=== PATIENT | male | born 1950 | race Caucasian/White ===

== ENCOUNTER 2018-02-23 12:25 | Outpatient (REF) | payer OTHER, SELFPAY ==
[2018-02-23 21:34] LABS: Anion Gap 11.6 mmol/L (3-11); BUN 28 mg/dL (7-18); CO2 24.4 mmol/L (21.0-32.0); CREATININE 1.34 mg/dL (0.70-1.30); Calcium 9.3 mg/dL (8.5-10.1); Chloride 103 mmol/L (98-107); Estimated GFR 52.85 (mL/min/1.73m2); Glucose 272 mg/dL (70-100); Potassium 4.9 mmol/L (3.5-5.1); Sodium 139 mmol/L (136-145)
== END 2018-02-23 12:45 ==
LOC: NCHCN 12:25
PROVIDERS: PCP Nurse Practitioner Family; Visit Provider Nurse Practitioner Family
DX: I10 Essential (primary) hypertension (principal); E11.22 Type 2 diabetes mellitus with diabetic chronic kidney disease; E11.40 Type 2 diabetes mellitus with diabetic neuropathy, unspecified; N18.3 Chronic kidney disease, stage 3 (moderate); M10.9 Gout, unspecified; E66.9 Obesity, unspecified; N40.1 Benign prostatic hyperplasia with lower urinary tract symptoms
CPT/HCPCS: 80048

== ENCOUNTER 2018-03-21 01:46 | Outpatient (CLI) | payer OTHER, SELFPAY ==
--- NOTE | 2018-03-21 11:00 | DIABASSESS_ITS ---
DESCRIPTION/ASSESSMENT: Filemon Velásquez requests a follow up visit to help him control his blood sugars last seen 03/2016. Filemon has an increased A1c 9.8. He also reports chronic renal disease. He is particularly wanting to prevent renal disease from worsening. MEDICATION: Filemon manages his diabetes with Lantus 58units and Humalog with meals at 2 units per 15 grams and insulin correction at 1 unit corrects 25mg/dl above 140mg/dl. He states he takes mealtime insulin always based on blood sugar. He is less specific about adding insulin for carbohydrate. MONITORING: Filemon states he tests his blood sugars before every meal, however his glucometer indicates he is testing once a day and often skips days. That means he is not receiving mealtime insulin most meals. MEALS: Filemon states he eats twice a day with an occasional bedtime snack of quesadilla. He eats out 3 times a week. Breakfast is either eggs and sausage, or grits and sausage. He has meat and vegetables with a starch such as beans. He states he eats no sweets or snack food. INTERVENTION: Medical Nutrition Therapy is offered based on patients interest and assessment of needs: MEALS - review foods he eats that require insulin. Focus on clarifying carbohydrate sources and portions. MONITORING - Discussed monitoring barriers. Filemon acknowledges he may not be as conscientious as he was initially. He agrees to spend the next week documenting blood sugars, insulin dosing and food to assess whether his current insulin dosing scale is effective. MEDICATION: He is given a new copy of his old insulin scale. ACTION PLAN: Filemon will document food, blood sugar and insulin dosing for 1 week. He has a f/u visit 03/28/18 Individual MNT __3__ units billed TIME IN: 1300 OUT: 1350 No DM group education series being offered at this time.
== END 2018-03-21 02:06 ==
PROVIDERS: PCP Nurse Practitioner Family; Visit Provider Dietitian, Registered
DX: E11.9 Type 2 diabetes mellitus without complications (principal); N18.9 Chronic kidney disease, unspecified; Z79.4 Long term (current) use of insulin; Z71.3 Dietary counseling and surveillance
CPT/HCPCS: 97802

== ENCOUNTER 2018-03-28 09:24 | Outpatient (CLI) | payer OTHER, SELFPAY ==
--- NOTE | 2018-03-28 10:00 | DM INPTCON_ITS ---
DESCRIPTION/ASSESSMENT: Follow up visit from Mr. Velásquez who comes with his food record with blood sugars and insulin dosing. Fasting blood sugar 174-235; lunch blood sugar 127-203. This report indicates he eats twice a day. States he sometimes has a bedtime snack, last night he ate white castle sliders at 37grams carbohydrate at bedtime. Breakfast varies from 12 grams carbohydrate to 37 grams; 2nd meal 0-60+ grams. He takes 12 or 16 units Novolog twice daily. INTERVENTION: Given there is no explanation other than occasional undocumented snack for hyperglycemia in the morning, suggest he monitor his blood sugars before bed x 2 days and document snack. He is able to identify carbohydrate sources and he does read the label, however reviewed portion comparison to actual intake. He is motivated to manage his diabetes to prevent kidney problems and is engaged in the conversation. PLAN: He will monitor his blood sugars at bedtime and document all snacks. We will be in touch by telephone on Tuesday.
== END 2018-03-28 09:44 ==
PROVIDERS: PCP Nurse Practitioner Family; Visit Provider Dietitian, Registered
DX: E11.9 Type 2 diabetes mellitus without complications (principal); Z79.4 Long term (current) use of insulin; Z71.3 Dietary counseling and surveillance

== ENCOUNTER 2018-05-22 16:08 | Outpatient (REF) | payer OTHER, SELFPAY | END 2018-05-22 16:28 | LOC: LBN 16:08 | PROVIDERS: PCP Nurse Practitioner Family; Visit Provider Podiatrist | DX: L97.528 Non-pressure chronic ulcer of other part of left foot with other specified severity (principal) | CPT/HCPCS: 87070; 87205 ==

== ENCOUNTER 2018-05-24 01:26 | Outpatient (CLI) | payer OTHER, SELFPAY ==
--- NOTE | 2018-05-24 12:00 | DIABASSESS_ITS ---
DESCRIPTION/ASSESSMENT: Phil Velásquez drops in to follow up regarding his blood sugars. He brings in his glucometer. He reports he is now getting infusion for a toe infection and is scheduled for surgery Tuesday. He is officially seen 05/24/18 during his infusion. We have been following up by telephone. We experimented with decreasing his Lantus dose to see if he is 'overbasalized' causing hyperglycemia in the AM. His blood sugars were higher before supper on the lower Lantus dose. He is back on 58units Lantus taken in the AM. His glucometer readings today are fasting blood sugars 178-264; pre-supper 103-189mg/dl, mostly less than 128mg/dl. He states he tries to eat less than 60 grams carbohydrate at 2 meals with a piece of fruit before bed. His insulin dosing is 4 units for every 15 grams carbohydrate. His insulin correction scale is 1 unit to correct 25mg/dl above 125mg/dl. Had encouraged him to take his blood sugar before bed, or in the night to see if his supper insulin dose is inadequate, or if his basal insulin dose needs adjusting to address fasting hyperglycemia. INTERVENTION: Discussed his basal insulin and whether it is lasting 24 hours. Discussed alternatives including switching Lantus to evening. Suggested Tresiba as a longer lasting basal insulin. In addition, discussed GLP1 inhibitors action and benefits for weight loss, cardiovascular protection and improved A1c. PLAN: Will follow up with Phil tomorrow during his infusion to review his insulin dosing scale. In the meantime, he will switch Lantus to evening by skipping 4/10 Lantus dose and take it at supper. He will correct insulin at supper. He will discuss on with PCP consideration for Tresiba for a longer acting basal insulin to cover more than 24 hours; and/or consideration for GLP1 inhibitor for glycemic improvement if Tresiba is not covered by insurance. He states he has 2 more days of Lantus before needing a refill. Individual DSME/T __0__ units billed TIME IN: 1200 OUT: 1215 No DM group education series being offered at this time.
== END 2018-05-24 01:46 ==
PROVIDERS: PCP Nurse Practitioner Family; Visit Provider Dietitian, Registered
DX: E11.9 Type 2 diabetes mellitus without complications (principal); Z71.3 Dietary counseling and surveillance; Z79.4 Long term (current) use of insulin

== ENCOUNTER 2018-05-25 00:50 | Outpatient (RCR) | payer OTHER, SELFPAY ==
[2018-05-22] MEDS: Normal Saline Flush 10 ML SYR IVP (12:30)
[2018-05-22] MEDS: cefTRIAXone 2 GM/50 ML BAG IVPB (12:35)
[2018-05-23] MEDS: cefTRIAXone 2 GM/50 ML BAG IVPB (11:54)
[2018-05-23] MEDS: Normal Saline Flush 10 ML SYR IVP (11:54)
[2018-05-24] MEDS: cefTRIAXone 2 GM/50 ML BAG IVPB (11:48)
[2018-05-24] MEDS: Normal Saline Flush 10 ML SYR IVP (11:48)
[2018-05-25] MEDS: cefTRIAXone 2 GM/50 ML BAG IVPB (12:30)
[2018-05-25] MEDS: Normal Saline Flush 10 ML SYR IVP (12:36)
== END 2018-06-13 23:59 | disposition home or self-care (01) ==
LOC: INF 00:50
PROVIDERS: PCP Nurse Practitioner Family; Visit Provider Podiatrist
DX: E11.621 Type 2 diabetes mellitus with foot ulcer (principal); L97.526 Non-pressure chronic ulcer of other part of left foot with bone involvement without evidence of necrosis; M86.171 Other acute osteomyelitis, right ankle and foot; Z79.4 Long term (current) use of insulin
CPT/HCPCS: 96365

== ENCOUNTER 2018-05-26 06:54 | Day surgery (SDC) | payer OTHER, SELFPAY ==
[2018-05-26 07:28] VITALS: BP 148/80; PULSE 101; RESP 18; TEMP 36.6; O2SAT 93
[2018-05-26] MEDS: Normal Saline 1,000 ML 80 ML IV (07:54)
[2018-05-26] MEDS: cefTRIAXone 2 GM/50 ML BAG IVPB (08:55)
[2018-05-26] MEDS: Bupivacaine 0.5% Pres-Free 30 ML VIAL (09:10)
[2018-05-26] MEDS: Lidocaine 1% Multi-Dose 50 ML VIAL (09:10)
--- NOTE | 2018-05-26 09:20 | AMP_PTH ---
PATIENT: Phil Velásquez LOC: [facility] U#:[id number] AGE/SX: 67/M ROOM: RE05/26/[address]: Darryl Rawls : 1950 BED: DIS: 05/26/2018 SPEC #: [id number] RECD: 05/26/18 12:39 STATUS: [facility]ANNE REQ #: [id number] MEG: 05/26/18 09:[address]: Darryl Rawls DEPT: Surgical Specimen RECD BY: Lilliana Torres ENTERED: 05/26/18 12:40 SP TYPE: Amputation OTHR DR: Reena Payan Tissues: 1 - AMPUTATION FINGERS/TOES(NOT TRAUMA) Procedures: GROSS AND MICRO LEVEL 4 DECALCIFICATION Comments: [id number]
--- NOTE | 2018-05-26 09:39 | W.PM.DSUDISC ---
Discharge Plan Disposition Patient Disposition: HOME Condition: Good Discharge Details Reason For Visit: amputation 2nd toe,left Attending Provider: Darryl Rawls Primary Care Provider: Reena Payan Home Meds and New Rx's Prescriptions: New ibuprofen 600 mg tablet 600 mg PO QID PRN (Reason: pain) Qty: 40 RF: 0 sulfamethoxazole-trimethoprim [Bactrim DS] 800-160 mg tablet 1 tab PO DAILY Qty: 10 RF: 0 No Action simvastatin 10 MG tablet 10 mg PO DAILY RF: 0 silver sulfadiazine 25 GM cream 1 tub Topical DAILY RF: 0 bacitracin zinc 28.4 GM ointment 15 gm Topical DAILY RF: 0 hydrochlorothiazide 12.5 MG capsule 12.5 mg PO DAILY RF: 0 lisinopril 40 MG tablet 40 mg PO DAILY RF: 0 Lantus Solostar U-100 Insulin 100 UNIT/ML insulin pen 30 unit SQ DAILY RF: 0 Novolin 70/30 U-100 Insulin 100 UNITS/ML suspension 10 units RF: 0 allopurinol 100 mg Tablet 100 mg PO DAILY RF: 0 Discharge Instructions Activity:: Elevate Remove Dressings/Wound Care:: Do Not Remove Shower/Bathe:: Cover Diet:: Normal Diet Discharge Orders Discharge Orders: Discharge Order (Routine); Ordered 05/26/18 Ordered By: Darryl Rawls DS: Diagnosis Discharge Diagnosis (1) Osteomyelitis of ankle and foot: Status: Acute
[2018-05-26 10:05] VITALS: BP 159/78; PULSE 84; RESP 16; TEMP 36.6; O2SAT 95
--- NOTE | 2018-05-26 11:20 | ROE_ITS ---
DATE OF PROCEDURE: May 26, 2018 PREOPERATIVE DIAGNOSIS: Diabetic ulceration with osteomyelitis, left second toe. POSTOPERATIVE DIAGNOSIS: Same. PROCEDURE: Amputation left second toe at the MPJ level. SURGEON: Bbi Cruz.P.M. ANESTHESIA: IV General. ANESTHESIA PROVIDER: Trevor Lucas CRNA OPERATIVE INDICATIONS: 67-year-old male who has a rigidly-contracted second hammertoe; subsequently did a fair amount of walking on a new pair of shoes; developed pain, swelling, odor in his left secon d toe. He presented to the office with the bone sticking out. He was placed on IV antibiotics and a fter several days, brought to the OR for definitive management of this process via amputation of the second toe. Phil understands the permanency of the procedure, as well as the potential for pain, s carring, infection, wound dehiscence, the need for revisional procedures. Informed consent has been obtained. No promises made to the final outcome of surgery. REPORT OF OPERATION: Phil was brought to the operative suite and placed in the supine position. T he left foot was prepped and draped in the usual sterile podiatric fashion. Anesthesia being obtaine d, attention was directed to the left foot, which was exsanguinated, a well-padded ankle tourniquet i nflated 250 mmHg. Attention was directed to the second toe, where two converging, semi-elliptical incisions were placed at the base of the toe. The incisions were made in controlled-depth fashion with hemostasis being a cquired by electrocautery, as needed. The level at the MPJ appeared healthy and clean. He did have some retained pus at the most-distal aspect of the toe, which was covered with a surgical glove. The extensor and flexor tendons were severed. The 15 blade was carried down to bone. The joint capsule was released and the second toe removed from the surgical wound. Evaluation of the wound appears he althy. There was no sign of purulence; tissues looked viable. Copious irrigation was performed. D ue to the recent infection, the pus retained within the toe itself, I put them together very loosely. I did simple, interrupted suture #3-0 Nylon, four sutures in total, which will allow for drainage and/or bleeding, as needed. Xeroform, gauze fluff compression dressings were applied. The tourniqu et was released at ten minutes, vascularity returned to the foot unremarkably. Phil left the OR wi th vital signs stable, vascular status intact, sharp and sponge counts were correct. He will be foll owed by me in the office next week. cc: Reena Payan N.P.
== END 2018-05-26 10:40 | disposition home or self-care (01) ==
PROVIDERS: PCP Nurse Practitioner Family; Visit Provider Podiatrist
PROC: (CPT 28820; principal; 2018-05-26 09:00)
DX: E11.621 Type 2 diabetes mellitus with foot ulcer (principal); L97.526 Non-pressure chronic ulcer of other part of left foot with bone involvement without evidence of necrosis; M86.171 Other acute osteomyelitis, right ankle and foot; Z79.4 Long term (current) use of insulin; E11.42 Type 2 diabetes mellitus with diabetic polyneuropathy; E11.22 Type 2 diabetes mellitus with diabetic chronic kidney disease; N18.3 Chronic kidney disease, stage 3 (moderate); I12.9 Hypertensive chronic kidney disease with stage 1 through stage 4 chronic kidney disease, or unspecified chronic kidney disease
CPT/HCPCS: 28820; 88300; 88305; 87070; 87075; 87205; 88311

== ENCOUNTER 2018-08-24 12:23 | Outpatient (REF) | payer OTHER, SELFPAY ==
[2018-08-24 21:44] LABS: BUN 29 mg/dL (7-18); CREATININE 1.36 mg/dL (0.70-1.30); Calcium 8.2 mg/dL (8.5-10.1); Chloride 108 mmol/L (98-107); Estimated GFR 51.81 (mL/min/1.73m2); Glucose 142 mg/dL (70-100); Potassium 4.8 mmol/L (3.5-5.1); Sodium 144 mmol/L (136-145); Uric Acid 6.6 mg/dL (3.5-7.2)
[2018-08-28 11:14] LABS: PSA, Screening 9.3 ng/ml (0-6.5)
== END 2018-08-24 12:43 ==
LOC: NCHCN 12:23
PROVIDERS: PCP Nurse Practitioner Family; Visit Provider Nurse Practitioner Family
DX: I10 Essential (primary) hypertension (principal); E11.40 Type 2 diabetes mellitus with diabetic neuropathy, unspecified; N18.3 Chronic kidney disease, stage 3 (moderate); E11.42 Type 2 diabetes mellitus with diabetic polyneuropathy; M10.9 Gout, unspecified; R97.20 Elevated prostate specific antigen [PSA]; Z12.5 Encounter for screening for malignant neoplasm of prostate; E66.9 Obesity, unspecified
CPT/HCPCS: 80048; 84153; 84550

== ENCOUNTER 2018-12-28 12:13 | Outpatient (CLI) | payer OTHER, SELFPAY ==
[2019-01-01 12:33] LABS: PSA, Diagnostic 8.6 ng/mL (0.0-6.5)
== END 2018-12-28 12:33 ==
PROVIDERS: PCP Nurse Practitioner Family; Visit Provider Urology
DX: R97.20 Elevated prostate specific antigen [PSA] (principal)
CPT/HCPCS: 36415; 84153

== ENCOUNTER 2019-02-25 13:51 | Inpatient (IN) | payer OTHER, SELFPAY ==
[2019-02-25 14:03] VITALS: BP 165/71; PULSE 104; RESP 16; TEMP 36.2; O2SAT 96
--- NOTE | 2019-02-25 14:27 | ED.GENADUL_ITS ---
Discharge Plan Disposition Patient Disposition: [facility] INPATIENT Condition: Stable Discharge Details Chief Complaint: Cellulitis Clinical Impression: Cellulitis of great toe of left foot, Hyperglycemia Primary Care Provider: Reena Payan ED Provider: Angélica Mullins Home Meds and New Rx's Prescriptions: No Action simvastatin 10 MG tablet 10 mg PO DAILY RF: 0 hydrochlorothiazide 12.5 MG capsule 12.5 mg PO DAILY RF: 0 lisinopril 40 MG tablet 40 mg PO DAILY RF: 0 Lantus Solostar U-100 Insulin 100 UNIT/ML insulin pen 61 unit SQ DAILY RF: 0 insulin lispro [Humalog KwikPen Insulin] 100 unit/mL Insulin Pen See Rx Instructions .ROUTE .COMPLEX RF: 0 allopurinol 100 mg Tablet 100 mg PO DAILY RF: 0 ibuprofen 600 mg tablet 600 mg PO QID PRN (Reason: pain) Qty: 40 RF: 0 Medical Decision Making 1430 -- 68-year-old male with a history of diabetes presents with left great toe infection for the past 2 days. He states the toe was normal to inspection prior to 2 days ago. There is moderate edema and erythema to the the entire left great toe. There is sloughing of the epidermis on the plantar surface revealing smooth erythema below with a possible necrotic center. He is otherwise neurovascularly intact. Concern for osteomyelitis and/or gangrene. Will place an IV, screening labs, fluids, x-ray of left great toe and start vancomycin. Will call Dr. Rawls. Likely will need admission for IV antibiotics. 1500 --Case discussed with Dr. Rawls -will come to evaluate patient. Labs and imaging reviewed. White blood cell count 12. ESR 64. CRP 6.64. Glucose 439. Anion gap 13. Normal bicarb. Left toe x-ray notes soft tissue swelling but no obvious osteomyelitis. Will continue IV fluids for hyperglycemia. 1540 --Dr. Rawls evaluated patient at bedside. He debrided plantar surface of wound with subsequent bleeding of area which is reassuring. Patient offered antibiotics at home or to stay for IV antibiotics the patient would rather stay in the hospital. Dr. Rawls would prefer to start Zosyn. Patient is allergic to penicillin but this was a possible rash as a baby. Will monitor for any adverse reaction. 1555 --discussed with hospitalist -accepts patient for admission. Medical Records Medical records reviewed: Yes I reviewed the patient's medical records. Imaging Data Radiologic Study: Radiologist's impression: XR Left Toe(s) Exam date and time: 02/25/2019 3:07 PM Age: 68 years old Clinical indication: Patient HX: L great toe infection, R/O osteomyelitis TECHNIQUE: Imaging protocol: XR Left toes. Views: Minimum 2 views. COMPARISON: No relevant prior studies available. FINDINGS: Bones/joints: Previous amputation of the 2nd digit at the metatarsophalangeal joint. Degenerative changes at the 1st MTP and interphalangeal joints. Soft tissues: Medial soft tissue swelling at the 1st MTP joint. No definite osseous erosion identified. IMPRESSION: No radiographic evidence of acute osteomyelitis. If there is continued clinical concern, consider MRI or three-phase nuclear medicine bone scan. Lab Data Lab results reviewed: Yes I reviewed the patient's lab results. Labs: 02/25/19 15:55 Toe - Left First Digit Skin Culture - Pending 02/25/19 15:20 Blood Blood Culture - Pending 02/25/19 15:00 Blood Blood Culture - Pending Laboratory Tests Range/Units 02/25/19 02/25/19 02/25/19 15:00 15:00 15:00 WBC (4.4-10.8) k/cumm 12.78 H RBC (4.50-6.00) m/cumm 4.15 L Hgb (13.5-17.5) g/dL 12.8 L Hct (40.0-50.0) % 38.2 L MCV (80-95) fL 92.0 MCH (27.0-33.0) pg 30.8 MCHC (32.0-36.0) g/dL 33.5 RDW (11.8-14.1) % 13.7 Plt Count (130-400) x1000/uL 279 MPV (8.0-11.0) fL 10.3 Immature Gran % % 0.2 Neutrophils % 70.3 Lymphocytes % 18.9 Monocytes % 8.7 Eosinophils % 1.2 Basophils % 0.7 Absolute Neutrophils (1.2-6.7) k/cumm 8.98 H Absolute Lymphocytes (1.2-3.4) k/cumm 2.42 Absolute Monocytes (0.11-0.7) k/cumm 1.11 H Absolute Eosinophils (0.0-0.7) k/cumm 0.15 Absolute Basophils (0.0-0.2) k/cumm 0.09 ESR (1-20) mm/hr 64 H Sodium (136-145) mmol/L 136 Potassium (3.5-5.1) mmol/L 4.9 Chloride (98-107) mmol/L 100 Carbon Dioxide (21.0-32.0) mmol/L 22.7 Anion Gap (3-11) mmol/L 13.3 H BUN (7-18) mg/dL 45 H Creatinine (0.70-1.30) mg/dL 1.64 H Estimated GFR/1.73 m2 (mL/min/1.73m2) 41.74 Glucose (74-106) mg/dL 439 H Lactate (0.6-1.4) mmol/L 1.5 H Calcium (8.5-10.1) mg/dL 9.2 Total Bilirubin (0.2-1.0) mg/dL 0.6 AST (15-37) U/L 14 L ALT (16-63) U/L 27 Alkaline Phosphatase (46-116) U/L 48 C-Reactive Protein (0.0-0.3) mg/dL 6.64 H Total Protein (6.4-8.2) g/dL 7.2 Albumin (3.4-5.0) g/dL 3.3 L HPI General Mode of arrival: ambulatory . Date/Time Provider Initiated Documentation: 02/25/19 14:11 . Limitations to Documentation: no limitations . Information obtained by: patient . History of Present Illness 68 year old M presents to the emergency department with the chief complaint of Left great toe pain, redness and swelling, Patient started experiencing this day(s) (2) and it has been constant. No relieving factors improve symptom(s), No exacer bating factors reported . Patient notes no other symptoms.. Patient did receive the following treatments prior to arrival, none Related Data Home Medications Medication Instructions Recorded Confirmed Lantus Solostar U-100 Insulin 61 unit SQ DAILY 03/18/16 02/25/19 hydrochlorothiazide 12.5 mg PO DAILY 03/18/16 02/25/19 lisinopril 40 mg PO DAILY 03/18/16 02/25/19 simvastatin 10 mg PO DAILY tab-cap 07/30/16 02/25/19 allopurinol 100 mg PO DAILY 05/26/18 02/25/19 ibuprofen 600 mg PO QID PRN #40 tab 05/26/18 02/25/19 insulin lispro [Humalog KwikPen See Rx Instructions .ROUTE .COMPLEX 02/25/19 02/25/19 Insulin] Previous Rx's Medication Instructions Recorded ibuprofen 600 mg PO QID PRN #40 tab 05/26/18 Allergies Allergy/AdvReac Type Severity Reaction Status Date / Time Penicillins Allergy Unknown Rash as Unverified 02/25/19 14:07 baby per patient General Stated Complaint: Cellulitis DENY: 3 Review of Systems All systems reviewed & are unremarkable except as noted in HPI and below Constitutional Constitutional: Reports as per HPI, Denies chills and Denies fever(s) Eyes Eyes: Denies blurry vision ENT Ears, Nose, Mouth, and Throat: Denies dizziness, Denies sore throat and Denies throat swelling Cardiovascular Cardiovascular: Denies chest pain and Denies dyspnea Respiratory Respiratory: Denies cough and Denies dyspnea Gastrointestinal Gastrointestinal: Denies abdominal pain, Denies diarrhea and Denies vomiting Genitourinary Genitourinary: Denies hematuria and Denies dysuria Musculoskeletal Musculoskeletal: Denies back pain and Denies numbness Integumentary/Breasts Skin/Breast: Reports lesions and Denies rash Neurologic Neurologic: Denies dizziness, Denies focal weakness and Denies numbness Allergic/Immunologic Allergic/Immunologic: Denies throat swelling [facility] Medical History BPH (benign prostatic hyperplasia) (Chronic) Cataract (Chronic) Chronic kidney disease, stage 3 Diabetic neuropathy DM (diabetes mellitus) Gout (Chronic) High cholesterol (Chronic) HTN (hypertension) Pseudophakia Substance abuse Surgical History Colonoscopy - IV Sedation (08/20/16) Social History Smoking/Tobacco Use Status: Former Tobacco Use Alcohol Intake: current Alcohol Intake frequency: 0-2 drinks per day Drug use: Daily Substance use type: marijuana Do you feel safe at home: Yes Do you feel safe in your relationship?: Yes Exam Const General: cooperative, healthy appearing and no acute distress [facility] Head: normal to inspection Mouth: oral mucosae normal Eyes General: appearance normal, both eyes and all related structures Neck Neck: normal visual inspection Resp Effort & Inspection: normal respiratory effort and able to speak in complete sentences Cardio Rate: regular rate Skin General skin exam: no rashes or lesions noted Neuro General: alert, awake and oriented x3 Motor: muscle tone normal throughout Extrem Ankle/foot/toe images: 1. Sloughing of epidermis on plantar aspect of left great toe. There is a 2 x 2 centimeter black boggy discoloration in center of this area. Remainder of the area is erythematous, smooth, and likely consistent with cellulitis noted below the epidermis. 2. Erythema and edema noted on dorsal aspect. Other: Left DP/PT pulses intact. Psych Appearance: grossly normal Affect: normal affect Course Vital Signs Vital signs: Vital Signs Temperature 97.2 F L 02/25/19 14:03 Pulse 104 H 02/25/19 14:03 Respiratory Rate 16 02/25/19 14:03 Blood Pressure 165/71 H 02/25/19 14:03 Pulse Oximetry 96 02/25/19 14:03 Temperature 97.2 F L 02/25/19 14:03 Temperature Source Temporal Artery Scan 02/25/19 14:03 Pulse 104 H 02/25/19 14:03 Respiratory Rate 16 02/25/19 14:03 Respiratory Effort 02/25/19 14:14 Blood Pressure 165/71 H 02/25/19 14:03 Blood Pressure Position Supine 02/25/19 14:03 Pulse Oximetry 96 02/25/19 14:03 Oxygen Delivery Method Room Air 02/25/19 14:03 Oxygen Flow Rate 0 02/25/19 14:03 Pain Level 0 02/25/19 14:03
[2019-02-25] MEDS: Normal Saline 500 ML IV ×2 (15:00→16:00)
--- NOTE | 2019-02-25 15:00 | DI.RAD_ITS ---
EXAM: XR TOE LT GREAT INDICATION: L great toe infection, r/o osteomyelitis. COMPARISON: No exams were available for comparison TECHNIQUE: 2D digital imaging was performed. FINDINGS: There are findings of a prior amputation of the 2nd toe at the level of the metatarsophalangeal joint . There are degenerative changes seen at the 1st metatarsophalangeal joint and the interphalangeal j oints of the toes. There is a bunion deformity. No acute fracture or dislocation is seen. No destr uctive or erosive changes are seen to suggest radiographic evidence of osteomyelitis. Vascular calci fications are present. No radiopaque foreign bodies are seen in the soft tissues. IMPRESSION: No radiographic findings to suggest acute osteomyelitis. If there is continued concern, an MRI or 3 phase bone scan may be considered.
[2019-02-25 15:05] LABS: Lactate 1.5 mmol/L (0.6-1.4)
[2019-02-25 15:07] LABS: Abs Immature Grans 0.03 k/cumm (0.0-0.09); Absolute Basophil Count 0.09 k/cumm (0.0-0.2); Absolute Eosinophil Count 0.15 k/cumm (0.0-0.7); Absolute Lymphocyte Count 2.42 k/cumm (1.2-3.4); Absolute Monocyte Count 1.11 k/cumm (0.11-0.7); Absolute Neutrophil Count 8.98 k/cumm (1.2-6.7); Basophils % 0.7; Eosinophils % 1.2; HCT 38.2 % (40.0-50.0); HGB 12.8 g/dL (13.5-17.5); Immature Grans % 0.2 %; Lymphocytes % 18.9; Mean Corp. HGB Concentration 33.5 g/dL (32.0-36.0); Mean Corpuscular Hemoglobin 30.8 pg (27.0-33.0); Mean Platelet Volume 10.3 fL (8.0-11.0); Monocytes % 8.7; Neutrophils % 70.3; Platelet Count 279 x1000/uL (130-400); RBC 4.15 m/cumm (4.50-6.00); RBC Distribution Width 13.7 % (11.8-14.1); White Blood Cell Count 12.78 k/cumm (4.4-10.8)
[2019-02-25] MEDS: Normal Saline Flush 10 ML SYR IVP ×2 (15:18→22:05)
[2019-02-25] MEDS: VANCOMYCIN 1,500 MG in Normal Saline 250 ML 166.6666 MG IVPB (15:23)
[2019-02-25 15:29] LABS: ALT 27 U/L (16-63); AST 14 U/L (15-37); Albumin 3.3 g/dL (3.4-5.0); Alkaline Phosphatase 48 U/L (46-116); Anion Gap 13.3 mmol/L (3-11); BUN 45 mg/dL (7-18); Bilirubin, Total 0.6 mg/dL (0.2-1.0); C-Reactive Protein 6.64 mg/dL (0.0-0.3); CO2 22.7 mmol/L (21.0-32.0); CREATININE 1.64 mg/dL (0.70-1.30); Calcium 9.2 mg/dL (8.5-10.1); Chloride 100 mmol/L (98-107); Estimated GFR 41.74 (mL/min/1.73m2); Glucose 439 mg/dL (74-106); Potassium 4.9 mmol/L (3.5-5.1); Sodium 136 mmol/L (136-145); Total Protein 7.2 g/dL (6.4-8.2)
--- NOTE | 2019-02-25 15:34 | DI.VRAD_ITS ---
PROCEDURE INFORMATION: Exam: XR Left Toe(s) Exam date and time: 02/25/2019 3:07 PM Age: 68 years old Clinical indication: Patient HX: L great toe infection, R/O osteomyelitis TECHNIQUE: Imaging protocol: XR Left toes. Views: Minimum 2 views. COMPARISON: No relevant prior studies available. FINDINGS: Bones/joints: Previous amputation of the 2nd digit at the metatarsophalangeal joint. Degenerative changes at the 1st MTP and interphalangeal joints. Soft tissues: Medial soft tissue swelling at the 1st MTP joint. No definite osseous erosion identified. IMPRESSION: No radiographic evidence of acute osteomyelitis. If there is continued clinical concern, consider MRI or three-phase nuclear medicine bone scan. Dictated and Authenticated by: Rupali Allan MD. Ordering:LUISANA Lindsay MD
[2019-02-25 15:54] LABS: ESR 64 mm/hr (1-20)
--- NOTE | 2019-02-25 16:09 | W.PODCONSULT ---
Date of service: 02/25/19 Time of Service: 16:10 History of Present Illness History of Present Illness Chief Complaint: Necrotic tissue with local cellulitis left hallux Narrative: 68-year-old male well-known to me with increasing redness and erythema developing in the left great toe over the last 48 hours. He denies any traumatic events. He has been wearing his usual shoe gear and did not participate in any different physical activities. He is unaware of how this occurred. He is a type II ocy-[id number] diabetic with peripheral neuropathy. He presents to the emergency department for medical care. [facility] Medical History BPH (benign prostatic hyperplasia) (Chronic) Cataract (Chronic) Chronic kidney disease, stage 3 Diabetic neuropathy DM (diabetes mellitus) Gout (Chronic) High cholesterol (Chronic) HTN (hypertension) Pseudophakia Substance abuse Surgical History Colonoscopy - IV Sedation (08/20/16) Social History Smoking/Tobacco Use Status: Former Tobacco Use Alcohol Intake: current Alcohol Intake frequency: 0-2 drinks per day Drug use: Daily Substance use type: marijuana Do you feel safe at home: Yes Do you feel safe in your relationship?: Yes Exam Narrative Exam Narrative: Phil is seen in room 8 of the emergency department. He is resting comfortably in a stretcher. He recognizes me immediately, he appears to be in his usual state of health aside from his left great toe. Objective: Labs are reviewed and are posted in his medical record of note WBCs 12.78 ESR 64 CRP 6.64 glucose 439 Peripheral pulses are manually palpable at the ankle graded plus 1 out of 4 bilaterally, no peripheral edema or is noted. His calves are soft to palpation.. The left great toe has an Erica encompassing the plantar aspect of the hallux from the IPJ to the dorsal surface of the nail plate with localized erythema and cellulitis extending to the base of the proximal phalanx. A flaccid blister is noted over the lateral side of the great toe and there is a moderate odor detected. Maceration is appreciated affecting the left third toe where he had a silicon cap applied to it but there was no active sign of infection. The remaining exam of the left foot was otherwise grossly benign. He does have decreased sensorium consistent with diabetic neuropathy. Hallux rigidus deformity is noted with a flexion contracture of the IPJ of the great toe which clearly exacerbates pressure at the distal tip of his digit contributing to his current injury. I reviewed the radiographs of his left foot. Soft tissue swelling is identified but no obvious signs of osteomyelitis. Advanced degenerative changes noted at the interphalangeal joint of the hallux and first MPJ. Impressions: Diabetic ulcer affecting the left great toe with cellulitis Plan: With a #10 scalpel and pickup I sharply debrided the eschar and necrotic tissue from the plantar distal lateral and medial aspects of the left great toe. Aerobic culture was obtained from a deep tissue layer after debridement and sent for Gram stain and sensitivities. He had excellent bleeding from the debridement and I am hopeful that the injury will not progress and that the great toe will be salvageable. As I explained to Phil, we will know more over the next 24 to 48 hours. He was in the process of receiving a dose of vancomycin, I am recommending that we admit him for bedrest and IV antibiotics. I am suggesting we start him on Zosyn and watch him closely for the potential of a penicillin reaction. He indicates he has had this label since he was a child but has no recollection of the effects of penicillin. Wound care will be ordered consisting of washing of the wound twice a day with application of Anasept gel and a gauze dressing. He has his own set her surgical shoe which he can use when ambulating to the bathroom. Otherwise he should be primarily in bed with the foot elevated. I will continue to follow him while he remains in house. Results Last Vital Signs Temp 36.2 C L 02/25/19 14:03 Pulse 104 H 02/25/19 14:03 Resp 16 02/25/19 14:03 BP 165/71 H 02/25/19 14:03 Pulse Ox 96 02/25/19 14:03 Labs Result diagrams: 02/25/19 15:00 02/25/19 15:00 Labs: Laboratory Results - last 24 hr 02/25/19 02/25/19 02/25/19 15:00 15:00 15:00 WBC 12.78 H RBC 4.15 L Hgb 12.8 L Hct 38.2 L MCV 92.0 MCH 30.8 MCHC 33.5 RDW 13.7 Plt Count 279 MPV 10.3 Immature Gran % 0.2 Neutrophils % 70.3 Lymphocytes % 18.9 Monocytes % 8.7 Eosinophils % 1.2 Basophils % 0.7 Absolute Neutrophils 8.98 H Absolute Lymphocytes 2.42 Absolute Monocytes 1.11 H Absolute Eosinophils 0.15 Absolute Basophils 0.09 ESR 64 H Sodium 136 Potassium 4.9 Chloride 100 Carbon Dioxide 22.7 Anion Gap 13.3 H BUN 45 H Creatinine 1.64 H Estimated GFR/1.73 m2 41.74 Glucose 439 H Lactate 1.5 H Calcium 9.2 Total Bilirubin 0.6 AST 14 L ALT 27 Alkaline Phosphatase 48 C-Reactive Protein 6.64 H Total Protein 7.2 Albumin 3.3 L
--- NOTE | 2019-02-25 16:57 | HPE_ITS ---
Date of service: 02/25/19 Time of Service: 16:57 Assessment and Plan Assessment and plan (1) Cellulitis in diabetic foot: Status: Acute Assessment and plan: Infected diabetic foot wound related to neuropathy. Patient has a history of similar. He sees Dr. Rawls from podiatry regularly, who has already evaluated and debrided the infected necrotic tissue in the emergency. Case discussed with Dr. Rawls. I agree with pip/tazo to include pseudomonas coverage given DM foot wound. Received a dose of vanco, but not a purlulent infection so I will not continue this. He seems to be tolerating pipe racillin so minor PCN reaction as child likely does not represent true allergy. (2) Diabetic foot ulcer: Status: Acute Assessment and plan: As above, wound care per Dr. Rawls. Has appropriate footware. (3) Chronic kidney disease, stage 3: Status: None Assessment and plan: Creatinine slightly above baseline. Appears adequately hydrated. Will follow. Avoid nephrotoxins. (4) DM (diabetes mellitus): Status: None Assessment and plan: A1c 8.8% in November. Complicated by neuropathy. Will repeat A1c and treat with home basal/bolus insulin. Not out of control but would benefit from improved control. Discussed diet. 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 (5) HTN (hypertension): Status: None Assessment and plan: High on lisinopril/HCTZ. Per PCP plan, add low dose amlodipine. (6) BPH loc w urin obs/LUTS: Status: Acute Assessment and plan: Chornic, monitor for retention. Has plan to f/u with urology as PSA high, consider biopsy (7) DVT prophylaxis: Status: Acute Assessment and plan: LMWH History of Present Illness History of Present Illness Chief Complaint: foot wound Narrative: 68-year-old man with type 2 diabetes on insulin with last A1c 8.8% and peripheral neuropathy who presents after noticing foot wound yesterday and his left great toe. Patient states he does not feel his toes well due to neuropathy, and just noted some skin sloughing off his left great toe in the shower yesterday. He denies pain in the area. He feels otherwise well. Clearly was not getting better, so he came into the emergency room to get it checked out today. He did have the second toe on that foot amputated previously by Dr. rogers, but states that was related to hammertoe rather than infection. He did have a history of great toe infection that was treated in 2017. As above, he is felt otherwise well, denies any fatigue, malaise, fevers, chills, nausea, or vomiting. He does admit his blood sugars have been high in the 2 and 300s recently. Is been considering adding additional medication. He has been using both types of insulin. His blood pressure is also been running high in the clinic, and his primary care was considering adding amlodipine. Review of Systems Narrative: No fever/chill. no weight change. No LINDSAY or vision change. No sore throat or mouth sores No SOB. A little cough. No chest pain or palpitations. no edema No N/V/D/C. Has some chronic LUTS, no change in urination, no dysuria No joint swelling or pain other than in toe No other rashes or open wounds No numbness or weakness All systems reviewed & are unremarkable except as noted in HPI and below [facility] Medical History (Updated 02/25/19 @ 18:00 by Matthew Vilchis) Amputation of toe of left foot (Acute) BPH (benign prostatic hyperplasia) (Chronic) BPH loc w urin obs/LUTS (Acute) Cataract (Chronic) Cellulitis in diabetic foot (Acute) Chronic kidney disease, stage 3 Diabetic foot ulcer (Acute) Diabetic neuropathy DM (diabetes mellitus) Gout (Chronic) High cholesterol (Chronic) HTN (hypertension) Pseudophakia Surgical History Colonoscopy - IV Sedation (08/20/16) Social History (Updated 02/25/19 @ 17:04 by Matthew Vilchis) Smoking/Tobacco Use Status: Former Tobacco Use Alcohol Intake: current Alcohol Intake frequency: 0-2 drinks per day Drug use: Daily Substance use type: marijuana Do you feel safe at home: Yes Do you feel safe in your relationship?: Yes Additional Social history: Lives alone in apartment in [place]. Moved ~2016 from [place] after retiring. Son Filemon Dietz is educator at [employer], lives close with grandkids. 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 Grew up in [place]. Meds Home Medications and Allergies Home Medications Medication Instructions Recorded Confirmed Type Lantus Solostar U-100 Insulin 61 unit SQ DAILY 03/18/16 02/25/19 History hydrochlorothiazide 12.5 mg PO DAILY 03/18/16 02/25/19 History lisinopril 40 mg PO DAILY 03/18/16 02/25/19 History simvastatin 10 mg PO DAILY tab-cap 07/30/16 02/25/19 History allopurinol 100 mg PO DAILY 05/26/18 02/25/19 History ibuprofen 600 mg PO QID PRN #40 tab 05/26/18 02/25/19 Rx insulin lispro [Humalog KwikPen See Rx Instructions .ROUTE .COMPLEX 02/25/19 02/25/19 History Insulin] Allergies Allergy/AdvReac Type Severity Reaction Status Date / Time Penicillins Allergy Unknown Rash as Unverified 02/25/19 14:07 baby per patient Exam Narrative Exam Narrative: GEN: A&O x 3, sitting comfortably, pleasant and cooperative. HEENT: NC/AT. Conj clear, PEERL, EOMI. no icterus. MMM, OP benign. Neck supple. No LAD< nl thyroid LUNGS: CTAB, nl effort CV: RRR, no M/G/R. Pulse 2+ jenn DP ABD: +BS, soft, NT/ND EXT: no cynosis, clubbing, or edema. Left 2nd toe amputated. Clean dressing on left 1st toe (just debrided by Dr. Rawls). No other deformity MSK: No redness or swelling in joints. SKIN: No redness extending proximal from right 1st toe. See EXT. no other rash. NEURO: CN grossly intact. Nl movement 4 ext. No coordination, speech. Able to feel to light touch in toes jenn, but deminished from distal foot to toes PSYCH: normal mood and affect, nl thought process Results Labs Result diagrams: 02/25/19 15:00 02/25/19 15:00 Labs: Laboratory Results - last 24 hr 02/25/19 02/25/19 02/25/19 15:00 15:00 15:00 WBC 12.78 H RBC 4.15 L Hgb 12.8 L Hct 38.2 L MCV 92.0 MCH 30.8 MCHC 33.5 RDW 13.7 Plt Count 279 MPV 10.3 Immature Gran % 0.2 Neutrophils % 70.3 Lymphocytes % 18.9 Monocytes % 8.7 Eosinophils % 1.2 Basophils % 0.7 Absolute Neutrophils 8.98 H Absolute Lymphocytes 2.42 Absolute Monocytes 1.11 H Absolute Eosinophils 0.15 Absolute Basophils 0.09 ESR 64 H Sodium 136 Potassium 4.9 Chloride 100 Carbon Dioxide 22.7 Anion Gap 13.3 H BUN 45 H Creatinine 1.64 H Estimated GFR/1.73 m2 41.74 Glucose 439 H Lactate 1.5 H Calcium 9.2 Total Bilirubin 0.6 AST 14 L ALT 27 Alkaline Phosphatase 48 C-Reactive Protein 6.64 H Total Protein 7.2 Albumin 3.3 L Last Vital Signs Temp 36.2 C L 02/25/19 14:03 Pulse 104 H 02/25/19 14:03 Resp 16 02/25/19 14:03 BP 165/71 H 02/25/19 14:03 Pulse Ox 96 02/25/19 14:03
[2019-02-25] MEDS: PIPERACILLIN/TAZO 3.375 GM in Normal Saline 50 ML IVPB ×2 (17:02→22:04)
[2019-02-25 17:40] VITALS: BP 144/70; PULSE 75; RESP 16; TEMP 36.2; O2SAT 96
[2019-02-25] MEDS: Insulin Aspart 300 UNITS/3 ML PEN SC (18:06)
[2019-02-25 18:08] VITALS: BP 148/78; PULSE 87; RESP 18; TEMP 36; O2SAT 97
[2019-02-25] MEDS: Enoxaparin 40 MG/0.4 ML SYR SC (18:48)
[2019-02-25 23:49] VITALS: BP 152/76; PULSE 75; RESP 18; TEMP 36.8; O2SAT 95
[2019-02-26] MEDS: Normal Saline Flush 10 ML SYR IVP ×3 (04:16→15:53)
[2019-02-26] MEDS: PIPERACILLIN/TAZO 3.375 GM in Normal Saline 50 ML IVPB ×4 (04:16→21:49)
[2019-02-26 07:15] LABS: Abs Immature Grans 0.02 k/cumm (0.0-0.09); Absolute Basophil Count 0.09 k/cumm (0.0-0.2); Absolute Eosinophil Count 0.33 k/cumm (0.0-0.7); Absolute Monocyte Count 0.89 k/cumm (0.11-0.7); Absolute Neutrophil Count 6.12 k/cumm (1.2-6.7); Basophils % 0.9; Eosinophils % 3.3; HCT 37.2 % (40.0-50.0); HGB 12.2 g/dL (13.5-17.5); Immature Grans % 0.2 %; Lymphocytes % 25.9; Mean Corp. HGB Concentration 32.8 g/dL (32.0-36.0); Mean Corpuscular Hemoglobin 30.6 pg (27.0-33.0); Mean Corpuscular Volume 93.2 fL (80-95); Mean Platelet Volume 10.5 fL (8.0-11.0); Monocytes % 8.9; Neutrophils % 60.8; Platelet Count 316 x1000/uL (130-400); RBC 3.99 m/cumm (4.50-6.00); RBC Distribution Width 13.9 % (11.8-14.1); White Blood Cell Count 10.05 k/cumm (4.4-10.8)
[2019-02-26 07:27] LABS: BUN 37 mg/dL (7-18); CREATININE 1.41 mg/dL (0.70-1.30); Calcium 8.7 mg/dL (8.5-10.1); Chloride 102 mmol/L (98-107); Estimated GFR 49.69 (mL/min/1.73m2); Glucose 369 mg/dL (74-106); Potassium 4.6 mmol/L (3.5-5.1); Sodium 136 mmol/L (136-145)
[2019-02-26 07:30] VITALS: BP 135/82; PULSE 76; RESP 19; TEMP 36.6; O2SAT 95
--- NOTE | 2019-02-26 08:16 | PDOC.CMIN ---
- If Service Date Differs Date of service: 02/26/19 Time of Service: 08:16 Care Management Initial Assess REASON FOR HOSPITALIZATION:: Left great toe cellulitis/hyperglycemia. PAST MEDICAL HISTORY/PAST SURGICAL HISTORY:: Medical History: BPH (benign prostatic hyperplasia) (Chronic), Cataract (Chronic), Chronic kidney disease, stage 3, Diabetic neuropathy,. DM (diabetes mellitus), Gout (Chronic), High cholesterol (Chronic),. HTN (hypertension), Pseudophakia, and Substance abuse. Surgical History: Colonoscopy - IV Sedation (08/20/16). PREVIOUS FUNCTIONAL STATUS/SOCIAL/FAMILY SUPPORTS:: Phil lives alone in [facility] in an apartment. 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 Phil drives and is independent with his ADLs at baseline. He has two children: a daughter who lives in [place] and a son who lives nearby in [place], [place]. He additionally has four grandkids, two who live locally and spend a lot of time with him. Phil names his children and grandchildren as family supports. CURRENT FUNCTIONAL STATUS:: Phil is lying in bed watching television when CM comes to meet with him. He is pleasant and easily engages in conversation. He talks about living in [place] and says he enjoys the slower pace of [place]. CM will continue to follow. ADVANCE DIRECTIVES:: None on file. Has patient been provided with information about the portal?: Yes Did the patient sign up for the portal?: Yes CODE STATUS:: Full Code INSURANCE COVERAGE / FINANCIAL ISSUES:: [facility] CURRENT HOME/COMMUNITY SERVICES/EQUIPMENT:: No home or community services. Phil states he has a cane at home but does not use it. PRIMARY CARE PHYSICIAN:: HEMANT Frazier ([facility]) POTENTIAL DISCHARGE NEEDS:: Follow-up appointment with primary care physician, with Dr. Rawls, saddle and side wire stitcher, and with urology. PATIENT/FAMILY EDUCATION NEEDS:: Discharge plan, limitations, follow-up plan of care, including Ask Me Three and self-management. ANTICIPATED BARRIERS TO DISCHARGE:: None. TRANSPORTATION:: Phil will drive himself home as his car is in the hospital's parking lot. PLAN:: Phil will be discharged home when medically cleared by provider. Anticipate no new services needed at time of discharge. CM will continue to follow.
[2019-02-26] MEDS: hydroCHLOROthiazide 12.5 MG TAB PO (08:17)
[2019-02-26] MEDS: Allopurinol 100 MG TAB PO (08:17)
[2019-02-26] MEDS: amLODIPine 2.5 MG TAB PO (08:17)
[2019-02-26] MEDS: Lisinopril 20 MG TAB 40 MG PO (08:17)
[2019-02-26] MEDS: Insulin Aspart 300 UNITS/3 ML PEN SC ×3 (08:18→16:57)
[2019-02-26] MEDS: Insulin Glargine 300 UNITS/3 ML PEN 60 UNITS SC (08:18)
[2019-02-26] MEDS: Insulin Aspart 300 UNITS/3 ML PEN 8 UNITS SC ×3 (08:19→16:57)
--- NOTE | 2019-02-26 09:33 | PHARADMIT ---
Addendum entered by Lali Gee 02/27/19 16:22: Pharmacy Note Subjective improving, afebrile Objective HR-101 other VS okay SCr-1.7(up) BG-298 Assessment zosyn changed to augmentin (day 3 abx starts this evening) Plan possible discharge tomorrow if pt continues to improve Original Note: Admission Pharmacy Clinical Review left great toe cellulitis/hyperglycemia Code Status Full Code Current Weight 102.1 kg Renally Cleared and Narrow Therapeutic Index Meds Crcl ~55 mL/min current meds okay QTc Value / Action Taken none BP Control, Fever BP 135/82 afebrile Electrolytes reviewed within normal limits DVT Prophylaxis enoxaparin Opiate Usage / Scheduled Bowel Regimen Ordered no/prn Plt/SCr for Heparin / Enoxaparin plt 316 SCr 1.41 INR for Warfarin n/a H/H stable, WBC/Bands h/h 12.2/37.2 WBC 10.05 Antibiotic appropriateness rajat NELSON wanted pseudomonas coverage as DM foot wound Cultures and Sensitivities blood and skin cultures pending Surgical ABX d/c within 24 hr n/a DM control / Insulin Dosing BG 369 scheduled aspart and glargine plus sliding scale aspart Heart Failure (Check EF%) (CALEB's, B-Block, Diuretics) amlodipine, HCTZ, lisinopril IV to PO Switch n/a Home Meds Reviewed lisinopril may enhance the potential for allergic or hypersensitivity reactions to allopurinol; looks like pt has been on both long enough this shouldn't be a concern Home Meds Not Ordered ibuprofen (PRN), insulin lispro (has aspart ordered) Comments Curly debrided wound in ED MD thinks pt may benefit from GLP-1agonist; no order for one
--- NOTE | 2019-02-26 11:34 | W.NUTCONSULT ---
Date of service: 02/26/19 Time of Service: 11:37 Nutritional Consult ASSESSMENT: 68 year old male admitted with cellulitis in diabetic foot and foot ulcer. PMH: IDDM, CKD 3, HTN. BMI indicates overweight status. DM consult received by CDE as blood sugars poorly controlled with recent A1C 8.8%. Following Diabetic Diet with adequate intake per nursing. At high nutritional risk and potential for poor wound healing in view of elevated blood sugars and diabetic foot ulcer. CDE to follow up and set up OP diabetes counseling for optimal blood sugar control MONITORING AND EVALUATION: blood sugars, weight and po intake Time Spent in Nutritional Counseling and Treatment: 0 time spent face to face
[2019-02-26 12:32] LABS: Glucose 405 mg/dL (74-106)
--- NOTE | 2019-02-26 14:07 | CHAPLAIN ---
Phil was resting in bed when I visited. He did expect to be admitted when he went to the ED yesterday, so he said he wasn't prepared to stay, but he is comfortable. He expects his daughter in law will be into visit later. 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 He attends an informal weekly men's luncheon gathering.
--- NOTE | 2019-02-26 15:48 | W.PM.PROGNOT ---
Date of Service Date of service: 02/26/19 Time of Service: 15:48 Assessment and Plan Assessment and plan (1) Cellulitis in diabetic foot: Status: Acute Assessment and plan: Infected diabetic foot wound related to neuropathy. Patient has a history of similar. Status post debridement by Dr. Rawls in the emergency room on day of admission yesterday. We will continue Zosyn, day #2. (2) Diabetic foot ulcer: Status: Acute Assessment and plan: As above, wound care per Dr. Rawls. Has appropriate footware. (3) Chronic kidney disease, stage 3: Status: None Assessment and plan: Creatinine slightly improved and is now at baseline GFR around 45-50. Will follow. Avoid nephrotoxins. (4) DM (diabetes mellitus): Status: None Assessment and plan: A1c 8.8% in November. Complicated by neuropathy. Repeat A1c and treat with home basal/bolus insulin. Blood sugars all high including fasting since admission likely related to acute infection. Will increase bolus insulin and split into 2 doses to improve absorption. Increase to moderate dose sliding scale on top of his scheduled bolus rapid insulin. Diabetic education ordered. Borderline GFR, will avoid metformin. 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 We will start with sitagliptin at 50mg for now, can discuss replacing with something like Trulicity with primary on follow-up which would be more potent and have benefit of weight loss. (5) HTN (hypertension): Status: None Assessment and plan: High on lisinopril/HCTZ. Now improving with addition of low dose amlodipine. (6) BPH loc w urin obs/LUTS: Status: Acute Assessment and plan: Chornic, monitor for retention. Has plan to f/u with urology as PSA high, consider biopsy (7) DVT prophylaxis: Status: Acute Assessment and plan: LMWH Subjective Subjective Patient reports: no new complaints, tolerating liquids well, tolerating a regular diet and voiding w/o difficulty; denies diarrhea, nausea, vomiting, shortness of breath and fever Interval history since last seen: 24 hr: No events No pain. He has not noticed increased redness or swelling. He is eating and drinking well. He is concerned about his high sugars. Exam Narrative Exam Narrative: GEN: A&O x 3, sitting comfortably, pleasant and cooperative. HEENT: no icterus. MMM. LUNGS: CTAB, nl effort CV: RRR, no M/G/R. Pulse 2+ jenn DP EXT/SKIN: no cynosis, clubbing, or edema. Left 2nd toe amputated. Dressing on left 1st toe crusted to wound with dried blood. No purulent drainage. No redness spreading proximally from toe. No tenderness. No other rash. MSK: No redness or swelling in joints. No other deformity. Objective Objective Clinical Data: Abnormal lab results 02/25/19 02/26/19 02/26/19 Range/Units 15:00 06:40 06:40 RBC 3.99 L (4.50-6.00) m/cumm Hgb 12.2 L (13.5-17.5) g/dL Hct 37.2 L (40.0-50.0) % Absolute Monocytes 0.89 H (0.11-0.7) k/cumm ESR 64 H (1-20) mm/hr BUN 37 H (7-18) mg/dL Creatinine 1.41 H (0.70-1.30) mg/dL Glucose 369 H (74-106) mg/dL 02/26/19 Range/Units 12:20 RBC (4.50-6.00) m/cumm Hgb (13.5-17.5) g/dL Hct (40.0-50.0) % Absolute Monocytes (0.11-0.7) k/cumm ESR (1-20) mm/hr BUN (7-18) mg/dL Creatinine (0.70-1.30) mg/dL Glucose 405 H (74-106) mg/dL Vital Signs Temperature 36.6 C 02/26/19 07:30 Temperature Source Tympanic 02/26/19 07:30 Pulse 76 02/26/19 07:30 Pulse Rhythm Regular 02/26/19 10:11 Respiratory Rate 19 02/26/19 07:30 Respiratory Effort 02/26/19 10:11 Respiratory Depth Normal 02/26/19 10:11 Respiratory Pattern Normal 02/26/19 10:11 Blood Pressure 135/82 02/26/19 07:30 Blood Pressure Position Supine 02/25/19 14:03 Pulse Oximetry 95 02/26/19 07:30 Oxygen Delivery Method Room Air 02/26/19 07:30 Oxygen Flow Rate 0 02/26/19 07:30 Pain Level 0 02/26/19 07:30 Intake & Output 02/25/19 02/26/19 02/26/19 23:59 11:59 23:59 Intake Total 1350 / 1350 730 / 780 50 / 780 Balance 1350 / 1350 730 / 780 50 / 780 Weight 103.7 kg 102.1 kg Intake: IV 1350 / 1350 50 / 100 50 / 100 Oral 680 / 680 Other: Urine Appearance Clear Comment void x 1 in br and flushed Voiding Methods Toilet Toilet Laboratory Results WBC 10.05 k/cumm (4.4-10.8) 02/26/19 06:40 RBC 3.99 m/cumm (4.50-6.00) L 02/26/19 06:40 Hgb 12.2 g/dL (13.5-17.5) L 02/26/19 06:40 Hct 37.2 % (40.0-50.0) L 02/26/19 06:40 MCV 93.2 fL (80-95) 02/26/19 06:40 MCH 30.6 pg (27.0-33.0) 02/26/19 06:40 MCHC 32.8 g/dL (32.0-36.0) 02/26/19 06:40 RDW 13.9 % (11.8-14.1) 02/26/19 06:40 Plt Count 316 x1000/uL (130-400) 02/26/19 06:40 MPV 10.5 fL (8.0-11.0) 02/26/19 06:40 Immature Gran % 0.2 % 02/26/19 06:40 Neutrophils % 60.8 02/26/19 06:40 Lymphocytes % 25.9 02/26/19 06:40 Monocytes % 8.9 02/26/19 06:40 Eosinophils % 3.3 02/26/19 06:40 Basophils % 0.9 02/26/19 06:40 Absolute Neutrophils 6.12 k/cumm (1.2-6.7) 02/26/19 06:40 Absolute Lymphocytes 2.60 k/cumm (1.2-3.4) 02/26/19 06:40 Absolute Monocytes 0.89 k/cumm (0.11-0.7) H 02/26/19 06:40 Absolute Eosinophils 0.33 k/cumm (0.0-0.7) 02/26/19 06:40 Absolute Basophils 0.09 k/cumm (0.0-0.2) 02/26/19 06:40 ESR 64 mm/hr (1-20) H 02/25/19 15:00 Sodium 136 mmol/L (136-145) 02/26/19 06:40 Potassium 4.6 mmol/L (3.5-5.1) 02/26/19 06:40 Chloride 102 mmol/L (98-107) 02/26/19 06:40 Carbon Dioxide 23.0 mmol/L (21.0-32.0) 02/26/19 06:40 Anion Gap 11.0 mmol/L (3-11) 02/26/19 06:40 BUN 37 mg/dL (7-18) H 02/26/19 06:40 Creatinine 1.41 mg/dL (0.70-1.30) H 02/26/19 06:40 Estimated GFR/1.73 m2 49.69 (mL/min/1.73m2) 02/26/19 06:40 Glucose 405 mg/dL (74-106) H 02/26/19 12:20 Lactate 1.5 mmol/L (0.6-1.4) H 02/25/19 15:00 Calcium 8.7 mg/dL (8.5-10.1) 02/26/19 06:40 Total Bilirubin 0.6 mg/dL (0.2-1.0) 02/25/19 15:00 AST 14 U/L (15-37) L 02/25/19 15:00 ALT 27 U/L (16-63) 02/25/19 15:00 Alkaline Phosphatase 48 U/L (46-116) 02/25/19 15:00 C-Reactive Protein 6.64 mg/dL (0.0-0.3) H 02/25/19 15:00 Total Protein 7.2 g/dL (6.4-8.2) 02/25/19 15:00 Albumin 3.3 g/dL (3.4-5.0) L 02/25/19 15:00
[2019-02-26 16:13] VITALS: BP 126/72; PULSE 79; RESP 16; TEMP 36.5; O2SAT 94
[2019-02-26] MEDS: Enoxaparin 40 MG/0.4 ML SYR SC (16:57)
--- NOTE | 2019-02-26 19:03 | PGE_ITS ---
Date of Service Date of service: 02/26/19 Time of Service: 19:03 Subjective Subjective Patient reports: no new complaints Interval history since last seen: Phil is seen at bedside resting comfortably. He denies any fevers, chills or feelings of malaise. He is tolerating Zosyn without allergic reaction. Exam Narrative Exam Narrative: Vital signs are stable with a BP 126/72 pulse 79 respirations 16 O2 sat at room air is 94% temp 36.5. Dressings are removed from the left foot. Eschar is appreciated affecting the plantar aspect of the left great toe with the fat layer exposed. The cellulitis which was towards the base of the proximal phalanx is now contained to the distal phalanx. No odor or ney purulence is noted. The left third toe which looked macerated yesterday shows a blister formation at the tip and plantar aspect of the toe with loosening of the nail plate with localized erythema n oted. Microbiology from the culture I obtained in the emergency department shows normal skin joel, blood cultures are negative at 24 hours His sugars continue to be high and adjustments to his insulin and insulin-like products noted Impressions: Necrotic ulcer plantar distal aspect left hallux Partial thickness wound left third toe Plan: With a #10 scalpel and pickup I debrided additional tissue, partial- thickness from the left great toe. Unfortunately the central portion of the eschar did not bleed. The medial and lateral aspects of the wound looked viable with capillary fill physiologic. Left third toe, I removed partial a thickness blister and avulsed the nail plate. The deep tissues appear red and granular. Good capillary return to the digit. No signs of sepsis. I will switch the topical agent of the left hallux to collagenase Santyl for chemical debridement, Anasept to the left third toe. Continue Zosyn at this time as he is allergic to penicillin by history and ancef could be problmatic. I will continue to follow, I will discuss the case with the hospitalist Objective Objective Clinical Data: Abnormal lab results 02/26/19 02/26/19 02/26/19 Range/Units 06:40 06:40 12:20 RBC 3.99 L (4.50-6.00) m/cumm Hgb 12.2 L (13.5-17.5) g/dL Hct 37.2 L (40.0-50.0) % Absolute Monocytes 0.89 H (0.11-0.7) k/cumm BUN 37 H (7-18) mg/dL Creatinine 1.41 H (0.70-1.30) mg/dL Glucose 369 H 405 H (74-106) mg/dL Vital Signs Temperature 36.5 C 02/26/19 16:13 Temperature Source Tympanic 02/26/19 16:13 Pulse 79 02/26/19 16:13 Pulse Rhythm Regular 02/26/19 18:05 Respiratory Rate 16 02/26/19 16:13 Respiratory Effort 02/26/19 18:05 Respiratory Depth Normal 02/26/19 18:05 Respiratory Pattern Normal 02/26/19 18:05 Blood Pressure 126/72 02/26/19 16:13 Blood Pressure Position Supine 02/25/19 14:03 Pulse Oximetry 94 L 02/26/19 16:13 Oxygen Delivery Method Room Air 02/26/19 16:13 Oxygen Flow Rate 0 02/26/19 16:13 Pain Level 0 02/26/19 07:30 Intake & Output 02/26/19 02/26/19 02/27/19 06:59 18:59 06:59 Intake Total 50 / 1350 830 / 830 Balance 50 / 1350 830 / 830 Weight 102.1 kg Intake: IV 50 / 1350 150 / 150 Oral 680 / 680 Other: Urine Color Yellow Urine Appearance Clear Comment void x 1 in br and flushed Voiding Methods Toilet Toilet Laboratory Results WBC 10.05 k/cumm (4.4-10.8) 02/26/19 06:40 RBC 3.99 m/cumm (4.50-6.00) L 02/26/19 06:40 Hgb 12.2 g/dL (13.5-17.5) L 02/26/19 06:40 Hct 37.2 % (40.0-50.0) L 02/26/19 06:40 MCV 93.2 fL (80-95) 02/26/19 06:40 MCH 30.6 pg (27.0-33.0) 02/26/19 06:40 MCHC 32.8 g/dL (32.0-36.0) 02/26/19 06:40 RDW 13.9 % (11.8-14.1) 02/26/19 06:40 Plt Count 316 x1000/uL (130-400) 02/26/19 06:40 MPV 10.5 fL (8.0-11.0) 02/26/19 06:40 Immature Gran % 0.2 % 02/26/19 06:40 Neutrophils % 60.8 02/26/19 06:40 Lymphocytes % 25.9 02/26/19 06:40 Monocytes % 8.9 02/26/19 06:40 Eosinophils % 3.3 02/26/19 06:40 Basophils % 0.9 02/26/19 06:40 Absolute Neutrophils 6.12 k/cumm (1.2-6.7) 02/26/19 06:40 Absolute Lymphocytes 2.60 k/cumm (1.2-3.4) 02/26/19 06:40 Absolute Monocytes 0.89 k/cumm (0.11-0.7) H 02/26/19 06:40 Absolute Eosinophils 0.33 k/cumm (0.0-0.7) 02/26/19 06:40 Absolute Basophils 0.09 k/cumm (0.0-0.2) 02/26/19 06:40 ESR 64 mm/hr (1-20) H 02/25/19 15:00 Sodium 136 mmol/L (136-145) 02/26/19 06:40 Potassium 4.6 mmol/L (3.5-5.1) 02/26/19 06:40 Chloride 102 mmol/L (98-107) 02/26/19 06:40 Carbon Dioxide 23.0 mmol/L (21.0-32.0) 02/26/19 06:40 Anion Gap 11.0 mmol/L (3-11) 02/26/19 06:40 BUN 37 mg/dL (7-18) H 02/26/19 06:40 Creatinine 1.41 mg/dL (0.70-1.30) H 02/26/19 06:40 Estimated GFR/1.73 m2 49.69 (mL/min/1.73m2) 02/26/19 06:40 Glucose 405 mg/dL (74-106) H 02/26/19 12:20 Lactate 1.5 mmol/L (0.6-1.4) H 02/25/19 15:00 Calcium 8.7 mg/dL (8.5-10.1) 02/26/19 06:40 Total Bilirubin 0.6 mg/dL (0.2-1.0) 02/25/19 15:00 AST 14 U/L (15-37) L 02/25/19 15:00 ALT 27 U/L (16-63) 02/25/19 15:00 Alkaline Phosphatase 48 U/L (46-116) 02/25/19 15:00 C-Reactive Protein 6.64 mg/dL (0.0-0.3) H 02/25/19 15:00 Total Protein 7.2 g/dL (6.4-8.2) 02/25/19 15:00 Albumin 3.3 g/dL (3.4-5.0) L 02/25/19 15:00
[2019-02-26] MEDS: Insulin Glargine 300 UNITS/3 ML PEN 10 UNITS SC (21:49)
[2019-02-26] MEDS: Simvastatin 10 MG TAB PO (21:58)
[2019-02-27 00:27] VITALS: BP 123/76; PULSE 79; RESP 16; TEMP 36.8; O2SAT 96
[2019-02-27] MEDS: PIPERACILLIN/TAZO 3.375 GM in Normal Saline 50 ML IVPB (03:41)
[2019-02-27 07:54] VITALS: BP 108/69; PULSE 77; RESP 18; TEMP 37.2; O2SAT 95
[2019-02-27] MEDS: Lisinopril 20 MG TAB 40 MG PO (08:37)
[2019-02-27] MEDS: hydroCHLOROthiazide 12.5 MG TAB PO (08:37)
[2019-02-27] MEDS: Allopurinol 100 MG TAB PO (08:37)
[2019-02-27] MEDS: amLODIPine 2.5 MG TAB PO (08:38)
[2019-02-27] MEDS: Insulin Aspart 300 UNITS/3 ML PEN 8 UNITS SC ×3 (08:41→16:32)
[2019-02-27] MEDS: Insulin Glargine 300 UNITS/3 ML PEN 35 UNITS SC ×2 (08:43→21:05)
[2019-02-27] MEDS: Insulin Aspart 300 UNITS/3 ML PEN SC ×3 (08:46→16:31)
[2019-02-27] MEDS: Collagenase 30 GM TUBE TP ×2 (09:00→21:04)
[2019-02-27] MEDS: Amoxicillin 875/Clav. 125 TAB PO ×2 (10:03→21:04)
[2019-02-27 12:06] LABS: Abs Immature Grans 0.03 k/cumm (0.0-0.09); Absolute Basophil Count 0.09 k/cumm (0.0-0.2); Absolute Eosinophil Count 0.34 k/cumm (0.0-0.7); Absolute Lymphocyte Count 2.96 k/cumm (1.2-3.4); Absolute Monocyte Count 0.91 k/cumm (0.11-0.7); Absolute Neutrophil Count 6.04 k/cumm (1.2-6.7); Basophils % 0.9; Eosinophils % 3.3; HGB 12.7 g/dL (13.5-17.5); Immature Grans % 0.3 %; Lymphocytes % 28.5; Mean Corp. HGB Concentration 32.6 g/dL (32.0-36.0); Mean Corpuscular Hemoglobin 30.4 pg (27.0-33.0); Mean Corpuscular Volume 93.3 fL (80-95); Mean Platelet Volume 10.5 fL (8.0-11.0); Monocytes % 8.8; Neutrophils % 58.2; Platelet Count 337 x1000/uL (130-400); RBC 4.18 m/cumm (4.50-6.00); RBC Distribution Width 13.8 % (11.8-14.1); White Blood Cell Count 10.37 k/cumm (4.4-10.8)
[2019-02-27 12:10] LABS: Anion Gap 8.6 mmol/L (3-11); BUN 39 mg/dL (7-18); CO2 27.4 mmol/L (21.0-32.0); Calcium 8.9 mg/dL (8.5-10.1); Chloride 103 mmol/L (98-107); Estimated GFR 40.04 (mL/min/1.73m2); Glucose 298 mg/dL (74-106); Potassium 4.2 mmol/L (3.5-5.1); Sodium 139 mmol/L (136-145)
--- NOTE | 2019-02-27 12:24 | W.PM.PROGNOT ---
Date of Service Date of service: 02/27/19 Time of Service: 12:24 Subjective Subjective Patient reports: no new complaints and feels better Interval history since last seen: Phil is seen in his room he is up sitting at the edge of his bed eating lunch. He states he is feeling really good and would like to go home tomorrow if possible. Exam Narrative Exam Narrative: Subjective: He is doing well overall he is looking forward to going home in the near future. Objective: Vitals look good with BP 108/69 pulse 77 respiration 18 temp 37.2 O2 sat room air 95% WBCs have normalized to 10.37, BUN 39 creatinine 1.7 glucose is down to 298 from the low 400's Microbiology culture reveals normal joel he has tolerated Zosyn which was discontinued and he is now on p.o. Augmentin. He has had a single dose so far with no, signs of allergic reaction. Assessment: Diabetic ulcer left first and third toes as above Plan: Continue with current wound care consisting of Santyl to the left great toe, Anasept gel to the third digit every 12 hours. Recommend that we continue with the Augmentin for 10 days. I would also like to see him in a below-knee Aircast which will help to decrease pressures across the forefoot which will allow him to ambulate without impeding wound healing. If he continues to look good when I look at him tomorrow morning he should be able to get discharged home thereafter And I will continue to follow him in the office. I did discuss the case with Tayler Mclean NP hospitalist Objective Objective Clinical Data: Abnormal lab results 02/26/19 02/27/19 02/27/19 Range/Units 12:20 11:45 11:45 RBC 4.18 L (4.50-6.00) m/cumm Hgb 12.7 L (13.5-17.5) g/dL Hct 39.0 L (40.0-50.0) % Absolute Monocytes 0.91 H (0.11-0.7) k/cumm BUN 39 H (7-18) mg/dL Creatinine 1.70 H (0.70-1.30) mg/dL Glucose 405 H 298 H D (74-106) mg/dL Vital Signs Temperature 37.2 C 02/27/19 07:54 Temperature Source Tympanic 02/27/19 07:54 Pulse 77 02/27/19 07:54 Pulse Rhythm Regular 02/27/19 09:30 Respiratory Rate 18 02/27/19 07:54 Respiratory Effort 02/27/19 09:30 Respiratory Depth Normal 02/27/19 09:30 Respiratory Pattern Normal 02/27/19 09:30 Blood Pressure 108/69 02/27/19 07:54 Blood Pressure Position Supine 02/25/19 14:03 Pulse Oximetry 95 02/27/19 07:54 Oxygen Delivery Method Room Air 02/27/19 07:54 Oxygen Flow Rate 0 02/27/19 07:54 Pain Level 0 02/27/19 07:54 Intake & Output 02/26/19 02/27/19 02/27/19 18:59 06:59 18:59 Intake Total 830 / 940 110 / 940 490 / 490 Balance 830 / 940 110 / 940 490 / 490 Weight 102.1 kg 102.6 kg Intake: IV 150 / 260 110 / 260 Oral 680 / 680 490 / 490 Other: Urine Color Yellow Voiding Methods Toilet Laboratory Results WBC 10.37 k/cumm (4.4-10.8) 02/27/19 11:45 RBC 4.18 m/cumm (4.50-6.00) L 02/27/19 11:45 Hgb 12.7 g/dL (13.5-17.5) L 02/27/19 11:45 Hct 39.0 % (40.0-50.0) L 02/27/19 11:45 MCV 93.3 fL (80-95) 02/27/19 11:45 MCH 30.4 pg (27.0-33.0) 02/27/19 11:45 MCHC 32.6 g/dL (32.0-36.0) 02/27/19 11:45 RDW 13.8 % (11.8-14.1) 02/27/19 11:45 Plt Count 337 x1000/uL (130-400) 02/27/19 11:45 MPV 10.5 fL (8.0-11.0) 02/27/19 11:45 Immature Gran % 0.3 % 02/27/19 11:45 Neutrophils % 58.2 02/27/19 11:45 Lymphocytes % 28.5 02/27/19 11:45 Monocytes % 8.8 02/27/19 11:45 Eosinophils % 3.3 02/27/19 11:45 Basophils % 0.9 02/27/19 11:45 Absolute Neutrophils 6.04 k/cumm (1.2-6.7) 02/27/19 11:45 Absolute Lymphocytes 2.96 k/cumm (1.2-3.4) 02/27/19 11:45 Absolute Monocytes 0.91 k/cumm (0.11-0.7) H 02/27/19 11:45 Absolute Eosinophils 0.34 k/cumm (0.0-0.7) 02/27/19 11:45 Absolute Basophils 0.09 k/cumm (0.0-0.2) 02/27/19 11:45 ESR 64 mm/hr (1-20) H 02/25/19 15:00 Sodium 139 mmol/L (136-145) 02/27/19 11:45 Potassium 4.2 mmol/L (3.5-5.1) 02/27/19 11:45 Chloride 103 mmol/L (98-107) 02/27/19 11:45 Carbon Dioxide 27.4 mmol/L (21.0-32.0) 02/27/19 11:45 Anion Gap 8.6 mmol/L (3-11) 02/27/19 11:45 BUN 39 mg/dL (7-18) H 02/27/19 11:45 Creatinine 1.70 mg/dL (0.70-1.30) H 02/27/19 11:45 Estimated GFR/1.73 m2 40.04 (mL/min/1.73m2) 02/27/19 11:45 Glucose 298 mg/dL (74-106) H D 02/27/19 11:45 Lactate 1.5 mmol/L (0.6-1.4) H 02/25/19 15:00 Calcium 8.9 mg/dL (8.5-10.1) 02/27/19 11:45 Total Bilirubin 0.6 mg/dL (0.2-1.0) 02/25/19 15:00 AST 14 U/L (15-37) L 02/25/19 15:00 ALT 27 U/L (16-63) 02/25/19 15:00 Alkaline Phosphatase 48 U/L (46-116) 02/25/19 15:00 C-Reactive Protein 6.64 mg/dL (0.0-0.3) H 02/25/19 15:00 Total Protein 7.2 g/dL (6.4-8.2) 02/25/19 15:00 Albumin 3.3 g/dL (3.4-5.0) L 02/25/19 15:00
--- NOTE | 2019-02-27 14:31 | W.INDIABCONS ---
Date of service: 02/27/19 Time of Service: 14:31 Diabetes Inpatient Consult DESCRIPTION/ASSESSMENT: Appreciate diabetes consult for mr. Velásquez who is hospitalized with a toe infection and diabetes. A1c 8.8. BMI 29 He is know to outpatient diabetes self management. At home he was having difficulty managing blood sugars over the past month and has been using ~40u Humalog per meal in addition to his 61u Lantus once a day. Prior to that he was using an insulin correction with insulin for carbohydrate imbedded in the correction scale. He is eating 50+ grams carbohydrate at a meal. Filemon states he has a pair of boots that are too tight and this appears to be causing his toe infection. INTERVENTION: Discussed blood sugar management to help him with healing infections and he is aware of this. Suggest addition of mealtime insulin at 1 unit for 5 grams carbohydrate and resistant insulin correction during this hospitalization. PLAN: Will follow blood sugars. Suggest addition of insulin for carbohydrate and maximum insulin correction with meals as above. Time Spent in Nutritional Counseling and Treatment: 15 minutes face to face
--- NOTE | 2019-02-27 15:34 | W.PM.PROGNOT ---
Date of Service Date of service: 02/27/19 Time of Service: 11:15 Assessment and Plan Assessment and plan (1) Cellulitis in diabetic foot: Status: Acute Assessment and plan: No fevers, white count normalized and stable. blood cultures negative and wound cultures show normal skin joel. Down step from zosyn to augmentin day 3/7-10 days. was debrided by Dr Rawls on admission who is following. continue dressing changes as prescribed. will f/u outpatient in his office. will need CAM walker for discharge to use while ambulating. (2) Chronic kidney disease, stage 3: Status: None Assessment and plan: Creatinine increased today to 1.7 from 1.4 with baseline 1.3-1.6. Will continue to follow. Avoid nephrotoxin drugs, renal dose meds. encourage adequate po intake. (3) DM (diabetes mellitus): Status: None Assessment and plan: A1c 8.8% in November. Complicated by neuropathy. Blood sugars all high including fasting since admission likely related to acute infection. changes since admission include increase bolus insulin and split into 2 doses to improve absorption (currently 35 units bid). continue diabetic diet and sliding scale coverage with moderate dose sliding scale coverage. Diabetic education ordered. Borderline GFR, so metformin avoided. was started on sitagliptin at 50mg for now, can discuss replacing with something like Trulicity with primary on follow-up which would be more potent and have benefit of weight loss. (4) HTN (hypertension): Status: None Assessment and plan: blood pressures have been stable, continue home medications and monitor. (5) BPH loc w urin obs/LUTS: Status: Acute Assessment and plan: voiding well, continue to monitor for retention. Has plan to f/u with urology as PSA high, consider biopsy (6) DVT prophylaxis: Status: Acute Assessment and plan: continue lovenox daily. (7) Discharge planning issues: Status: Acute Assessment and plan: plan to discharge to home with no services tomorrow if remains stable. Subjective Subjective Patient reports: no new complaints and feels better Interval history since last seen: no fevers, hemodynamically stable. is eating and drinking well, no reports of pain. bowels and bladder functioning well. Exam Const General: cooperative, healthy appearing and no acute distress Nutritional Appearance: obese Orientation: alert, awake and oriented x3 HENMT Head: normal to inspection, normocephalic and atraumatic Mouth: moist mucous membranes Chest Chest: normal inspection of the chest Resp Effort & Inspection: normal respiratory effort Auscultation: clear to auscultation bilaterally Cardio Rate: regular rate Rhythm: regular rhythm GI Palpation: soft Auscultation: normal bowel sounds Skin General skin exam: no rashes or lesions noted Lesions: lesion noted (left foot ulcer, dressing clean dry and intact no erythema extending beyond) Neuro General: alert and awake Cognition: normal cognition Speech: speech normal Extrem General: full ROM and no pedal edema Objective Objective Clinical Data: Abnormal lab results 02/27/19 02/27/19 Range/Units 11:45 11:45 RBC 4.18 L (4.50-6.00) m/cumm Hgb 12.7 L (13.5-17.5) g/dL Hct 39.0 L (40.0-50.0) % Absolute Monocytes 0.91 H (0.11-0.7) k/cumm BUN 39 H (7-18) mg/dL Creatinine 1.70 H (0.70-1.30) mg/dL Glucose 298 H D (74-106) mg/dL Vital Signs Temperature 37.2 C 02/27/19 07:54 Temperature Source Tympanic 02/27/19 07:54 Pulse 77 02/27/19 07:54 Pulse Rhythm Regular 02/27/19 09:30 Respiratory Rate 18 02/27/19 07:54 Respiratory Effort 02/27/19 09:30 Respiratory Depth Normal 02/27/19 09:30 Respiratory Pattern Normal 02/27/19 09:30 Blood Pressure 108/69 02/27/19 07:54 Blood Pressure Position Supine 02/25/19 14:03 Pulse Oximetry 95 02/27/19 07:54 Oxygen Delivery Method Room Air 02/27/19 07:54 Oxygen Flow Rate 0 02/27/19 07:54 Pain Level 0 02/27/19 07:54 Intake & Output 02/26/19 02/27/19 02/27/19 23:59 11:59 23:59 Intake Total 150 / 880 550 / 790 240 / 790 Balance 150 / 880 550 / 790 240 / 790 Weight 102.6 kg Intake: IV 150 / 200 60 / 60 Oral 490 / 730 240 / 730 Other: Urine Color Yellow Voiding Methods Toilet Laboratory Results WBC 10.37 k/cumm (4.4-10.8) 02/27/19 11:45 RBC 4.18 m/cumm (4.50-6.00) L 02/27/19 11:45 Hgb 12.7 g/dL (13.5-17.5) L 02/27/19 11:45 Hct 39.0 % (40.0-50.0) L 02/27/19 11:45 MCV 93.3 fL (80-95) 02/27/19 11:45 MCH 30.4 pg (27.0-33.0) 02/27/19 11:45 MCHC 32.6 g/dL (32.0-36.0) 02/27/19 11:45 RDW 13.8 % (11.8-14.1) 02/27/19 11:45 Plt Count 337 x1000/uL (130-400) 02/27/19 11:45 MPV 10.5 fL (8.0-11.0) 02/27/19 11:45 Immature Gran % 0.3 % 02/27/19 11:45 Neutrophils % 58.2 02/27/19 11:45 Lymphocytes % 28.5 02/27/19 11:45 Monocytes % 8.8 02/27/19 11:45 Eosinophils % 3.3 02/27/19 11:45 Basophils % 0.9 02/27/19 11:45 Absolute Neutrophils 6.04 k/cumm (1.2-6.7) 02/27/19 11:45 Absolute Lymphocytes 2.96 k/cumm (1.2-3.4) 02/27/19 11:45 Absolute Monocytes 0.91 k/cumm (0.11-0.7) H 02/27/19 11:45 Absolute Eosinophils 0.34 k/cumm (0.0-0.7) 02/27/19 11:45 Absolute Basophils 0.09 k/cumm (0.0-0.2) 02/27/19 11:45 ESR 64 mm/hr (1-20) H 02/25/19 15:00 Sodium 139 mmol/L (136-145) 02/27/19 11:45 Potassium 4.2 mmol/L (3.5-5.1) 02/27/19 11:45 Chloride 103 mmol/L (98-107) 02/27/19 11:45 Carbon Dioxide 27.4 mmol/L (21.0-32.0) 02/27/19 11:45 Anion Gap 8.6 mmol/L (3-11) 02/27/19 11:45 BUN 39 mg/dL (7-18) H 02/27/19 11:45 Creatinine 1.70 mg/dL (0.70-1.30) H 02/27/19 11:45 Estimated GFR/1.73 m2 40.04 (mL/min/1.73m2) 02/27/19 11:45 Glucose 298 mg/dL (74-106) H D 02/27/19 11:45 Lactate 1.5 mmol/L (0.6-1.4) H 02/25/19 15:00 Calcium 8.9 mg/dL (8.5-10.1) 02/27/19 11:45 Total Bilirubin 0.6 mg/dL (0.2-1.0) 02/25/19 15:00 AST 14 U/L (15-37) L 02/25/19 15:00 ALT 27 U/L (16-63) 02/25/19 15:00 Alkaline Phosphatase 48 U/L (46-116) 02/25/19 15:00 C-Reactive Protein 6.64 mg/dL (0.0-0.3) H 02/25/19 15:00 Total Protein 7.2 g/dL (6.4-8.2) 02/25/19 15:00 Albumin 3.3 g/dL (3.4-5.0) L 02/25/19 15:00
[2019-02-27 15:57] VITALS: BP 120/60; PULSE 101; RESP 20; TEMP 36.1; O2SAT 94
--- NOTE | 2019-02-27 16:28 | CMPROGNOTE_ITS ---
- If Service Date Differs Date of service: 02/27/19 Time of Service: 16:28 Care Management Progress Note S/O: Phil is lying in bed watching television when CM comes to meet with him. His toe wound is healing nicely but he remains at [facility] for stabilization of his blood sugars. Phil is in good spirits and is looking forward to returning home. CM will continue to follow. A: Phil is a 68 year old male admitted to [facility] on 02/25/2019 for left great toe cellulitis and hyperglycemia. P: Phil will be discharged home when medically cleared by provider. Anticipate no new services at time of discharge. Phil will drive himself home when ready, as his vehicle is in the hospital's parking lot. CM will continue to follow.
[2019-02-27] MEDS: Enoxaparin 40 MG/0.4 ML SYR SC (16:33)
[2019-02-27 16:34] LABS: Hemoglobin A1C 10.9 % (3.8-5.6)
[2019-02-27] MEDS: Simvastatin 10 MG TAB PO (21:04)
[2019-02-27 23:37] VITALS: BP 120/72; PULSE 86; RESP 18; TEMP 37.1; O2SAT 96
[2019-02-28 07:21] VITALS: BP 105/68; PULSE 75; RESP 18; TEMP 36.7; O2SAT 94
[2019-02-28 07:25] LABS: Abs Immature Grans 0.01 k/cumm (0.0-0.09); Absolute Eosinophil Count 0.34 k/cumm (0.0-0.7); Absolute Lymphocyte Count 2.46 k/cumm (1.2-3.4); Absolute Neutrophil Count 5.29 k/cumm (1.2-6.7); Basophils % 1.1; Eosinophils % 3.8; HCT 37.2 % (40.0-50.0); HGB 12.1 g/dL (13.5-17.5); Immature Grans % 0.1 %; Lymphocytes % 27.6; Mean Corp. HGB Concentration 32.5 g/dL (32.0-36.0); Mean Corpuscular Hemoglobin 30.3 pg (27.0-33.0); Mean Corpuscular Volume 93.2 fL (80-95); Mean Platelet Volume 10.5 fL (8.0-11.0); Monocytes % 7.9; Neutrophils % 59.5; Platelet Count 320 x1000/uL (130-400); RBC 3.99 m/cumm (4.50-6.00); RBC Distribution Width 13.6 % (11.8-14.1)
[2019-02-28 07:30] LABS: Anion Gap 7.8 mmol/L (3-11); BUN 46 mg/dL (7-18); CO2 27.2 mmol/L (21.0-32.0); CREATININE 1.74 mg/dL (0.70-1.30); Calcium 8.4 mg/dL (8.5-10.1); Chloride 102 mmol/L (98-107); Estimated GFR 38.98 (mL/min/1.73m2); Glucose 217 mg/dL (74-106); Potassium 3.9 mmol/L (3.5-5.1); Sodium 137 mmol/L (136-145)
--- NOTE | 2019-02-28 08:26 | W.PM.PROGNOT ---
Date of Service Date of service: 02/28/19 Time of Service: 08:26 Subjective Subjective Patient reports: no new complaints Interval history since last seen: Phil is seen in his room. He is resting comfortably in bed. He states he is feeling good and he is looking forward to going home. Exam Narrative Exam Narrative: Subjective: Phil is seen in his room he is resting comfortably in his bed. He does indicate that nursing has been talking to him about what he needs to do for wound care to his left great and third toe. He feels he can do this successfully at home he is looking forward to going home today. Objective: Vitals look good BP 120/72 pulse 86 respiration 18 temp 37.1 with O2 sat room air 96%. Abnormal labs this morning show a BUN of 46 creatinine 1.74 glucose is 217 hemoglobin A1c is 10.9 calcium 8.4 Dressings are removed from his left first and third toe. Cellulitis has resolved. There is minimal redness surrounding the wound affecting the left great toe. Nursing reported some bloody drainage from the great toe during the night but this morning there is no active bleeding or drainage appreciated. The plantar pulp wound appears to have some granulation tissue deep within some of the fissures indicative of viability of the digit. There is good capillary return over the tip of the toe and medial lateral sides. The third toe at this time has healed. The nailbed is dry there is no active drainage no signs of infection. 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 He will apply collagenase Santyl to the left great toe after washing it with soap and water every 12 hours. He will cover the wound with 2 x 2 gauze and either a flex net or roll gauze to secure it in place. He will ambulate during the day in a cam walker to help offload the foot especially the digits and he will use a surgical shoe which he already has in his possession when he gets up during the night to use the restroom etc. He will go home with a prescription for Augmentin 875 every 12 hours for 10 days. He understands he is still at risk for worsening of the left great toe and he will be followed by myself in the office early next week. All questions have been answered. I discussed the case with Dr. Meza. Objective Objective Clinical Data: Abnormal lab results 02/27/19 02/27/19 02/27/19 Range/Units 11:45 11:45 11:45 RBC 4.18 L (4.50-6.00) m/cumm Hgb 12.7 L (13.5-17.5) g/dL Hct 39.0 L (40.0-50.0) % Absolute Monocytes 0.91 H (0.11-0.7) k/cumm BUN 39 H (7-18) mg/dL Creatinine 1.70 H (0.70-1.30) mg/dL Glucose 298 H D (74-106) mg/dL Hemoglobin A1c 10.9 H (3.8-5.6) % Calcium (8.5-10.1) mg/dL 02/28/19 02/28/19 Range/Units 06:34 06:34 RBC 3.99 L (4.50-6.00) m/cumm Hgb 12.1 L (13.5-17.5) g/dL Hct 37.2 L (40.0-50.0) % Absolute Monocytes (0.11-0.7) k/cumm BUN 46 H (7-18) mg/dL Creatinine 1.74 H (0.70-1.30) mg/dL Glucose 217 H D (74-106) mg/dL Hemoglobin A1c (3.8-5.6) % Calcium 8.4 L (8.5-10.1) mg/dL Vital Signs Temperature 37.1 C 02/27/19 23:37 Temperature Source Tympanic 02/27/19 23:37 Pulse 86 02/27/19 23:37 Pulse Rhythm Regular 02/28/19 00:05 Respiratory Rate 18 02/27/19 23:37 Respiratory Effort 02/28/19 00:05 Respiratory Depth Normal 02/28/19 00:05 Respiratory Pattern Normal 02/28/19 00:05 Blood Pressure 120/72 02/27/19 23:37 Blood Pressure Position Supine 02/25/19 14:03 Pulse Oximetry 96 02/27/19 23:37 Oxygen Delivery Method Room Air 02/27/19 23:37 Oxygen Flow Rate 0 02/27/19 23:37 Pain Level 0 02/27/19 23:37 Intake & Output 02/27/19 02/28/19 02/28/19 18:59 06:59 18:59 Intake Total 1180 / 1180 Balance 1180 / 1180 Weight 103 kg Intake: Oral 1180 / 1180 Other: Comment pt voiding independently. 2ND VOID DURING THIS NOC SHIFT. Stool Size Moderate Stool Characteristics Liquid Voiding Methods Toilet Laboratory Results WBC 8.90 k/cumm (4.4-10.8) 02/28/19 06:34 RBC 3.99 m/cumm (4.50-6.00) L 02/28/19 06:34 Hgb 12.1 g/dL (13.5-17.5) L 02/28/19 06:34 Hct 37.2 % (40.0-50.0) L 02/28/19 06:34 MCV 93.2 fL (80-95) 02/28/19 06:34 MCH 30.3 pg (27.0-33.0) 02/28/19 06:34 MCHC 32.5 g/dL (32.0-36.0) 02/28/19 06:34 RDW 13.6 % (11.8-14.1) 02/28/19 06:34 Plt Count 320 x1000/uL (130-400) 02/28/19 06:34 MPV 10.5 fL (8.0-11.0) 02/28/19 06:34 Immature Gran % 0.1 % 02/28/19 06:34 Neutrophils % 59.5 02/28/19 06:34 Lymphocytes % 27.6 02/28/19 06:34 Monocytes % 7.9 02/28/19 06:34 Eosinophils % 3.8 02/28/19 06:34 Basophils % 1.1 02/28/19 06:34 Absolute Neutrophils 5.29 k/cumm (1.2-6.7) 02/28/19 06:34 Absolute Lymphocytes 2.46 k/cumm (1.2-3.4) 02/28/19 06:34 Absolute Monocytes 0.70 k/cumm (0.11-0.7) 02/28/19 06:34 Absolute Eosinophils 0.34 k/cumm (0.0-0.7) 02/28/19 06:34 Absolute Basophils 0.10 k/cumm (0.0-0.2) 02/28/19 06:34 ESR 64 mm/hr (1-20) H 02/25/19 15:00 Sodium 137 mmol/L (136-145) 02/28/19 06:34 Potassium 3.9 mmol/L (3.5-5.1) 02/28/19 06:34 Chloride 102 mmol/L (98-107) 02/28/19 06:34 Carbon Dioxide 27.2 mmol/L (21.0-32.0) 02/28/19 06:34 Anion Gap 7.8 mmol/L (3-11) 02/28/19 06:34 BUN 46 mg/dL (7-18) H 02/28/19 06:34 Creatinine 1.74 mg/dL (0.70-1.30) H 02/28/19 06:34 Estimated GFR/1.73 m2 38.98 (mL/min/1.73m2) 02/28/19 06:34 Glucose 217 mg/dL (74-106) H D 02/28/19 06:34 Hemoglobin A1c 10.9 % (3.8-5.6) H 02/27/19 11:45 Lactate 1.5 mmol/L (0.6-1.4) H 02/25/19 15:00 Calcium 8.4 mg/dL (8.5-10.1) L 02/28/19 06:34 Total Bilirubin 0.6 mg/dL (0.2-1.0) 02/25/19 15:00 AST 14 U/L (15-37) L 02/25/19 15:00 ALT 27 U/L (16-63) 02/25/19 15:00 Alkaline Phosphatase 48 U/L (46-116) 02/25/19 15:00 Troponin I Cancelled 02/27/19 21:00 C-Reactive Protein 6.64 mg/dL (0.0-0.3) H 02/25/19 15:00 Total Protein 7.2 g/dL (6.4-8.2) 02/25/19 15:00 Albumin 3.3 g/dL (3.4-5.0) L 02/25/19 15:00
[2019-02-28] MEDS: hydroCHLOROthiazide 12.5 MG TAB PO (08:42)
[2019-02-28] MEDS: Amoxicillin 875/Clav. 125 TAB PO (08:42)
[2019-02-28] MEDS: Insulin Aspart 300 UNITS/3 ML PEN SC ×2 (08:43→12:09)
[2019-02-28] MEDS: Allopurinol 100 MG TAB PO (08:43)
[2019-02-28] MEDS: Lisinopril 20 MG TAB 40 MG PO (08:43)
[2019-02-28] MEDS: amLODIPine 2.5 MG TAB PO (08:43)
[2019-02-28] MEDS: Insulin Glargine 300 UNITS/3 ML PEN 35 UNITS SC (08:44)
[2019-02-28] MEDS: Insulin Aspart 300 UNITS/3 ML PEN 8 UNITS SC ×2 (08:44→12:10)
[2019-02-28] MEDS: Collagenase 30 GM TUBE TP (08:46)
[2019-02-28 09:54] VITALS: O2SAT 97
--- NOTE | 2019-02-28 12:49 | W.PM.DS.N ---
Date of service: 02/28/19 Time of Service: 12:00 DS: Diagnosis Discharge Diagnosis (1) Cellulitis in diabetic foot: Status: Acute (2) Chronic kidney disease, stage 3: Status: None (3) DM (diabetes mellitus): Status: None (4) HTN (hypertension): Status: None (5) BPH loc w urin obs/LUTS: Status: Acute (6) DVT prophylaxis: Status: Acute (7) Discharge planning issues: Status: Acute Discharge Plan Disposition Patient Disposition: HOME Condition: Stable Discharge Details Chief Complaint: Cellulitis Clinical Impression: Cellulitis of great toe of left foot, Hyperglycemia Reason For Visit: LEFT GREAT TOE CELLULITIS/HYPERGLYCEMIA Admit Date/Time: 02/27/19 09:23 Admit Provider: Matthew Vilchis Attending Provider: Matthew Vilchis Primary Care Provider: Reena Payan ED Provider: Angélica Mullins Hospital Course Hospital Course: This is a 68-year-old man with type 2 diabetes on insulin with last A1c 8.8% and peripheral neuropathy who presents after noticing foot wound and his left great toe. Patient states he does not feel his toes well due to neuropathy, and just noted some skin sloughing off his left great toe in the shower yesterday. He denies pain in the area. He feels otherwise well. He did have the second toe on that foot amputated previously by Dr. Rawls, but states that was related to hammertoe rather than infection. He did have a history of great toe infection that was treated in 2017. He denies any fatigue, malaise, fevers, chills, nausea, or vomiting. He does admit his blood sugars have been high in the 2 and 300s recently. Is been considering adding additional medication. He has been using both types of insulin. We started Januvia while hospitalized and blood sugars slow trended downward. We anticipate they will also continue to improve with infection resolution. His blood pressure is also been running high in the clinic, and his primary care was considering adding amlodipine. We started 2.5 mg amlodipine daily with improvement in his blood pressure. His wound was debrided by Dr Rawls and deep cultures were obtained and grew normal skin joel. He was followed by podiatry inpatient and wound continued to improve. He will be discharged to complete 10 more days of antibiotics per Dr Rawls recommendations, will continue wound care as directed, will be given a CAM walker to protect foot when ambulating and will follow up next week with Dr Rawls. Home Meds and New Rx's Prescriptions: New amlodipine 2.5 mg Tablet 2.5 mg PO DAILY Qty: 30 RF: 0 Santyl 250 unit/gram Ointment 1 applic topical Q12H Qty: 1 RF: 1 amoxicillin-pot clavulanate 875-125 mg Tablet 1 tab PO BID Qty: 20 RF: 0 Januvia 25 mg Tablet 50 mg PO DAILY Qty: 30 RF: 0 Continued simvastatin 10 MG tablet 10 mg PO DAILY RF: 0 hydrochlorothiazide 12.5 MG capsule 12.5 mg PO DAILY RF: 0 lisinopril 40 MG tablet 40 mg PO DAILY RF: 0 Lantus Solostar U-100 Insulin 100 UNIT/ML insulin pen 61 unit SQ DAILY RF: 0 insulin lispro [Humalog KwikPen Insulin] 100 unit/mL Insulin Pen See Rx Instructions .ROUTE .COMPLEX RF: 0 allopurinol 100 mg Tablet 100 mg PO DAILY RF: 0 ibuprofen 600 mg tablet 600 mg PO QID PRN (Reason: pain) Qty: 40 RF: 0 Discharge Instructions Instructions: Diabetic Foot Ulcers (DC), Hypertension (DC), Diabetes Mellitus Type 2 in Adults (GEN) Additional Instructions: Wound care instructions per Dr Rawls: Wash left foot with soap and water. Rinse with normal saline and gently dry. Anasept gel, gauze dressing, flex net to 3rd toe every day, and santyl to great toe daily. use walking boot provided when ambulating to protect wounds. Stand Alone Forms: Nursing Discharge Form Referrals: Reena Payan [Primary Care Provider] - 03/01/19 8:45 am Darryl Rawls DPM [[facility] STAFF PHYSICIAN] - 03/06/19 1:00 pm Activity:: use walking boot for ambulation Equipment/Supplies:: equalizer boot Diet:: Carb Counting Discharge Orders Discharge Orders: Discharge Order (Routine); Ordered 02/28/19 Ordered By: Tayler Mclean DS: Summary Status at Discharge Functional status at discharge: independent ambulation Overall status at discharge: patient is progressing back to baseline Mental Status: mental status grossly normal Speech and Movement: speech and movement normal Mood: congruent mood Affect: normal affect Exam Psych Mental Status: mental status grossly normal Speech and Movement: speech and movement normal Mood: congruent mood Affect: normal affect DS: Data Vitals/I&O Vitals and I&O: Vital Signs Temperature 36.7 C 02/28/19 07:21 Temperature Source Tympanic 02/28/19 07:21 Pulse 75 02/28/19 07:21 Pulse Rhythm Regular 02/28/19 08:35 Respiratory Rate 18 02/28/19 07:21 Respiratory Effort 02/28/19 08:35 Respiratory Depth Normal 02/28/19 08:35 Respiratory Pattern Normal 02/28/19 08:35 Blood Pressure 105/68 02/28/19 07:21 Blood Pressure Position Supine 02/25/19 14:03 Pulse Oximetry 97 02/28/19 09:54 Oxygen Delivery Method Room Air 02/28/19 09:54 Oxygen Flow Rate 0 02/28/19 09:54 Pain Level 0 02/28/19 07:21 Intake & Output 02/27/19 02/28/19 02/28/19 23:59 11:59 23:59 Intake Total 690 / 1240 450 / 450 Balance 690 / 1240 450 / 450 Weight 103 kg Intake: Oral 690 / 1180 450 / 450 Other: Urine Color Yellow Urine Appearance Clear Comment pt voiding independently. 2ND VOID DURING THIS NOC SHIFT. Stool Size Moderate Stool Characteristics Liquid Voiding Methods Toilet Data Completed and Pending Labs on day of discharge: Labs from last 24 hours 02/28/19 02/28/19 02/27/19 06:34 06:34 21:00 WBC 8.90 RBC 3.99 L Hgb 12.1 L Hct 37.2 L MCV 93.2 MCH 30.3 MCHC 32.5 RDW 13.6 Plt Count 320 MPV 10.5 Immature Gran % 0.1 Neutrophils % 59.5 Lymphocytes % 27.6 Monocytes % 7.9 Eosinophils % 3.8 Basophils % 1.1 Absolute Neutrophils 5.29 Absolute Lymphocytes 2.46 Absolute Monocytes 0.70 Absolute Eosinophils 0.34 Absolute Basophils 0.10 Sodium 137 Potassium 3.9 Chloride 102 Carbon Dioxide 27.2 Anion Gap 7.8 BUN 46 H Creatinine 1.74 H Estimated GFR/1.73 m2 38.98 Glucose 217 H D Hemoglobin A1c Calcium 8.4 L Troponin I Cancelled 02/27/19 02/27/19 17:06 11:45 WBC RBC Hgb Hct MCV MCH MCHC RDW Plt Count MPV Immature Gran % Neutrophils % Lymphocytes % Monocytes % Eosinophils % Basophils % Absolute Neutrophils Absolute Lymphocytes Absolute Monocytes Absolute Eosinophils Absolute Basophils Sodium Potassium Chloride Carbon Dioxide Anion Gap BUN Creatinine Estimated GFR/1.73 m2 Glucose Hemoglobin A1c 10.9 H Calcium Troponin I Cancelled Preliminary micro results at discharge 02/25/19 15:55 Skin Culture - Preliminary Toe - Left First Digit Normal Joel 02/25/19 15:20 Blood Culture - Preliminary Blood NO GROWTH 48 HOURS 02/25/19 15:00 Blood Culture - Preliminary Blood NO GROWTH 48 HOURS [facility] Medical History (Updated 02/27/19 @ 15:50 by Tayler Mclean NP) Amputation of toe of left foot (Acute) BPH (benign prostatic hyperplasia) (Chronic) BPH loc w urin obs/LUTS (Acute) Cataract (Chronic) Cellulitis in diabetic foot (Acute) Chronic kidney disease, stage 3 Diabetic foot ulcer (Acute) Diabetic neuropathy DM (diabetes mellitus) Gout (Chronic) High cholesterol (Chronic) HTN (hypertension) Pseudophakia Surgical History Colonoscopy - IV Sedation (08/20/16) Social History (Updated 02/25/19 @ 17:04 by Matthew Vilchis) Smoking/Tobacco Use Status: Former Tobacco Use Alcohol Intake: current Alcohol Intake frequency: 0-2 drinks per day Drug use: Daily Substance use type: marijuana Do you feel safe at home: Yes Do you feel safe in your relationship?: Yes Additional Social history: Lives alone in apartment in [facility]. Moved ~2016 from [place] after retiring. Son Filemon Dietz is educator at [employer], lives close with [email or web address]. 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 Grew up in [place].
--- NOTE | 2019-02-28 13:40 | PDOC.CMDIS ---
- If Service Date Differs Date of service: 02/28/19 Time of Service: 13:40 LACE Index Scoring Tool - Questions: Length of Stay (in days): 2 Acuity (Admit via E.D.?): Yes Comorbidities: Liver or Renal Disease (Chronic kidney disease, stage 3) E.D. Visits: 1 - Answers: Total Score: 11 Risk of Readmission: High Risk Care Management Discharge Reason for Hospitalization: Left great toe cellulitis/hyperglycemia. Discharge Plan: Phil is discharged home with no new services. He will follow up with his primary care physician, with Dr. Rawls, loading unit tool setter, and with his plan of care as directed, including medication recommendations and activity limitations. Nursing staff and Dr. Rawls have instructed him on wound care of his toes. Phil has a surgical shoe at home which he will utilize at night. He is additionally being provided with a CAM walker which he will use during the day to protect his foot while ambulating. Phil is driving himself home, as his car is in the hospital's parking lot. Patient/Family Education Needs: Nursing will review discharge instructions with Phil re medications and activity level. Phil is able to verbalize reason for hospitalization and how to manage care at home.
== END 2019-02-28 14:02 | disposition home or self-care (01) | DRG 638 ==
LOC: ER 15:59 → MS 17:39
PROVIDERS: Nurse Practitioner Acute Care; Admitting Provider Family Medicine; Emergency Provider Physician Assistant; PCP Nurse Practitioner Family; Visit Provider Internal Medicine
DX: E11.628 Type 2 diabetes mellitus with other skin complications (principal); E11.52 Type 2 diabetes mellitus with diabetic peripheral angiopathy with gangrene; I96 Gangrene, not elsewhere classified; L03.032 Cellulitis of left toe; M20.22 Hallux rigidus, left foot; E11.22 Type 2 diabetes mellitus with diabetic chronic kidney disease; E11.65 Type 2 diabetes mellitus with hyperglycemia; E11.621 Type 2 diabetes mellitus with foot ulcer; L97.521 Non-pressure chronic ulcer of other part of left foot limited to breakdown of skin; N18.3 Chronic kidney disease, stage 3 (moderate); I12.9 Hypertensive chronic kidney disease with stage 1 through stage 4 chronic kidney disease, or unspecified chronic kidney disease; N40.1 Benign prostatic hyperplasia with lower urinary tract symptoms; Z79.4 Long term (current) use of insulin; E11.42 Type 2 diabetes mellitus with diabetic polyneuropathy; Z89.422 Acquired absence of other left toe(s); M10.9 Gout, unspecified; Z71.3 Dietary counseling and surveillance
CPT/HCPCS: 36415; 80048; 80053; 82947; 85652; 87040; 96361; 96365; 96366; 96367; 99219; 99225; 99233; 99239; 99285; J1650; 73660; 83036; 83605; 84484; 85025; 86140; 87070; G0378; J2543; L4361

== ENCOUNTER 2019-03-16 01:56 | Outpatient (CLI) | payer OTHER, SELFPAY ==
--- NOTE | 2019-03-16 14:58 | DI.MRI_ITS ---
EXAM: MR LOWER EXTREMITY LT WO/W CLINICAL HISTORY: ULCER LT HALLUX. TECHNIQUE: Multiplanar multisequence MRI was performed. COMPARISON: XR TOE LT GREAT from 02/25/2019 FINDINGS: There is hyperintense signal on the T2 weighted images within the distal phalanx the great toe. Ther e also is mild hyperintense T2 signal in the head of the proximal phalanx of the great toe. These ar eas are of decreased signal intensity on the T1 weighted images. These areas show enhancement follow ing contrast administration. There is edema in the soft tissues of the great toe. No focal fluid collection is seen to suggest an abscess. IMPRESSION: Findings most suggestive of acute osteomyelitis involving both the proximal and distal phalanges of t he great toe.
[2019-03-16 15:21] LABS: CREATININE 1.37 mg/dL (0.70-1.30); Estimated GFR 51.37 (mL/min/1.73m2)
[2019-03-16] MEDS: Normal Saline Flush 10 ML SYR IVP (15:44)
[2019-03-16] MEDS: Gadoterate meglumine 20 ML VIAL IVP (15:45)
== END 2019-03-16 02:16 ==
PROVIDERS: PCP Nurse Practitioner Family; Visit Provider Podiatrist
DX: L97.529 Non-pressure chronic ulcer of other part of left foot with unspecified severity (principal); R60.0 Localized edema; M86.072 Acute hematogenous osteomyelitis, left ankle and foot; Z13.89 Encounter for screening for other disorder
CPT/HCPCS: 73720; 82565

== ENCOUNTER 2019-03-27 10:30 | Day surgery (SDC) | payer OTHER, SELFPAY ==
[2019-03-27 10:54] VITALS: BP 159/76; PULSE 107; RESP 20; TEMP 35.4; O2SAT 95
[2019-03-27] MEDS: Lidocaine 1% Multi-Dose 50 ML VIAL (12:24)
[2019-03-27] MEDS: Bupivacaine 0.5% Pres-Free 30 ML VIAL (12:24)
[2019-03-27] MEDS: Gelatin SPONGE 12-7 MM PKT 1 EACH TP (12:34)
--- NOTE | 2019-03-27 12:45 | W.PM.DSUDISC ---
Discharge Plan Disposition Patient Disposition: HOME Condition: Good Discharge Details Reason For Visit: OSTEOMYCLITIS (L) HALLUX Attending Provider: Darryl Rawls Primary Care Provider: Reena Payan Home Meds and New Rx's Prescriptions: Continued simvastatin 10 MG tablet 10 mg PO DAILY RF: 0 hydrochlorothiazide 12.5 MG capsule 12.5 mg PO DAILY RF: 0 lisinopril 40 MG tablet 40 mg PO DAILY RF: 0 Lantus Solostar U-100 Insulin 100 UNIT/ML insulin pen 61 unit SQ DAILY RF: 0 insulin lispro [Humalog KwikPen Insulin] 100 unit/mL Insulin Pen See Rx Instructions .ROUTE .COMPLEX RF: 0 amlodipine 2.5 mg Tablet 2.5 mg PO DAILY Qty: 30 RF: 0 Santyl 250 unit/gram Ointment 1 applic topical Q12H Qty: 1 RF: 1 amoxicillin-pot clavulanate 875-125 mg Tablet 1 tab PO BID Qty: 20 RF: 0 Januvia 25 mg Tablet 50 mg PO DAILY Qty: 30 RF: 0 allopurinol 100 mg Tablet 100 mg PO DAILY RF: 0 ibuprofen 600 mg tablet 600 mg PO QID PRN (Reason: pain) Qty: 40 RF: 0 Discharge Instructions Activity:: Elevate Shower/Bathe:: Cover Diet:: Normal Diet Discharge Orders Discharge Orders: Discharge Order (Routine); Ordered 03/27/19 Ordered By: Darryl Rawls Other Ambulatory Orders: Anaerobic Culture (Routine) Location: None Selected Ordered By: Darryl Rawls DS: Diagnosis Discharge Diagnosis (1) Osteomyelitis of ankle and foot: Start date: 03/27/19 Start time: 12:46 Status: Acute Asessment and Plan: 68-year-old male brought to the OR for debridement diabetic ulcer with osteomyelitis of the left great toe and to obtain bone biopsy for microbiologic capture.
--- NOTE | 2019-03-27 13:38 | ROE_ITS ---
DATE OF PROCEDURE: March 27, 2019 PREOPERATIVE DIAGNOSIS: Diabetic ulcer with osteomyelitis left hallux. POSTOPERATIVE DIAGNOSIS: Same. PROCEDURE: Debridement left hallux to and including bone. SURGEON: Darryl Rawls D.P.M. ANESTHESIA: Local anesthesia with blockade of the left hallux, 10 cc's 50:50 mixture 1% Lidocaine pl ain, 0.5% Marcaine plain. OPERATIVE INDICATIONS: 68-year-old male with poorly-controlled diabetes, diabetic peripheral neuropa thy who developed ulceration affecting his left hallux with MRI evidence of osteomyelitis including t he distal phalanx and head of the proximal phalanx. He is also being currently worked up for a vascu lar bypass left lower extremity, scheduled for the of this month at [facility]. He is being brou ght to the OR for debridement of his great toe, bone biopsy to obtain culture to identify appropriate organisms affecting the great toe. Informed consent has been obtained. He understands that he will most-likely lose the great toe over time, revisional procedures and further debridement will likely be required. No promises made to the final outcome of surgery. REPORT OF OPERATION: Phil was brought to the operative suite, placed in the supine position where the left foot was prepped and draped in the usual sterile podiatric fashion. Attention was directed to the left great toe once anesthesia was obtained. The ulceration encompasses the distal tip of the hallux and goes all the way to the interphalangeal joint level; it runs from medial to lateral. The re is a hypertrophic border. The base of the wound is fatty tissue, which is poorly vascularized, bu t not grossly necrotic at this time. With a #10 scalpel the periphery of the wound was sharply debri ded, removing the hypertrophic border. The central portion of the wound was gently debrided with a # 15 scalpel, going down until we developed a little bit of active bleeding. There is a sinus tract at the distal plantar aspect of the wound, which goes to bone. With a #15 scalpel in a longitudinal fa shion I opened the sinus tract so I could get a rongeur down to the bone. With a rongeur I nipped aw ay bone, which was collected and sent to microbiology for aerobic and anaerobic identification. The wound was irrigated with normal saline. I packed the incisional area with Gelfoam, applied a Xerofor m, gauze fluff compression dressings. Phil left the OR with vital signs stable, vascular status in tact. Sharp and sponge counts were all accounted for. He is scheduled this afternoon to go upstairs to receive a PICC line and we will start him on IV Rocephin 2 grams daily until further identificati on of microbes has been obtained, in which case antibiotics may be changed. He understands this.
== END 2019-03-27 13:14 | disposition home or self-care (01) ==
PROVIDERS: PCP Nurse Practitioner Family; Visit Provider Podiatrist
PROC: (CPT 11044; principal; 2019-03-27 12:00)
DX: E11.621 Type 2 diabetes mellitus with foot ulcer (principal); E11.42 Type 2 diabetes mellitus with diabetic polyneuropathy; E11.69 Type 2 diabetes mellitus with other specified complication; L97.524 Non-pressure chronic ulcer of other part of left foot with necrosis of bone; M86.172 Other acute osteomyelitis, left ankle and foot; Z16.11 Resistance to penicillins; Z16.19 Resistance to other specified beta lactam antibiotics
CPT/HCPCS: 11044; 87077; 87070; 87075; 87186; 87205

== ENCOUNTER 2019-04-14 02:02 | Outpatient (RCR) | payer OTHER, SELFPAY ==
[2019-03-27] MEDS: Normal Saline Flush 10 ML SYR IVP (14:15)
[2019-03-27] MEDS: cefTRIAXone 2 GM/50 ML BAG IVPB (14:15)
[2019-03-28] MEDS: cefTRIAXone 2 GM/50 ML BAG IVPB (11:11)
[2019-03-28] MEDS: Normal Saline Flush 10 ML SYR IVP (11:12)
[2019-03-29] MEDS: cefTRIAXone 2 GM/50 ML BAG IVPB (11:00)
[2019-03-29] MEDS: Normal Saline Flush 10 ML SYR IVP (11:01)
[2019-03-30] MEDS: cefTRIAXone 2 GM/50 ML BAG IVPB (11:00)
[2019-03-30] MEDS: Normal Saline Flush 10 ML SYR IVP (12:38)
[2019-03-31 11:03] VITALS: BP 134/79; PULSE 93; RESP 16; TEMP 36.9; O2SAT 95
[2019-03-31] MEDS: cefTRIAXone 2 GM/50 ML BAG IVPB (11:09)
[2019-03-31] MEDS: Normal Saline Flush 10 ML SYR IVP (11:10)
[2019-04-01] MEDS: cefTRIAXone 2 GM/50 ML BAG IVPB (11:06)
[2019-04-01] MEDS: Normal Saline Flush 10 ML SYR IVP (12:22)
[2019-04-02] MEDS: Normal Saline Flush 10 ML SYR IVP (11:38)
[2019-04-02] MEDS: cefTRIAXone 2 GM/50 ML BAG IVPB (11:38)
[2019-04-03] MEDS: cefTRIAXone 2 GM/50 ML BAG IVPB (11:08)
[2019-04-03] MEDS: Normal Saline Flush 10 ML SYR IVP (11:09)
[2019-04-04] MEDS: cefTRIAXone 2 GM/50 ML BAG IVPB (11:25)
[2019-04-04] MEDS: Normal Saline Flush 10 ML SYR IVP (11:56)
[2019-04-05] MEDS: cefTRIAXone 2 GM/50 ML BAG IVPB (11:02)
[2019-04-05] MEDS: Normal Saline Flush 10 ML SYR IVP (11:04)
[2019-04-05 12:22] VITALS: BP 134/79; PULSE 93; RESP 16; TEMP 36.9; O2SAT 95
[2019-04-06] MEDS: cefTRIAXone 2 GM/50 ML BAG IVPB (11:11)
[2019-04-06] MEDS: Normal Saline Flush 10 ML SYR IVP (11:11)
[2019-04-07] MEDS: cefTRIAXone 2 GM/50 ML BAG IVPB (11:05)
[2019-04-07] MEDS: Normal Saline Flush 10 ML SYR IVP (11:10)
[2019-04-08] MEDS: cefTRIAXone 2 GM/50 ML BAG IVPB (11:04)
[2019-04-08 11:05] VITALS: BP 118/71; PULSE 98; RESP 18; TEMP 36.2; O2SAT 95
[2019-04-08] MEDS: Normal Saline Flush 10 ML SYR IVP (11:05)
[2019-04-09] MEDS: Normal Saline Flush 10 ML SYR IVP (11:20)
[2019-04-09] MEDS: cefTRIAXone 2 GM/50 ML BAG IVPB (11:20)
[2019-04-10 11:13] VITALS: BP 118/71; PULSE 98; RESP 18; TEMP 36.2; O2SAT 95
[2019-04-10] MEDS: cefTRIAXone 2 GM/50 ML BAG IVPB (11:14)
[2019-04-10] MEDS: Normal Saline Flush 10 ML SYR IVP (11:15)
[2019-04-12] MEDS: cefTRIAXone 2 GM/50 ML BAG IVPB (11:10)
[2019-04-12] MEDS: Normal Saline Flush 10 ML SYR IVP (11:56)
[2019-04-13] MEDS: cefTRIAXone 2 GM/50 ML BAG IVPB (10:59)
[2019-04-13] MEDS: Normal Saline Flush 10 ML SYR IVP (11:03)
[2019-04-14] MEDS: cefTRIAXone 2 GM/50 ML BAG IVPB (11:00)
[2019-04-14] MEDS: Normal Saline Flush 10 ML SYR IVP (11:06)
== END 2019-04-14 23:59 | disposition home or self-care (01) ==
LOC: INF 02:02
PROVIDERS: PCP Nurse Practitioner Family; Visit Provider Family Medicine
DX: E11.628 Type 2 diabetes mellitus with other skin complications (principal); E11.52 Type 2 diabetes mellitus with diabetic peripheral angiopathy with gangrene; I96 Gangrene, not elsewhere classified; L03.032 Cellulitis of left toe
CPT/HCPCS: 36569; 96365; 99211

== ENCOUNTER 2019-04-20 07:13 | Day surgery (SDC) | payer OTHER, SELFPAY ==
--- NOTE | 2019-04-20 07:09 | W.PM.HP.N ---
Date of service: 04/20/19 Time of Service: 07:09 History of Present Illness History of Present Illness Chief Complaint: Diabetic ulceration with osteomyelitis left hallux, left third toe Narrative: 68-year-old male with chronic ulceration of the left hallux with osteomyelitis and chronic contracture of the left third toe with soft tissue ulceration affecting the distal tip of the digit. He has undergone vascular reconstruction to the left lower extremity is now being brought to the OR for surgical debridement of his left foot. PENDING SALE TO [facility] Medical History Amputation of toe of left foot (Acute) BPH (benign prostatic hyperplasia) (Chronic) BPH loc w urin obs/LUTS (Acute) Cataract (Chronic) Cellulitis in diabetic foot (Acute) Chronic kidney disease, stage 3 Diabetic foot ulcer (Acute) Diabetic neuropathy DM (diabetes mellitus) Gout (Chronic) High cholesterol (Chronic) HTN (hypertension) Pseudophakia Surgical History Colonoscopy - IV Sedation (08/20/16) Social History Smoking/Tobacco Use Status: Former Tobacco Use Quit Date: 02/14/14 Alcohol Intake: current Alcohol Intake frequency: 0-2 drinks per day Alcohol type: hard liquor Drug use: Daily Substance use type: marijuana Details: alcohol: t-1, 3 drinks. Marijuana: t, pen Do you feel safe at home: Yes Do you feel safe in your relationship?: Yes Additional Social history: Lives alone in apartment in [facility]. Moved ~2016 from [place] after retiring. Son Filemon Dietz is educator at [employer], lives close with chandan. 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 Grew up in [place]. Med Home Medications and Allergies Home Medications Medication Instructions Recorded Confirmed Type Lantus Solostar U-100 Insulin 61 unit SQ HS 03/18/16 04/19/19 History hydrochlorothiazide 12.5 mg PO DAILY 03/18/16 04/19/19 History lisinopril 40 mg PO DAILY 03/18/16 04/19/19 History simvastatin 10 mg PO DAILY tab-cap 07/30/16 04/19/19 History allopurinol 100 mg PO DAILY 05/26/18 04/19/19 History ibuprofen 600 mg PO QID PRN #40 tab 05/26/18 04/19/19 Rx insulin lispro [Humalog KwikPen See Rx Instructions .ROUTE .COMPLEX 02/25/19 04/19/19 History Insulin] Januvia 50 mg PO DAILY #30 tab 02/28/19 04/19/19 Rx Santyl 1 applic TOPICAL Q12H #1 gm 02/28/19 03/27/19 Rx amlodipine 2.5 mg PO DAILY #30 tab 02/28/19 04/19/19 Rx amoxicillin-pot clavulanate 1 tab PO BID #20 tab 02/28/19 04/19/19 Rx Allergies Allergy/AdvReac Type Severity Reaction Status Date / Time Penicillins Allergy Verified 03/27/19 10:43 Exam Narrative Exam Narrative: 68-year-old male who is been plagued with recurring diabetic ulcerations primarily of his left foot sustained wound to the distal tip of the left hallux which failed to thrive progressing to a osteomyelitis infection subsequently referred to [facility] vascular where balloon angioplasties were performed he has been adequately stabilized and tuned up and is now ready to proceed with surgical intervention. Heads normocephalic, eyes PERRLA, hearing is adequate, airway looks assessable no suspicious oral lesions were noted Heart had regular rate and rhythm I detected no gallops rubs or murmurs Lung posadas were clear Abdomen is nontender, bowel sounds appreciated Peripheral pulses are poorly palpable at the ankle but nevertheless the left foot is warm to the touch there was no peripheral edema he had good capillary return of the digits with the exception of the distal tip of the left hallux where an open wound is appreciated. The wound appears grossly free of infection there is no cellulitis bone is palpable through the opening at the distal tip of the digit. A rigidly contracted left third toe is appreciated with a chronic ulcer is seen this is a flexible hammertoe deformity. No bone is palpable and there is been no radiologic evidence of osteomyelitis affecting the third toe Neurologically he is densely neuropathic. Impressions diabetic ulcer with osteomyelitis left hallux 2 hammertoe deformity with diabetic ulcer left third digit Plan: Phil is being brought to the OR for debridement of his left hallux which should essentially be a partial amputation of the great toe. He understands the debridement will continue until I get to good healthy tissue. Anticipate a flexor tenotomy of the left third toe for correction of the flexible hammertoe deformity. Potential risk and complications have been reviewed including pain scarring infection failure to thrive, potential for revisional procedures including further resection of tissue, more proximal amputation. No promises have been made to final outcome of surgery. Informed consent has been obtained.
[2019-04-20 07:48] VITALS: BP 124/78; PULSE 89; RESP 16; TEMP 36.4; O2SAT 95
[2019-04-20] MEDS: Lactated Ringers 1,000 ML 80 ML IV (08:22)
[2019-04-20] MEDS: Insulin Aspart 100 UNITS/ML UNIT 30 UNITS SC (09:09)
[2019-04-20] MEDS: CLINDAMYCIN 600 MG/50 ML BAG 100 MG IVPB (10:00)
[2019-04-20] MEDS: Bupivacaine 0.5% Pres-Free 30 ML VIAL (10:16)
[2019-04-20] MEDS: Lidocaine 1% Multi-Dose 50 ML VIAL (10:16)
--- NOTE | 2019-04-20 10:26 | AMP_PTH ---
PATIENT: Phil Velásquez LOC: [facility] U#:[id number] AGE/SX: 68/M ROOM: RE04/20/[address]: Darrly Rawls : 1950 BED: DIS: 04/20/2019 SPEC #: [id number] RECD: 04/20/19 13:03 STATUS: ROSANNE REQ #: [id number] MEG: 04/20/19 10:[address]: Darryl Rawls DEPT: Surgical Specimen RECD BY: Lilliana Torres ENTERED: 04/20/19 13:04 SP TYPE: Amputation OTHR DR: Reena Payan Tissues: 1 - AMPUTATION FINGERS/TOES(NOT TRAUMA) Procedures: DECALCIFICATION GROSS LEVEL 1 Comments: [id number]
--- NOTE | 2019-04-20 11:04 | W.PM.DSUDISC ---
Discharge Plan Disposition Patient Disposition: HOME Condition: Good Discharge Details Reason For Visit: OSTEOMYELITIS (L) HALLUX Attending Provider: Darryl Rawls Primary Care Provider: Reena Payan Home Meds and New Rx's Prescriptions: New hydrocodone-acetaminophen [[place]] 5-325 mg tablet 1 tab PO Q6H PRN (Reason: post op pain) Qty: 10 RF: 0 Continued simvastatin 10 MG tablet 10 mg PO DAILY RF: 0 hydrochlorothiazide 12.5 MG capsule 12.5 mg PO DAILY RF: 0 lisinopril 40 MG tablet 40 mg PO DAILY RF: 0 Lantus Solostar U-100 Insulin 100 UNIT/ML insulin pen 61 unit SQ HS RF: 0 insulin lispro [Humalog KwikPen Insulin] 100 unit/mL Insulin Pen See Rx Instructions .ROUTE .COMPLEX RF: 0 amlodipine 2.5 mg Tablet 2.5 mg PO DAILY Qty: 30 RF: 0 Santyl 250 unit/gram Ointment 1 applic topical Q12H Qty: 1 RF: 1 amoxicillin-pot clavulanate 875-125 mg Tablet 1 tab PO BID Qty: 20 RF: 0 Januvia 25 mg Tablet 50 mg PO DAILY Qty: 30 RF: 0 allopurinol 100 mg Tablet 100 mg PO DAILY RF: 0 ibuprofen 600 mg tablet 600 mg PO QID PRN (Reason: pain) Qty: 40 RF: 0 Discharge Instructions Activity:: Elevate Shower/Bathe:: Cover Diet:: Normal Diet Discharge Orders Discharge Orders: Discharge Order (Routine); Ordered 04/20/19 Ordered By: Darryl Rawls DS: Diagnosis Discharge Diagnosis (1) Osteomyelitis due to type 2 diabetes mellitus: Status: Acute
--- NOTE | 2019-04-20 11:14 | ROE_ITS ---
DATE: APRIL 20, 2019 Preoperative Diagnosis: 1. 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 2. 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 Postoperative Diagnosis: Same Operation: 1. Amputation left hallux through the proximal phalanx. 2. Flexor tenotomy left third toe. Surgeon: Darryl Rawls DPM Indications: Phil is a 68 year-old male with chronic ulceration of his left hallux and left third toe, subsequent osteomyelitis, subsequent vascular reconstruction for operative intervention. He understands the permanency of amputation as well as the potential for more proximal tissue loss due to failure to thrive. No promises are made to the final outcome of surgery. All questions have been answered. Informed consent has been obtained. Procedure: Phil is brought to the Operating Suite. He was placed in the supine position with the left foot prepped and draped in the usual sterile podiatric fashion with Betadine solution and paint. Anesthesia being obtained through IV sedation and local blockade of the great toe and the third toe with a total of 15 cc. 50:50 mixture 1% Lidocaine plain, 0.5% Marcaine plain, attention was directed to the great toe. I decided to disarticulate the great toe at the interphalangeal joint to inspect the tissues to determine if more proximal tissue removal is necessary. Two converging semi-elliptical incisions were placed at the IP joint level. The dorsal flap was raised, the extensor tendon and capsulotomy was performed. The incision was then carried down plantarly where the skin was incised. The flexor tendon was incised. The joint capsule was released and the distal component of the great toe was removed from the operative field. The base of the distal phalanx looked nasty being white, splotchy and grayish in color. Unfortunately the head of the proximal phalanx had the same appearance. At this time I dissected down along the proximal phalanx lifting the extensor tendon. The bone appeared much healthier about detention down the proximal phalanx. This dissection was then completed medially, laterally and plantarly. With power instrumentation, the distal portion of the proximal phalanx was then resected. Once this bone was removed, the remaining bone looked healthy. The medullary canal looked sound. The cortical bone looked healthy and I felt that we were at a good position to stop at this level. The pieces of bone that were removed were sent to pathology for evaluation. A skin plasty was then performed further reducing the skin so as to afford and end to end closure. I debrided off the extensor and flexor tendon to more reasonable level. Copious irrigation was then performed. The deep structures were closed with simple interrupted sutures of #3-0 Vicryl to close the space and cover the exposed bone. The skin was then coapted initially with #3-0 nylon in a near/far, far/near suture technique utilizing 4 throws and then interspersed between those sutures end to end with #4-0 nylon simple interrupted suture. The dog-ears were repaired and the edges closed with #4-0 nylon. Good approximation of tissue without undue stress was appreciated. Attention was now directed to the left third toe. Utilizing a #18 gauge needle on a 3 cc. barrel, stab incision was made directly at the flexor tendon at the flexor set level. Tendon was easily identified by palpation and by side to side rotation the flexor tendon was released. The third toe relaxed and the contracture resolved. The third toe was rectus. I did manipulate the toe somewhat to stretch out any adhesions or contractures. I did suture the stab incision with simple interrupted suture of #4-0 nylon. Xeroform was applied to the incisions. Fluff gauze compression dressings applied, stockinette and Kerlix with tourniquet being released at 37 minutes and vascularity returning to the foot without interruption. Didier left the Operating Room with vital signs stable and vascular status intact. Sharp and sponge counts were correct. He will be followed by myself in the office next week.
[2019-04-20] MEDS: Normal Saline 1,000 ML 80 ML IV (11:48)
[2019-04-20] MEDS: cefTRIAXone 2 GM/50 ML BAG IVPB (11:48)
[2019-04-20 11:49] VITALS: BP 147/73; PULSE 69; RESP 18; TEMP 36.3; O2SAT 95
== END 2019-04-20 13:06 | disposition home or self-care (01) ==
PROVIDERS: PCP Nurse Practitioner Family; Visit Provider Podiatrist
PROC: (CPT 28825; principal; 2019-04-20 09:15)
PROC: (CPT 28825; 2019-04-20 09:15)
DX: E11.621 Type 2 diabetes mellitus with foot ulcer (principal); L97.524 Non-pressure chronic ulcer of other part of left foot with necrosis of bone; E11.42 Type 2 diabetes mellitus with diabetic polyneuropathy; I10 Essential (primary) hypertension
CPT/HCPCS: 28825; 88300; 96365; 99235; 88311; J1815

== ENCOUNTER 2019-05-08 02:22 | Outpatient (RCR) | payer OTHER, SELFPAY ==
[2019-04-15] MEDS: Normal Saline Flush 10 ML SYR IVP (11:01)
[2019-04-15] MEDS: cefTRIAXone 2 GM/50 ML BAG IVPB (11:01)
[2019-04-16] MEDS: cefTRIAXone 2 GM/50 ML BAG IVPB (11:08)
[2019-04-16] MEDS: Normal Saline Flush 10 ML SYR IVP (11:10)
[2019-04-17] MEDS: cefTRIAXone 2 GM/50 ML BAG IVPB (11:02)
[2019-04-17] MEDS: Normal Saline Flush 10 ML SYR IVP (11:04)
[2019-04-18] MEDS: cefTRIAXone 2 GM/50 ML BAG IVPB (11:02)
[2019-04-18] MEDS: Normal Saline Flush 10 ML SYR IVP (11:03)
[2019-04-19] MEDS: cefTRIAXone 2 GM/50 ML BAG IVPB (11:07)
[2019-04-19] MEDS: Normal Saline Flush 10 ML SYR IVP (11:08)
[2019-04-21] MEDS: cefTRIAXone 2 GM/50 ML BAG IVPB (11:10)
[2019-04-21] MEDS: Normal Saline Flush 10 ML SYR IVP (11:10)
[2019-04-22] MEDS: cefTRIAXone 2 GM/50 ML BAG IVPB (10:58)
[2019-04-22] MEDS: Normal Saline Flush 10 ML SYR IVP (10:59)
[2019-04-23] MEDS: cefTRIAXone 2 GM/50 ML BAG IVPB (11:04)
[2019-04-23] MEDS: Normal Saline Flush 10 ML SYR IVP (11:05)
[2019-04-24] MEDS: cefTRIAXone 2 GM/50 ML BAG IVPB (10:58)
[2019-04-24] MEDS: Normal Saline Flush 10 ML SYR IVP (10:58)
[2019-04-25] MEDS: Normal Saline Flush 10 ML SYR IVP (11:06)
[2019-04-25] MEDS: cefTRIAXone 2 GM/50 ML BAG IVPB (11:06)
[2019-04-26] MEDS: Normal Saline Flush 10 ML SYR IVP (11:03)
[2019-04-26] MEDS: cefTRIAXone 2 GM/50 ML BAG IVPB (11:03)
[2019-04-27] MEDS: Normal Saline Flush 10 ML SYR IVP (11:04)
[2019-04-27] MEDS: cefTRIAXone 2 GM/50 ML BAG IVPB (11:04)
[2019-04-28] MEDS: cefTRIAXone 2 GM/50 ML BAG IVPB (11:05)
[2019-04-28] MEDS: Normal Saline Flush 10 ML SYR IVP (11:06)
[2019-04-29] MEDS: cefTRIAXone 2 GM/50 ML BAG IVPB (11:20)
[2019-04-29] MEDS: Normal Saline Flush 10 ML SYR IVP (11:20)
[2019-04-30] MEDS: Normal Saline Flush 10 ML SYR IVP (11:09)
[2019-04-30] MEDS: cefTRIAXone 2 GM/50 ML BAG IVPB (11:09)
[2019-05-01] MEDS: cefTRIAXone 2 GM/50 ML BAG IVPB (11:04)
[2019-05-01] MEDS: Normal Saline Flush 10 ML SYR IVP (11:05)
[2019-05-02] MEDS: cefTRIAXone 2 GM/50 ML BAG IVPB (11:07)
[2019-05-02] MEDS: Normal Saline Flush 10 ML SYR IVP (11:07)
[2019-05-03] MEDS: cefTRIAXone 2 GM/50 ML BAG IVPB (11:06)
[2019-05-03] MEDS: Normal Saline Flush 10 ML SYR IVP (11:06)
[2019-05-04] MEDS: cefTRIAXone 2 GM/50 ML BAG IVPB (14:43)
[2019-05-04] MEDS: Normal Saline Flush 10 ML SYR IVP (14:43)
[2019-05-05] MEDS: cefTRIAXone 2 GM/50 ML BAG IVPB (11:06)
[2019-05-05] MEDS: Normal Saline Flush 10 ML SYR IVP (11:40)
[2019-05-06] MEDS: cefTRIAXone 2 GM/50 ML BAG IVPB (11:07)
[2019-05-06] MEDS: Normal Saline Flush 10 ML SYR IVP (11:08)
[2019-05-07] MEDS: cefTRIAXone 2 GM/50 ML BAG IVPB (11:06)
[2019-05-07] MEDS: Normal Saline Flush 10 ML SYR IVP (11:06)
[2019-05-08] MEDS: Normal Saline Flush 10 ML SYR IVP (11:04)
[2019-05-08] MEDS: cefTRIAXone 2 GM/50 ML BAG IVPB (11:04)
== END 2019-05-15 23:59 | disposition home or self-care (01) ==
LOC: INF 02:22
PROVIDERS: PCP Nurse Practitioner Family; Visit Provider Family Medicine
DX: E11.628 Type 2 diabetes mellitus with other skin complications (principal); E11.52 Type 2 diabetes mellitus with diabetic peripheral angiopathy with gangrene; I96 Gangrene, not elsewhere classified; L03.032 Cellulitis of left toe
CPT/HCPCS: 36592; 96365; 99195; 99211

== ENCOUNTER 2019-06-20 02:06 | Outpatient (CLI) | payer OTHER, SELFPAY ==
[2019-06-20 15:45] LABS: Anion Gap 11.9 mmol/L (3-11); BUN 33 mg/dL (7-18); CO2 27.1 mmol/L (21.0-32.0); CREATININE 1.55 mg/dL (0.70-1.30); Calcium 9.4 mg/dL (8.5-10.1); Calculated LDL 116 mg/dL (<100); Chloride 103 mmol/L (98-107); Cholesterol 223 mg/dL (<200); Estimated GFR 44.42 (mL/min/1.73m2); Glucose 69 mg/dL (74-106); HDL Cholesterol 43 mg/dL (40-60); Potassium 4.1 mmol/L (3.5-5.1); Sodium 142 mmol/L (136-145); Triglyceride 320 mg/dL (<150)
[2019-06-20 22:39] LABS: COMMENT (LAB VIEW ONLY) 153.16 mg/dL
[2019-06-20 22:46] LABS: Microalb ug/mg Crea 69.9 ug/mg Cr
[2019-06-21 09:48] LABS: PSA, Diagnostic 8.8 ng/mL (0.0-6.5)
[2019-06-21 16:02] LABS: C-Peptide 1.8 ng/mL (1.1 - 4.4)
[2019-06-21 17:37] LABS: Fructosamine 355 mcmol/L (200 - 285)
== END 2019-06-20 02:26 ==
PROVIDERS: Urology; PCP Nurse Practitioner Family; Visit Provider Internal Medicine Endocrinology, Diabetes & Metabolism
DX: E11.65 Type 2 diabetes mellitus with hyperglycemia (principal); E78.5 Hyperlipidemia, unspecified; R97.20 Elevated prostate specific antigen [PSA]
CPT/HCPCS: 36415; 80048; 80061; 82043; 82570; 82985; 84153; 84681

== ENCOUNTER 2019-11-06 02:04 | Outpatient (CLI) | payer OTHER, SELFPAY ==
[2019-11-06 10:43] LABS: Hemoglobin A1C 10.2 % (<5.7)
== END 2019-11-06 02:24 ==
PROVIDERS: PCP Nurse Practitioner Family; Visit Provider Internal Medicine Endocrinology, Diabetes & Metabolism
DX: E11.65 Type 2 diabetes mellitus with hyperglycemia (principal)
CPT/HCPCS: 36415; 83036

== ENCOUNTER 2019-12-24 16:14 | Outpatient (REF) | payer OTHER, SELFPAY ==
[2019-12-24 21:52] LABS: ALT 39 U/L (16-63); AST 24 U/L (15-37); Albumin 3.8 g/dL (3.4-5.0); Alkaline Phosphatase 43 U/L (46-116); Anion Gap 9.8 mmol/L (3-11); BUN 23 mg/dL (7-18); Bilirubin, Total 0.7 mg/dL (0.2-1.0); CO2 26.2 mmol/L (21.0-32.0); CREATININE 1.21 mg/dL (0.70-1.30); Calcium 9.1 mg/dL (8.5-10.1); Chloride 105 mmol/L (98-107); Estimated GFR 59.12 (mL/min/1.73m2); Glucose 188 mg/dL (74-106); Potassium 4.3 mmol/L (3.5-5.1); Sodium 141 mmol/L (136-145); Total Protein 6.9 g/dL (6.4-8.2); Uric Acid 6.1 mg/dL (3.5-7.2)
[2019-12-26 14:46] LABS: PSA, Diagnostic 7.5 ng/ml (0-6.5)
== END 2019-12-24 16:34 ==
LOC: NCHCN 16:14
PROVIDERS: PCP Nurse Practitioner Family; Visit Provider Nurse Practitioner Family
DX: R06.09 Other forms of dyspnea (principal); I73.9 Peripheral vascular disease, unspecified; E66.9 Obesity, unspecified; M10.9 Gout, unspecified; R97.20 Elevated prostate specific antigen [PSA]; I12.9 Hypertensive chronic kidney disease with stage 1 through stage 4 chronic kidney disease, or unspecified chronic kidney disease; E11.22 Type 2 diabetes mellitus with diabetic chronic kidney disease; N18.30 Chronic kidney disease, stage 3 unspecified
CPT/HCPCS: 80053; 84153; 84550

== ENCOUNTER 2020-07-31 13:24 | Outpatient (REF) | payer OTHER, SELFPAY ==
[2020-07-31 21:16] LABS: Abs Immature Grans 0.02 10^3/uL (0.0-0.06); Absolute Basophil Count 0.08 10^3/uL (0.0-0.2); Absolute Eosinophil Count 0.32 10^3/uL (0.0-0.7); Absolute Lymphocyte Count 3.01 10^3/uL (1.2-3.4); Absolute Monocyte Count 0.54 10^3/uL (0.1-0.8); Absolute Neutrophil Count 4.38 10^3/uL (1.2-6.7); Eosinophils % 3.8; HCT 43.4 % (40.0-50.0); HGB 14.2 g/dL (13.5-17.5); Immature Grans % 0.2; MCH 30.7 pg (27.0-33.0); MCHC 32.7 % (32.0-36.0); MCV 93.9 fL (80-95); MPV 11.2 fL (8.0-11.0); Monocytes % 6.5; Neutrophils % 52.5; Nucleated RBC 0 %; Platelet Count 296 10^3/uL (130-400); RBC 4.62 10^6/uL (4.36-5.78); RDW 14.2 % (11.8-14.1); RDW-SD 48.7 fL; WBC 8.35 10^3/uL (4.4-10.8)
[2020-07-31 21:57] LABS: Iron 98 ug/dL (65-175); Total Iron Binding Capacity 258 ug/dL (250-450); Transferrin Sat 38 % (20-55)
[2020-07-31 22:03] LABS: ALT 40 U/L (16-63); AST 32 U/L (15-37); Alkaline Phosphatase 44 U/L (46-116); BUN 49 mg/dL (7-18); Bilirubin, Total 0.7 mg/dL (0.2-1.0); CREATININE 1.9 mg/dL (0.70-1.30); Calcium 9.2 mg/dL (8.5-10.1); Chloride 103 mmol/L (98-107); Estimated GFR 35.02 (mL/min/1.73m2); Glucose 308 mg/dL (74-106); Magnesium 2.1 mg/dL (1.8-2.4); Potassium 5.3 mmol/L (3.5-5.1); Sodium 141 mmol/L (136-145); TSH (W/Ref FT4) 1.74 uIU/mL (0.36-3.74); Uric Acid 6.3 mg/dL (3.5-7.2)
[2020-07-31 22:27] LABS: Ferritin 163 ng/mL (26-388)
[2020-08-01 17:59] LABS: PSA, Diagnostic 9.2 ng/mL (0.0-6.5)
[2020-08-02 14:24] LABS: Fructosamine 373 mcmol/L (200 - 285)
== END 2020-07-31 13:25 | disposition home or self-care (01) ==
LOC: NCHCN 13:24
PROVIDERS: PCP Nurse Practitioner Family; Visit Provider Nurse Practitioner Family
DX: E11.22 Type 2 diabetes mellitus with diabetic chronic kidney disease (principal); R25.2 Cramp and spasm; I73.9 Peripheral vascular disease, unspecified; E66.9 Obesity, unspecified; M10.9 Gout, unspecified; N40.1 Benign prostatic hyperplasia with lower urinary tract symptoms; N18.30 Chronic kidney disease, stage 3 unspecified
CPT/HCPCS: 80053; 82728; 82985; 83540; 83550; 83735; 84153; 84443; 84550; 85025

== ENCOUNTER 2020-09-01 18:42 | Outpatient (REF) | payer OTHER, SELFPAY ==
[2020-09-01 22:08] LABS: Anion Gap 9.2 mmol/L (3-11); BUN 26 mg/dL (7-18); CO2 25.8 mmol/L (21.0-32.0); CREATININE 1.4 mg/dL (0.70-1.30); Calcium 9.2 mg/dL (8.5-10.1); Chloride 104 mmol/L (98-107); Estimated GFR 49.82 (mL/min/1.73m2); Glucose 169 mg/dL (74-106); Potassium 4.7 mmol/L (3.5-5.1); Sodium 139 mmol/L (136-145)
== END 2020-09-01 18:43 | disposition home or self-care (01) ==
LOC: NCHCN 18:42
PROVIDERS: PCP Nurse Practitioner Family; Visit Provider Nurse Practitioner Family
DX: E87.5 Hyperkalemia (principal); I73.9 Peripheral vascular disease, unspecified; M10.9 Gout, unspecified; E66.9 Obesity, unspecified; I10 Essential (primary) hypertension; E11.22 Type 2 diabetes mellitus with diabetic chronic kidney disease; R25.2 Cramp and spasm; N40.1 Benign prostatic hyperplasia with lower urinary tract symptoms
CPT/HCPCS: 80048

== ENCOUNTER 2020-09-08 01:03 | Outpatient (CLI) | payer OTHER, SELFPAY ==
--- NOTE | 2020-09-08 | DI.US_ITS ---
Exam(s) US RENAL EXAM: US RENAL CLINICAL HISTORY: HYPERKALEMIA,E87.5,CHRONIC KIDNEY DISEASE,N18.3 TECHNIQUE: Ultrasound of both kidneys performed using standard protocol. COMPARISON: No exams were available for comparison FINDINGS: RIGHT KIDNEY: Measures 11.9 cm in length. There is a small 9 x 8 millimeters cyst in the superior pole. Normal cor tical thickness and corticomedullary differentiation .No solid masses No intrarenal calculi nor hydronephrosis. LEFT KIDNEY: Measures 10.0 cm in length. No cysts evident. Normal cortical thickness and corticomedullary differe ntiaion. No solids masses. No intrarenal calculi nor hydonephrosis. URINARY BLADDER: Prevoid volume is 100 cc Postvoid volume is 68 cc Prostate gland is mildly enlarged.. Measures 3.8 by 4.9 x 3.7 cm, for volume of 37 cc No evidence of bladder mass nor diverticuli. Ureterovesical jets: Both identified and appear symmetrical IMPRESSION: 1. There is a small 9 millimeter benign cyst in the superior pole the right kidney. No other signif icant focal renal findings. No hydronephrosis. 2. Residual bladder volume of 68 cc noted. 3. The prostate gland is mildly enlarged. DATA REPOSITORY:
== END 2020-09-08 01:23 ==
PROVIDERS: PCP Nurse Practitioner Family; Visit Provider Nurse Practitioner Family
DX: N28.1 Cyst of kidney, acquired (principal); E87.5 Hyperkalemia; N18.30 Chronic kidney disease, stage 3 unspecified; N40.0 Benign prostatic hyperplasia without lower urinary tract symptoms
CPT/HCPCS: 76770

== ENCOUNTER → 2021-01-22 14:20 | Outpatient (BNVA) | payer MEDICARE, SELFPAY | PROVIDERS: PCP Nurse Practitioner Family; Referring Provider Nurse Practitioner Family; Visit Provider Physical Therapy Assistant | DX: Z12.11 Encounter for screening for malignant neoplasm of colon (principal); Z86.010 Personal history of colon polyps ==

== ENCOUNTER 2021-01-23 01:04 | Outpatient (CLI) | payer MEDICARE, SELFPAY ==
[2021-01-23 11:04] LABS: Source Nasal/Nares
[2021-01-23 22:07] LABS: COVID-19 PCR Negative (Negative)
== END 2021-01-23 01:05 | disposition home or self-care (01) ==
PROVIDERS: PCP Nurse Practitioner Family; Visit Provider Surgery
DX: Z20.822 Contact with and (suspected) exposure to COVID-19 (principal); Z01.818 Encounter for other preprocedural examination
CPT/HCPCS: 87635

== ENCOUNTER 2021-01-26 12:12 | Day surgery (SDC) | payer MEDICARE, SELFPAY ==
--- NOTE | 2021-01-26 06:42 | W.ANESPRE ---
General Info Date of Service Date Performed: 01/26/21 Height: 6 ft Weight: 109.316 kg Body Mass Index (BMI): 32.6 Surgical Procedure: Operation Date: 01/26/21 12:05 Proposed Procedures Side Surgeon javier Koch MD Meds Allergies and Home Medications Allergies Allergy/AdvReac Type Severity Reaction Status Date / Time Penicillins Allergy Verified 01/26/21 12:33 Home Medication Medication Instructions Recorded hydrochlorothiazide 12.5 mg PO DAILY 03/18/16 lisinopril 40 mg PO DAILY 03/18/16 simvastatin 10 mg PO DAILY tab-cap 07/30/16 allopurinol 100 mg PO DAILY 05/26/18 ibuprofen 600 mg PO QID PRN #40 tab 05/26/18 insulin lispro [Humalog KwikPen See Rx Instructions .ROUTE .COMPLEX 02/25/19 Insulin] amlodipine 2.5 mg PO DAILY #30 tab 02/28/19 aspirin 81 mg tablet,delayed 81 mg PO DAILY 09/05/20 release glucose 5 gram chewable tablet 5 g PO Q15M PRN 09/05/20 bisacodyl 5 mg tablet,delayed 5 mg PO ONCE #4 tab 01/22/21 release dulaglutide 0.75 mg/0.5 mL 0.75 mg SUBCUT QWEEK 01/22/21 subcutaneous pen injector insulin glargine 100 unit/mL (3 80 unit SUBCUT HS ml 01/22/21 mL) subcutaneous pen polyethylene glycol 3350 17 238 g PO ONCE #238 g 01/22/21 gram/dose oral powder Current Visit Medications: Current Medications Generic Name Dose Route Start Last Admin Trade Name Lazaroq PRN Reason Stop Dose Admin Ringer's Solution 1,000 mls @ 80 mls/hr 01/26/21 06:00 IV 02/22/21 23:59 INFUSION TONY IV Miscellaneous Supplies 1 each 01/26/21 06:00 Iv Access IV 02/22/21 23:59 DIRECTED TONY Sodium Chloride 0 ml 01/26/21 06:00 Normal Saline Flush 10 Ml Syr IV 02/22/21 23:59 PRN PRN Sodium Chloride 0 ml 01/26/21 06:00 Normal Saline 10 Ml Vial IJ 02/22/21 23:59 DIRECTED PRN Sterile Water 0 ml 01/26/21 06:00 Water,Injection,Sterile 10 Ml Vial IJ 02/22/21 23:59 DIRECTED PRN PFSH Active Problems Active Problems: Problem Status Onset Code Peripheral artery disease I73.9 GONZALES (dyspnea on exertion) R06.00 Obesity E66.9 Screening for colon cancer Z12.11 DVT prophylaxis Z29.9 BPH loc w urin obs/LUTS N40.1 Medical History Medical History Amputation of toe of left foot BPH (benign prostatic hyperplasia) Cataract Cellulitis in diabetic foot Diabetic foot ulcer Diabetic neuropathy Discharge planning issues Gout High cholesterol 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 Marijuana: t, pen Vital Signs and Lab Results Lab Results Blood Type / Crossmatch: No Data to Display Complete Blood Count: No Data to Display Complete Metabolic Panel: No Data to Display Liver Function Panel: No Data to Display Coagulation Panel: No Data to Display Cardiac Panel: No Data to Display Arterial Blood Gas: No Data to Display Venous Blood Gas: No Data to Display Pancreas Panel: No Data to Display Thyroid Panel: No Data to Display Infectious Disease: Coronavirus (COVID-19)(PCR) Negative (Negative) 01/23/21 10:10 01/23/21 Coronavirus 2019 Source Nasal/Nares 01/23/21 10:10 01/23/21 Blood Cultures: No Data to Display Toxicology Panel: No Data to Display Anesthesia Assessment and Plan Anesthesia History Personal History: No History of Anesthesia Complications Family History: No Family History of Anesthesia Complications Exercise Tolerance Exercise Tolerance: Metabolic Equivalents>4 Cardiac & Pulmonary Exam Cardiac Exam: Normal S1/S2 Heart Sounds Pulmonary Exam: Clear Bilateral Breath Sounds Implantable Cardiac Device Does patient have a Pacemaker or an ICD?: No Airway Exam Known Difficult Airway: No Mallampati Class: 2 Mouth Opening: Normal (> 3cm) Thyromental Distance: Greater than 3 cm Neck Range of Motion: Limited ROM Neck Circumference: Thick Teeth Condition: Removable Dentures/Plates Upper ASA Classification ASA Score: ASA 2 Emergency Case?: No NPO Status NPO Status: NPO Clears >2 hours, Solids >8 hours Anesthesia Plan Resuscitation Status: Full Code Anesthesia Technique: General Anesthesia Airway Planned: Natural Airway Monitors Used: Standard Monitors Preoperative Comments:: 70 yo male with polyps in the past here for colonoscopy. Sig PMHx: HTN (HCTZ/lisinopril/amlodipine), DM 7.6 a1c(dulaglutide/glargine), PAD.
--- NOTE | 2021-01-26 06:49 | W.COLOREPORT ---
Colonoscopy Report Date of procedure: 01/26/21 Pre-op diagnosis general: Hx of colon polyps Post-op diagnosis procedure note: same (mild right sided diverticulosis) Procedure: Colonoscopy with polypectomy Surgeon: Laurie Koch Anesthesia Type: General:No Airway (Trevor Lucas CRNA) Estimated blood loss (mL): 5 Pathology: other (Ascending polyps, transverse polyps, descending polyps, sigmoid polyps) Complications: None Disposition: same day Indications: The patient is here for Colonoscopy pre-op. His last screening was in 2016, which was remarkable for tubulovillious adenoma with focal high grade and secondary features of mucosal prolapse, a second tubulovillious adenoma and tubular adenoma. He has no family history of colon cancer. He has not had any bowel habit changes. -Discussed colonoscopy bowel prep as well as the procedure. Discussed possible complications of the procedure to include bleeding, pain, perforation, missed small lesion/polyp, sore throat, aspiration and adverse reaction to the medications. Questions were answered to patient?s satisfaction. No guarantees were implied or given. Prep: Miralax/Dulcolax Procedure Start Time: 13:08 Procedure End Time: 14:01 Retraction Time: 37 minutes Findings: multiple polyps one ascending colon polyp was >10 mm in size Procedure Description: After informed consent was obtained the patient was taken to the procedure room and placed in a left decubitous position. Monitors were applied and a time out was done. The patients name, date of , procedure, allergies to medications and metal in their body was reviewed. The patient was then sedated. Once sedated and comfortable a rectal exam was done. External exam was normal. Internal exam revealed a normal sphincter tone and no palpable masses. The prostate felt smooth but enlarged. The scope was then introduced and retro-flexed. No internal hemorrhoids, polyps or masses were identified on retro-flexion. The scope was then advanced to the cecum without difficulty. The ileocecal vlave and appendiceal orifice were identified. The prep was adequate. The scope was then slowly retracted over 37 minutes back into the rectum. Polyps were removed with a hot snare in the ascending colon and with cold forceps in the ascending colon x1, transverse polyp x2, descending polyps x3 and sigmoid colon x4. There was mild right sided diverticulosis noted. The scope was removed and the patient was woken up and taken back to Same day surgery in stable condition. The patient tolerated the procedure well and there were no immediate complications. Follow up: The patient should follow up in 3 years unless they develop changes in bowel habits or other new gastrointestinal complaints.
--- NOTE | 2021-01-26 06:50 | PDOC.DSDIS_ITS ---
Discharge Plan Disposition Patient Disposition: HOME Condition: Good Discharge Details Reason For Visit: Colonoscopy Attending Provider: Laurie Koch Primary Care Provider: Reena Payan Home Meds and New Rx's Prescriptions: Continued Trulicity 0.75 mg/0.5 mL pen injector 0.75 mg subcut QWEEK RF: 0 simvastatin 10 MG tablet 10 mg PO DAILY RF: 0 glucose 5 gram tablet,chewable 5 g PO Q15M PRNRF: 0 aspirin [Adult Aspirin Regimen] 81 mg tablet,delayed release (DR/EC) 81 mg PO DAILY RF: 0 hydrochlorothiazide 12.5 MG capsule 12.5 mg PO DAILY RF: 0 lisinopril 40 MG tablet 40 mg PO DAILY RF: 0 Lantus Solostar U-100 Insulin 100 unit/mL (3 mL) insulin pen 80 unit subcut HS RF: 0 insulin lispro [Humalog KwikPen Insulin] 100 unit/mL Insulin Pen See Rx Instructions .ROUTE .COMPLEX RF: 0 amlodipine 2.5 mg Tablet 2.5 mg PO DAILY Qty: 30 RF: 0 allopurinol 100 mg Tablet 100 mg PO DAILY RF: 0 ibuprofen 600 mg tablet 600 mg PO QID PRN (Reason: pain) Qty: 40 RF: 0 Discontinued bisacodyl [Dulcolax (bisacodyl)] 5 mg tablet,delayed release (DR/EC) 5 mg PO ONCE Qty: 4 RF: 0 polyethylene glycol 3350 17 gram/dose powder 238 g PO ONCE Qty: 238 RF: 0 Discharge Instructions Instructions: Diverticulosis (DC), Colorectal Polyps (DC) Additional Instructions: Findings: 11 polyps were removed mild right sided diverticulosis Follow up: 3 years Please call if you develop: fevers >101.5 Nausea or Vomiting Abdominal pain that is not transient Rectal bleeding that is more then a tbsp A hard abdomen and inability to pass gas DAY SURGERY UNIT POST ENDOSCOPY INSTRUCTIONS Instructions for everyone who is given Anesthesia: For your safety, please do the following for the next 24 Hours: a. Do not drive or operate dangerous equipment b. Do not drink alcohol beverages or use any recreational drugs for the first 24 hours or while taking pain medications. The medications in your body may have a reaction that can be dangerous. c. Do not make any important decisions or sign any important papers 1. Generally there are no restrictions on your activity after a day or so has gone by, but you may feel a bit fatigued for a few days. 2. After you arrive home you may have a light meal and return to a normal diet as you can tolerate it without feeling sick to your stomach. 3. After surgery, you may feel pain or discomfort. This should be only transien t, but if it persists please contact your doctor. 4. If there are any questions regarding the findings of your procedure, please feel free to contact your doctor. 6. If you are unable to contact your doctor with a problem, contact the hospital at [phone]. 7. Continue all your regular medications unless directed otherwise. I understand the above instructions and have no questions. Signature of Patient or Responsible Adult Escort Date/Time Name of Responsible Adult Escort Signature of Nurse Date/Time Activity:: Activity as Tolerated Diet:: high fiber diet Discharge Orders Discharge Orders: Discharge Order (Routine); Ordered 01/26/21 Ordered By: Laurie Koch
[2021-01-26 12:28] VITALS: BP 151/82; PULSE 112; RESP 18; TEMP 36.2; O2SAT 95
[2021-01-26 12:54] VITALS: BMI 32.6
[2021-01-26] MEDS: Lactated Ringers 1,000 ML 80 ML IV (12:55)
--- NOTE | 2021-01-26 13:31 | BOWEL_PTH ---
PATIENT: Phil Velásquez LOC: [facility] U#:[id number] AGE/SX: 70/M ROOM: RE01/26/[address]: Laurie Koch MD : [id number] BED: DIS: 01/26/2021 SPEC #: [id number] RECD: 01/26/21 16:52 STATUS: ROSANNE REQ #: [id number] MEG: 01/26/21 13:[address]: Laurie Koch DEPT: Surgical Specimen RECD BY: Lilliana Torres ENTERED: 01/26/21 16:54 SP TYPE: Bowel OTHR DR: Reena Payan Tissues: 1 - BIOPSY BOWEL 2 - BIOPSY BOWEL 3 - BIOPSY BOWEL 4 - BIOPSY BOWEL 5 - BIOPSY BOWEL Procedures: GROSS AND MICRO LEVEL 4 Comments: [id number]
[2021-01-26 14:08] VITALS: BP 89/78; PULSE 93; RESP 18; TEMP 36.5; O2SAT 94
[2021-01-26 14:36] VITALS: BP 122/78; PULSE 90; RESP 18; TEMP 36.3; O2SAT 95
--- NOTE | 2021-01-26 15:10 | W.ANESPOSTOP ---
Postoperative Evaluation Date, Time and Location Date Performed: 01/26/21 Time Performed: 15:10 Patient Location: Day Surgery Unit Vital Signs Most Recent Imported Vital Signs: Most Recent Vital Signs Temp Pulse Resp BP Pulse Ox 36.3 C L 90 18 122/78 95 01/26/21 14:36 01/26/21 14:36 01/26/21 14:36 01/26/21 14:36 01/26/21 14:36 Pain Score Most Recent Pain Score: Most Recent Pain Score Pain Level 0 01/26/21 14:36 Assessment Mental Status: Awake (Alert & Oriented to Patient Baseline) Airway and Respiratory Function: Patent airway with normal (patient baseline) respiratory exam Cardiovascular Function: Hemodynamically Stable Hydration Status: Adequately Hydrated Nausea & Vomiting: No Nausea or Vomiting Pain: Pt. Denies Any Pain Peripheral Nerve Block: Patient did not receive a nerve block
== END 2021-01-26 12:13 | disposition home or self-care (01) ==
PROVIDERS: PCP Nurse Practitioner Family; Visit Provider Surgery
PROC: 0DJD8ZZ Inspection of Lower Intestinal Tract, Via Natural or Artificial Opening Endoscopic (ICD-10-PCS; CPT 45378; principal; 2021-01-26 12:00)
DX: Z12.11 Encounter for screening for malignant neoplasm of colon (principal); K57.30 Diverticulosis of large intestine without perforation or abscess without bleeding; D12.2 Benign neoplasm of ascending colon; K51.40 Inflammatory polyps of colon without complications; D12.3 Benign neoplasm of transverse colon; D12.4 Benign neoplasm of descending colon; D12.5 Benign neoplasm of sigmoid colon; Z86.010 Personal history of colon polyps
CPT/HCPCS: 45385; 45380; 88305; J2001; J2704

== ENCOUNTER 2021-02-02 03:33 | Outpatient (CLI) | payer MEDICARE, SELFPAY ==
[2021-02-02 16:29] LABS: Hemoglobin A1C 8.1 % (<5.7)
[2021-02-02 17:39] LABS: ALT 58 U/L (16-63); AST 38 U/L (15-37); Albumin 4.1 g/dL (3.4-5.0); Alkaline Phosphatase 50 U/L (46-116); Anion Gap 9.1 mmol/L (3-11); BUN 21 mg/dL (7-18); Bilirubin, Total 0.6 mg/dL (0.2-1.0); CO2 27.9 mmol/L (21.0-32.0); CREATININE 1.3 mg/dL (0.70-1.30); Calcium 9.8 mg/dL (8.5-10.1); Chloride 105 mmol/L (98-107); Estimated GFR 54.26 (mL/min/1.73m2); Glucose 161 mg/dL (74-106); Potassium 4.7 mmol/L (3.5-5.1); Sodium 142 mmol/L (136-145); Total Protein 7.5 g/dL (6.4-8.2)
[2021-02-04 15:57] LABS: Fructosamine 312 mcmol/L (200 - 285)
== END 2021-02-02 03:34 | disposition home or self-care (01) ==
LOC: LBO 03:33
PROVIDERS: PCP Nurse Practitioner Family; Visit Provider Internal Medicine Endocrinology, Diabetes & Metabolism
DX: E11.65 Type 2 diabetes mellitus with hyperglycemia (principal)
CPT/HCPCS: 36415; 80053; 82043; 82570; 82985; 83036

== ENCOUNTER 2021-02-03 20:28 | Outpatient (REF) | payer MEDICARE, SELFPAY ==
[2021-02-03 21:55] LABS: COMMENT (LAB VIEW ONLY) 227.08 mg/dL; Microalb ug/mg Crea 37.8 ug/mg Cr
== END 2021-02-03 20:29 | disposition home or self-care (01) ==
LOC: LBN 20:28
PROVIDERS: PCP Nurse Practitioner Family; Visit Provider Internal Medicine Endocrinology, Diabetes & Metabolism
DX: E11.65 Type 2 diabetes mellitus with hyperglycemia (principal)
CPT/HCPCS: 82043; 82570

== ENCOUNTER 2021-04-09 02:05 | Outpatient (CLI) | payer MEDICARE, SELFPAY ==
[2021-04-13 10:04] LABS: PSA, Ultrasensitive 11.3 ng/mL (<= 6.5)
== END 2021-04-09 02:06 | disposition home or self-care (01) ==
LOC: LBO 02:05
PROVIDERS: PCP Nurse Practitioner Family; Visit Provider Urology
DX: R97.20 Elevated prostate specific antigen [PSA] (principal)
CPT/HCPCS: 36415; 84153

== ENCOUNTER 2021-07-07 18:37 | Outpatient (REF) | payer MEDICARE, SELFPAY ==
[2021-07-07 14:48] LABS: Abs Immature Grans 0.03 10^3/uL (0.0-0.06); Absolute Basophil Count 0.13 10^3/uL (0.0-0.2); Absolute Eosinophil Count 0.32 10^3/uL (0.0-0.7); Absolute Lymphocyte Count 2.55 10^3/uL (1.2-3.4); Absolute Neutrophil Count 6.31 10^3/uL (1.2-6.7); Basophils % 1.3; Eosinophils % 3.2; HGB 14.9 g/dL (13.5-17.5); Immature Grans % 0.3; Lymphocytes % 25.4; MCH 30.3 pg (27.0-33.0); MCHC 31.7 % (32.0-36.0); MCV 96 fL (80-95); MPV 10.8 fL (8.0-11.0); Neutrophils % 62.8; Platelet Count 217 10^3/uL (130-400); RBC 4.92 10^6/uL (4.36-5.78); RDW 14.8 % (11.8-14.1); RDW-SD 51.8 fL; WBC 10.04 10^3/uL (4.4-10.8)
[2021-07-07 15:30] LABS: ALT 46 U/L (16-63); AST 29 U/L (15-37); Albumin 3.8 g/dL (3.4-5.0); Alkaline Phosphatase 58 U/L (46-116); BUN 19 mg/dL (7-18); CREATININE 1.4 mg/dL (0.70-1.30); Calcium 9.2 mg/dL (8.5-10.1); Chloride 103 mmol/L (98-107); Estimated GFR 49.68 (mL/min/1.73m2); Glucose 186 mg/dL (74-106); Potassium 4.6 mmol/L (3.5-5.1); Sodium 141 mmol/L (136-145); Total Protein 6.9 g/dL (6.4-8.2)
[2021-07-07 15:45] LABS: Uric Acid 6.1 mg/dL (3.5-7.2)
== END 2021-07-07 18:38 | disposition home or self-care (01) ==
LOC: NCHCN 18:37
PROVIDERS: PCP Nurse Practitioner Family; Visit Provider Nurse Practitioner Family
DX: N18.30 Chronic kidney disease, stage 3 unspecified (principal); M10.9 Gout, unspecified; E11.22 Type 2 diabetes mellitus with diabetic chronic kidney disease; I10 Essential (primary) hypertension; C61 Malignant neoplasm of prostate
CPT/HCPCS: 80053; 84550; 85025

== ENCOUNTER 2021-09-01 11:59 | Inpatient (IN) | payer MEDICARE, SELFPAY ==
[2021-09-01] VITALS (67 sets, daily range): BP systolic 103–176; BP diastolic 27–103; PULSE 98–140; RESP 1–40; TEMP 36.8–37.5; O2SAT 81–96
--- NOTE | 2021-09-01 12:00 | RT.EKG_ITS ---
APPROVED REPORT Exam: Resting ECG Reason for Exam: sob Patient Location: E HR:130 bpm ECG Measurements Heart Rate 130 AXIS WV 155 P 84 QRSd 98 QRS 43 QT 301 T 61 QTc 444 Conclusion Sinus tachycardia...rate> 99 Anteroseptal infarct, age indeterminate...Q >35mS, T neg, V1-V2. Sinus. Normal axis. No STEMI. I have reviewed and interpreted ECG and agree with software generated interpretation.
--- NOTE | 2021-09-01 12:15 | DI.CT_ITS ---
Exam(s) CT HEAD WO EXAM: CT HEAD WO CLINICAL HISTORY: sob. TECHNIQUE: Imaging Protocol: Axial computed tomography images with coronal and sagittal reformatted images were created and reviewed COMPARISON: No exams were available for comparison FINDINGS: There are no skull fractures nor fluid in the visualized paranasal sinuses. There is no evidence of intracranial hemorrhage, mass effect, or shift of midline structures. There are no extra-axial fluid collections. The ventricles are not enlarged or shifted and there is no blo od within the ventricular system nor within the basal cisterns. IMPRESSION: No acute intracranial findings on this noninfused CT scan of the brain. Called by myself to ER RADIATION DOSE DELIVERED: 911.61mGy.cm Total DLP DATA REPOSITORY: All CT scans at this facility are submitted to the National Radiology Data Registry (NRDR) Dose Index Registry (DIR) with the [employer] ([employer]). RADIATION OPTIMIZATION: All CT scans at this facility use at least one of these dose optimization te chniques: automated exposure control; mA and/or kV adjustment per patient size (includes targeted exa ms where dose is matched to clinical indication); or iterative reconstruction.
--- NOTE | 2021-09-01 12:34 | W.ED.GENAD ---
Discharge Plan Disposition Patient Disposition: [facility] INPATIENT Condition: Serious Discharge Details Clinical Impression: Pneumonia, Hyperglycemia, Acute kidney injury superimposed on chronic kidney disease, Bandemia, Hypoxia Admit Date/Time: 09/01/21 14:51 Admit Provider: Brandt Meza Attending Provider: Brandt Meza Primary Care Provider: Reena Payan ED Provider: Angélica Mullins Discharge Data Discharge Date/Time-TO BE ENTERED AT DEPARTURE: 09/01/21 16:33 Medical Decision Making 1210 -- 71-year-old male with a history of obesity, diabetes, hypertension, CKD, prostate cancer and peripheral vascular disease presents for generalized weakness for the past week and shortness of breath for the past few days. I was called to the room within a few seconds of patient being brought into the room with his daughter. He is to be unresponsive with oxygen saturations 30s to 40s. He maintains a pulse. He was given supplemental breaths with BVMs. Preparations were being made for intubation and patient was able to awake and speak and answer questions. His oxygen saturations were mid 90s on nonrebreather. His heart rate remained sinus and 130s. EKG noted a rate of 130, sinus and no STEMI. Fingerstick glucose read as high. Differential diagnosis includes ACS, DKA, seizure, CVA, electrolyte abnormality. Respiratory unable to obtain ABG. Will obtain VBG, remainder of screening labs, CT head, chest x-ray, fluvid. Patient initially stated he was DNI. He states he would want CPR. When discussed this further, he states he is a full code. Discussed with daughter at bedside and he states he will discuss this with him further. 1300 -- patient appears drowsy at times but easily arousable and able to answer questions appropriately. Oxygen saturation low 90s on facemask. Imaging reviewed and notes a left lower lobe infiltrate. We will give a DuoNeb. Labs reviewed. WBC 16. Bands 14. Glucose 625 with normal bicarb and pH of 7.2, so does not meet criteria for dka. Anion gap is 19.6. K 5.5. Creatinine is 2.3 which is increased compared to his usual baseline. Fluvid negative. RT unable to obtain ABG. 1400 -- oxygen saturation dropped to the low 80s while receiving DuoNeb. Respiratory at bedside and will place on CPAP briefly with albuterol. 1450 -- Case discussed with hospitalist who accepts patient for admission. Daughter states his penicillin allergy was as a child and she is unaware of any reaction. Dose of IV Rocephin and Zithromax ordered. Medical Records Medical records reviewed: Yes I reviewed the patient's medical records. Imaging Data Radiologic Study: Radiologist's impression: CT HEAD WO EXAM: ? CT HEAD WO CLINICAL HISTORY: ? sob. ? TECHNIQUE:? Imaging Protocol: Axial computed tomography images with coronal and sagittal reformatted images were created and reviewed COMPARISON:? No exams were available for comparison FINDINGS: ?There are no skull fractures nor fluid in the visualized paranasal sinuses. There is no evidence of intracranial hemorrhage, mass effect, or shift of midline structures.? There are no extra-axial fluid collections.? The ventricles are not enlarged or shifted and there is no blood within the ventricular system nor within the basal cisterns. IMPRESSION: No acute intracranial findings on this noninfused CT scan of the brain. XR PORTABLE CHEST AP CLINICAL HISTORY: ? sob, r/o acute disease. ? TECHNIQUE:? 2D digital imaging was performed. COMPARISON:? No exams were available for comparison FINDINGS: Single AP portable view. Heart size is upper normal.? The mediastinum is not widened. Mild increased markings left lower lobe.? No pleural effusions.? Mildly elevated right. IMPRESSION: Left lower lobe infiltrate Lab Data Lab results reviewed: Yes I reviewed the patient's lab results. Labs: 09/01/21 14:24 Urine - Reflex from Ua Urine Culture - Pending 09/01/21 14:41 Blood Blood Culture - Pending 09/01/21 14:31 Blood Blood Culture - Pending Laboratory Tests Range/Units 09/01/21 09/01/21 09/01/21 12:20 12:20 12:20 WBC (4.4-10.8) 10^3/uL 16.15 H RBC (4.36-5.78) 10^6/uL 4.41 Hgb (13.5-17.5) g/dL 13.7 Hct (40.0-50.0) % 43.9 MCV (80-95) fL 100 H MCH (27.0-33.0) pg 31.1 MCHC (32.0-36.0) % 31.2 L RDW (11.8-14.1) % 14.3 H Plt Count (130-400) 10^3/uL 373 MPV (8.0-11.0) fL 11.3 H Immature Gran % 0.0 Neutrophils % 42.0 Band Neutrophils % 14 Lymphocytes % 26.0 Atypical Lymphs % 0 Monocytes % 16.0 Eosinophils % 1.0 Basophils % 0.0 Myelocytes % 1 Nucleated RBC % (0.0-0.3) % 0.0 Absolute Neutrophils (1.2-6.7) 10^3/uL 9.04 H Absolute Lymphocytes (1.2-3.4) 10^3/uL 4.20 H Absolute Monocytes (0.1-0.8) 10^3/uL 2.58 H Absolute Eosinophils (0.0-0.7) 10^3/uL 0.16 Absolute Basophils (0.0-0.2) 10^3/uL 0.00 RBC Morphology See Below Polychromasia Present PT (9.3-11.0) sec 10.2 INR (0.9-1.1) 1.0 APTT (21.0-27.5) sec 25.9 VBG pH (7.31-7.41) VBG pCO2 (41-51) mmHg VBG pO2 mmHg VBG HCO3 (23-28) mmol/L VBG Total CO2 (24-29) mmol/L VBG O2 Saturation % VBG Base Excess (-2-3) mmol/L VBG Lactate (0.6-1.4) mmol/L Sodium (136-145) mmol/L 136 Potassium (3.5-5.1) mmol/L 5.5 H Chloride (98-107) mmol/L 95 L Carbon Dioxide (21.0-32.0) mmol/L 21.4 Anion Gap (3-11) mmol/L 19.6 H BUN (7-18) mg/dL 41 H Creatinine (0.70-1.30) mg/dL 2.3 H Estimated GFR/1.73 m2 (mL/min/1.73m2) 28.01 Glucose (74-106) mg/dL 625 H* Calcium (8.5-10.1) mg/dL 9.6 Magnesium (1.8-2.4) mg/dL 2.5 H Total Bilirubin (0.2-1.0) mg/dL 0.8 AST (15-37) U/L 59 H ALT (16-63) U/L 53 Alkaline Phosphatase (46-116) U/L 76 Troponin I (<or=60) ng/L < 50 Total Protein (6.4-8.2) g/dL 8.4 H Albumin (3.4-5.0) g/dL 2.5 L Procalcitonin ng/mL Urine Color (Yellow) Urine Clarity (Clear) Urine pH (5-8) Ur Specific [place] (1.005-1.025) Urine Protein (Negative) mg/dL Urine Ketones (Negative) mg/dL Urine Blood (Negative) Urine Nitrite (Negative) Urine Bilirubin (Negative) Urine Urobilinogen (Up TO 0.2) EU/dL Ur Leukocyte Esterase (Negative) Urine RBC (0-2) HPF Urine WBC (0-5) HPF Ur Epithelial Cells (Negative) HPF Urine Crystals (Negative) HPF Urine Bacteria (Negative) HPF Urine Casts (Negative) LPF Urine Mucus (Negative) Urine Other (Negative) Ur Culture Indicated? Urine Glucose (Negative) mg/dL Urine Opiates Screen (Negative) Urine Methadone Screen (Negative) Ur Barbiturates Screen (Negative) Ur Tricyclics Screen (Negative) Ur Amphetamines Screen (Negative) U Benzodiazepines Scrn (Negative) Urine Cocaine Screen (Negative) Ur THC Screen (Negative) COVID-19 Source SARS-CoV-2 (PCR) (Negative) Influenza Type A (PCR) (Negative) Influenza Type B (PCR) (Negative) RSV (PCR) (Negative) Range/Units 09/01/21 09/01/21 09/01/21 12:52 13:45 14:24 WBC (4.4-10.8) 10^3/uL RBC (4.36-5.78) 10^6/uL Hgb (13.5-17.5) g/dL Hct (40.0-50.0) % MCV (80-95) fL MCH (27.0-33.0) pg MCHC (32.0-36.0) % RDW (11.8-14.1) % Plt Count (130-400) 10^3/uL MPV (8.0-11.0) fL Immature Gran % Neutrophils % Band Neutrophils % Lymphocytes % Atypical Lymphs % Monocytes % Eosinophils % Basophils % Myelocytes % Nucleated RBC % (0.0-0.3) % Absolute Neutrophils (1.2-6.7) 10^3/uL Absolute Lymphocytes (1.2-3.4) 10^3/uL Absolute Monocytes (0.1-0.8) 10^3/uL Absolute Eosinophils (0.0-0.7) 10^3/uL Absolute Basophils (0.0-0.2) 10^3/uL RBC Morphology Polychromasia PT (9.3-11.0) sec INR (0.9-1.1) APTT (21.0-27.5) sec VBG pH (7.31-7.41) 7.28 L VBG pCO2 (41-51) mmHg 51 VBG pO2 mmHg 58 VBG HCO3 (23-28) mmol/L 24 VBG Total CO2 (24-29) mmol/L 22 L VBG O2 Saturation % 86 VBG Base Excess (-2-3) mmol/L -3 L VBG Lactate (0.6-1.4) mmol/L Sodium (136-145) mmol/L Potassium (3.5-5.1) mmol/L Chloride (98-107) mmol/L Carbon Dioxide (21.0-32.0) mmol/L Anion Gap (3-11) mmol/L BUN (7-18) mg/dL Creatinine (0.70-1.30) mg/dL Estimated GFR/1.73 m2 (mL/min/1.73m2) Glucose (74-106) mg/dL Calcium (8.5-10.1) mg/dL Magnesium (1.8-2.4) mg/dL Total Bilirubin (0.2-1.0) mg/dL AST (15-37) U/L ALT (16-63) U/L Alkaline Phosphatase (46-116) U/L Troponin I (<or=60) ng/L Total Protein (6.4-8.2) g/dL Albumin (3.4-5.0) g/dL Procalcitonin ng/mL Urine Color (Yellow) Urine Clarity (Clear) Urine pH (5-8) Ur Specific [place] (1.005-1.025) Urine Protein (Negative) mg/dL Urine Ketones (Negative) mg/dL Urine Blood (Negative) Urine Nitrite (Negative) Urine Bilirubin (Negative) Urine Urobilinogen (Up TO 0.2) EU/dL Ur Leukocyte Esterase (Negative) Urine RBC (0-2) HPF Urine WBC (0-5) HPF Ur Epithelial Cells (Negative) HPF Urine Crystals (Negative) HPF Urine Bacteria (Negative) HPF Urine Casts (Negative) LPF Urine Mucus (Negative) Urine Other (Negative) Ur Culture Indicated? Urine Glucose (Negative) mg/dL Urine Opiates Screen (Negative) Negative Urine Methadone Screen (Negative) Negative Ur Barbiturates Screen (Negative) Negative Ur Tricyclics Screen (Negative) Negative Ur Amphetamines Screen (Negative) Negative U Benzodiazepines Scrn (Negative) Negative Urine Cocaine Screen (Negative) Negative Ur THC Screen (Negative) Negative COVID-19 Source Nasopharynx SARS-CoV-2 (PCR) (Negative) Negative Influenza Type A (PCR) (Negative) Negative Influenza Type B (PCR) (Negative) Negative RSV (PCR) (Negative) Negative Range/Units 09/01/21 09/01/21 14:24 14:31 WBC (4.4-10.8) 10^3/uL RBC (4.36-5.78) 10^6/uL Hgb (13.5-17.5) g/dL Hct (40.0-50.0) % MCV (80-95) fL MCH (27.0-33.0) pg MCHC (32.0-36.0) % RDW (11.8-14.1) % Plt Count (130-400) 10^3/uL MPV (8.0-11.0) fL Immature Gran % Neutrophils % Band Neutrophils % Lymphocytes % Atypical Lymphs % Monocytes % Eosinophils % Basophils % Myelocytes % Nucleated RBC % (0.0-0.3) % Absolute Neutrophils (1.2-6.7) 10^3/uL Absolute Lymphocytes (1.2-3.4) 10^3/uL Absolute Monocytes (0.1-0.8) 10^3/uL Absolute Eosinophils (0.0-0.7) 10^3/uL Absolute Basophils (0.0-0.2) 10^3/uL RBC Morphology Polychromasia PT (9.3-11.0) sec INR (0.9-1.1) APTT (21.0-27.5) sec VBG pH (7.31-7.41) VBG pCO2 (41-51) mmHg VBG pO2 mmHg VBG HCO3 (23-28) mmol/L VBG Total CO2 (24-29) mmol/L VBG O2 Saturation % VBG Base Excess (-2-3) mmol/L VBG Lactate (0.6-1.4) mmol/L 2.1 H Sodium (136-145) mmol/L Potassium (3.5-5.1) mmol/L Chloride (98-107) mmol/L Carbon Dioxide (21.0-32.0) mmol/L Anion Gap (3-11) mmol/L BUN (7-18) mg/dL Creatinine (0.70-1.30) mg/dL Estimated GFR/1.73 m2 (mL/min/1.73m2) Glucose (74-106) mg/dL Calcium (8.5-10.1) mg/dL Magnesium (1.8-2.4) mg/dL Total Bilirubin (0.2-1.0) mg/dL AST (15-37) U/L ALT (16-63) U/L Alkaline Phosphatase (46-116) U/L Troponin I (<or=60) ng/L Total Protein (6.4-8.2) g/dL Albumin (3.4-5.0) g/dL Procalcitonin ng/mL 12.4 Urine Color (Yellow) Yellow Urine Clarity (Clear) Clear Urine pH (5-8) 5.5 Ur Specific [place] (1.005-1.025) 1.020 Urine Protein (Negative) mg/dL 100 H Urine Ketones (Negative) mg/dL 15 H Urine Blood (Negative) Moderate H Urine Nitrite (Negative) Negative Urine Bilirubin (Negative) Negative Urine Urobilinogen (Up TO 0.2) EU/dL 0.2 Ur Leukocyte Esterase (Negative) Negative Urine RBC (0-2) HPF 10-20 H Urine WBC (0-5) HPF 0-2 Ur Epithelial Cells (Negative) HPF Negative Urine Crystals (Negative) HPF Negative Urine Bacteria (Negative) HPF Moderate Urine Casts (Negative) LPF 3-5 Fine Granular Urine Mucus (Negative) Negative Urine Other (Negative) Few Transitional Ur Culture Indicated? Yes Urine Glucose (Negative) mg/dL >=1000 H Urine Opiates Screen (Negative) Urine Methadone Screen (Negative) Ur Barbiturates Screen (Negative) Ur Tricyclics Screen (Negative) Ur Amphetamines Screen (Negative) U Benzodiazepines Scrn (Negative) Urine Cocaine Screen (Negative) Ur THC Screen (Negative) COVID-19 Source SARS-CoV-2 (PCR) (Negative) Influenza Type A (PCR) (Negative) Influenza Type B (PCR) (Negative) RSV (PCR) (Negative) ECG Data Attestation: I personally reviewed and interpreted this ECG (s) as follows: Interpretation: rate of 130, sinus, no stemi. HPI General Mode of arrival: ambulatory. Date/Time Provider Initiated Documentation: 09/01/21 12:15. Limitations to Documentation: no limitations. Information obtained by: patient. HPI Narrative: Patient is a 71-year-old male with a history of obesity, diabetes, hypertension, prostate cancer, peripheral artery disease who presents with generalized weakness for the past week and difficulty breathing for the past few days. Daughter states she recently traveled here from [place] to take care of the patient. He admits to a recent negative home COVID test. Denies any fever, chest pain, vomiting or diarrhea. Daughter states he had a new injection that was started last week called Eligard. She states he has also been recently placed on another new medication called bicalutamide. Related Data Home Medications Medication Instructions Recorded Confirmed hydrochlorothiazide 12.5 mg capsule 12.5 mg PO DAILY 03/18/16 09/01/21 lisinopril 40 mg tablet 40 mg PO DAILY 03/18/16 09/01/21 simvastatin 10 mg tablet 10 mg PO DAILY 07/30/16 09/01/21 allopurinol 100 mg tablet 100 mg PO DAILY 05/26/18 09/01/21 insulin lispro 100 unit/mL See Rx Instructions .Route .COMPLEX 02/25/19 09/01/21 subcutaneous pen (Humalog KwikPen (U-100) Insulin) aspirin 81 mg tablet,delayed 81 mg PO DAILY 09/05/20 09/01/21 release (Adult Aspirin Regimen) glucose 5 gram chewable tablet 5 g PO Q15M PRN 09/05/20 09/01/21 dulaglutide 0.75 mg/0.5 mL 0.75 mg subcut QWEEK 01/22/21 09/01/21 subcutaneous [facility] insulin glargine 100 unit/mL (3 80 unit subcut HS 01/22/21 09/01/21 mL) subcutaneous pen (Lantus Solostar U-100 Insulin) bicalutamide 50 mg tablet 50 mg PO DAILY 09/01/21 09/01/21 Allergies Allergy/AdvReac Type Severity Reaction Status Date / Time Penicillins Allergy Verified 09/01/21 12:44 General Stated Complaint: SOB DENY: 1 Review of Systems All systems reviewed & are unremarkable except as noted in HPI and below Constitutional Constitutional: Reports as per HPI, Denies chills, Denies excessive sweating, Denies fatigue and Denies fever(s) Eyes Eyes: Denies blurry vision ENT Ears, Nose, Mouth, and Throat: Denies dizziness, Denies sore throat and Denies throat swelling Cardiovascular Cardiovascular: Denies chest pain and Denies dyspnea Respiratory Respiratory: Denies cough and Denies dyspnea Gastrointestinal Gastrointestinal: Denies abdominal pain, Denies diarrhea and Denies vomiting Genitourinary Genitourinary: Denies hematuria and Denies dysuria Musculoskeletal Musculoskeletal: Denies back pain and Denies numbness Integumentary/Breasts Skin/Breast: Denies lesions and Denies rash Neurologic Neurologic: Denies behavioral changes, Denies confusion, Denies dizziness, Denies localized weakness and Denies numbness Psychiatric Psychiatric: Denies behavioral changes, Denies confusion and Denies depression Endocrine Endocrine: Denies excessive sweating and Denies fatigue Hematologic/Lymphatic Hematologic/Lymphatic: Denies easy bruising and Denies lymphadenopathy Allergic/Immunologic Allergic/Immunologic: Denies throat swelling PFSH All Active Problems (Updated 09/01/21 @ 19:17 by Angélica Mullins DO) Pneumonia (Acute) Hyperglycemia (Acute) Acute kidney injury superimposed on chronic kidney disease (Acute) Bandemia (Acute) Hypoxia (Acute) Inflammatory polyps (Acute) Hyperplastic colon polyp (Acute) Tubular adenoma of colon (Acute) BPH loc w urin obs/LUTS (Acute) DVT prophylaxis (Acute) Obesity (Chronic) GONZALES (dyspnea on exertion) (Acute) Peripheral artery disease (Acute) Medical History (Updated 09/01/21 @ 19:17 by Angélica Mullins DO) Amputation of toe of left foot BPH (benign prostatic hyperplasia) Cataract Cellulitis in diabetic foot Diabetic foot ulcer Diabetic neuropathy Discharge planning issues Gout High cholesterol Osteomyelitis due to type 2 diabetes mellitus Osteomyelitis of ankle and foot Pseudophakia Screening for colon cancer Tubulovillous adenoma of colon Surgical History (Updated 01/29/21 @ 13:28 by Angela Sosa RN) Colonoscopy - IV Sedation (08/20/16) 01/2021 with 3 year repeat Hx of cataract surgery Social History (Updated 01/22/21 @ 15:05 by ANDRES Garcia) Smoking/Tobacco Use Status: Former Tobacco Use Quit Date: 02/14/14 Smoking risk assessment performed?: Yes Alcohol Intake: current Alcohol Intake frequency: 0-2 drinks per day Alcohol type: hard liquor Drug use: Daily Substance use type: marijuana Do you feel safe at home: Yes Do you feel safe in your relationship?: Yes Exam Const General: cooperative and ill appearing chronically Orientation: alert, awake and oriented x3 HENMT Head: normal to inspection Ears: hearing grossly normal bilaterally, external ears normal and TM's normal bilaterally General nose exam: external nose normal Face and sinus: normal facial exam Mouth: oral mucosae normal Teeth and gingiva: dentition normal Throat: posterior oropharynx normal Eyes General: appearance normal, both eyes and all related structures Eyelids: eyelids normal Pupils: PERRL EOM: EOM intact bilaterally Neck Neck: normal visual inspection Lymphatic: no lymphadenopathy noted Chest Chest: normal inspection of the chest Resp Effort & Inspection: normal respiratory effort and able to speak in complete sentences Auscultation: clear to auscultation bilaterally Cardio Rate: tachycardic Rhythm: regular rhythm GI Inspection: normal to inspection Palpation: soft, not firm, no guarding, no hepatosplenomegaly, no masses and nontender Auscultation: normal bowel sounds Back/Spine/Pelvis Back: no CVA tenderness Skin General skin exam: no rashes or lesions noted Neuro General: patient alert and patient awake Cognition: normal cognition Speech: speech normal Gait: normal gait Motor: muscle tone normal throughout Sensory Exam: no sensory deficits noted Extrem General: normal to inspection, full ROM and capillary refill normal Psych Appearance: grossly normal Mental Status: mental status grossly normal Speech and Movement: speech and movement normal Affect: normal affect Thought Process: normal Course Vital Signs Vital signs: Vital Signs Temperature 98.2 F 09/01/21 12:10 Pulse 130 H 09/01/21 12:10 Respiratory Rate 34 H 09/01/21 12:10 Blood Pressure 130/103 H 09/01/21 12:10 Pulse Oximetry 95 09/01/21 12:10 Temperature 98.2 F 09/01/21 12:10 Temperature Source Skin 09/01/21 12:10 Pulse 130 H 09/01/21 12:10 Respiratory Rate 34 H 09/01/21 12:10 Blood Pressure 130/103 H 09/01/21 12:10 Blood Pressure Position Supine 09/01/21 12:10 Pulse Oximetry 95 09/01/21 12:10 Oxygen Delivery Method Non-Rebreather 09/01/21 12:10 Pain Level 0 09/01/21 12:10
[2021-09-01 12:42] LABS: Abs Immature Grans 0.55 10^3/uL (0.0-0.06); HCT 43.9 % (40.0-50.0); HGB 13.7 g/dL (13.5-17.5); MCH 31.1 pg (27.0-33.0); MCHC 31.2 % (32.0-36.0); MCV 100 fL (80-95); MPV 11.3 fL (8.0-11.0); Platelet Count 373 10^3/uL (130-400); RBC 4.41 10^6/uL (4.36-5.78); RDW 14.3 % (11.8-14.1); WBC 16.15 10^3/uL (4.4-10.8)
[2021-09-01] MEDS: Normal Saline 1,000 ML 125 ML IV (12:42)
[2021-09-01 12:56] LABS: PTT Activated 25.9 sec (21.0-27.5); Prothrombin Time 10.2 sec (9.3-11.0)
[2021-09-01 12:57] LABS: BE (Venous) -3 mmol/L (-2-3); HCO3 (Venous) 24 mmol/L (23-28); O2 Sat (Venous) 86 %; TCO2 (Venous) 22 mmol/L (24-29); pCO2 (Venous) 51 mmHg (41-51); pH (Venous) 7.28 (7.31-7.41); pO2 (Venous) 58 mmHg
[2021-09-01 12:58] LABS: ALT 53 U/L (16-63); AST 59 U/L (15-37); Albumin 2.5 g/dL (3.4-5.0); Alkaline Phosphatase 76 U/L (46-116); Anion Gap 19.6 mmol/L (3-11); BUN 41 mg/dL (7-18); Bilirubin, Total 0.8 mg/dL (0.2-1.0); CO2 21.4 mmol/L (21.0-32.0); CREATININE 2.3 mg/dL (0.70-1.30); Calcium 9.6 mg/dL (8.5-10.1); Chloride 95 mmol/L (98-107); Estimated GFR 28.01 (mL/min/1.73m2); Magnesium 2.5 mg/dL (1.8-2.4); Potassium 5.5 mmol/L (3.5-5.1); Sodium 136 mmol/L (136-145); Total Protein 8.4 g/dL (6.4-8.2); Troponin I < 50 ng/L (<or=60)
[2021-09-01 13:00] LABS: Glucose 625 mg/dL (74-106)
--- NOTE | 2021-09-01 13:07 | DI.RAD_ITS ---
Exam(s) XR PORTABLE CHEST AP EXAM: XR PORTABLE CHEST AP CLINICAL HISTORY: sob, r/o acute disease. TECHNIQUE: 2D digital imaging was performed. COMPARISON: No exams were available for comparison FINDINGS: Single AP portable view. Heart size is upper normal. The mediastinum is not widened. Mild increased markings left lower lobe. No pleural effusions. Mildly elevated right. IMPRESSION: Left lower lobe infiltrate DATA REPOSITORY: RADIATION DOSE DELIVERED: All CT scans at this facility use at least one of these dose optimization techniques: automated exposure control; mA and/or kV adjustment per patient size (includes targeted e xams where dose is matched to clinical indication); or iterative reconstruction.
[2021-09-01 13:31] LABS: Absolute Eosinophil Count 0.16 10^3/uL (0.0-0.7); Absolute Monocyte Count 2.58 10^3/uL (0.1-0.8); Absolute Neutrophil Count 9.04 10^3/uL (1.2-6.7); Atypical Lymphocytes % 0; Bands % 14; Myelocytes % 1
[2021-09-01 13:32] LABS: Diff Comment Manual Differential; Polychromasia Present
[2021-09-01] MEDS: Albuterol/Ipratropium 3 ML UPD VIAL UPD ×2 (13:43→23:26)
[2021-09-01] MEDS: Lidocaine 2% Jelly 6 ML SYR (14:23)
--- NOTE | 2021-09-01 14:30 | NUR.NOTE ---
1430 Patient changed out of pants for joel. Incontinent of urine. On CPAP at this time, tolerating well.
[2021-09-01] MEDS: cefTRIAXone 2 GM/50 ML BAG IVPB (14:35)
--- NOTE | 2021-09-01 14:35 | NUR.NOTE ---
1230 Patient became unresponsive during triage and placing patient on the monitor, weak pulse, bagged with BVM for approx. 10 minutes. then placed on Nonrebreather breathing on his own.
[2021-09-01 14:42] LABS: Bilirubin Negative (Negative); Blood Moderate (Negative); Clarity Clear (Clear); Glucose >=1000 mg/dL (Negative); Ketones 15 mg/dL (Negative); Leukocyte Esterase Negative (Negative); Nitrite Negative (Negative); Urobilinogen 0.2 EU/dL (Up TO 0.2); pH 5.5 (5-8)
[2021-09-01 14:44] LABS: COVID-19 PCR Negative (Negative); Influenza A PCR Negative (Negative); Influenza B PCR Negative (Negative); RSV PCR Negative (Negative)
[2021-09-01 14:47] LABS: Source Nasopharynx
[2021-09-01 14:51] LABS: Lactate 2.1 mmol/L (0.6-1.4)
[2021-09-01 14:53] LABS: *AMPHETAMINES SCREEN URINE Negative (Negative); *BARBITURATES SCREEN URINE Negative (Negative); *BENZODIAZEPINES SCREEN URINE Negative (Negative); Cannabinoids THC Negative (Negative); Cocaine Screen,Urine Negative (Negative); METHADONE URINE SCREEN Negative (Negative); OPIATES URINE SCREEN Negative (Negative)
[2021-09-01 14:55] LABS: Tricyclic Antidepressants Negative (Negative)
[2021-09-01 14:56] LABS: Bacteria Moderate HPF (Negative); C & S Indicated? Yes; Casts 3-5 Fine Granular LPF (Negative); Crystals Negative HPF (Negative); Epithelial Cells Negative HPF (Negative); Mucus Negative (Negative); Other Cells Few Transitional (Negative); WBC 0-2 HPF (0-5)
[2021-09-01] MEDS: AZITHROMYCIN 500 MG in Normal Saline 250 ML 250 MG IVPB (15:05)
--- NOTE | 2021-09-01 15:12 | NUR.NOTE ---
Nursing Note: daughter has patients earrings, 1x yellow metal stud with green stone, 1x yellow metal hoop.
[2021-09-01 15:21] LABS: Procalcitonin 12.4 ng/mL
[2021-09-01] MEDS: Insulin REGULAR-Human 100 UNITS/ML UNIT 10 UNITS SC (15:41)
[2021-09-01 15:58] LABS: Troponin I < 50 ng/L (<or=60)
--- NOTE | 2021-09-01 16:54 | HPE_ITS ---
Date of service: 09/01/21 Time of Service: 16:54 Assessment and Plan Assessment and plan (1) Acute respiratory failure with hypoxia and hypercapnia: Status: Acute Assessment and plan: I suspect the patient has some underlying COPD and probably ELSA as well. Therefore he probably has some chronic hypercapnia that was exacerbated by his pneumonia and sepsis. His urinalysis is suspicious for UTI and the patient has chronic obstructive urinary symptoms secondary to his prostate cancer and BPH. Urine and blood cultures have been sent and patient has been put on broad- spectrum antibiotics including Rocephin and azithromycin was added for atypical coverage. I have ordered urine Legionella on streptococcal antigen studies as well as a sputum culture. Continue supportive care with NIPPV as needed and transition to nasal cannula as tolerated. Continue I-S and acapella. Critical care time spent interviewing and examining the patient, reviewing studies, discussing case with patient's nurse and consulting physicians was 60 minutes (2) Sepsis: Status: Acute Assessment and plan: As above. Diagnosis of sepsis is supported by his acute respiratory failure along with acute kidney injury and an elevated procalcitonin level. Patient is hemodynamically stable at this point and from respiratory standpoint has responded to current NIPPV and bronchodilators. (3) Pneumonia: Status: Acute Assessment and plan: Continue Rocephin and azithromycin, supportive respiratory care with I-S and acapella in addition to as needed use of BiPAP or CPAP, currently patient has improved adequately that he can be transition to nasal cannula and we could begin clear liquids tonight. If he does not require further NIPPV overnight then I will advance his diet in the morning. If he remains stable overnight he can be transition to the medical/surgical floor. (4) UTI (urinary tract infection): Status: Acute Assessment and plan: Urinalysis consistent with UTI with hematuria and bacteriuria albeit it was negative for nitrites and leukocyte Estrace. Urine culture was sent patient was started on Rocephin for pneumonia. (5) Acute kidney injury superimposed on chronic kidney disease: Status: Acute Assessment and plan: Acute kidney injury secondary to sepsis and poor oral intake in addition to DKA. Continue IV hydration overnight monitor urine output repeat BMP in the morning (6) Chronic kidney disease, stage 3: Status: None Qualifiers: Chronic kidney disease stage 3 subtype: stage 3a (GFR 45-59) Qualified Code(s): N18.31 - Chronic kidney disease, stage 3a (7) Peripheral artery disease: Status: Acute Assessment and plan: Continue aspirin (8) Diabetic neuropathy: (9) DVT prophylaxis: Status: Acute History of Present Illness History of Present Illness Chief Complaint: cough, dyspnea Narrative: 71 yr old male former smoker, regular drinker of alcohol who has DM type 2 on insulin w/ peripheral neuropathy, CKD stage 3A, prostate cancer (on bicalutamide, an androgen jessica and just started on injections of leuprolide), HTN who presented to the ED w/ complaints of cough and dyspnea for past week not associated w/ any CP, hemoptysis, fevers or rigors. While awaiting evaluation in the ER he became very somnolent and when seen by the ED physician he was found to be unresponsive w/ severe hypoxemia w/ SPO2 in the 30' to 40's but not apneic and never lost his pulse. He responded to BVM rescue breathing and was put on CPAP and given DuoNeb aerosols. He was not given any steroids but CXR demonstrated LLL infiltrate. COVID and RSV and influenza A & B were all negative. Blood cultures were ordered and he was given Rocephin 2 gm IVPB and azithromycin [address] of his head w/out contrast was negative for any a cute intracranial abnormality. VBG demonstrated hypoxemia and hypercarbia w/ PO2 58 and PCO2 of 51. WBC 16,000, lactate mildly elevated at 2.1, but procalcitonin elevated at 12.4. CMP demonstrated worsening renal failure w/ creatinine 2.3 and BUN 45 (baseline BUN 19 and creatinine 1.4) however he was found to be in DKA w/ glucose of 625 and AG of 19.6 and CO2 however was only 21.4. Troponin I was neg. x 2 sets. Patient was given insulin 10 units SC. Upon arrival to ICU his glucose per fingerstick was 592. He is being started on insulin drip and given an additional 10 units of Novolog. He is being admitted to ICU for treatment of acute respitory failure d/t pneumonia complicated by DKA and prerenal TOBI. We will continue Rocephin 1 gm daily along w/ azithromycin 250 mg oral daily. Because he is still bronchospastic, I have added prednisone to his regimen but added NPH for tonight in addition ot his insulin drip. Review of Systems All systems reviewed & are unremarkable except as noted in HPI and below Constitutional Constitutional: Denies chills, Denies fever(s), Reports lethargy, Reports poor appetite and Reports weakness ENT Ears, Nose, Mouth, and Throat: Reports system reviewed and no additional complaints, except as documented Cardiovascular Cardiovascular: Denies chest pain, Denies edema, Denies lightheadedness, Denies radiating jaw, neck or arm pain, Reports dyspnea and Reports dyspnea on exertion Respiratory Respiratory: Reports chest congestion, Reports cough, Denies hemoptysis, Reports dyspnea and Reports dyspnea on exertion Gastrointestinal Gastrointestinal: Reports system reviewed and no additional complaints, except as documented Genitourinary Genitourinary: Reports system reviewed and no additional complaints, except as documented Neurologic Neurologic: Reports weakness PFSH All Active Problems (Updated 09/01/21 @ 20:26 by Brandt Meza MD) UTI (urinary tract infection) (Acute) Sepsis (Acute) Acute respiratory failure with hypoxia and hypercapnia (Acute) Pneumonia (Acute) Hyperglycemia (Acute) Acute kidney injury superimposed on chronic kidney disease (Acute) Bandemia (Acute) Hypoxia (Acute) Inflammatory polyps (Acute) Hyperplastic colon polyp (Acute) Tubular adenoma of colon (Acute) BPH loc w urin obs/LUTS (Acute) DVT prophylaxis (Acute) Obesity (Chronic) GONZALES (dyspnea on exertion) (Acute) Peripheral artery disease (Acute) Medical History (Updated 09/01/21 @ 20:26 by Brandt Meza MD) BPH (benign prostatic hyperplasia) Cataract Cellulitis in diabetic foot Diabetic foot ulcer Diabetic neuropathy Discharge planning issues Gout High cholesterol Osteomyelitis due to type 2 diabetes mellitus Osteomyelitis of ankle and foot Pseudophakia Screening for colon cancer Tubulovillous adenoma of colon Surgical History (Updated 09/01/21 @ 20:03 by Brandt Meza MD) Amputation of toe of left foot left great and left 2nd toes Colonoscopy - IV Sedation (08/20/16) 01/2021 with 3 year repeat Hx of cataract surgery Social History Smoking/Tobacco Use Status: Former Tobacco Use Quit Date: 02/14/14 Smoking risk assessment performed?: Yes Alcohol Intake: current Alcohol Intake frequency: 0-2 drinks per day Alcohol type: hard liquor Drug use: Daily Substance use type: marijuana Do you feel safe at home: Yes Do you feel safe in your relationship?: Yes Meds Allergies and Home Medications Allergies Allergy/AdvReac Type Severity Reaction Status Date / Time Penicillins Allergy Verified 09/01/21 12:44 Home Medications Medication Instructions Recorded Confirmed Type hydrochlorothiazide 12.5 mg capsule 12.5 mg PO DAILY 03/18/16 09/01/21 History lisinopril 40 mg tablet 40 mg PO DAILY 03/18/16 09/01/21 History simvastatin 10 mg tablet 10 mg PO DAILY 07/30/16 09/01/21 History allopurinol 100 mg tablet 100 mg PO DAILY 05/26/18 09/01/21 History insulin lispro 100 unit/mL See Rx Instructions .Route .COMPLEX 02/25/19 09/01/21 History subcutaneous pen (Humalog KwikPen (U-100) Insulin) aspirin 81 mg tablet,delayed 81 mg PO DAILY 09/05/20 09/01/21 History release (Adult Aspirin Regimen) glucose 5 gram chewable tablet 5 g PO Q15M PRN 09/05/20 09/01/21 History dulaglutide 0.75 mg/0.5 mL 0.75 mg subcut QWEEK 01/22/21 09/01/21 History subcutaneous pen injector (Trulicity) insulin glargine 100 unit/mL (3 80 unit subcut HS 01/22/21 09/01/21 History mL) subcutaneous pen (Lantus Solostar U-100 Insulin) bicalutamide 50 mg tablet 50 mg PO DAILY 09/01/21 09/01/21 History Exam Narrative Exam Narrative: Elderly white male lying in bed wearing his CPAP mask who is alert and oriented person place time circumstance. Not in acute respiratory distress not using accessory respiratory muscles at this time. He is able to speak in complete sentences without getting dyspneic. HEENT is unremarkable Neck supple nontender no JVD normal carotid pulses Lungs scattered diffuse expiratory wheezing without rhonchi or rales Heart is regular without murmur rub or gallop Abdomen obese soft and nontender nondistended normal bowel sounds no bruits no scars Lower extremities no cyanosis or edema left foot is status post amputation of the first 2 toes. Amputation is well-healed. There is no other ulcerations on the left foot or toes of left foot. Third toe is a hammertoe. Pedal pulses are intact although diminished. Right foot he has a superficial abrasion/ulceration that is without purulent discharge on top of the great toe. Pedal pulses are diminished in the right foot as well. No cyanosis. Neuro exam cranial nerves grossly intact motor exam grossly intact sensory exam diminished to light touch over the toes and feet of both feet Genitalia rectal exam deferred Results Labs Result diagrams: 09/01/21 12:20 09/01/21 17:25 Labs: Laboratory Results - last 24 hr 09/01/21 09/01/21 09/01/21 12:20 12:20 12:20 WBC 16.15 H RBC 4.41 Hgb 13.7 Hct 43.9 MCV 100 H MCH 31.1 MCHC 31.2 L RDW 14.3 H Plt Count 373 MPV 11.3 H Immature Gran % 0.0 Neutrophils % 42.0 Band Neutrophils % 14 Lymphocytes % 26.0 Atypical Lymphs % 0 Monocytes % 16.0 Eosinophils % 1.0 Basophils % 0.0 Myelocytes % 1 Nucleated RBC % 0.0 Absolute Neutrophils 9.04 H Absolute Lymphocytes 4.20 H Absolute Monocytes 2.58 H Absolute Eosinophils 0.16 Absolute Basophils 0.00 RBC Morphology See Below Polychromasia Present PT 10.2 INR 1.0 APTT 25.9 VBG pH VBG pCO2 VBG pO2 VBG HCO3 VBG Total CO2 VBG O2 Saturation VBG Base Excess VBG Lactate Sodium 136 Potassium 5.5 H Chloride 95 L Carbon Dioxide 21.4 Anion Gap 19.6 H BUN 41 H Creatinine 2.3 H Estimated GFR/1.73 m2 28.01 Glucose 625 H* Calcium 9.6 Magnesium 2.5 H Total Bilirubin 0.8 AST 59 H ALT 53 Alkaline Phosphatase 76 Troponin I < 50 Total Protein 8.4 H Albumin 2.5 L Procalcitonin Urine Color Urine Clarity Urine pH Ur Specific Ben Bolt Urine Protein Urine Ketones Urine Blood Urine Nitrite Urine Bilirubin Urine Urobilinogen Ur Leukocyte Esterase Urine RBC Urine WBC Ur Epithelial Cells Urine Crystals Urine Bacteria Urine Casts Urine Mucus Urine Other Ur Culture Indicated? Urine Glucose Urine Opiates Screen Urine Methadone Screen Ur Barbiturates Screen Ur Tricyclics Screen Ur Amphetamines Screen U Benzodiazepines Scrn Urine Cocaine Screen Ur THC Screen COVID-19 Source SARS-CoV-2 (PCR) Influenza Type A (PCR) Influenza Type B (PCR) RSV (PCR) 09/01/21 09/01/2109/01/22 12:52 13:45 14:24 WBC RBC Hgb Hct MCV MCH MCHC RDW Plt Count MPV Immature Gran % Neutrophils % Band Neutrophils % Lymphocytes % Atypical Lymphs % Monocytes % Eosinophils % Basophils % Myelocytes % Nucleated RBC % Absolute Neutrophils Absolute Lymphocytes Absolute Monocytes Absolute Eosinophils Absolute Basophils RBC Morphology Polychromasia PT INR APTT VBG pH 7.28 L VBG pCO2 51 VBG pO2 58 VBG HCO3 24 VBG Total CO2 22 L VBG O2 Saturation 86 VBG Base Excess -3 L VBG Lactate Sodium Potassium Chloride Carbon Dioxide Anion Gap BUN Creatinine Estimated GFR/1.73 m2 Glucose Calcium Magnesium Total Bilirubin AST ALT Alkaline Phosphatase Troponin I Total Protein Albumin Procalcitonin Urine Color Urine Clarity Urine pH Ur Specific [place] Urine Protein Urine Ketones Urine Blood Urine Nitrite Urine Bilirubin Urine Urobilinogen Ur Leukocyte Esterase Urine RBC Urine WBC Ur Epithelial Cells Urine Crystals Urine Bacteria Urine Casts Urine Mucus Urine Other Ur Culture Indicated? Urine Glucose Urine Opiates Screen Negative Urine Methadone Screen Negative Ur Barbiturates Screen Negative Ur Tricyclics Screen Negative Ur Amphetamines Screen Negative U Benzodiazepines Scrn Negative Urine Cocaine Screen Negative Ur THC Screen Negative COVID-19 Source Nasopharynx SARS-CoV-2 (PCR) Negative Influenza Type A (PCR) Negative Influenza Type B (PCR) Negative RSV (PCR) Negative 09/01/21 09/01/21 09/01/21 14:24 14:31 14:31 WBC RBC Hgb Hct MCV MCH MCHC RDW Plt Count MPV Immature Gran % Neutrophils % Band Neutrophils % Lymphocytes % Atypical Lymphs % Monocytes % Eosinophils % Basophils % Myelocytes % Nucleated RBC % Absolute Neutrophils Absolute Lymphocytes Absolute Monocytes Absolute Eosinophils Absolute Basophils RBC Morphology Polychromasia PT INR APTT VBG pH VBG pCO2 VBG pO2 VBG HCO3 VBG Total CO2 VBG O2 Saturation VBG Base Excess VBG Lactate 2.1 H Sodium Potassium Chloride Carbon Dioxide Anion Gap BUN Creatinine Estimated GFR/1.73 m2 Glucose Calcium Magnesium Total Bilirubin AST ALT Alkaline Phosphatase Troponin I < 50 Total Protein Albumin Procalcitonin 12.4 Urine Color Yellow Urine Clarity Clear Urine pH 5.5 Ur Specific Ben Bolt 1.020 Urine Protein 100 H Urine Ketones 15 H Urine Blood Moderate H Urine Nitrite Negative Urine Bilirubin Negative Urine Urobilinogen 0.2 Ur Leukocyte Esterase Negative Urine RBC 10-20 H Urine WBC 0-2 Ur Epithelial Cells Negative Urine Crystals Negative Urine Bacteria Moderate Urine Casts 3-5 Fine Granular Urine Mucus Negative Urine Other Few Transitional Ur Culture Indicated? Yes Urine Glucose >=1000 H Urine Opiates Screen Urine Methadone Screen Ur Barbiturates Screen Ur Tricyclics Screen Ur Amphetamines Screen U Benzodiazepines Scrn Urine Cocaine Screen Ur THC Screen COVID-19 Source SARS-CoV-2 (PCR) Influenza Type A (PCR) Influenza Type B (PCR) RSV (PCR) Last Vital Signs Temp 36.8 C 09/01/21 12:10 Pulse 109 H 09/01/21 16:35 Resp 20 09/01/21 16:40 BP 147/67 H 09/01/21 16:35 Pulse Ox 88 L 09/01/21 16:15 PAWSS Pt Consumed Any Amount of Alcohol Within the Last 30 days OR had positive MEIR Upon Admission: Yes Have you Been Recently Intoxicated or Drunk Within the Last 30 days?: No Have you Ever Experienced Previous Episodes of Alcohol Withdrawal?: No Have you ever Experienced Withdrawal Seizures?: No Have you ever Experienced Delirium Tremens(DT)s?: No Have you ever undergone Alcohol Rehabilitation Treatment (i.e, inpt ot outpatient treatment programs)?: No Have you ever Experienced Blackouts?: No Have you ever Combined Alcohol with other Downers within the last 90 days?: No Have you ever Combined Alcohol with any other Substance of Abuse during the last 90 days?: No Positive Blood Alcohol level on Presentation? [PCS.BAL]: No Evidence of Increased Autonomic Activity (i.e. HR>120, tremor, sweating, agitation, nausea)?: No Result: 0
[2021-09-01] MEDS: INSULIN REGULAR IN 0.9 % NACL 100 UNIT/100 ML BAG 9 UNIT IV (17:30)
[2021-09-01] MEDS: Enoxaparin 40 MG/0.4 ML SYR SC (17:36)
[2021-09-01] MEDS: Insulin Aspart 300 UNITS/3 ML PEN 9 UNITS SC (17:48)
[2021-09-01 17:50] LABS: PHOSPHORUS 4.4 mg/dL (2.6-4.7)
[2021-09-01 17:53] LABS: Anion Gap 10.5 mmol/L (3-11); BUN 46 mg/dL (7-18); CO2 28.5 mmol/L (21.0-32.0); CREATININE 2.2 mg/dL (0.70-1.30); Calcium 8.8 mg/dL (8.5-10.1); Chloride 99 mmol/L (98-107); Estimated GFR 29.49 (mL/min/1.73m2); Sodium 138 mmol/L (136-145)
[2021-09-01 17:55] LABS: Glucose 569 mg/dL (74-106)
[2021-09-01] MEDS: POTASSIUM CHLORIDE/0.9% NACL 1,000 ML 150 MEQ IV (18:16)
[2021-09-01] MEDS: POTASSIUM CHLORIDE 20 MEQ/100 ML BAG 50 MEQ IVPB (18:18)
[2021-09-01] MEDS: predniSONE 20 MG TAB 60 MG PO (19:56)
[2021-09-01] MEDS: Insulin NPH-Human 300 UNITS/3 ML PEN 30 UNIT SC (20:06)
[2021-09-01 21:51] LABS: Anion Gap 7.3 mmol/L (3-11); BUN 46 mg/dL (7-18); CO2 30.7 mmol/L (21.0-32.0); CREATININE 2.1 mg/dL (0.70-1.30); Calcium 9.1 mg/dL (8.5-10.1); Chloride 104 mmol/L (98-107); Estimated GFR 31.11 (mL/min/1.73m2); Glucose 221 mg/dL (74-106); Potassium 5.3 mmol/L (3.5-5.1); Sodium 142 mmol/L (136-145)
[2021-09-01] MEDS: DEXTROSE 5%-0.45% SALINE 1,000 ML 100 ML IV (22:20)
[2021-09-02] VITALS (56 sets, daily range): BP systolic 109–152; BP diastolic 27–90; PULSE 80–109; RESP 1–29; TEMP 31–37.1; O2SAT 92–93
[2021-09-02 01:39] LABS: Anion Gap 10.8 mmol/L (3-11); BUN 49 mg/dL (7-18); CO2 27.2 mmol/L (21.0-32.0); Calcium 8.8 mg/dL (8.5-10.1); Chloride 104 mmol/L (98-107); Estimated GFR 32.92 (mL/min/1.73m2); Glucose 228 mg/dL (74-106); Potassium 5.3 mmol/L (3.5-5.1); Sodium 142 mmol/L (136-145)
[2021-09-02] MEDS: Albuterol/Ipratropium 3 ML UPD VIAL UPD ×6 (01:40→19:47)
[2021-09-02] MEDS: Lactated Ringers 1,000 ML 150 ML IV (02:14)
[2021-09-02 06:23] LABS: HCT 37.2 % (40.0-50.0); HGB 11.6 g/dL (13.5-17.5); MCH 30.8 pg (27.0-33.0); MCHC 31.2 % (32.0-36.0); MCV 99 fL (80-95); MPV 10.9 fL (8.0-11.0); Platelet Count 307 10^3/uL (130-400); RBC 3.77 10^6/uL (4.36-5.78); RDW 14.4 % (11.8-14.1); RDW-SD 51.8 fL; WBC 13.56 10^3/uL (4.4-10.8)
[2021-09-02] MEDS: Insulin Aspart 300 UNITS/3 ML PEN SC ×6 (06:41→17:06)
[2021-09-02 06:45] LABS: Absolute Basophil Count 0.27 10^3/uL (0.0-0.2); Absolute Lymphocyte Count 0.68 10^3/uL (1.2-3.4); Absolute Monocyte Count 0.95 10^3/uL (0.1-0.8); Absolute Neutrophil Count 11.53 10^3/uL (1.2-6.7); Bands % 8; Diff Comment Manual Differential; Metamyelocytes % 1; RBC Morphology Normal
--- NOTE | 2021-09-02 07:00 | DI.US_ITS ---
Exam(s) US RENAL EXAM: US RENAL CLINICAL HISTORY: TOBI, UTI. TECHNIQUE: Medrano scale, color and spectral Doppler were used. COMPARISON: US US RENAL from 09/08/2020 FINDINGS: Renal size in cm: Right: 11.0 left: 10.1, normal parenchymal thickness. Echogenicity: Normal Hydronephrosis: No Cyst or mass: Small fatty echogenicity area upper pole left kidney measuring 1 point 3 cm, consistent with a small angiomyolipoma. Small cyst upper pole right kidney seen on prior exam not demonstrated on today's study. Nephrolithiasis: No convincing stones Fatty infiltration of the liver is noted. Bladder:Raymundo catheter in place. Bladder minimally distended. Not well evaluated. Right ureteral j et not visualized. Prevoid vol: 29 Postvoid vol: 22 IMPRESSION: No evidence of hydronephrosis. Bladder not well evaluated. DATA REPOSITORY:
[2021-09-02 07:01] LABS: ALT 53 U/L (16-63); AST 41 U/L (15-37); Albumin 2.1 g/dL (3.4-5.0); Alkaline Phosphatase 67 U/L (46-116); BUN 51 mg/dL (7-18); Bilirubin, Total 0.4 mg/dL (0.2-1.0); CREATININE 2.2 mg/dL (0.70-1.30); Calcium 9.1 mg/dL (8.5-10.1); Chloride 103 mmol/L (98-107); Estimated GFR 29.49 (mL/min/1.73m2); Glucose 323 mg/dL (74-106); Magnesium 2.3 mg/dL (1.8-2.4); Potassium 5.4 mmol/L (3.5-5.1); Sodium 140 mmol/L (136-145); Total Protein 7.2 g/dL (6.4-8.2)
[2021-09-02 07:17] LABS: PHOSPHORUS 4.3 mg/dL (2.6-4.7)
--- NOTE | 2021-09-02 08:19 | PGE_ITS ---
Date of Service Date of service: 09/02/21 Time of Service: 08:19 Assessment and Plan Assessment and plan (1) Acute respiratory failure with hypoxia and hypercapnia: Status: Acute Assessment and plan: I suspect the patient has some underlying COPD and probably ELSA as well. Therefore he probably has some chronic hypercapnia that was exacerbated by his pneumonia and sepsis. His urinalysis is suspicious for UTI and the patient has chronic obstructive urinary symptoms secondary to his prostate cancer and BPH. Urine and blood cultures have been sent and patient has been put on broad- spectrum antibiotics including Rocephin and azithromycin was added for atypical coverage. I have ordered urine Legionella on streptococcal antigen studies as well as a sputum culture. Continue supportive care with NIPPV as needed and transition to nasal cannula as tolerated. Continue I-S and acapella. Critical care time spent interviewing and examining the patient, reviewing studies, discussing case with patient's nurse and consulting physicians was 30 minutes (2) Sepsis: Status: Acute Assessment and plan: As above. Diagnosis of sepsis is supported by his acute respiratory failure along with acute kidney injury and an elevated procalcitonin level. Patient is hemodynamically stable at this point and from respiratory standpoint has responded to current NIPPV and bronchodilators. (3) Pneumonia: Status: Acute Assessment and plan: Continue Rocephin and azithromycin, supportive respiratory care with I-S and acapella in addition to as needed use of BiPAP or CPAP, currently patient has improved adequately that he can be transition to nasal cannula and we could begin clear liquids tonight. If he does not require further NIPPV overnight then I will advance his diet in the morning. If he remains stable overnight he can be transition to the medical/surgical floor. (4) DKA (diabetic ketoacidoses): Status: Acute Assessment and plan: patient presented w/ glucose of 625 and elevated AG and ketonuria c/w DKA. His DKA has resolved but glucose remains elevated at 323 fasting this morning. However he is now off insulin drip and on basal/bolus insulin w/ detemir and novolog and I have added CHO coverage. I will ask nursing monitor his glucose A C/PC/HS. I will repeat his BMP later today to be sure his AG is not rising and if needed resume his insulin drip. (5) UTI (urinary tract infection): Status: Suspected Assessment and plan: urine culture pending. cont. Rocephin. (6) Acute kidney injury superimposed on chronic kidney disease: Status: Acute Assessment and plan: Acute kidney injury secondary to sepsis and poor oral intake in addition to DKA. Despite aggressive iv hydration for his DKA and TOBI there has been no change in his creatinine. I have stopped his iv fluids. Renal US has been ordered and is pending this a.m. (7) Chronic kidney disease, stage 3: Status: None Qualifiers: Chronic kidney disease stage 3 subtype: stage 3a (GFR 45-59) Qualified Code(s): N18.31 - Chronic kidney disease, stage 3a (8) Peripheral artery disease: Status: Acute Assessment and plan: Continue aspirin (9) Diabetic neuropathy: Assessment and plan: would benefit from low dose gabapentin at night (10) DVT prophylaxis: Status: Acute Assessment and plan: on lovenox Subjective Subjective Interval history since last seen: Patient is feeling better today less dyspneic. Denies any chest pain or pressure. DKA is resolved and he is off the insulin drip. We will advance his diet today and discontinue IV fluids. Exam Narrative Exam Narrative: Alert and oriented x3 Neck without JVD Lungs with diffuse bilateral expiratory wheezes and rhonchi Heart is regular rate and rhythm no appreciable murmur rub or gallop thrill or heave Abdomen obese soft nontender Legs without peripheral edema. Objective Last Vital Signs Temp 36.8 C 09/01/21 20:42 Pulse 93 H 09/02/21 07:00 Resp 15 09/02/21 07:01 BP 131/59 L 09/02/21 07:00 Pulse Ox 87 L 09/01/21 16:47 Laboratory Results - last 24 hr 09/01/21 09/01/21 09/01/21 12:20 12:20 12:20 WBC 16.15 H RBC 4.41 Hgb 13.7 Hct 43.9 MCV 100 H MCH 31.1 MCHC 31.2 L RDW 14.3 H Plt Count 373 MPV 11.3 H Immature Gran % 0.0 Neutrophils % 42.0 Band Neutrophils % 14 Lymphocytes % 26.0 Atypical Lymphs % 0 Monocytes % 16.0 Eosinophils % 1.0 Basophils % 0.0 Metamyelocytes % Myelocytes % 1 Nucleated RBC % 0.0 Absolute Neutrophils 9.04 H Absolute Lymphocytes 4.20 H Absolute Monocytes 2.58 H Absolute Eosinophils 0.16 Absolute Basophils 0.00 RBC Morphology See Below Polychromasia Present PT 10.2 INR 1.0 APTT 25.9 VBG pH VBG pCO2 VBG pO2 VBG HCO3 VBG Total CO2 VBG O2 Saturation VBG Base Excess VBG Lactate Sodium 136 Potassium 5.5 H Chloride 95 L Carbon Dioxide 21.4 Anion Gap 19.6 H BUN 41 H Creatinine 2.3 H Estimated GFR/1.73 m2 28.01 Glucose 625 H* Calcium 9.6 Phosphorus Magnesium 2.5 H Total Bilirubin 0.8 AST 59 H ALT 53 Alkaline Phosphatase 76 Troponin I < 50 Total Protein 8.4 H Albumin 2.5 L Procalcitonin Urine Color Urine Clarity Urine pH Ur Specific [place] Urine Protein Urine Ketones Urine Blood Urine Nitrite Urine Bilirubin Urine Urobilinogen Ur Leukocyte Esterase Urine RBC Urine WBC Ur Epithelial Cells Urine Crystals Urine Bacteria Urine Casts Urine Mucus Urine Other Ur Culture Indicated? Urine Glucose Urine Opiates Screen Urine Methadone Screen Ur Barbiturates Screen Ur Tricyclics Screen Ur Amphetamines Screen U Benzodiazepines Scrn Urine Cocaine Screen Ur THC Screen COVID-19 Source SARS-CoV-2 (PCR) Influenza Type A (PCR) Influenza Type B (PCR) RSV (PCR) 09/01/21 09/01/21 09/01/21 12:52 13:45 14:24 WBC RBC Hgb Hct MCV MCH MCHC RDW Plt Count MPV Immature Gran % Neutrophils % Band Neutrophils % Lymphocytes % Atypical Lymphs % Monocytes % Eosinophils % Basophils % Metamyelocytes % Myelocytes % Nucleated RBC % Absolute Neutrophils Absolute Lymphocytes Absolute Monocytes Absolute Eosinophils Absolute Basophils RBC Morphology Polychromasia PT INR APTT VBG pH 7.28 L VBG pCO2 51 VBG pO2 58 VBG HCO3 24 VBG Total CO2 22 L VBG O2 Saturation 86 VBG Base Excess -3 L VBG Lactate Sodium Potassium Chloride Carbon Dioxide Anion Gap BUN Creatinine Estimated GFR/1.73 m2 Glucose Calcium Phosphorus Magnesium Total Bilirubin AST ALT Alkaline Phosphatase Troponin I Total Protein Albumin Procalcitonin Urine Color Urine Clarity Urine pH Ur Specific [place] Urine Protein Urine Ketones Urine Blood Urine Nitrite Urine Bilirubin Urine Urobilinogen Ur Leukocyte Esterase Urine RBC Urine WBC Ur Epithelial Cells Urine Crystals Urine Bacteria Urine Casts Urine Mucus Urine Other Ur Culture Indicated? Urine Glucose Urine Opiates Screen Negative Urine Methadone Screen Negative Ur Barbiturates Screen Negative Ur Tricyclics Screen Negative Ur Amphetamines Screen Negative U Benzodiazepines Scrn Negative Urine Cocaine Screen Negative Ur THC Screen Negative COVID-19 Source Nasopharynx SARS-CoV-2 (PCR) Negative Influenza Type A (PCR) Negative Influenza Type B (PCR) Negative RSV (PCR) Negative 09/01/21 09/01/21 09/01/21 14:24 14:31 14:31 WBC RBC Hgb Hct MCV MCH MCHC RDW Plt Count MPV Immature Gran % Neutrophils % Band Neutrophils % Lymphocytes % Atypical Lymphs % Monocytes % Eosinophils % Basophils % Metamyelocytes % Myelocytes % Nucleated RBC % Absolute Neutrophils Absolute Lymphocytes Absolute Monocytes Absolute Eosinophils Absolute Basophils RBC Morphology Polychromasia PT INR APTT VBG pH VBG pCO2 VBG pO2 VBG HCO3 VBG Total CO2 VBG O2 Saturation VBG Base Excess VBG Lactate 2.1 H Sodium Potassium Chloride Carbon Dioxide Anion Gap BUN Creatinine Estimated GFR/1.73 m2 Glucose Calcium Phosphorus Magnesium Total Bilirubin AST ALT Alkaline Phosphatase Troponin I < 50 Total Protein Albumin Procalcitonin 12.4 Urine Color Yellow Urine Clarity Clear Urine pH 5.5 Ur Specific [place] 1.020 Urine Protein 100 H Urine Ketones 15 H Urine Blood Moderate H Urine Nitrite Negative Urine Bilirubin Negative Urine Urobilinogen 0.2 Ur Leukocyte Esterase Negative Urine RBC 10-20 H Urine WBC 0-2 Ur Epithelial Cells Negative Urine Crystals Negative Urine Bacteria Moderate Urine Casts 3-5 Fine Granular Urine Mucus Negative Urine Other Few Transitional Ur Culture Indicated? Yes Urine Glucose >=1000 H Urine Opiates Screen Urine Methadone Screen Ur Barbiturates Screen Ur Tricyclics Screen Ur Amphetamines Screen U Benzodiazepines Scrn Urine Cocaine Screen Ur THC Screen COVID-19 Source SARS-CoV-2 (PCR) Influenza Type A (PCR) Influenza Type B (PCR) RSV (PCR) 09/01/21 09/01/21 09/01/21 17:25 17:25 21:30 WBC RBC Hgb Hct MCV MCH MCHC RDW Plt Count MPV Immature Gran % Neutrophils % Band Neutrophils % Lymphocytes % Atypical Lymphs % Monocytes % Eosinophils % Basophils % Metamyelocytes % Myelocytes % Nucleated RBC % Absolute Neutrophils Absolute Lymphocytes Absolute Monocytes Absolute Eosinophils Absolute Basophils RBC Morphology Polychromasia PT INR APTT VBG pH VBG pCO2 VBG pO2 VBG HCO3 VBG Total CO2 VBG O2 Saturation VBG Base Excess VBG Lactate Sodium 138 142 Potassium 5.0 5.3 H Chloride 99 104 Carbon Dioxide 28.5 30.7 Anion Gap 10.5 7.3 BUN 46 H 46 H Creatinine 2.2 H 2.1 H Estimated GFR/1.73 m2 29.49 31.11 Glucose 569 H* 221 H Calcium 8.8 9.1 Phosphorus 4.4 Magnesium Total Bilirubin AST ALT Alkaline Phosphatase Troponin I Total Protein Albumin Procalcitonin Urine Color Urine Clarity Urine pH Ur Specific [place] Urine Protein Urine Ketones Urine Blood Urine Nitrite Urine Bilirubin Urine Urobilinogen Ur Leukocyte Esterase Urine RBC Urine WBC Ur Epithelial Cells Urine Crystals Urine Bacteria Urine Casts Urine Mucus Urine Other Ur Culture Indicated? Urine Glucose Urine Opiates Screen Urine Methadone Screen Ur Barbiturates Screen Ur Tricyclics Screen Ur Amphetamines Screen U Benzodiazepines Scrn Urine Cocaine Screen Ur THC Screen COVID-19 Source SARS-CoV-2 (PCR) Influenza Type A (PCR) Influenza Type B (PCR) RSV (PCR) 09/02/21 09/02/21 09/02/21 01:25 05:00 05:01 WBC RBC Hgb Hct MCV MCH MCHC RDW Plt Count MPV Immature Gran % Neutrophils % Band Neutrophils % Lymphocytes % Atypical Lymphs % Monocytes % Eosinophils % Basophils % Metamyelocytes % Myelocytes % Nucleated RBC % Absolute Neutrophils Absolute Lymphocytes Absolute Monocytes Absolute Eosinophils Absolute Basophils RBC Morphology Polychromasia PT INR APTT VBG pH VBG pCO2 VBG pO2 VBG HCO3 VBG Total CO2 VBG O2 Saturation VBG Base Excess VBG Lactate Sodium 142 Cancelled 140 Potassium 5.3 H Cancelled 5.4 H Chloride 104 Cancelled 103 Carbon Dioxide 27.2 Cancelled 24.0 Anion Gap 10.8 Cancelled 13.0 H BUN 49 H Cancelled 51 H Creatinine 2.0 H Cancelled 2.2 H Estimated GFR/1.73 m2 32.92 Cancelled 29.49 Glucose 228 H Cancelled 323 H Calcium 8.8 Cancelled 9.1 Phosphorus Magnesium 2.3 Total Bilirubin 0.4 AST 41 H ALT 53 Alkaline Phosphatase 67 Troponin I Total Protein 7.2 Albumin 2.1 L Procalcitonin Urine Color Urine Clarity Urine pH Ur Specific [place] Urine Protein Urine Ketones Urine Blood Urine Nitrite Urine Bilirubin Urine Urobilinogen Ur Leukocyte Esterase Urine RBC Urine WBC Ur Epithelial Cells Urine Crystals Urine Bacteria Urine Casts Urine Mucus Urine Other Ur Culture Indicated? Urine Glucose Urine Opiates Screen Urine Methadone Screen Ur Barbiturates Screen Ur Tricyclics Screen Ur Amphetamines Screen U Benzodiazepines Scrn Urine Cocaine Screen Ur THC Screen COVID-19 Source SARS-CoV-2 (PCR) Influenza Type A (PCR) Influenza Type B (PCR) RSV (PCR) 09/02/21 09/02/21 09/02/21 05:01 05:01 09:00 WBC 13.56 H RBC 3.77 L Hgb 11.6 L D Hct 37.2 L MCV 99 H MCH 30.8 MCHC 31.2 L RDW 14.4 H Plt Count 307 MPV 10.9 Immature Gran % 0.0 Neutrophils % 77.0 Band Neutrophils % 8 Lymphocytes % 5.0 Atypical Lymphs % Monocytes % 7.0 Eosinophils % 0.0 Basophils % 2.0 Metamyelocytes % 1 Myelocytes % Nucleated RBC % 1.0 H Absolute Neutrophils 11.53 H Absolute Lymphocytes 0.68 L Absolute Monocytes 0.95 H Absolute Eosinophils 0.00 Absolute Basophils 0.27 H RBC Morphology Normal Polychromasia PT INR APTT VBG pH VBG pCO2 VBG pO2 VBG HCO3 VBG Total CO2 VBG O2 Saturation VBG Base Excess VBG Lactate Sodium Cancelled Potassium Cancelled Chloride Cancelled Carbon Dioxide Cancelled Anion Gap Cancelled BUN Cancelled Creatinine Cancelled Estimated GFR/1.73 m2 Cancelled Glucose Cancelled Calcium Cancelled Phosphorus 4.3 Magnesium Total Bilirubin AST ALT Alkaline Phosphatase Troponin I Total Protein Albumin Procalcitonin Urine Color Urine Clarity Urine pH Ur Specific [place] Urine Protein Urine Ketones Urine Blood Urine Nitrite Urine Bilirubin Urine Urobilinogen Ur Leukocyte Esterase Urine RBC Urine WBC Ur Epithelial Cells Urine Crystals Urine Bacteria Urine Casts Urine Mucus Urine Other Ur Culture Indicated? Urine Glucose Urine Opiates Screen Urine Methadone Screen Ur Barbiturates Screen Ur Tricyclics Screen Ur Amphetamines Screen U Benzodiazepines Scrn Urine Cocaine Screen Ur THC Screen COVID-19 Source SARS-CoV-2 (PCR) Influenza Type A (PCR) Influenza Type B (PCR) RSV (PCR) PAWSS Pt Consumed Any Amount of Alcohol Within the Last 30 days OR had positive MIER Upon Admission: Yes Have you Been Recently Intoxicated or Drunk Within the Last 30 days?: No Have you Ever Experienced Previous Episodes of Alcohol Withdrawal?: No Have you ever Experienced Withdrawal Seizures?: No Have you ever Experienced Delirium Tremens(DT)s?: No Have you ever undergone Alcohol Rehabilitation Treatment (i.e, inpt ot outpatient treatment programs)?: No Have you ever Experienced Blackouts?: No Have you ever Combined Alcohol with other Downers within the last 90 days?: No Have you ever Combined Alcohol with any other Substance of Abuse during the last 90 days?: No Positive Blood Alcohol level on Presentation? [PCS.BAL]: No Evidence of Increased Autonomic Activity (i.e. HR>120, tremor, sweating, agitation, nausea)?: No Result: 0 Point of Care Ultrasound Note: POCUS echo was done and he has normal LV systolic function; no RWMA but has concentric LVH; I did not detect any significant MR. I could not get good doppler reading of his tricuspid and pulmonic valve to determine RV pressures. RV function and size appears normal. IVC is not dilated and has >50% collapsability.
[2021-09-02] MEDS: Insulin NPH-Human 300 UNITS/3 ML PEN 20 UNIT SC (08:53)
[2021-09-02] MEDS: Normal Saline Flush 10 ML SYR IVP ×3 (08:54→17:07)
[2021-09-02] MEDS: Allopurinol 100 MG TAB PO (08:54)
[2021-09-02] MEDS: Bicalutamide 50 MG TAB PO (08:54)
[2021-09-02] MEDS: Azithromycin 250 MG TAB PO (08:55)
[2021-09-02] MEDS: predniSONE 20 MG TAB 40 MG PO (08:55)
[2021-09-02] MEDS: Aspirin E.C. 81 MG TABEC PO (08:55)
--- NOTE | 2021-09-02 09:01 | INITIAL_ITS ---
- If Service Date Differs Date of service: 09/02/21 Time of Service: 09:01 Care Management Initial Assess REASON FOR HOSPITALIZATION:: Acute respiratory failure with hypoxia and hypercapnia, Sepsis, Pneumonia, UTI, TOBI PAST MEDICAL HISTORY/PAST SURGICAL HISTORY:: All Active Problems (Updated 09/01/21 @ 20:26 by Brandt Meza MD). UTI (urinary tract infection) (Acute). Sepsis (Acute). Acute respiratory failure with hypoxia and hypercapnia (Acute). Pneumonia (Acute). Hyperglycemia (Acute). Acute kidney injury superimposed on chronic kidney disease (Acute). Bandemia (Acute). Hypoxia (Acute). Inflammatory polyps (Acute). Hyperplastic colon polyp (Acute). Tubular adenoma of colon (Acute). BPH loc w urin obs/LUTS (Acute). DVT prophylaxis (Acute). Obesity (Chronic). GONZALES (dyspnea on exertion) (Acute). Peripheral artery disease (Acute). Medical History (Updated 09/01/21 @ 20:26 by Brandt Meza MD). BPH (benign prostatic hyperplasia). Cataract. Cellulitis in diabetic foot. Diabetic foot ulcer. Diabetic neuropathy. Discha rge planning issues. Gout. High cholesterol. Osteomyelitis due to type 2 diabetes mellitus. Osteomyelitis of ankle and foot. Pseudophakia. Screening for colon cancer. Tubulovillous adenoma of colon. Surgical History (Updated 09/01/21 @ 20:03 by Brandt Meza MD). Amputation of toe of left foot. left great and left 2nd toes. Colonoscopy - IV Sedation (08/20/16). 01/2021 with 3 year repeat. Hx of cataract surgery PREVIOUS FUNCTIONAL STATUS/SOCIAL/FAMILY SUPPORTS:: Phil lives alone in [facility] in an apartment. He has two children: a daughter who lives in [place] and a son who lives nearby in [place], [place]. His daughter Yaa is here from [place] and staying with him. 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 He worked at [employer] prior to moving to [place] 5 years ago. 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 Phil drives and is independent with his ADLs at baseline. CURRENT FUNCTIONAL STATUS:: Phil was lying in bed when CM met with him. He wearing hi-keena O2, and able to engage in conversation. Phil is alert, oriented and pleasant. His BS is being closely monitored. ADVANCE DIRECTIVES:: None, CM provided patient with forms. Has patient been provided with info about the portal/API?: Yes Did the patient sign up for the portal?: No CODE STATUS:: Full Code INSURANCE COVERAGE / FINANCIAL ISSUES:: AARP CURRENT HOME/COMMUNITY SERVICES/EQUIPMENT:: None PRIMARY CARE PHYSICIAN:: Reena Payan POTENTIAL DISCHARGE NEEDS:: Follow up appointment with community providers. PATIENT/FAMILY EDUCATION NEEDS:: Review discharge instructions, limitations, medications and plan to follow up with community providers. ask me three. TRANSPORTATION:: via private vehicle with daughter Yaa. PLAN:: Anticipate, hPil will discharge home via private vehicle with his daughter when medically ready for discharge. New [facility] services will be ordered prior to discharge, if indicated. Phil will follow up with his community providers and discharge plan of care as prescribed.
--- NOTE | 2021-09-02 09:18 | PUCC_ITS ---
General Date of Service Date of service: 09/02/21 Time of Service: 07:55 Reason for Admission to ICU: Hypoxic respiratory failure Assessment and Plan Assessment and plan (1) Hyperglycemia: Status: Acute (2) Respiratory failure with hypoxia: Status: Acute (3) Pneumonia: Status: Acute (4) Sepsis: Status: Acute (5) Acute kidney injury superimposed on chronic kidney disease: Status: Acute (6) Prostate cancer: Status: Chronic (7) Anemia: Status: Chronic (8) CHF (congestive heart failure): Status: Chronic Assessment and plan: This is a 71 yo man admitted to the ICU for hypoxic respiratory failure due to pneumonia and volume overload. He is not hypercapnic (VBG PCO2 is usually 5- 6mmHg higher than in an ABG, so his is normal) and he has mostly normal bicarbonate serum levels. Clinically, I do not beleive he has a component of COPD affecting his acute status. He is on prednisone (which can be continued as there is come benefit for it with strep. pneumo pneumonias). Although he does not have impressive extremity edema, I believe he is volume overloaded, which was not helped but the fluids he was given for his hyperglycemia. His sugars are high, but his bicarb remain normal and his GAP is borderline high. If his blood sugars cannot be controlled with subq insulin, I recommend an insulin drip (non- DKA protocol - no IVF) to get them under control. His antibiotics are appropriate. I would recommend diuresis to attain a negative net fluid balance of -1L within 24 hours. Recommendations Pulmonary: Hypoxic respiratory failure - CPAP as needed with HFNC or nasal cannula as weaning tolerates - negative fluid balance - IS and VibraPEP - has QID Duonebs - outpatient PFT's and work up as indicated Cardiac: CHF Exacerbation/Volume overload state - RV dilation and non respiro-phasic IVC with B-lines and improvement on PAP - diuresis to negative fluid balance as below - f/u formal echo results Renal: TOBI on CKD - Cr elevated over baseline - recommend diuresis to a net negative fluid balance - he is positive 3L on stay thus far I&O: Intake & Output 08/30/21 08/31/21 09/01/21 09/02/21 23:59 23:59 23:59 23:59 Intake Total 1807.534 / 1807.534 387.5 / 387.5 Output Total 200 / 200 850 / 850 Balance 1607.534 / 1607.534 -462.5 / -462.5 Weight 98.4 kg Daily Fluid Goal:: -1L in 24 hours GI Nutrition: OK for PO diet Infectious Disease: Pneumonia - agree with ceftriaxone and azithromycin - urine antigens for strep pneumo and legionella already ordered - sputum culture already ordered - can continue prednisone for a total of 5 days at 40mg Hematologic: Anemia - ICU anemia, will continue to monitor Neurologic: No acute concerns Endocrine: Hyperglycemia - on a subq regimen now - goal glucose 140-180 - if aubq insulin is not controlled glucose, recommend a insulin drip (non-DKA) without concurrent fluids Lines: PIV Raymundo Prophylaxis: Recommend changing Lovenox to heparin given renal function (order placed) Code Status: Resuscitation Status Full Code Subjective Critical and life-threatening events over the past 24 hours: This is a 71 yo man admitted to the ICU for respiratory failure necessitating CPAP. He has CKD and prostate cancer who had been having dyspnea without any chest pains or infectious symptoms. His chest imaging was consistent with a pneumonia (as well as an elevated procalcitonin) and was given ceftriaxone and azithromycin. His VBG did not find any significant hypercapnea (when correcting for venous sample). He had hyperglycemia with a bicarb at 21 (I doubt true DKA) and was put on DKA protocol. He was admitted to the ICU and wore CPAP overnight. Today he is awake and alert and feeling good. While I have in the room, I was able to decrease his FiO2 on the CPAP to 35%. he is feeling better and would like to eat. Exam Narrative Exam Narrative: POCUS: Parasternal views suboptimal but still visible. Subxyphoid and apical 4 chamber views is ok. Good LV function. RV is generous in size. IVC is not enlarged but does not exhibit respiro-phasic narrowing. There are B-line in bilateral anterior chest views. Gen: NAD, normal respiratory effort, well-nourished, on CPAP HENT: PERRL Chest: No respiratory distress, normal appearance of chest, clear to auscultation bilaterally, no crackles or wheezes, normal inspiratory effort Heart: regular rate and rhythym, no murmurs, rubs or gallops Abdomen: Non-distended, soft, non tender Extremities: No clubbing, edema, cyanosis, rashes Neuro: AAOx3 , non focal Psych: cooperative, appropriate mental affect Most Recent VS/Results Last Vital Signs Temp 36.8 C 09/01/21 20:42 Pulse 93 H 09/02/21 07:00 Resp 15 09/02/21 07:01 BP 131/59 L 09/02/21 07:00 Pulse Ox 87 L 09/01/21 16:47 Laboratory Results - last 24 hr 09/01/21 09/01/21 09/01/21 12:20 12:20 12:20 WBC 16.15 H RBC 4.41 Hgb 13.7 Hct 43.9 MCV 100 H MCH 31.1 MCHC 31.2 L RDW 14.3 H Plt Count 373 MPV 11.3 H Immature Gran % 0.0 Neutrophils % 42.0 Band Neutrophils % 14 Lymphocytes % 26.0 Atypical Lymphs % 0 Monocytes % 16.0 Eosinophils % 1.0 Basophils % 0.0 Metamyelocytes % Myelocytes % 1 Nucleated RBC % 0.0 Absolute Neutrophils 9.04 H Absolute Lymphocytes 4.20 H Absolute Monocytes 2.58 H Absolute Eosinophils 0.16 Absolute Basophils 0.00 RBC Morphology See Below Polychromasia Present PT 10.2 INR 1.0 APTT 25.9 VBG pH VBG pCO2 VBG pO2 VBG HCO3 VBG Total CO2 VBG O2 Saturation VBG Base Excess VBG Lactate Sodium 136 Potassium 5.5 H Chloride 95 L Carbon Dioxide 21.4 Anion Gap 19.6 H BUN 41 H Creatinine 2.3 H Estimated GFR/1.73 m2 28.01 Glucose 625 H* Calcium 9.6 Phosphorus Magnesium 2.5 H Total Bilirubin 0.8 AST 59 H ALT 53 Alkaline Phosphatase 76 Troponin I < 50 Total Protein 8.4 H Albumin 2.5 L Procalcitonin Urine Color Urine Clarity Urine pH Ur Specific [place] Urine Protein Urine Ketones Urine Blood Urine Nitrite Urine Bilirubin Urine Urobilinogen Ur Leukocyte Esterase Urine RBC Urine WBC Ur Epithelial Cells Urine Crystals Urine Bacteria Urine Casts Urine Mucus Urine Other Ur Culture Indicated? Urine Glucose Urine Opiates Screen Urine Methadone Screen Ur Barbiturates Screen Ur Tricyclics Screen Ur Amphetamines Screen U Benzodiazepines Scrn Urine Cocaine Screen Ur THC Screen COVID-19 Source SARS-CoV-2 (PCR) Influenza Type A (PCR) Influenza Type B (PCR) RSV (PCR) 09/01/21 09/01/21 09/01/21 12:52 13:45 14:24 WBC RBC Hgb Hct MCV MCH MCHC RDW Plt Count MPV Immature Gran % Neutrophils % Band Neutrophils % Lymphocytes % Atypical Lymphs % Monocytes % Eosinophils % Basophils % Metamyelocytes % Myelocytes % Nucleated RBC % Absolute Neutrophils Absolute Lymphocytes Absolute Monocytes Absolute Eosinophils Absolute Basophils RBC Morphology Polychromasia PT INR APTT VBG pH 7.28 L VBG pCO2 51 VBG pO2 58 VBG HCO3 24 VBG Total CO2 22 L VBG O2 Saturation 86 VBG Base Excess -3 L VBG Lactate Sodium Potassium Chloride Carbon Dioxide Anion Gap BUN Creatinine Estimated GFR/1.73 m2 Glucose Calcium Phosphorus Magnesium Total Bilirubin AST ALT Alkaline Phosphatase Troponin I Total Protein Albumin Procalcitonin Urine Color Urine Clarity Urine pH Ur Specific [place] Urine Protein Urine Ketones Urine Blood Urine Nitrite Urine Bilirubin Urine Urobilinogen Ur Leukocyte Esterase Urine RBC Urine WBC Ur Epithelial Cells Urine Crystals Urine Bacteria Urine Casts Urine Mucus Urine Other Ur Culture Indicated? Urine Glucose Urine Opiates Screen Negative Urine Methadone Screen Negative Ur Barbiturates Screen Negative Ur Tricyclics Screen Negative Ur Amphetamines Screen Negative U Benzodiazepines Scrn Negative Urine Cocaine Screen Negative Ur THC Screen Negative COVID-19 Source Nasopharynx SARS-CoV-2 (PCR) Negative Influenza Type A (PCR) Negative Influenza Type B (PCR) Negative RSV (PCR) Negative 09/01/21 09/01/21 09/01/21 14:24 14:31 14:31 WBC RBC Hgb Hct MCV MCH MCHC RDW Plt Count MPV Immature Gran % Neutrophils % Band Neutrophils % Lymphocytes % Atypical Lymphs % Monocytes % Eosinophils % Basophils % Metamyelocytes % Myelocytes % Nucleated RBC % Absolute Neutrophils Absolute Lymphocytes Absolute Monocytes Absolute Eosinophils Absolute Basophils RBC Morphology Polychromasia PT INR APTT VBG pH VBG pCO2 VBG pO2 VBG HCO3 VBG Total CO2 VBG O2 Saturation VBG Base Excess VBG Lactate 2.1 H Sodium Potassium Chloride Carbon Dioxide Anion Gap BUN Creatinine Estimated GFR/1.73 m2 Glucose Calcium Phosphorus Magnesium Total Bilirubin AST ALT Alkaline Phosphatase Troponin I < 50 Total Protein Albumin Procalcitonin 12.4 Urine Color Yellow Urine Clarity Clear Urine pH 5.5 Ur Specific [place] 1.020 Urine Protein 100 H Urine Ketones 15 H Urine Blood Moderate H Urine Nitrite Negative Urine Bilirubin Negative Urine Urobilinogen 0.2 Ur Leukocyte Esterase Negative Urine RBC 10-20 H Urine WBC 0-2 Ur Epithelial Cells Negative Urine Crystals Negative Urine Bacteria Moderate Urine Casts 3-5 Fine Granular Urine Mucus Negative Urine Other Few Transitional Ur Culture Indicated? Yes Urine Glucose >=1000 H Urine Opiates Screen Urine Methadone Screen Ur Barbiturates Screen Ur Tricyclics Screen Ur Amphetamines Screen U Benzodiazepines Scrn Urine Cocaine Screen Ur THC Screen COVID-19 Source SARS-CoV-2 (PCR) Influenza Type A (PCR) Influenza Type B (PCR) RSV (PCR) 09/01/21 09/01/21 09/01/21 17:25 17:25 21:30 WBC RBC Hgb Hct MCV MCH MCHC RDW Plt Count MPV Immature Gran % Neutrophils % Band Neutrophils % Lymphocytes % Atypical Lymphs % Monocytes % Eosinophils % Basophils % Metamyelocytes % Myelocytes % Nucleated RBC % Absolute Neutrophils Absolute Lymphocytes Absolute Monocytes Absolute Eosinophils Absolute Basophils RBC Morphology Polychromasia PT INR APTT VBG pH VBG pCO2 VBG pO2 VBG HCO3 VBG Total CO2 VBG O2 Saturation VBG Base Excess VBG Lactate Sodium 138 142 Potassium 5.0 5.3 H Chloride 99 104 Carbon Dioxide 28.5 30.7 Anion Gap 10.5 7.3 BUN 46 H 46 H Creatinine 2.2 H 2.1 H Estimated GFR/1.73 m2 29.49 31.11 Glucose 569 H* 221 H Calcium 8.8 9.1 Phosphorus 4.4 Magnesium Total Bilirubin AST ALT Alkaline Phosphatase Troponin I Total Protein Albumin Procalcitonin Urine Color Urine Clarity Urine pH Ur Specific [place] Urine Protein Urine Ketones Urine Blood Urine Nitrite Urine Bilirubin Urine Urobilinogen Ur Leukocyte Esterase Urine RBC Urine WBC Ur Epithelial Cells Urine Crystals Urine Bacteria Urine Casts Urine Mucus Urine Other Ur Culture Indicated? Urine Glucose Urine Opiates Screen Urine Methadone Screen Ur Barbiturates Screen Ur Tricyclics Screen Ur Amphetamines Screen U Benzodiazepines Scrn Urine Cocaine Screen Ur THC Screen COVID-19 Source SARS-CoV-2 (PCR) Influenza Type A (PCR) Influenza Type B (PCR) RSV (PCR) 09/02/21 09/02/21 09/02/21 01:25 05:00 05:01 WBC RBC Hgb Hct MCV MCH MCHC RDW Plt Count MPV Immature Gran % Neutrophils % Band Neutrophils % Lymphocytes % Atypical Lymphs % Monocytes % Eosinophils % Basophils % Metamyelocytes % Myelocytes % Nucleated RBC % Absolute Neutrophils Absolute Lymphocytes Absolute Monocytes Absolute Eosinophils Absolute Basophils RBC Morphology Polychromasia PT INR APTT VBG pH VBG pCO2 VBG pO2 VBG HCO3 VBG Total CO2 VBG O2 Saturation VBG Base Excess VBG Lactate Sodium 142 Cancelled 140 Potassium 5.3 H Cancelled 5.4 H Chloride 104 Cancelled 103 Carbon Dioxide 27.2 Cancelled 24.0 Anion Gap 10.8 Cancelled 13.0 H BUN 49 H Cancelled 51 H Creatinine 2.0 H Cancelled 2.2 H Estimated GFR/1.73 m2 32.92 Cancelled 29.49 Glucose 228 H Cancelled 323 H Calcium 8.8 Cancelled 9.1 Phosphorus Magnesium 2.3 Total Bilirubin 0.4 AST 41 H ALT 53 Alkaline Phosphatase 67 Troponin I Total Protein 7.2 Albumin 2.1 L Procalcitonin Urine Color Urine Clarity Urine pH Ur Specific [place] Urine Protein Urine Ketones Urine Blood Urine Nitrite Urine Bilirubin Urine Urobilinogen Ur Leukocyte Esterase Urine RBC Urine WBC Ur Epithelial Cells Urine Crystals Urine Bacteria Urine Casts Urine Mucus Urine Other Ur Culture Indicated? Urine Glucose Urine Opiates Screen Urine Methadone Screen Ur Barbiturates Screen Ur Tricyclics Screen Ur Amphetamines Screen U Benzodiazepines Scrn Urine Cocaine Screen Ur THC Screen COVID-19 Source SARS-CoV-2 (PCR) Influenza Type A (PCR) Influenza Type B (PCR) RSV (PCR) 09/02/21 09/02/21 09/02/21 05:01 05:01 09:00 WBC 13.56 H RBC 3.77 L Hgb 11.6 L D Hct 37.2 L MCV 99 H MCH 30.8 MCHC 31.2 L RDW 14.4 H Plt Count 307 MPV 10.9 Immature Gran % 0.0 Neutrophils % 77.0 Band Neutrophils % 8 Lymphocytes % 5.0 Atypical Lymphs % Monocytes % 7.0 Eosinophils % 0.0 Basophils % 2.0 Metamyelocytes % 1 Myelocytes % Nucleated RBC % 1.0 H Absolute Neutrophils 11.53 H Absolute Lymphocytes 0.68 L Absolute Monocytes 0.95 H Absolute Eosinophils 0.00 Absolute Basophils 0.27 H RBC Morphology Normal Polychromasia PT INR APTT VBG pH VBG pCO2 VBG pO2 VBG HCO3 VBG Total CO2 VBG O2 Saturation VBG Base Excess VBG Lactate Sodium Cancelled Potassium Cancelled Chloride Cancelled Carbon Dioxide Cancelled Anion Gap Cancelled BUN Cancelled Creatinine Cancelled Estimated GFR/1.73 m2 Cancelled Glucose Cancelled Calcium Cancelled Phosphorus 4.3 Magnesium Total Bilirubin AST ALT Alkaline Phosphatase Troponin I Total Protein Albumin Procalcitonin Urine Color Urine Clarity Urine pH Ur Specific [place] Urine Protein Urine Ketones Urine Blood Urine Nitrite Urine Bilirubin Urine Urobilinogen Ur Leukocyte Esterase Urine RBC Urine WBC Ur Epithelial Cells Urine Crystals Urine Bacteria Urine Casts Urine Mucus Urine Other Ur Culture Indicated? Urine Glucose Urine Opiates Screen Urine Methadone Screen Ur Barbiturates Screen Ur Tricyclics Screen Ur Amphetamines Screen U Benzodiazepines Scrn Urine Cocaine Screen Ur THC Screen COVID-19 Source SARS-CoV-2 (PCR) Influenza Type A (PCR) Influenza Type B (PCR) RSV (PCR) Review of Systems All systems reviewed & are unremarkable except as noted in HPI and below Time spent with patient Time spent in Critical Care: 45 Time spent in Critical care included: Chart review, Documenting critically ill care, Time at immediate bedside and Discussing critically ill care with other medical staff
[2021-09-02 10:12] LABS: Hemoglobin A1C 9.8 % (<5.7)
[2021-09-02 10:42] LABS: Anion Gap 13.8 mmol/L (3-11); BUN 53 mg/dL (7-18); CO2 24.2 mmol/L (21.0-32.0); CREATININE 2.1 mg/dL (0.70-1.30); Calcium 9.1 mg/dL (8.5-10.1); Chloride 102 mmol/L (98-107); Estimated GFR 31.11 (mL/min/1.73m2); Glucose 384 mg/dL (74-106); Potassium 5.3 mmol/L (3.5-5.1); Sodium 140 mmol/L (136-145)
[2021-09-02] MEDS: cefTRIAXone 1 GM/50 ML BAG IVPB (12:24)
[2021-09-02 16:16] LABS: Anion Gap 10.3 mmol/L (3-11); BUN 60 mg/dL (7-18); CO2 25.7 mmol/L (21.0-32.0); CREATININE 2.1 mg/dL (0.70-1.30); Chloride 100 mmol/L (98-107); Estimated GFR 31.11 (mL/min/1.73m2); Glucose 494 mg/dL (74-106); Potassium 5.2 mmol/L (3.5-5.1); Sodium 136 mmol/L (136-145)
[2021-09-02] MEDS: DEXTROSE 5%-0.45% SALINE 1,000 ML 75 ML IV (16:45)
[2021-09-02] MEDS: INSULIN REGULAR IN 0.9 % NACL 100 UNIT/100 ML BAG 9 UNIT IV (16:52)
[2021-09-02] MEDS: Heparin 5,000 UNITS/ML VIAL 5000 UNITS SC ×2 (17:02→22:06)
[2021-09-02] MEDS: Docusate Sodium 100 MG CAP PO (17:03)
[2021-09-02] MEDS: Acetaminophen 325 MG TAB PO (17:03)
--- NOTE | 2021-09-02 17:04 | CHAPLAIN ---
Phil was having a conversation with his nurse when I visited. We remembered meeting each other last year when he was here. 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 His daughter arrived as I was leaving.
[2021-09-02] MEDS: Simvastatin 10 MG TAB PO (19:47)
[2021-09-02] MEDS: Insulin Glargine 300 UNITS/3 ML PEN 50 UNITS SC (20:10)
[2021-09-02 20:29] LABS: BUN 64 mg/dL (7-18); CREATININE 2.4 mg/dL (0.70-1.30); Calcium 8.9 mg/dL (8.5-10.1); Chloride 101 mmol/L (98-107); Estimated GFR 26.67 (mL/min/1.73m2); Glucose 488 mg/dL (74-106); Potassium 5.7 mmol/L (3.5-5.1); Sodium 136 mmol/L (136-145)
[2021-09-02 23:09] LABS: Legionella Ag Detection Urine Negative (Negative)
[2021-09-03] VITALS (48 sets, daily range): BP systolic 105–162; BP diastolic 60–85; PULSE 70–112; RESP 8–28; TEMP 31–37.1; O2SAT 91–93
[2021-09-03 00:34] LABS: Anion Gap 5.4 mmol/L (3-11); BUN 67 mg/dL (7-18); CO2 29.6 mmol/L (21.0-32.0); CREATININE 2.1 mg/dL (0.70-1.30); Calcium 9.3 mg/dL (8.5-10.1); Chloride 103 mmol/L (98-107); Estimated GFR 31.11 (mL/min/1.73m2); Glucose 202 mg/dL (74-106); Potassium 5.6 mmol/L (3.5-5.1); Sodium 138 mmol/L (136-145)
[2021-09-03] MEDS: INSULIN REGULAR IN 0.9 % NACL 100 UNIT/100 ML BAG 8 UNIT IV (00:56)
[2021-09-03 04:08] LABS: HCT 34.5 % (40.0-50.0); HGB 11.2 g/dL (13.5-17.5); MCH 31.4 pg (27.0-33.0); MCHC 32.5 % (32.0-36.0); MCV 97 fL (80-95); MPV 10.5 fL (8.0-11.0); Platelet Count 300 10^3/uL (130-400); RBC 3.57 10^6/uL (4.36-5.78); RDW 14.2 % (11.8-14.1)
[2021-09-03 04:31] LABS: Anion Gap 6.8 mmol/L (3-11); BUN 71 mg/dL (7-18); CO2 29.2 mmol/L (21.0-32.0); CREATININE 1.9 mg/dL (0.70-1.30); Calcium 8.9 mg/dL (8.5-10.1); Chloride 103 mmol/L (98-107); Estimated GFR 34.92 (mL/min/1.73m2); Glucose 227 mg/dL (74-106); Potassium 5.6 mmol/L (3.5-5.1); Sodium 139 mmol/L (136-145)
[2021-09-03 04:33] LABS: Absolute Lymphocyte Count 1.73 10^3/uL (1.2-3.4); Absolute Neutrophil Count 12.56 10^3/uL (1.2-6.7); Bands % 5
[2021-09-03 04:34] LABS: Absolute Eosinophil Count 0.16 10^3/uL (0.0-0.7); Diff Comment Manual Differential; Metamyelocytes % 1; RBC Morphology Normal
[2021-09-03 05:04] LABS: NT-proBNP 737 pg/mL (<300)
[2021-09-03 05:32] LABS: Procalcitonin 9.7 ng/mL
[2021-09-03] MEDS: Heparin 5,000 UNITS/ML VIAL 5000 UNITS SC ×3 (05:52→22:00)
[2021-09-03] MEDS: Albuterol/Ipratropium 3 ML UPD VIAL UPD ×4 (07:48→21:00)
[2021-09-03] MEDS: Insulin Glargine 300 UNITS/3 ML PEN 50 UNITS SC ×2 (08:07→22:02)
[2021-09-03] MEDS: predniSONE 20 MG TAB 40 MG PO (08:09)
[2021-09-03] MEDS: Azithromycin 250 MG TAB PO (08:09)
[2021-09-03] MEDS: Bicalutamide 50 MG TAB PO (08:10)
[2021-09-03] MEDS: Allopurinol 100 MG TAB PO (08:10)
[2021-09-03] MEDS: Aspirin E.C. 81 MG TABEC PO (08:11)
[2021-09-03] MEDS: Insulin NPH-Human 300 UNITS/3 ML PEN 20 UNIT SC (08:11)
--- NOTE | 2021-09-03 08:39 | PDOC.CMPRO ---
- If Service Date Differs Date of service: 09/03/21 Time of Service: 08:39 Care Management Progress Note S/O: Phil was lying in bed visiting with his daughter Ilir when CM met with him. He is alert, oriented and able to engage in conversation. He is wearing HFNC. His BS is being closely monitored. Phil would like to discharge home with new H RN/PT/OT services when he is medically ready, however he is open to SNF referrals for STR if needed. CM will continue to support patient and his discharge planning needs. A: 71 year old male admitted to [facility] on 09/01/21 for Acute respiratory failure with hypoxia and hypercapnia, Sepsis, Pneumonia, UTI, TOBI P: Anticipate, Phil will discharge home via private vehicle with his daughter when medically ready for discharge. New [facility] services will be ordered prior to discharge, if indicated. Phil will follow up with his community providers and discharge plan of care as prescribed.
[2021-09-03] MEDS: Normal Saline Flush 10 ML SYR IVP ×2 (08:53→11:17)
[2021-09-03] MEDS: Insulin Aspart 300 UNITS/3 ML PEN SC ×6 (09:16→22:02)
[2021-09-03] MEDS: Insulin Aspart 300 UNITS/3 ML PEN 25 UNITS SC (11:15)
[2021-09-03] MEDS: Insulin NPH-Human 300 UNITS/3 ML PEN 10 UNIT SC (11:17)
[2021-09-03] MEDS: cefTRIAXone 1 GM/50 ML BAG IVPB (11:20)
--- NOTE | 2021-09-03 12:29 | W.INDIABCONS ---
Date of service: 09/03/21 Time of Service: 12:29 Diabetes Inpatient Consult Reason for Visit: dm DESCRIPTION/ASSESSMENT: 71 year old male admitted with DKA with blood sugar of 625mg/dl with hx of CKD, DM2. Home Dm meds: lantus 80 u HS, Trulicity . 75 q week, humolog sliding scale. Followed by [facility]. Most recent A1C: 9.8%. Goal A1C: 8% of less. Met with Phil and his daughter (from [place]). Phil reports that he has not been very good at keeping track of his blood sugars while being worked up for treatment for prostate cancer. Requests continuous glucose monitor. Phil is eligible for CGM with medicare as takes multiple daily injections of insulin and A1C not at target. INTERVENTION: Provided information on CGM and remote monitoring Will follow up with [facility] and get referral for outpatient nutrition counseling and CGM placement PLAN: Will follow up with patient after discharge from [facility] to set up OP visit. WIll follow up with PCP re: script for Dexcom 6 or Abdias 2 CGM Time Spent in Nutritional Counseling and Treatment: 25
--- NOTE | 2021-09-03 13:21 | W.PM.PROGNOT ---
Date of Service Date of service: 09/03/21 Time of Service: 13:21 Assessment and Plan Assessment and plan (1) Pneumonia: Status: Acute Assessment and plan: cont. Rocephin and Azithromycin, IS, acapella and short course of prednisone for his COPD. Wean HFNC as tolerated. Critical care time spent interviewing and examining the patient, reviewing studies, discussing case with patient's nurse and consulting physicians was 30 minutes (2) DKA (diabetic ketoacidoses): Status: Acute Assessment and plan: This morning his glucose on his BMP was 227 with a normal anion gap of 6.8. Glucose at breakfast was 267 and 2 hours postprandial was 398 and now at lunch it was 383. Urine dip negative for ketones and's morning. This point I think we can avoid resuming the insulin drip and give frequent novolog and adjust his basal insulin (both NPH for his prednisone and Lantus) (3) Acute kidney injury superimposed on chronic kidney disease: Status: Acute Assessment and plan: creatinine improved to 1.9 from peak of 2.4. (4) Chronic kidney disease, stage 3: Status: None Qualifiers: Chronic kidney disease stage 3 subtype: stage 3a (GFR 45-59) Qualified Code(s): N18.31 - Chronic kidney disease, stage 3a (5) Peripheral artery disease: Status: Acute Assessment and plan: Continue aspirin (6) Diabetic neuropathy: Assessment and plan: would benefit from low dose gabapentin at night (7) DVT prophylaxis: Status: Acute Assessment and plan: on lovenox Subjective Subjective Interval history since last seen: Overall patient feels better. He still has a moist cough productive of clear to yellowish mucus. No chest discomfort. Overnight his blood sugars came down and he was taken off the insulin drip unfortunately he was not giving any bolus of NovoLog no AC given a additional Lantus prior to discontinuing insulin drip. This led to a rise in his blood sugars. Objective Last Vital Signs Temp 36.9 C 09/03/21 00:00 Pulse 108 H 09/03/21 13:17 Resp 20 09/03/21 12:01 BP 105/85 09/03/21 12:01 Pulse Ox 93 09/03/21 13:17 Laboratory Results - last 24 hr 09/01/21 09/01/21 09/02/21 12:22 17:23 15:55 WBC RBC Hgb Hct MCV MCH MCHC RDW Plt Count MPV Immature Gran % Neutrophils % Band Neutrophils % Lymphocytes % Monocytes % Eosinophils % Basophils % Metamyelocytes % Nucleated RBC % Absolute Neutrophils Absolute Lymphocytes Absolute Monocytes Absolute Eosinophils Absolute Basophils RBC Morphology ABG Sample Site Cancelled ABG pH Cancelled ABG pCO2 Cancelled ABG pO2 Cancelled ABG HCO3 Cancelled ABG Total CO2 Cancelled ABG O2 Saturation Cancelled ABG Base Excess Cancelled Oxygen Liter Flow Cancelled FiO2 Cancelled Sodium 136 Potassium 5.2 H Chloride 100 Carbon Dioxide 25.7 Anion Gap 10.3 BUN 60 H Creatinine 2.1 H Estimated GFR/1.73 m2 31.11 Glucose 494 H Calcium 9.0 NT-Pro-B Natriuret Pep Procalcitonin Urine Legionella Ag Negative 09/02/21 09/03/21 09/03/21 20:07 00:20 04:00 WBC RBC Hgb Hct MCV MCH MCHC RDW Plt Count MPV Immature Gran % Neutrophils % Band Neutrophils % Lymphocytes % Monocytes % Eosinophils % Basophils % Metamyelocytes % Nucleated RBC % Absolute Neutrophils Absolute Lymphocytes Absolute Monocytes Absolute Eosinophils Absolute Basophils RBC Morphology ABG Sample Site ABG pH ABG pCO2 ABG pO2 ABG HCO3 ABG Total CO2 ABG O2 Saturation ABG Base Excess Oxygen Liter Flow FiO2 Sodium 136 138 139 Potassium 5.7 H 5.6 H 5.6 H Chloride 101 103 103 Carbon Dioxide 28.0 29.6 29.2 Anion Gap 7.0 5.4 6.8 BUN 64 H 67 H 71 H Creatinine 2.4 H 2.1 H 1.9 H Estimated GFR/1.73 m2 26.67 31.11 34.92 Glucose 488 H 202 H 227 H Calcium 8.9 9.3 8.9 NT-Pro-B Natriuret Pep Procalcitonin Urine Legionella Ag 09/03/21 09/03/21 09/03/21 04:00 04:00 04:00 WBC 15.70 H RBC 3.57 L Hgb 11.2 L Hct 34.5 L MCV 97 H MCH 31.4 MCHC 32.5 RDW 14.2 H Plt Count 300 MPV 10.5 Immature Gran % 0.0 Neutrophils % 75.0 Band Neutrophils % 5 Lymphocytes % 11.0 Monocytes % 7.0 Eosinophils % 1.0 Basophils % 0.0 Metamyelocytes % 1 Nucleated RBC % 1.0 H Absolute Neutrophils 12.56 H Absolute Lymphocytes 1.73 Absolute Monocytes 1.10 H Absolute Eosinophils 0.16 Absolute Basophils 0.00 RBC Morphology Normal ABG Sample Site ABG pH ABG pCO2 ABG pO2 ABG HCO3 ABG Total CO2 ABG O2 Saturation ABG Base Excess Oxygen Liter Flow FiO2 Sodium Cancelled Potassium Cancelled Chloride Cancelled Carbon Dioxide Cancelled Anion Gap Cancelled BUN Cancelled Creatinine Cancelled Estimated GFR/1.73 m2 Cancelled Glucose Cancelled Calcium Cancelled NT-Pro-B Natriuret Pep 737 H Procalcitonin 9.7 Urine Legionella Ag PAWSS Pt Consumed Any Amount of Alcohol Within the Last 30 days OR had positive MEIR Upon Admission: Yes Have you Been Recently Intoxicated or Drunk Within the Last 30 days?: No Have you Ever Experienced Previous Episodes of Alcohol Withdrawal?: No Have you ever Experienced Withdrawal Seizures?: No Have you ever Experienced Delirium Tremens(DT)s?: No Have you ever undergone Alcohol Rehabilitation Treatment (i.e, inpt ot outpatient treatment programs)?: No Have you ever Experienced Blackouts?: No Have you ever Combined Alcohol with other Downers within the last 90 days?: No Have you ever Combined Alcohol with any other Substance of Abuse during the last 90 days?: No Positive Blood Alcohol level on Presentation? [PCS.BAL]: No Evidence of Increased Autonomic Activity (i.e. HR>120, tremor, sweating, agitation, nausea)?: No Result: 0
[2021-09-03] MEDS: Furosemide 20 MG/2 ML VIAL IVP (14:17)
[2021-09-03] MEDS: Simvastatin 10 MG TAB PO (21:00)
[2021-09-03 23:30] LABS: Streptococcus Pneumoniae Ag, U Negative (Negative)
[2021-09-04] VITALS (35 sets, daily range): BP systolic 108–156; BP diastolic 55–102; PULSE 70–110; RESP 2–32; TEMP 29–36.4; O2SAT 90–95
[2021-09-04] MEDS: Heparin 5,000 UNITS/ML VIAL 5000 UNITS SC ×3 (06:30→22:54)
[2021-09-04 07:14] LABS: HCT 37.4 % (40.0-50.0); MCH 30.6 pg (27.0-33.0); MCHC 32.1 % (32.0-36.0); MCV 95 fL (80-95); MPV 10.3 fL (8.0-11.0); Nucleated RBC 0.4 % (0.0-0.3); Platelet Count 345 10^3/uL (130-400); RBC 3.92 10^6/uL (4.36-5.78); RDW 14.2 % (11.8-14.1); RDW-SD 49.8 fL; WBC 18.26 10^3/uL (4.4-10.8)
[2021-09-04] MEDS: Albuterol/Ipratropium 3 ML UPD VIAL UPD ×4 (07:23→20:33)
[2021-09-04 07:29] LABS: Absolute Monocyte Count 1.46 10^3/uL (0.1-0.8); Absolute Neutrophil Count 12.05 10^3/uL (1.2-6.7); Bands % 3; Metamyelocytes % 1; Myelocytes % 2
[2021-09-04 07:30] LABS: Anion Gap 5.5 mmol/L (3-11); BUN 56 mg/dL (7-18); CO2 30.5 mmol/L (21.0-32.0); CREATININE 1.6 mg/dL (0.70-1.30); Calcium 9.1 mg/dL (8.5-10.1); Chloride 103 mmol/L (98-107); Diff Comment Manual Differential; Estimated GFR 42.58 (mL/min/1.73m2); Glucose 131 mg/dL (74-106); Potassium 4.4 mmol/L (3.5-5.1); RBC Morphology Normal; Sodium 139 mmol/L (136-145)
--- NOTE | 2021-09-04 08:22 | W.PM.PROGNOT ---
Date of Service Date of service: 09/04/21 Time of Service: : Assessment and Plan Assessment and plan (1) Pneumonia: Status: Acute Assessment and plan: Improving. Continue Rocephin and azithromycin. Encourage use of I-S and Acapella. Encourage ambulation. We will discontinue his Raymundo catheter which should help with ambulation. Patient was written to go to [facility] last night but there was no bed availability. I will discontinue his telemetry and decrease vital sign checks to every shift and as needed. Patient no longer requires ICU status as his DKA is resolved. He still has an increased oxygen need but I expect that improved for the next 24 to 8 hours. Professional time spent interviewing and examining patient, discussion of goals of care with hospital team (care management, nursing and consulting professionals) was 30 minutes. (2) DKA (diabetic ketoacidoses): Status: Resolved Assessment and plan: DKA is resolved. He is remained off the insulin drip overnight Repeat labs this morning on his BMP shows improvement in his renal function and resolution of his anion gap. Blood sugar this morning was 133. I will continue the increased dose of his basal insulin and a Lantus dose of 50 units twice a day. Continue NPH while he is on prednisone. Continue carbohydrate coverage at a ratio of 2 units per 10 g of carbohydrates and continue insulin resistant sliding scale. We will request prosthodontist/educator consultation. (3) Acute kidney injury superimposed on chronic kidney disease: Status: Acute Assessment and plan: Renal for which is improving. His BUN is down to 56 and creatinine is 1.6 he presented with a creatinine of 2.3 and it appears that his baseline creatinine is around 1.4. (4) Chronic kidney disease, stage 3: Status: None Assessment and plan: Renal function improving and back to baseline Qualifiers: Chronic kidney disease stage 3 subtype: stage 3a (GFR 45-59) Qualified Code(s): N18.31 - Chronic kidney disease, stage 3a (5) Peripheral artery disease: Status: Acute Assessment and plan: Continue aspirin (6) Diabetic neuropathy: Assessment and plan: would benefit from low dose gabapentin at night (7) DVT prophylaxis: Status: Acute Assessment and plan: Currently on heparin for DVT prophylaxis this can be changed to Lovenox at renally adjusted dose. (8) Discharge planning issues: Status: Acute Subjective Subjective Interval history since last seen: Patient is doing markedly better. He remains out of DKA. Cough is less productive. He has been afebrile. He remains on Rocephin and azithromycin for his pneumonia. He remains on prednisone along with bronchodilators for his COPD. He has been wearing CPAP at night and whenever he sleeps. He is set at 35% FiO2 5 cm of CPAP. I would like the staff to start weaning his oxygen during the day and getting him up out of bed and ambulating him. This will help mobilize any mucus and prevent atelectasis. Exam Narrative Exam Narrative: Phil is alert and oriented to person place time circumstance. Lungs with some coarse expiratory wheezes few scattered rhonchi Heart is regular rate and rhythm Abdomen obese soft nontender normal bowel sounds Extremities without edema Raymundo draining clear yellow urine Neuro exam grossly normal Objective Last Vital Signs Temp 36 C L 09/03/21 16:45 Pulse 70 09/04/21 08:01 Resp 22 09/04/21 08:01 BP 149/65 H 09/04/21 08:01 Pulse Ox 94 09/04/21 07:23 Laboratory Results - last 24 hr 09/04/21 09/04/21 06:55 06:55 WBC 18.26 H RBC 3.92 L Hgb 12.0 L Hct 37.4 L MCV 95 MCH 30.6 MCHC 32.1 RDW 14.2 H Plt Count 345 MPV 10.3 Immature Gran % See Differential Neutrophils % 63.0 Band Neutrophils % 3 Lymphocytes % 23.0 Monocytes % 8.0 Eosinophils % 0.0 Basophils % 0.0 Metamyelocytes % 1 Myelocytes % 2 Nucleated RBC % 0.4 H Absolute Neutrophils 12.05 H Absolute Lymphocytes 4.20 H Absolute Monocytes 1.46 H Absolute Eosinophils 0.00 Absolute Basophils 0.00 RBC Morphology Normal Sodium 139 Potassium 4.4 D Chloride 103 Carbon Dioxide 30.5 Anion Gap 5.5 BUN 56 H Creatinine 1.6 H Estimated GFR/1.73 m2 42.58 Glucose 131 H Calcium 9.1 Reviewed Pertinent PMH: Yes Objective Narrative Objective Narrative: Urine Legionella screen negative. Urine strep antigen is pending. Sputum grew normal joel Patient's echocardiogram demonstrated normal left ventricular size and function with normal filling pressures. RV size and RV systolic function is normal. There is no evidence for acute or chronic congestive heart failure. PAWSS Pt Consumed Any Amount of Alcohol Within the Last 30 days OR had positive MEIR Upon Admission: Yes Have you Been Recently Intoxicated or Drunk Within the Last 30 days?: No Have you Ever Experienced Previous Episodes of Alcohol Withdrawal?: No Have you ever Experienced Withdrawal Seizures?: No Have you ever Experienced Delirium Tremens(DT)s?: No Have you ever undergone Alcohol Rehabilitation Treatment (i.e, inpt ot outpatient treatment programs)?: No Have you ever Experienced Blackouts?: No Have you ever Combined Alcohol with other Downers within the last 90 days?: No Have you ever Combined Alcohol with any other Substance of Abuse during the last 90 days?: No Positive Blood Alcohol level on Presentation? [PCS.BAL]: No Evidence of Increased Autonomic Activity (i.e. HR>120, tremor, sweating, agitation, nausea)?: No Result: 0
[2021-09-04] MEDS: Aspirin E.C. 81 MG TABEC PO (08:54)
[2021-09-04] MEDS: Bicalutamide 50 MG TAB PO (08:55)
[2021-09-04] MEDS: Allopurinol 100 MG TAB PO (08:55)
[2021-09-04] MEDS: Azithromycin 250 MG TAB PO (08:55)
[2021-09-04] MEDS: predniSONE 20 MG TAB 40 MG PO (08:55)
[2021-09-04] MEDS: Insulin NPH-Human 300 UNITS/3 ML PEN 30 UNIT SC (08:56)
--- NOTE | 2021-09-04 08:56 | PDOC.CMPRO ---
- If Service Date Differs Date of service: 09/04/21 Time of Service: 08:56 Care Management Progress Note S/O: Per provider, Phil is doing markedly better. He remains out of DKA. He is on IV abx, steroids and bronchodilators for his COPD. He is wearing CPAP at night and whenever he sleeps. MD is going to start weaning his oxygen and recommends increased ambulation throughout the day. Phil would like to discharge home with new [facility] RN/PT/OT services when he is medically ready, however he is open to SNF referrals for STR if needed. will continue to support patient and his discharge planning needs. A: 71 year old male admitted to [facility] on 09/01/21 for Acute respiratory failure with hypoxia and hypercapnia, Sepsis, Pneumonia, UTI, TOBI P: Anticipate, Phil will discharge home via private vehicle with his daughter when medically ready for discharge. New [facility] services will be ordered prior to discharge, if indicated. Phil will follow up with his community providers and discharge plan of care as prescribed.
[2021-09-04] MEDS: Insulin Glargine 300 UNITS/3 ML PEN 50 UNITS SC ×2 (08:57→20:37)
[2021-09-04] MEDS: Insulin Aspart 300 UNITS/3 ML PEN SC ×6 (08:58→22:54)
--- NOTE | 2021-09-04 09:54 | PT.INIE ---
Date of service: 09/04/21 Time of Service: 09:54 PT Notes Visit Reasons: Acute Hypoxic,Hypercarbic Respitratory Failure Physical Therapy Inpatient Initial Evaluation Date: 09/04/2021 Referring Doctor: Brandt Blanc MD PT Orders: PT CONSULT: Extended Stay Weakness Precautions: Fall. Standard. Activity as tolerated. Patient Profile/Admitting Diagnosis: Jose is a 71-year-old male who presented to the ED on 09/01/2021 due to generalized weakness and increasing shortness of breath. Patient is diagnosed with acute respiratory failure with hypoxia and hypercapnia, sepsis, pneumonia, urinary tract infection, acute kidney injury, PAD, diabetic neuropathy, and diabetic acidosis. PMHX: All Active Problems?(Updated 09/01/21 @ 20:26 by Brandt Meza MD) UTI (urinary tract infection) (Acute) Sepsis (Acute) Acute respiratory failure with hypoxia and hypercapnia (Acute) Pneumonia (Acute) Hyperglycemia (Acute) Acute kidney injury superimposed on chronic kidney disease (Acute) Bandemia (Acute) Hypoxia (Acute) Inflammatory polyps (Acute) Hyperplastic colon polyp (Acute) Tubular adenoma of colon (Acute) BPH loc w urin obs/LUTS (Acute) DVT prophylaxis (Acute) Obesity (Chronic) GONZALES (dyspnea on exertion) (Acute) Peripheral artery disease (Acute) Medical History?(Updated 09/01/21 @ 20:26 by Brandt Meza MD) BPH (benign prostatic hyperplasia) Cataract Cellulitis in diabetic foot Diabetic foot ulcer Diabetic neuropathy Discharge planning issues Gout High cholesterol 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 Independent with all aspects of ADLs prior to surgery. Equipment Owned/DME: None Subjective: Agreeable to PT consult. Denies headache, chest pain, and dizziness throughout session. Reports of having not stood up and walked for the past 4 days and therefore feels weak and unstable with today's mobility assessment. Objective: General Observation: Seated on Bedside Chair. On HF oxygen supplementation on 60L with FIO2 55% to maintain 90%. On telemetry monitoring. Mental Status: Alert and oriented as to person, place, time, and purpose. Able to pay attention, focus, and respond appropriately. Pain: Denies Vital Signs: On 60 L HF with FIO2 55%, patient desaturated to 74% with short distance ambulation but restaurated back to 92% with rest ROM: Right Upper Extremity: Shoulder Flexion WFL. Shoulder abduction WFL. Elbow flexion WFL. Wrist flexion WFL. Functional opening and closing of hand WFL. Left Upper Extremity: Shoulder Flexion WFL. Shoulder abduction WFL. Elbow flexion WFL. Wrist flexion WFL. Functional opening and closing of hand WFL. Right Lower Extremity: Hip flexion WFL. Hip abduction WFL. Knee flexion WFL. Ankle dorsiflexion WFL. Ankle plantarflexion WFL. Left Lower Extremity: Hip flexion WFL. Hip abduction WFL. Knee flexion WFL. Ankle dorsiflexion WFL. Ankle plantarflexion WFL. Strength: Right Upper Extremity: Shoulder flexors 4-/5. Shoulder abductors 4-/5. Elbow flexors 4-/5. Elbow extensors 4-/5. Instructional Supervisor strong. Left Upper Extremity: Shoulder flexors 4-/5. Shoulder abductors 4-/5. Elbow flexors 4-/5. Elbow extensors 4-/5. Instructional Supervisor strong. Right Lower Extremity: Hip flexors 4/5. Hip abductors 4/5. Knee flexors 4/5. Knee extensors 5/5. Ankle dorsiflexors 5/5. Ankle plantarflexors 5/5. Left Lower Extremity: Hip flexors 5/5. Hip abductors 5/5. Knee flexors 5/5. Knee extensors 5/5. Ankle dorsiflexors 5/5. Ankle plantarflexors 5/5. Bed Mobility/Transfers: Sit to stand minimal assist, was shaky and unstable, got a little lightheaded initially Stand to sit minimal assist Gait: Instructed patient with level surface ambulation of 5 steps forward and 5 steps backward with front-wheeled walker requiring minimal assist. Jennifer decreased. Step through gait pattern. Desaurated to 74% with 15L of oxygen using NC with non-rebreather but re-saturated back up to 92% with seated rest. RT Rupali assisting and managing oxygen needs during mobility assessment. Balance: Static Sitting: Good Dynamic Sitting: Good Static Standing: Fair Dynamic Standing: Fair Special Tests: Mobility Limitations Standardized Measure [facility] AM-PAC 6 clicks Basic Mobility Inpatient Short Form: Raw Score: 16 CMS Score: 54% deficit Informed Consent/Education: Patient was instructed in purpose of PT consult and plan of care. Agreeable to proceed with established PT POC to achieve personal goals. Assessment: Fairly weak with considerable decrease in activity tolerance due to impaired ventilatory function from admitting diagnoses. Patient presents with clinical signs and symptoms consistent with current/admitting diagnoses that have resulted to mobility limitations, gait instability, generalized weakness, and overall ADL decline as demonstrated by the following impairment level findings: 1. Decreased strength to B UE/LE major muscle groups 2. Impaired standing balance 3. Impaired activity tolerance 4. GONZALES 6. Fatigue Impairments are contributing to the following functional limitations: 1. Decline in bed mobility skills 2. Decline in transfer skills 3. Difficulty with ambulation without assistive device and physical assistance 4. Increased completion time for mobility ADL performance 5. Increased risk for falls 6. Difficulty with managing steps alone safely Patient is assessed as a 99100 moderate complexity based on the following: History: 71-year-old male with past medical history as indicated above Examination: Demonstrable impairment in strength, balance, and mobility level with underlying impairments and functional limitations as exhibited above as well as deficit score of 54% utilizing the [facility] Mobility Inpatient Short Form Presentation: Evolving Decision Makin moderate complexity Goals: Goals X1 week 1. Supine-Sit independent 2. Sit-Supine independent 3. Sit-Stand independent 4. Stand-Sit independent with FWW 5. Bed-Chair independent with FWW 6. Chair-Bed independent with FWW 7. Independent gait on level surface with use of FWW for at least 300 feet without report of pain nor dyspnea 8. Good static and dynamic standing balance/tolerance Plan of Care/Treatment Plan: 1-2x/day, 7 days/week x 1 week. Plan of care has been reviewed with the [facility] [employer] providing the service under Physical Therapy direction. Initiate Physical Therapy intervention for pain management as needed, strengthening, bed mobility, transfers, gait, stairs, balance training, and use of assistive device. DISCHARGE RECOMMENDATIONS: [] Home with no services [] [] Home with services [specify] [] Home with outpatient PT [] [] SNF for continued rehabilitation [] [] [facility] [] [] SNF versus LTC based on ability to participate and progress [] [X] HHPT vs SNF depending on ability to progress towards goals TREATMENT CODE/TIME: 87169 x 15 minutes, 99057 x 27 minutes beginning at 9:54 AM. Thank you for the opportunity to participate in the care of this patient. Carla Ashby PT, DPT, CLT [facility] [place], [place]
[2021-09-04] MEDS: Gabapentin 100 MG CAP PO ×2 (10:41→20:36)
[2021-09-04] MEDS: cefTRIAXone 1 GM/50 ML BAG IVPB (11:47)
[2021-09-04] MEDS: Normal Saline Flush 10 ML SYR IVP (11:48)
--- NOTE | 2021-09-04 11:48 | PHA.REVIEW ---
Pharmacy Admission Review - Admission Clinical Review (Last Updated 09/02/21 @ 14:44 by Jennifer Briscoe MD) Discharge planning issues (Acute) Respiratory failure with hypoxia (Acute) Hyperglycemia (Acute) Sepsis (Acute) Pneumonia (Acute) Acute kidney injury superimposed on chronic kidney disease (Acute) Bandemia (Acute) Hypoxia (Acute) DVT prophylaxis (Acute) Peripheral artery disease (Acute) Penicillins Allergy (Verified 09/01/21 12:44) Resuscitation Status Full Code Height 6 ft 1 in Weight 96 kg - Renal Dosing Renal Dosing: BUN 56 mg/dL (7-18) H 09/04/21 06:55 Creatinine 1.6 mg/dL (0.70-1.30) H 09/04/21 06:55 Medications needing adjustments: N/A (crcl = 46, kidney function has improved. Scr at admission on 09/01 = 2.3 (crcl ~33)) - Anticoagulation Anticoagulation: Hgb 12.0 g/dL (13.5-17.5) L 09/04/21 06:55 Hct 37.4 % (40.0-50.0) L 09/04/21 06:55 Plt Count 345 10^3/uL (130-400) 09/04/21 06:55 INR 1.0 (0.9-1.1) 09/01/21 12:20 Creatinine 1.6 mg/dL (0.70-1.30) H 09/04/21 06:55 DVT Prophylaxis: Reviewed Medications: Heparin (heparin 5000 units q8h) Therapeutic Anticoagulation: N/A - Opiate Usage Evaluate Pain Scale/Pains Meds: N/A - Relevant Labs Sodium 139 mmol/L (136-145) 09/04/21 06:55 Potassium 4.4 mmol/L (3.5-5.1) D 09/04/21 06:55 Chloride 103 mmol/L (98-107) 09/04/21 06:55 Phosphorus 4.3 mg/dL (2.6-4.7) 09/02/21 05:01 Magnesium 2.3 mg/dL (1.8-2.4) 09/02/21 05:01 Electrolytes, C-Reactive P, ESR: Reviewed - DM Control DM Control: Glucose 131 mg/dL (74-106) H 09/04/21 06:55 Hemoglobin A1c 9.8 % (<5.7) H 09/02/21 05:01 Insulin Dosing: Reviewed (pt was on insulin drip, has since been switched to subQ insulin glargine 50 units q12h, insulin NPH 30 units daily (until steroids finished), insulin aspart sliding scale AC HS plus 2 units per 1g CHO with meals) - Heart Failure/OR Heart Failure/OR: Troponin I < 50 ng/L (<or=60) 09/01/21 14:31 NT-Pro-B Natriuret Pep 737 pg/mL (<300) H 09/03/21 04:00 EF%, CALEB's, B-Blockers, Diuretics: Reviewed - BP Control BP Control: Blood Pressure 149/65 Blood Pressure 142/77 Blood Pressure 156/73 If elevated: Reviewed (takes lisinopril at home, not currently ordered (presented with TOBI)) - Qtc Review If Elevated: N/A (QTc = 444) - IV to PO Switch IV Medications: N/A (continue IV abx) - Home Meds Home Med List reviewed: Reviewed (uses Trulicity at home (in addition to insulin lispro sliding scale, insulin glargine) - trulicity not on formulary, pt covered with insulin here. Lisinopril not ordered (TOBI)) - Current meds Current Medication Order Review: Reviewed Antibiotic Activity - Pharmacy Antibiotic Review Pharmacy Antibiotic Activity: 48 hour review - Antibiotic Information Antibiotic Review Info: azithromycin 250 mg PO daily (started 09/02, 500 mg IV x 1 on 09/01 ) - 5th dose on 09/05 then dc? ceftriaxone 1 gram qday (started 09/01) - switch to PO?
--- NOTE | 2021-09-04 15:35 | PT.INTREAT ---
Date of service: 09/04/21 Time of Service: 15:12 PT Notes Visit Reasons: Acute Hypoxic,Hypercarbic Respitratory Failure Inpatient Physical Therapy Treatment Note [facility] Date: 09/04/2021 PRECAUTIONS: Activity as tolerated, monitor O2 SUBJECTIVE: Samy is pleasant and agreeable to participating in PT. He reports that he feels better and was able to get a nap. He also states that he has been receiving great care from all staff. OBJECTIVE: PAIN: No c/o pain BED MOBILITY/TRANSFERS Supine-sit: I Sit-stand: S Stand-sit: S Bed-Chair: SBA with FWW GAIT Assistive Device: FWW Weight bearing: Full Assist: SBA Distance: 200' Deviation: Cueing for FWW mechanics for safety VITALS: 94-96% on 15L O2 via mask with re-breather with gait training ASSESSMENT: Patient tolerated a progression in gait distance with FWW support, while on 15L O2. He requires instruction and cueing for with use of FWW with gait training for safety. PLAN: Continue with general conditioning and global strengthening for improved activity tolerance. TREATMENT CODE/TIME: 23 minutes; 47293 x2 (15:12)
[2021-09-04] MEDS: Simvastatin 10 MG TAB PO (20:36)
[2021-09-05] VITALS (11 sets, daily range): BP systolic 129–151; BP diastolic 74–83; PULSE 72–92; RESP 4–18; TEMP 34–36.8; O2SAT 91–95
[2021-09-05] MEDS: Heparin 5,000 UNITS/ML VIAL 5000 UNITS SC ×3 (06:50→22:20)
[2021-09-05] MEDS: predniSONE 20 MG TAB 40 MG PO (08:16)
[2021-09-05] MEDS: Allopurinol 100 MG TAB PO (08:16)
[2021-09-05] MEDS: Azithromycin 250 MG TAB PO (08:16)
[2021-09-05] MEDS: Bicalutamide 50 MG TAB PO (08:16)
[2021-09-05] MEDS: Aspirin E.C. 81 MG TABEC PO (08:16)
[2021-09-05] MEDS: Gabapentin 100 MG CAP PO ×2 (08:16→19:47)
[2021-09-05] MEDS: Insulin Aspart 300 UNITS/3 ML PEN SC ×6 (08:17→22:19)
[2021-09-05] MEDS: Albuterol/Ipratropium 3 ML UPD VIAL UPD ×4 (08:28→19:47)
[2021-09-05] MEDS: Insulin NPH-Human 300 UNITS/3 ML PEN 20 UNIT SC (09:19)
[2021-09-05] MEDS: Insulin Glargine 300 UNITS/3 ML PEN 40 UNITS SC ×2 (09:20→19:51)
--- NOTE | 2021-09-05 11:01 | PT.INTREAT ---
PT Notes Visit Reasons: Acute Hypoxic,Hypercarbic Respitratory Failure Inpatient Physical Therapy Treatment Note [facility] Date: 09/05/21 PRECAUTIONS:[] SUBJECTIVE: Pt reports that he is not doing as well today as he was yesterday. OBJECTIVE: Supine-sit: SBA Sit-stand: SBA Stand-sit: SBA GAIT Assistive Device: FWW Weight bearing: Full Assist: CGA/SBA Distance: 115 ft approx VITALS: 15L of oxygen 81%-90% THEREX: Supine: heel slides x 10, abd x 10, Q.S. x 10, ankle pumps x 20,UE: rowingx 10. ASSESSMENT: Pt was fatigued during and after the ambulation today we will montior response and progress accordingly. PLAN: Cont as per PT POC as per korey. TREATMENT CODE/TIME: 10:35-11 (25) MARY BRASHER
[2021-09-05] MEDS: cefTRIAXone 1 GM/50 ML BAG IVPB (12:07)
--- NOTE | 2021-09-05 13:36 | W.PM.PROGNOT ---
Date of Service Date of service: 09/05/21 Time of Service: 13:36 Assessment and Plan Assessment and plan (1) Pneumonia: Status: Acute Assessment and plan: Continue Rocephin and azithromycin. Transition over to oral antibiotics tomorrow. continue aerosolized bronchodilators. Wean HFNC as tolerated. Begin on Spiriva. Professional time spent interviewing and examining patient, discussion of goals of care with hospital team (care management, nursing and consulting professionals) was 30 minutes. (2) Diabetic neuropathy: Assessment and plan: I have put him on gabapentin 100 mg bid. (3) DM (diabetes mellitus): Status: None Assessment and plan: patient presented w/ DKA and pneumonia but DKA resolved after couple days of insulin drip and aggressive diabetic management. He is on higher dose Lantus on split schedule. He had some hypoglycemia this morning. I have reduced his Lantus slightly and decr. his NPH being given for his prednisone. Tomorrow, he should come off the NPH as I will be stopping his prednisone. He remains on meal time coverage w/ Novolog and I decr. his sliding scale to moderate dose rather than inuslin resistant. (4) Acute kidney injury superimposed on chronic kidney disease: Status: Acute Assessment and plan: Renal for which is improving. His BUN is down to 56 and creatinine is 1.6 he presented with a creatinine of 2.3 and it appears that his baseline creatinine is around 1.4. (5) Peripheral artery disease: Status: Acute Assessment and plan: Continue aspirin (6) Chronic kidney disease, stage 3: Status: None Assessment and plan: Renal function improving and back to baseline Qualifiers: Chronic kidney disease stage 3 subtype: stage 3a (GFR 45-59) Qualified Code(s): N18.31 - Chronic kidney disease, stage 3a (7) DVT prophylaxis: Status: Acute Assessment and plan: Currently on heparin for DVT prophylaxis this can be changed to Lovenox at renally adjusted dose. (8) Discharge planning issues: Status: Acute Subjective Subjective Interval history since last seen: Patient feels somewhat tired this afternoon. He ambulated around the nursing station for physical therapy this morning. He is currently on high flow nasal cannula at 35%. Cough has become less productive of clear to white mucus. He has had no fevers overnight. He is on day #4 of Rocephin and azithromycin. Sputum she is growing normal oral joel. He remains on prednisone for his COPD. Echocardiogram was entirely normal with no evidence of systolic or diastolic dysfunction. No valvular pathology. Exam Narrative Exam Narrative: Phil is lying in bed watching TV no respiratory distress. Lungs with some end expiratory wheezes no rhonchi no rales. Heart is regular rate and rhythm Abdomen obese soft and nontender Extremities without edema or cyanosis Objective Last Vital Signs Temp 35.7 C L 09/05/21 07:23 Pulse 86 09/05/21 08:34 Resp 16 09/05/21 08:34 BP 146/74 H 09/05/21 07:23 Pulse Ox 95 09/05/21 08:34 PAWSS Pt Consumed Any Amount of Alcohol Within the Last 30 days OR had positive MEIR Upon Admission: Yes Have you Been Recently Intoxicated or Drunk Within the Last 30 days?: No Have you Ever Experienced Previous Episodes of Alcohol Withdrawal?: No Have you ever Experienced Withdrawal Seizures?: No Have you ever Experienced Delirium Tremens(DT)s?: No Have you ever undergone Alcohol Rehabilitation Treatment (i.e, inpt ot outpatient treatment programs)?: No Have you ever Experienced Blackouts?: No Have you ever Combined Alcohol with other Downers within the last 90 days?: No Have you ever Combined Alcohol with any other Substance of Abuse during the last 90 days?: No Positive Blood Alcohol level on Presentation? [PCS.BAL]: No Evidence of Increased Autonomic Activity (i.e. HR>120, tremor, sweating, agitation, nausea)?: No Result: 0
[2021-09-05] MEDS: Tiotropium Bromide-Respimat 10 PUFF INH 2 PUFF IH (16:25)
[2021-09-05] MEDS: Simvastatin 10 MG TAB PO (19:47)
[2021-09-06] VITALS (9 sets, daily range): BP systolic 113–137; BP diastolic 65–77; PULSE 71–95; RESP 4–22; TEMP 35.6–36.7; O2SAT 92–98
[2021-09-06] MEDS: Heparin 5,000 UNITS/ML VIAL 5000 UNITS SC ×2 (06:19→14:39)
[2021-09-06 06:47] LABS: Abs Immature Grans 1.66 10^3/uL (0.0-0.06); HGB 12.3 g/dL (13.5-17.5); MCH 31.4 pg (27.0-33.0); MCHC 33.2 % (32.0-36.0); MCV 94 fL (80-95); MPV 10.6 fL (8.0-11.0); Nucleated RBC 0.1 % (0.0-0.3); Platelet Count 353 10^3/uL (130-400); RBC 3.92 10^6/uL (4.36-5.78); RDW 14.1 % (11.8-14.1); RDW-SD 49.4 fL; WBC 20.14 10^3/uL (4.4-10.8)
[2021-09-06 07:03] LABS: Absolute Lymphocyte Count 4.63 10^3/uL (1.2-3.4); Anion Gap 8.5 mmol/L (3-11); Atypical Lymphocytes % 1; BUN 49 mg/dL (7-18); CO2 31.5 mmol/L (21.0-32.0); CREATININE 1.4 mg/dL (0.70-1.30); Calcium 9.1 mg/dL (8.5-10.1); Chloride 101 mmol/L (98-107); Estimated GFR 49.68 (mL/min/1.73m2); Glucose 93 mg/dL (74-106); Potassium 4.5 mmol/L (3.5-5.1); Sodium 141 mmol/L (136-145)
[2021-09-06 07:04] LABS: Absolute Monocyte Count 1.21 10^3/uL (0.1-0.8); Myelocytes % 1
[2021-09-06 07:05] LABS: Diff Comment Manual Differential
[2021-09-06] MEDS: Tiotropium Bromide-Respimat 10 PUFF INH 2 PUFF IH (07:48)
[2021-09-06] MEDS: Albuterol/Ipratropium 3 ML UPD VIAL UPD ×4 (07:48→21:33)
[2021-09-06] MEDS: Gabapentin 100 MG CAP PO ×2 (08:09→21:34)
[2021-09-06] MEDS: Aspirin E.C. 81 MG TABEC PO (08:09)
[2021-09-06] MEDS: Bicalutamide 50 MG TAB PO (08:09)
[2021-09-06] MEDS: predniSONE 20 MG TAB 40 MG PO (08:09)
[2021-09-06] MEDS: Azithromycin 250 MG TAB PO (08:10)
[2021-09-06] MEDS: Allopurinol 100 MG TAB PO (08:10)
[2021-09-06] MEDS: Insulin Aspart 300 UNITS/3 ML PEN SC ×5 (08:11→18:00)
[2021-09-06] MEDS: Insulin NPH-Human 300 UNITS/3 ML PEN 20 UNIT SC (08:12)
[2021-09-06] MEDS: Insulin Glargine 300 UNITS/3 ML PEN 40 UNITS SC (08:13)
--- NOTE | 2021-09-06 09:30 | PTTR_ITS ---
PT Notes Visit Reasons: Acute Hypoxic,Hypercarbic Respitratory Failure Inpatient Physical Therapy Treatment Note [facility] Date: 09/06/21 PRECAUTIONS:[] SUBJECTIVE: Pt report that his sugar was low this am and he was dizzy but it since has gone up and he is feeling better. OBJECTIVE: Sit-stand: SBA Stand-sit: SBA GAIT Assistive Device: FWW Weight bearing: Full Assist: SBA/CGA Distance: Approx 125ft VITALS: 3L 81%-90% THEREX: Seated: UE [place] x [address], shoulder flexion x 10, horz abd x 10, rowing x 10, LE: abd x 10, marching x20, HR x 10, LAQ x 10. ASSESSMENT: Pt tolerated today's session well. Pt does require reminders for purse lip breathing techniques and does have some SOB. PLAN: Cont as per PT POC. TREATMENT CODE/TIME: 9:00-9:23 (23) MARY BRASHER
--- NOTE | 2021-09-06 10:19 | W.PM.PROGNOT ---
Date of Service Date of service: 09/06/21 Time of Service: 10:19 Assessment and Plan Assessment and plan (1) Pneumonia: Status: Acute Assessment and plan: Day #6 Rocephin, day #6 azithromycin. Continues scheduled beta agonist bronchodilators along with Spiriva. continue to wean oxygen as tolerated. check ambulatory pulse oximetry prior to dc home. I anticipate dc in the next day. I will check his procalcitonin level as it was high on admission. This can guide continuation of antibiotics. Professional time spent interviewing and examining patient, discussion of goals of care with hospital team (care management, nursing and consulting professionals) was 20 minutes. (2) Diabetic neuropathy: Assessment and plan: I have put him on gabapentin 100 mg bid. (3) DM (diabetes mellitus): Status: None Assessment and plan: Patient initially presented with DKA which resolved with insulin drip. Blood sugars are now well controlled I have reduced his nighttime Lantus but will continue the higher dose daytime Lantus. Continue carbohydrate coverage at a ratio of 2:10. Continue sliding scale but reduce it to a moderate dose rather than insulin resistant dose. (4) Acute kidney injury superimposed on chronic kidney disease: Status: Acute Assessment and plan: Renal function continues to improve BUN down to 49 creatinine 1.4 which is his base line. (5) Peripheral artery disease: Status: Acute Assessment and plan: Continue aspirin (6) Chronic kidney disease, stage 3: Status: None Assessment and plan: Renal function improving and back to baseline Qualifiers: Chronic kidney disease stage 3 subtype: stage 3a (GFR 45-59) Qualified Code(s): N18.31 - Chronic kidney disease, stage 3a (7) DVT prophylaxis: Status: Acute Assessment and plan: Currently on heparin for DVT prophylaxis this can be changed to Lovenox at renally adjusted dose. (8) Discharge planning issues: Status: Acute Assessment and plan: Anticipate discharge home the next day Subjective Subjective Interval history since last seen: Mr. Velásquez is feeling better. He is coughing up more mucus that is yellowish but remains afebrile and his oxygen needs have decreased. He is off the high flow nasal cannula and is on a simple nasal cannula at 3 L/min. He has no chest discomfort. Did have some hypoglycemia this morning with blood sugar 54. I will discontinue his NPH today as he will be coming off the prednisone now. I have cut back his nighttime dose of Lantus to 30 units but will keep the 40 units during the day. I have also discontinued bedtime coverage on sliding scale and reduce the sliding scale to moderate dose rather than insulin resistant. Exam Narrative Exam Narrative: Phil sitting up in his chair watching TV. He makes good respiratory efforts with use of his incentive spirometry. Lungs some coarse rhonchi over the left base with diffuse end expiratory wheezes throughout but with quiet respirations I did not hear any wheezing. Heart is regular rate and rhythm Abdomen is obese soft nontender Extremities without edema. Objective Last Vital Signs Temp 36.4 C L 09/06/21 07:52 Pulse 78 09/06/21 07:52 Resp 15 09/06/21 07:52 BP 113/65 09/06/21 07:52 Pulse Ox 98 09/06/21 07:52 Laboratory Results - last 24 hr 09/06/21 09/06/21 05:50 05:50 WBC 20.14 H RBC 3.92 L Hgb 12.3 L Hct 37.0 L MCV 94 MCH 31.4 MCHC 33.2 RDW 14.1 Plt Count 353 MPV 10.6 Immature Gran % 0.0 Neutrophils % 70.0 Lymphocytes % 22.0 Atypical Lymphs % 1 Monocytes % 6.0 Eosinophils % 0.0 Basophils % 0.0 Myelocytes % 1 Nucleated RBC % 0.1 Absolute Neutrophils 14.10 H Absolute Lymphocytes 4.63 H Absolute Monocytes 1.21 H Absolute Eosinophils 0.00 Absolute Basophils 0.00 Sodium 141 Potassium 4.5 Chloride 101 Carbon Dioxide 31.5 Anion Gap 8.5 BUN 49 H Creatinine 1.4 H Estimated GFR/1.73 m2 49.68 Glucose 93 Calcium 9.1 PAWSS Pt Consumed Any Amount of Alcohol Within the Last 30 days OR had positive MEIR Upon Admission: Yes Have you Been Recently Intoxicated or Drunk Within the Last 30 days?: No Have you Ever Experienced Previous Episodes of Alcohol Withdrawal?: No Have you ever Experienced Withdrawal Seizures?: No Have you ever Experienced Delirium Tremens(DT)s?: No Have you ever undergone Alcohol Rehabilitation Treatment (i.e, inpt ot outpatient treatment programs)?: No Have you ever Experienced Blackouts?: No Have you ever Combined Alcohol with other Downers within the last 90 days?: No Have you ever Combined Alcohol with any other Substance of Abuse during the last 90 days?: No Positive Blood Alcohol level on Presentation? [PCS.BAL]: No Evidence of Increased Autonomic Activity (i.e. HR>120, tremor, sweating, agitation, nausea)?: No Result: 0
[2021-09-06 10:33] LABS: Lab Add On Test DONE
[2021-09-06 11:09] LABS: Procalcitonin 1.4 ng/mL
[2021-09-06] MEDS: cefTRIAXone 1 GM/50 ML BAG IVPB (12:00)
[2021-09-06] MEDS: Insulin Glargine 300 UNITS/3 ML PEN 30 UNITS SC (21:34)
[2021-09-06] MEDS: Simvastatin 10 MG TAB PO (21:34)
[2021-09-07] VITALS (9 sets, daily range): BP systolic 95–126; BP diastolic 62–78; PULSE 78–102; RESP 8–19; TEMP 36.8–37.1; O2SAT 92–99
[2021-09-07] MEDS: Heparin 5,000 UNITS/ML VIAL 5000 UNITS SC ×4 (01:31→22:44)
[2021-09-07] MEDS: Tiotropium Bromide-Respimat 10 PUFF INH 2 PUFF IH (08:03)
[2021-09-07] MEDS: Albuterol/Ipratropium 3 ML UPD VIAL UPD ×3 (08:03→20:14)
[2021-09-07] MEDS: Normal Saline Flush 10 ML SYR IVP ×2 (08:50→12:03)
[2021-09-07] MEDS: Aspirin E.C. 81 MG TABEC PO (08:51)
[2021-09-07] MEDS: Bicalutamide 50 MG TAB PO (08:51)
[2021-09-07] MEDS: Allopurinol 100 MG TAB PO (08:51)
[2021-09-07] MEDS: Gabapentin 100 MG CAP PO ×2 (08:51→20:14)
[2021-09-07] MEDS: Azithromycin 250 MG TAB PO (08:52)
--- NOTE | 2021-09-07 11:20 | PDOC.CMPRO ---
- If Service Date Differs Date of service: 09/07/21 Time of Service: 11:20 Care Management Progress Note S/O: Phil's respiratory status and BS continues to be closely monitored. His is 90-95% on 3L NC. He is on IV ABX and duoneb. He is working with PT. Phil would like to discharge home with new [facility] RN/PT/OT services when he is medically ready, however he is open to SNF referrals for STR if needed. CM will continue to support patient and his discharge planning needs. A: 71 year old male admitted to [facility] on 09/01/21 for Acute respiratory failure with hypoxia and hypercapnia, Sepsis, Pneumonia, UTI, TOBI P: Anticipate, Phil will discharge home via private vehicle with his daughter when medically ready for discharge. New [facility] services will be ordered prior to discharge. Phil will follow up with his community providers and discharge plan of care as prescribed.
--- NOTE | 2021-09-07 11:41 | PT.INTREAT ---
Date of service: 09/07/21 Time of Service: 11:41 PT Notes Visit Reasons: Acute Hypoxic,Hypercarbic Respitratory Failure Physical Therapy Inpatient Treatment Note Date: 09/07/2021 Precautions: Fall. Standard. Activity as tolerated. Subjective: Agreeable to PT morning session. Reports feeling a lot better after he has rested. Concerned about low blood sugar but MD and nurse are aware and managing. Denies headache, dizziness, and chest pain throughout session. Objective: General Observation: Seated on bed.? Mental Status: Alert and oriented as to person, place, time, and purpose. Able to pay attention, focus, and respond appropriately. Pain: Denies Vital Signs: On 3L of O2 via NC saturating within 90-95% Bed Mobility/Transfers: Sit to stand supervision with FWW Stand to sit supervision with FWW Bed to chair supervision with FWW Gait: Instructed patient with level surface ambulation of 75 feet x 2 with front-wheeled walker requiring contact giard assist. Oxygen saturation 90-93% on 3 L/minute. Minimal SOB that resolved with rest. THERA EX: LAQ x 10 Seated hip flexion x 10 Balance: Static Sitting: Good Dynamic Sitting: Good Static Standing: Fair Dynamic Standing: Fair Assessment: Hypoglycemic this morning at 56 g/dL. Needed to be asked twice for the morning treatment as patient did not feel up to doing naything around midmorning. Was able to do a lt better when seen right before lunch time. Continue with PT intevention to achieve goals in anticipation of discharhe to home when medically cleared. PT services recommended. DISCHARGE RECOMMENDATIONS: [] ? Home with no services [] [X] ? Home with services. Patient will benefit from halfway facility placement for continued skilled physical therapy services in order to progress mobility level, strength, and balance in preparation for a safe discharge to home. [] ? Home with outpatient PT [] [] ? SNF for continued rehabilitation [] [] ? [facility] [] [] ? SNF versus LTC based on ability to participate and progress [] TREATMENT CODE/TIME: 95310 x 21 minutes beginning at 11:41 AM.
[2021-09-07] MEDS: Normal Saline 500 ML 30 ML IV (12:03)
[2021-09-07] MEDS: cefTRIAXone 1 GM/50 ML BAG IVPB (12:03)
[2021-09-07] MEDS: Insulin Aspart 300 UNITS/3 ML PEN SC ×3 (12:13→17:57)
[2021-09-07] MEDS: Albuterol 2.5 MG/3 ML INH SOLN VIAL UPD (13:16)
--- NOTE | 2021-09-07 14:25 | PT.INTREAT ---
Date of service: 09/07/21 Time of Service: 13:45 PT Notes Visit Reasons: Acute Hypoxic,Hypercarbic Respitratory Failure Inpatient Physical Therapy Treatment Note [facility] Date: 09/07/2021 PRECAUTIONS: Activity as tolerated SUBJECTIVE: Samy is pleasant and agreeable to participating in PT. He reports that he is feeling better and somewhat stronger. OBJECTIVE: PAIN: No c/o pain BED MOBILITY/TRANSFERS Supine-sit: I with HOB flat Sit-supine: I with HOB flat Sit-stand: I Stand-sit: I GAIT Assistive Device: FWW Weight bearing: Full Assist: S Distance: 250' Deviation: Mild SOB, increased fatigue, 3L O2 via NC, cueing for posture with use of FWW THEREX: Patient was instructed in a standing LE strengthening program, to include: heel raises, hip flexion, hip abduction, hip extension and mini squats. He utilizes counter top surface for balance throughout. ASSESSMENT: Patient tolerated session well, although with some c/o mild SOB and increased fatigue with gait training. He demonstrates independence with bed mobility and sit<>stand transfers at this time. PLAN: Continue with global strengthening and gait training for improved activity tolerance. TREATMENT CODE/TIME: 30 minutes; 35770, 27395 (13:45)
--- NOTE | 2021-09-07 15:40 | W.PM.PROGNOT ---
Date of Service Date of service: 09/07/21 Time of Service: 15:40 Assessment and Plan Assessment and plan (1) Pneumonia: Status: Acute Assessment and plan: Day #7 azithromycin. D/C. WBC count has elevated. Change back to Zosyn. Continues scheduled beta agonist bronchodilators along with Spiriva. continue to wean oxygen as tolerated. Procalcitonin down to 1.4 (12.4 on admission). Monitoring CBC. (2) Diabetic neuropathy: Assessment and plan: Cont. gabapentin 100 mg bid. (3) DM (diabetes mellitus): Status: None Assessment and plan: Patient initially presented with DKA which resolved with insulin drip. Blood sugars are variable. Cont to adjust Lantus. (4) Acute kidney injury superimposed on chronic kidney disease: Status: Acute Assessment and plan: Renal function continues to improve BUN down to 49 creatinine 1.4 which is his base line. Monitor. (5) Peripheral artery disease: Status: Acute Assessment and plan: Continue aspirin (6) Chronic kidney disease, stage 3: Status: None Assessment and plan: Renal function improving and back to baseline Qualifiers: Chronic kidney disease stage 3 subtype: stage 3a (GFR 45-59) Qualified Code(s): N18.31 - Chronic kidney disease, stage 3a (7) DVT prophylaxis: Status: Acute Assessment and plan: Currently on heparin (8) Discharge planning issues: Status: Acute Assessment and plan: Anticipate discharge home when supplemental O2 needs improve and WBC count shown to be improving. Subjective Subjective Patient reports: afebrile; denies nausea or vomiting Interval history since last seen: Feels tired. Exam Narrative Exam Narrative: Lying in bed. Conversant. Const General: cooperative and no acute distress Nutritional Appearance: average body habitus Orientation: alert and oriented x3 Eyes General: appearance normal, both eyes and all related structures Sclera: sclerae normal Resp Effort & Inspection: normal respiratory effort Auscultation: clear to auscultation bilaterally and diminished lung sounds Cardio Rate: regular rate Rhythm: regular rhythm Heart Sounds: S1 normal and S2 normal GI Palpation: soft and nontender Extrem General: no pedal edema and no calf tenderness Psych Appearance: grossly normal Mental Status: mental status grossly normal Speech and Movement: speech and movement normal Affect: normal affect Objective Last Vital Signs Temp 36.9 C 09/07/21 07:50 Pulse 78 07/25/22 08:03 Resp 19 09/07/21 07:50 BP 126/78 09/07/21 07:50 Pulse Ox 94 09/07/21 13:17 PAWSS Pt Consumed Any Amount of Alcohol Within the Last 30 days OR had positive MEIR Upon Admission: Yes Have you Been Recently Intoxicated or Drunk Within the Last 30 days?: No Have you Ever Experienced Previous Episodes of Alcohol Withdrawal?: No Have you ever Experienced Withdrawal Seizures?: No Have you ever Experienced Delirium Tremens(DT)s?: No Have you ever undergone Alcohol Rehabilitation Treatment (i.e, inpt ot outpatient treatment programs)?: No Have you ever Experienced Blackouts?: No Have you ever Combined Alcohol with other Downers within the last 90 days?: No Have you ever Combined Alcohol with any other Substance of Abuse during the last 90 days?: No Positive Blood Alcohol level on Presentation? [PCS.BAL]: No Evidence of Increased Autonomic Activity (i.e. HR>120, tremor, sweating, agitation, nausea)?: No Result: 0
[2021-09-07] MEDS: Simvastatin 10 MG TAB PO (20:14)
[2021-09-07] MEDS: Insulin Glargine 300 UNITS/3 ML PEN 20 UNITS SC (20:16)
[2021-09-08] VITALS (9 sets, daily range): BP systolic 111–132; BP diastolic 68–78; PULSE 90–94; RESP 8–20; TEMP 36.2–36.8; O2SAT 93–97
[2021-09-08 06:41] LABS: Abs Immature Grans 0.85 10^3/uL (0.0-0.06); HCT 40.1 % (40.0-50.0); HGB 12.8 g/dL (13.5-17.5); MCH 30.9 pg (27.0-33.0); MCHC 31.9 % (32.0-36.0); MCV 97 fL (80-95); MPV 10.2 fL (8.0-11.0); RBC 4.14 10^6/uL (4.36-5.78); RDW 14.3 % (11.8-14.1); RDW-SD 51.1 fL; WBC 14.23 10^3/uL (4.4-10.8)
[2021-09-08 07:06] LABS: Anion Gap 3.5 mmol/L (3-11); BUN 42 mg/dL (7-18); CO2 33.5 mmol/L (21.0-32.0); CREATININE 1.4 mg/dL (0.70-1.30); Chloride 104 mmol/L (98-107); Estimated GFR 49.68 (mL/min/1.73m2); Glucose 175 mg/dL (74-106); Potassium 5.3 mmol/L (3.5-5.1); Sodium 141 mmol/L (136-145)
[2021-09-08 07:15] LABS: Absolute Basophil Count 0.28 10^3/uL (0.0-0.2); Absolute Eosinophil Count 0.14 10^3/uL (0.0-0.7); Absolute Monocyte Count 0.71 10^3/uL (0.1-0.8); Absolute Neutrophil Count 8.54 10^3/uL (1.2-6.7); Bands % 1; Platelet Count 334 10^3/uL (130-400)
[2021-09-08 07:16] LABS: Basophilic Stippling Present; Diff Comment Manual Differential; Metamyelocytes % 2; Myelocytes % 2; Polychromasia Present
[2021-09-08 07:28] LABS: Absolute Lymphocyte Count 3.98 10^3/uL (1.2-3.4)
[2021-09-08] MEDS: Bicalutamide 50 MG TAB PO (07:45)
[2021-09-08] MEDS: Allopurinol 100 MG TAB PO (07:45)
[2021-09-08] MEDS: Heparin 5,000 UNITS/ML VIAL 5000 UNITS SC ×3 (07:45→22:23)
[2021-09-08] MEDS: Normal Saline Flush 10 ML SYR IVP ×2 (07:45→11:40)
[2021-09-08] MEDS: Aspirin E.C. 81 MG TABEC PO (07:46)
[2021-09-08] MEDS: Azithromycin 250 MG TAB PO (07:46)
[2021-09-08] MEDS: Gabapentin 100 MG CAP PO ×2 (07:46→20:27)
[2021-09-08] MEDS: Tiotropium Bromide-Respimat 10 PUFF INH 2 PUFF IH (07:51)
[2021-09-08] MEDS: Albuterol/Ipratropium 3 ML UPD VIAL UPD ×4 (07:51→20:27)
[2021-09-08] MEDS: Insulin Glargine 300 UNITS/3 ML PEN 40 UNITS SC (07:58)
[2021-09-08] MEDS: Insulin Aspart 300 UNITS/3 ML PEN SC ×6 (08:26→18:00)
--- NOTE | 2021-09-08 09:14 | PDOC.CMPRO ---
- If Service Date Differs Date of service: 09/08/21 Time of Service: 09:15 Care Management Progress Note S/O: Phil's respiratory status and BS continues to be closely monitored. His is 93% on 3L NC. He is on IV ABX and duoneb. He is working with PT. Phil would like to discharge home with new [facility] RN/PT/OT services when he is medically ready, however he is open to SNF referrals for STR if needed. CM will continue to support patient and his discharge planning needs. A: 71 year old male admitted to [facility] on 09/01/21 for Acute respiratory failure with hypoxia and hypercapnia, Sepsis, Pneumonia, UTI, TOBI P: Anticipate, Phil will discharge home via private vehicle with his daughter when medically ready for discharge. New [facility] services will be ordered prior to discharge. Phli will follow up with his community providers and discharge plan of care as prescribed.
--- NOTE | 2021-09-08 10:43 | PT.INTREAT ---
Date of service: 09/08/21 Time of Service: 10:13 PT Notes Visit Reasons: Acute Hypoxic,Hypercarbic Respitratory Failure Inpatient Physical Therapy Treatment Note [facility] Date: 09/08/2021 PRECAUTIONS: Activity as tolerated SUBJECTIVE: Samy is pleasant and agreeable to participating in PT. He reports that he is feeling better and somewhat stronger. OBJECTIVE: PAIN: No c/o pain BED MOBILITY/TRANSFERS Supine-sit: I with HOB flat Sit-supine: I with HOB flat Sit-stand: I Stand-sit: I Bed-chair: I GAIT Assistive Device: FWW in a.m.; No AD in p.m. Weight bearing: Full Assist: S Distance: 250' in a.m.; 20' in p.m. Deviation: Cueing for posture with use of FWW, cueing for FWW mechanics VITALS: SaO2: 90-96% on 1-3L supplemental O2 via NC with gait training THEREX: Patient was instructed in a standing LE strengthening program, to include: heel raises, hip flexion, hip abduction, hip extension and mini squats. He utilizes counter top surface for balance throughout. ASSESSMENT: Patient tolerated session well, without complaint. He demonstrates independence with bed mobility and transfers at this time. PLAN: Continue with general conditioning and gait training for improved activity tolerance and mobility. TREATMENT CODE/TIME: Session 1: 23 minutes; 30209 x2 (10:13) Session 2: 5 minutes; no charge (15:15)
[2021-09-08] MEDS: Normal Saline 500 ML 30 ML IV (11:40)
[2021-09-08] MEDS: cefTRIAXone 1 GM/50 ML BAG IVPB (11:41)
--- NOTE | 2021-09-08 15:17 | DIABASSESS_ITS ---
Date of service: 09/08/21 Time of Service: 15:17 Diabetes Note Reason for Visit: dm NOTE: Answered questions about glycemia management prior to discharge later this week. Spoke to nurse of PCP at [facility] and requested script for Abdias 2 continuous glucose monitor. Pt instructed to follow up with [employer] for CGM script. Informed Phil and his daughter. Will call next week and review blood sugar management. Time Spent in Nutritional Counseling and Treatment: 15
--- NOTE | 2021-09-08 18:07 | W.PM.PROGNOT ---
Date of Service Date of service: 09/08/21 Time of Service: 18:08 Assessment and Plan Assessment and plan (1) Pneumonia: Status: Acute Assessment and plan: Day #7 azithromycin. D/C. WBC count now diminishing on Zosyn. Continues scheduled beta agonist bronchodilators along with Spiriva. continue to wean oxygen as tolerated. Procalcitonin down to 1.4 (12.4 on admission). Monitoring CBC. Clinically better Supplemental O2 needs improving. (2) Diabetic neuropathy: Assessment and plan: Cont. gabapentin 100 mg bid. (3) DM (diabetes mellitus): Status: None Assessment and plan: Patient initially presented with DKA which resolved with insulin drip. Blood sugars are improved. Cont to adjust Lantus as necessary. (4) Acute kidney injury superimposed on chronic kidney disease: Status: Acute Assessment and plan: Renal function continues to improve BUN down to 49 creatinine 1.4 which is his base line. Monitor. (5) Peripheral artery disease: Status: Acute Assessment and plan: Continue aspirin (6) Chronic kidney disease, stage 3: Status: None Assessment and plan: Renal function improving and back to baseline Qualifiers: Chronic kidney disease stage 3 subtype: stage 3a (GFR 45-59) Qualified Code(s): N18.31 - Chronic kidney disease, stage 3a (7) DVT prophylaxis: Status: Acute Assessment and plan: Currently on heparin (8) Discharge planning issues: Status: Acute Assessment and plan: Anticipate discharge home when supplemental O2 needs improve and WBC count shown to be improving. Subjective Subjective Patient reports: feels better, tolerating a regular diet and afebrile; denies nausea or vomiting Interval history since last seen: States his urine is dark today. Exam Narrative Exam Narrative: Lying in bed. Conversant. Const General: cooperative and no acute distress Nutritional Appearance: average body habitus Orientation: alert and oriented x3 Eyes General: appearance normal, both eyes and all related structures Sclera: sclerae normal Resp Effort & Inspection: normal respiratory effort Auscultation: clear to auscultation bilaterally and diminished lung sounds Cardio Rate: regular rate Rhythm: regular rhythm Heart Sounds: S1 normal and S2 normal GI Palpation: soft and nontender Extrem General: no pedal edema and no calf tenderness Psych Appearance: grossly normal Mental Status: mental status grossly normal Speech and Movement: speech and movement normal Affect: normal affect Objective Last Vital Signs Temp 36.8 C 09/08/21 15:16 Pulse 94 H 09/08/21 15:16 Resp 20 09/08/21 15:16 BP 127/77 09/08/21 15:16 Pulse Ox 97 09/08/21 15:16 Laboratory Results - last 24 hr 09/08/21 09/08/21 06:25 06:25 WBC 14.23 H RBC 4.14 L Hgb 12.8 L Hct 40.1 MCV 97 H MCH 30.9 MCHC 31.9 L RDW 14.3 H Plt Count 334 MPV 10.2 Immature Gran % See Differential Neutrophils % 59.0 Band Neutrophils % 1 Lymphocytes % 28.0 Monocytes % 5.0 Eosinophils % 1.0 Basophils % 2.0 Metamyelocytes % 2 Myelocytes % 2 Nucleated RBC % 0.0 Absolute Neutrophils 8.54 H Absolute Lymphocytes 3.98 H Absolute Monocytes 0.71 Absolute Eosinophils 0.14 Absolute Basophils 0.28 H RBC Morphology See Below Polychromasia Present Basophilic Stippling Present Sodium 141 Potassium 5.3 H Chloride 104 Carbon Dioxide 33.5 H Anion Gap 3.5 BUN 42 H Creatinine 1.4 H Estimated GFR/1.73 m2 49.68 Glucose 175 H Calcium 9.0 PAWSS Pt Consumed Any Amount of Alcohol Within the Last 30 days OR had positive MEIR Upon Admission: Yes Have you Been Recently Intoxicated or Drunk Within the Last 30 days?: No Have you Ever Experienced Previous Episodes of Alcohol Withdrawal?: No Have you ever Experienced Withdrawal Seizures?: No Have you ever Experienced Delirium Tremens(DT)s?: No Have you ever undergone Alcohol Rehabilitation Treatment (i.e, inpt ot outpatient treatment programs)?: No Have you ever Experienced Blackouts?: No Have you ever Combined Alcohol with other Downers within the last 90 days?: No Have you ever Combined Alcohol with any other Substance of Abuse during the last 90 days?: No Positive Blood Alcohol level on Presentation? [PCS.BAL]: No Evidence of Increased Autonomic Activity (i.e. HR>120, tremor, sweating, agitation, nausea)?: No Result: 0
[2021-09-08] MEDS: Simvastatin 10 MG TAB PO (20:27)
[2021-09-08] MEDS: Insulin Glargine 300 UNITS/3 ML PEN 20 UNITS SC (20:31)
[2021-09-08 21:44] LABS: Bilirubin Negative (Negative); Blood Large (Negative); Clarity Clear (Clear); Glucose Negative (Negative); Ketones Negative (Negative); Leukocyte Esterase Negative (Negative); Nitrite Negative (Negative); Specific Gravity 1.015 (1.005-1.025); Urobilinogen 0.2 EU/dL (Up TO 0.2); pH 5.5 (5-8)
[2021-09-08 21:54] LABS: Bacteria Negative HPF (Negative); C & S Indicated? No; Crystals Negative HPF (Negative); Epithelial Cells Negative HPF (Negative); Mucus Negative (Negative); RBC >50 HPF (0-2); WBC Negative HPF (0-5)
[2021-09-09] VITALS (7 sets, daily range): BP systolic 128–130; BP diastolic 76–79; PULSE 85–113; RESP 8–22; TEMP 35.9–36; O2SAT 89–96
[2021-09-09 06:53] LABS: Abs Immature Grans 0.46 10^3/uL (0.0-0.06); Absolute Basophil Count 0.08 10^3/uL (0.0-0.2); Absolute Eosinophil Count 0.27 10^3/uL (0.0-0.7); Absolute Lymphocyte Count 3.14 10^3/uL (1.2-3.4); Absolute Monocyte Count 0.67 10^3/uL (0.1-0.8); Absolute Neutrophil Count 6.15 10^3/uL (1.2-6.7); Basophils % 0.7; Eosinophils % 2.5; HCT 38.6 % (40.0-50.0); HGB 12.4 g/dL (13.5-17.5); Immature Grans % 4.3; Lymphocytes % 29.2; MCHC 32.1 % (32.0-36.0); MCV 97 fL (80-95); MPV 10.1 fL (8.0-11.0); Monocytes % 6.2; Neutrophils % 57.1; Platelet Count 346 10^3/uL (130-400); RDW 14.3 % (11.8-14.1); RDW-SD 50.7 fL; WBC 10.77 10^3/uL (4.4-10.8)
[2021-09-09 07:06] LABS: Anion Gap 4.8 mmol/L (3-11); BUN 36 mg/dL (7-18); CO2 33.2 mmol/L (21.0-32.0); CREATININE 1.3 mg/dL (0.70-1.30); Calcium 8.8 mg/dL (8.5-10.1); Chloride 103 mmol/L (98-107); Estimated GFR 54.11 (mL/min/1.73m2); Glucose 146 mg/dL (74-106); Potassium 4.7 mmol/L (3.5-5.1); Sodium 141 mmol/L (136-145)
[2021-09-09] MEDS: Tiotropium Bromide-Respimat 10 PUFF INH 2 PUFF IH (08:05)
[2021-09-09] MEDS: Albuterol/Ipratropium 3 ML UPD VIAL UPD (09:17)
[2021-09-09] MEDS: Insulin Glargine 300 UNITS/3 ML PEN 40 UNITS SC (09:29)
[2021-09-09] MEDS: Insulin Aspart 300 UNITS/3 ML PEN SC ×4 (09:29→12:21)
[2021-09-09] MEDS: Azithromycin 250 MG TAB PO (09:31)
[2021-09-09] MEDS: Bicalutamide 50 MG TAB PO (09:31)
[2021-09-09] MEDS: Aspirin E.C. 81 MG TABEC PO (09:31)
[2021-09-09] MEDS: Heparin 5,000 UNITS/ML VIAL 5000 UNITS SC (09:31)
[2021-09-09] MEDS: Gabapentin 100 MG CAP PO (09:31)
[2021-09-09] MEDS: Allopurinol 100 MG TAB PO (09:31)
--- NOTE | 2021-09-09 10:30 | PT.INTREAT ---
PT Notes Visit Reasons: Acute Hypoxic,Hypercarbic Respitratory Failure SUBJECTIVE: Pt not connected to O2 when approached for therapy this morning, Pt agreed to participating with therapy. OBJECTIVE: ? PAIN: No c/o pain ? BED MOBILITY/TRANSFERS? Supine-sit: I with HOB flat? Sit-supine: I with HOB flat ? Sit-stand: I? Stand-sit: I Bed-chair: I? GAIT? Assistive Device: FWW in a.m. ? Weight bearing: Full Assist: S ? Distance:? 300' in a.m.? Deviation: Cueing for posture with use of FWW, cueing for FWW mechanics VITALS: SaO2: 89-94% without O2 support with gait training ASSESSMENT:? Gait training done with the respiratory therapist helping with monitoring pt response with activity. PLAN: Continue with general conditioning and gait training for improved activity tolerance and mobility. TREATMENT CODE/TIME: Session 1: 25 minutes; 32060 x2 (10:13)
--- NOTE | 2021-09-09 10:52 | W.PM.DS.N ---
Date of service: 09/09/21 Time of Service: 10:52 DS: Diagnosis Discharge Diagnosis (1) Pneumonia: Status: Acute Asessment and Plan: He continued on Rocephin and Azithromax and showed gradual improvement clinically. His WBC count normalized and he was weaned from supplemental O2. He was ambulate to ambulate in the hallway w/o assistance or c/o shortness of breath. He will discharge on 3 more days of oral antibiotics. He has an appt arranged with Dr Briscoe, Pulmonary Transfer And Pumphouse Operator Chief, in November. (2) Diabetic neuropathy: Asessment and Plan: He was initiated on gabapentin during this hospitalization. This can be titrated if necessary as an outpt. (3) DM (diabetes mellitus): Status: None Asessment and Plan: Due to administration of steroids, his blood glucose levels were variable but did improve with adjustments in his insulin. He will resume his usual home insulin dosages. (4) Acute kidney injury superimposed on chronic kidney disease: Status: Acute Asessment and Plan: He had an initial creatinine of 2.1. It did increase to 2.4 but then improved to 1.3. (5) Peripheral artery disease: Status: Acute Asessment and Plan: He was continued on his routine aspirin 81mg daily. (6) Chronic kidney disease, stage 3: Status: None Asessment and Plan: Back to baseline. (7) DVT prophylaxis: Status: Acute (8) Discharge planning issues: Status: Acute Asessment and Plan: He will have a f/u with his PCP as well as with pulmonary medicine. Discharge Plan Disposition Patient Disposition: HOME Condition: Good Discharge Details Reason For Visit: Acute resp failure, Pneumonia Admit Date/Time: 09/01/21 14:51 Admit Provider: Brandt Meza Attending Provider: Brandt Meza Primary Care [facility] Hospital Course: 71 yr old male former smoker, regular drinker of alcohol who has DM type 2 on insulin w/ peripheral neuropathy, CKD stage 3A, prostate cancer (on bicalutamide, an androgen jessica and just started on injections of leuprolide), HTN who presented to the ED w/ complaints of cough and dyspnea for past week not associated w/ any CP, hemoptysis, fevers or rigors. While awaiting evaluation in the ER he became very somnolent and when seen by the ED physician he was found to be unresponsive w/ severe hypoxemia w/ SPO2 in the 30' to 40's but not apneic and never lost his pulse. He responded to BVM rescue breathing and was put on CPAP and given DuoNeb aerosols. He was not given any steroids but CXR demonstrated LLL infiltrate. COVID and RSV and influenza A & B were all negative. Blood cultures were ordered and he was given Rocephin 2 gm IVPB and azithromycin [address] of his head w/out contrast was negative for any acute intracranial abnormality. VBG demonstrated? hypoxemia and hypercarbia w/ PO2 58 and PCO2 of 51. WBC 16,000, lactate mildly elevated at 2.1, but procalcitonin elevated at 12.4.? CMP demonstrated worsening renal failure w/ creatinine 2.3 and BUN 45 (baseline BUN 19 and creatinine 1.4) however he was found to be in DKA w/ glucose of 625 and AG of 19.6 and CO2 however was only 21.4. Troponin I was neg. x 2 sets. Patient was given insulin 10 units SC. Upon arrival to ICU his glucose per fingerstick was 592. He is being started on insulin drip and given an additional 10 units of Novolog. He is being admitted to ICU for treatment of acute respitory failure d/t pneumonia complicated by DKA and prerenal TOBI. We will continue Rocephin 1 gm daily along w/ azithromycin 250 mg oral daily. Because he is still bronchospastic, I have added prednisone to his regimen but added NPH for tonight in addition ot his insulin drip.? See Diagnosis section for details PCP follow up in 1-2 weeks. Home Meds and New Rx's Prescriptions: New gabapentin 100 mg Capsule 100 mg PO BID Qty: 60 0RF Spiriva Respimat 2.5 mcg/actuation Mist 2 puff inhalation DAILY Qty: 4 0RF cefuroxime axetil 500 mg tablet 500 mg PO BID Qty: 6 0RF Continued Trulicity 0.75 mg/0.5 mL pen injector 0.75 mg subcut QWEEK simvastatin 10 MG tablet 10 mg PO DAILY glucose 5 gram tablet,chewable 5 g PO Q15M PRN Rx Instructions: until symptoms of low blood sugar are controlled aspirin [Adult Aspirin Regimen] 81 mg tablet,delayed release (DR/EC) 81 mg PO DAILY hydrochlorothiazide 12.5 MG capsule 12.5 mg PO DAILY lisinopril 40 MG tablet 40 mg PO DAILY insulin glargine [Lantus Solostar U-100 Insulin] 100 unit/mL (3 mL) insulin pen 80 unit subcut HS Label Comments: insulin lispro [Humalog KwikPen Insulin] 100 unit/mL Insulin Pen See Rx Instructions .ROUTE .COMPLEX Rx Instructions: sliding scale allopurinol 100 mg Tablet 100 mg PO DAILY bicalutamide 50 mg Tablet 50 mg PO DAILY Discharge Instructions Instructions: Community Acquired Pneumonia (DC) Stand Alone Forms: Nursing Discharge Form Referrals: Reena Payan [Primary Care Provider] - 09/28/21 8:45 am (Appointment location is in [facility] @ [address] [place] [address].) Activity:: Activity as Tolerated Equipment/Supplies:: No Equipment Needed Diet:: resume usual diet Discharge Orders Discharge Orders: Discharge Order (Routine); Ordered 09/09/21 Ordered By: Mike Keen DS: Summary Time Spent with Patient providing and/or coordinating discharge services: Greater than 30 minutes Status at Discharge Functional status at discharge: independent ambulation Overall status at discharge: patient is progressing back to baseline Mental Status: mental status grossly normal Speech and Movement: speech and movement normal Mood: congruent mood Affect: normal affect Exam Narrative Exam Narrative: Sitting in chair. On Ra. Const General: cooperative and no acute distress Nutritional Appearance: average body habitus Orientation: alert and oriented x3 Eyes General: appearance normal, both eyes and all related structures Sclera: sclerae normal Resp Effort & Inspection: normal respiratory effort Auscultation: clear to auscultation bilaterally and diminished lung sounds Cardio Rate: regular rate Rhythm: regular rhythm Heart Sounds: S1 normal and S2 normal GI Palpation: soft and nontender Extrem General: no pedal edema and no calf tenderness Psych Appearance: grossly normal Mental Status: mental status grossly normal Speech and Movement: speech and movement normal Mood: congruent mood Affect: normal affect DS: Data Vitals/I&O Vitals and I&O: Vital Signs Temperature 35.9 C L 09/09/21 08:00 Temperature Source Tympanic 09/09/21 08:00 Pulse 90 09/09/21 09:18 Pulse Rhythm Regular 09/09/21 03:39 Pulse 90 09/04/21 12:00 Respiratory Rate 18 09/09/21 09:18 Respiratory Effort Non-Labored 09/09/21 03:39 Respiratory Depth Normal 09/09/21 03:39 Respiratory Pattern Normal 09/09/21 03:39 Blood Pressure 130/76 09/09/21 08:00 Blood Pressure Mean 110 09/04/21 18:31 Blood Pressure Position Supine 09/03/21 16:45 Pulse Oximetry 95 09/09/21 09:18 Oxygen Delivery Method Nasal Cannula 09/09/21 09:17 Oxygen Flow Rate 2 09/09/21 09:17 Fraction of Inspired Oxygen (FIO2) 35 09/06/21 07:46 Pain Level 0 09/09/21 07:58 Comment 09/09/21 07:58 Intake & Output 09/08/21 09/08/21 09/09/21 11:59 23:59 11:59 Intake Total 248.5 / 1328.5 1080 / 1328.5 Output Total 350 / 1325 975 / 1325 1175 / 1175 Balance -101.5 / 3.5 105 / 3.5 -1175 / -1175 Weight 98.1 kg 99.1 kg Intake: IV 8.5 / 58.5 50 / 58.5 Oral 240 / 1270 1030 / 1270 Output: Urine 350 / 1325 975 / 1325 1175 / 1175 Other: Urine Color Dark Gloria Yellow Yellow Urine Appearance Cloudy Clear Urine Odor None Normal Comment Charge nurse aware of patients dark urine Stool Size Large Moderate Stool Characteristics Formed Formed Brown Voiding Methods Urinal Urinal Data Completed and Pending Labs on day of discharge: Labs from last 24 hours 09/09/21 09/09/21 09/08/21 06:34 06:34 20:38 WBC 10.77 RBC 4.00 L Hgb 12.4 L Hct 38.6 L MCV 97 H MCH 31.0 MCHC 32.1 RDW 14.3 H Plt Count 346 MPV 10.1 Immature Gran % 4.3 Neutrophils % 57.1 Lymphocytes % 29.2 Monocytes % 6.2 Eosinophils % 2.5 Basophils % 0.7 Nucleated RBC % 0.0 Absolute Neutrophils 6.15 Absolute Lymphocytes 3.14 Absolute Monocytes 0.67 Absolute Eosinophils 0.27 Absolute Basophils 0.08 Sodium 141 Potassium 4.7 Chloride 103 Carbon Dioxide 33.2 H Anion Gap 4.8 BUN 36 H Creatinine 1.3 Estimated GFR/1.73 m2 54.11 Glucose 146 H Calcium 8.8 Urine Color Yellow Urine Clarity Clear Urine pH 5.5 Ur Specific [place] 1.015 Urine Protein Negative Urine Ketones Negative Urine Blood Large H Urine Nitrite Negative Urine Bilirubin Negative Urine Urobilinogen 0.2 Ur Leukocyte Esterase Negative Urine RBC >50 H Urine WBC Negative Ur Epithelial Cells Negative Urine Crystals Negative Urine Bacteria Negative Urine Mucus Negative Ur Culture Indicated? No Urine Glucose Negative PFSH All Active Problems Discharge planning issues (Acute) Anemia (Chronic) Prostate cancer (Chronic) Respiratory failure with hypoxia (Acute) Hyperglycemia (Acute) Sepsis (Acute) Pneumonia (Acute) Acute kidney injury superimposed on chronic kidney disease (Acute) Bandemia (Acute) Hypoxia (Acute) Inflammatory polyps (Acute) Hyperplastic colon polyp (Acute) Tubular adenoma of colon (Acute) BPH loc w urin obs/LUTS (Acute) DVT prophylaxis (Acute) Obesity (Chronic) GONZALES (dyspnea on exertion) (Acute) Peripheral artery disease (Acute) Medical History BPH (benign prostatic hyperplasia) Cataract Cellulitis in diabetic foot Diabetic foot ulcer Diabetic neuropathy Discharge planning issues Gout High cholesterol Hyperglycemia 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
--- NOTE | 2021-09-09 11:04 | CMDISCH_ITS ---
- If Service Date Differs Date of service: 09/09/21 Time of Service: 11:04 LACE Index Scoring Tool - Questions: Length of Stay (in days): 7 - 13 Acuity (Admit via E.D.?): Yes Comorbidities: Diabetes w/o Complication, Liver or Renal Disease E.D. Visits: 1 - Answers: Total Score: 14 Risk of Readmission: High Risk Care Management Discharge Reason for Hospitalization: Acute respiratory failure with hypoxia and hypercapnia, Sepsis, Pneumonia, UTI, TOBI Discharge Plan: Phil is discharged home via private vehicle with daughter, who is staying with him until Tuesday. New RX's are transmitted to [facility]. No New [facility] services are indicated at time of discharge, per provider. Phil will follow discharge plan of care as prescribed and follow up with Reena Payan (PCP) on 09/28/21 as scheduled. Patient/Family Education Needs: Review discharge instructions, limitations, medications and plan to follow up with community providers. ask me three.
[2021-09-09] MEDS: cefTRIAXone 1 GM/50 ML BAG IVPB (11:33)
[2021-09-09] MEDS: Normal Saline Flush 10 ML SYR IVP (11:33)
--- NOTE | 2021-09-10 09:14 | PT.INDS ---
Date of service: 09/10/21 Time of Service: 09:14 PT Notes Visit Reasons: Acute resp failure, Pneumonia Physical Therapy Inpatient Discharge Summary Date: 09/09/2021 Dates of service: 09/04/2021 through 09/09/2021 This is a clinical summary of care provided for the duration of dates listed above. No charge was made in the completion of this documentation. Referring Doctor: Brandt Blanc MD PT Orders: PT CONSULT: Extended Stay Weakness Precautions: Fall. Standard. Activity as tolerated. Patient Profile/Admitting Diagnosis:? Jose is a 71-year-old male who presented to the ED on 09/01/2021 due to generalized weakness and increasing shortness of breath.? Patient is diagnosed with acute respiratory failure with hypoxia and hypercapnia, sepsis, pneumonia, urinary tract infection, acute kidney injury, PAD, diabetic neuropathy, and diabetic acidosis. PMHX: All Active Problems?(Updated 09/01/21 @ 20:26 by Brandt Mzea MD) UTI (urinary tract infection) (Acute) Sepsis (Acute) Acute respiratory failure with hypoxia and hypercapnia (Acute) Pneumonia (Acute) Hyperglycemia (Acute) Acute kidney injury superimposed on chronic kidney disease (Acute) Bandemia (Acute) Hypoxia (Acute) Inflammatory polyps (Acute) Hyperplastic colon polyp (Acute) Tubular adenoma of colon (Acute) BPH loc w urin obs/LUTS (Acute) DVT prophylaxis (Acute) Obesity (Chronic) GONZALES (dyspnea on exertion) (Acute) Peripheral artery disease (Acute) Medical History?(Updated 09/01/21 @ 20:26 by Brandt Meza MD) BPH (benign prostatic hyperplasia) Cataract Cellulitis in diabetic foot Diabetic foot ulcer Diabetic neuropathy Discharge planning issues Gout High cholesterol 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 Independent with all aspects of ADLs prior to surgery.? Equipment Owned/DME: None Subjective: NT. See most recent FORGING MACHINE OPERATOR notes. Objective: General Observation: NT. See most recent FORGING MACHINE OPERATOR notes. Mental Status: NT. See most recent FORGING MACHINE OPERATOR notes. Pain: NT. See most recent FORGING MACHINE OPERATOR notes. Denies Vital Signs: NT. See most recent FORGING MACHINE OPERATOR notes. ROM: Right Upper Extremity: ? Shoulder Flexion WFL. Shoulder abduction WFL. Elbow flexion WFL. Wrist flexion WFL. Functional opening and closing of hand WFL. Left Upper Extremity:? Shoulder Flexion WFL. Shoulder abduction WFL. Elbow flexion WFL. Wrist flexion WFL. Functional opening and closing of hand WFL. Right Lower Extremity: Hip flexion WFL. Hip abduction WFL. Knee flexion WFL. Ankle dorsiflexion WFL. Ankle plantarflexion WFL. Left Lower Extremity: Hip flexion WFL. Hip abduction WFL. Knee flexion WFL. Ankle dorsiflexion WFL. Ankle plantarflexion WFL. Strength: Right Upper Extremity: Shoulder flexors 4-/5. Shoulder abductors 4-/5. Elbow flexors 4-/5. Elbow extensors 4-/5. Cloth Washer strong. Left Upper Extremity: Shoulder flexors 4-/5. Shoulder abductors 4-/5. Elbow flexors 4-/5. Elbow extensors 4-/5. Cloth Washer strong. Right Lower Extremity: Hip flexors 4/5. Hip abductors 4/5. Knee flexors 4/5. Knee extensors 5/5. Ankle dorsiflexors 5/5. Ankle plantarflexors 5/5. Left Lower Extremity: Hip flexors 5/5. Hip abductors 5/5. Knee flexors 5/5. Knee extensors 5/5. Ankle dorsiflexors 5/5. Ankle plantarflexors 5/5. BED MOBILITY/TRANSFERS? Supine-sit: I with HOB flat? Sit-supine: I with HOB flat ? Sit-stand: I? Stand-sit: I Bed-chair: I? GAIT? Assistive Device: FWW in a.m. ? Weight bearing: Full Assist: S ? Distance:? 300' in a.m.? Deviation: Cueing for posture with use of FWW, cueing for FWW mechanics VITALS: SaO2: 89-94% without O2 support with gait training Balance: Static Sitting: Good Dynamic Sitting: Good Static Standing: Fair Dynamic Standing: Fair Special Tests: Assessment: Patient presents with clinical signs and symptoms consistent with current/admitting diagnoses that have resulted to mobility limitations, gait instability, generalized weakness, and overall ADL decline as demonstrated by the following impairment level findings: 1.? Decreased strength to B UE/LE major muscle groups 2.? Impaired standing balance 3.? Impaired activity tolerance Impairments are contributing to the following functional limitations: 1.? Difficulty with ambulation without assistive device 2.? Increased completion time for mobility ADL performance 3.? Increased risk for falls 4.? Difficulty with managing steps alone safely Goals: Goals X1 week 1. Supine-Sit independent MET 2. Sit-Supine independent MET 3. Sit-Stand independent MET 4. Stand-Sit independent with FWW MET 5. Bed-Chair independent with FWW MET 6. Chair-Bed independent with FWW MET 7. Independent gait on level surface with use of FWW for at least 300 feet without report of pain nor dyspnea NOT MET 8. Good static and dynamic standing balance/tolerance NOT MET DISCHARGE RECOMMENDATIONS: [] ? Home with no services [] [] ? Home with services [specify] [] ? Home with outpatient PT [] [] ? SNF for continued rehabilitation [] [] ? Hitch Technician Care [] [] ? SNF versus LTC based on ability to participate and progress [] [X] ? HHPT vs SNF depending on ability to progress towards goals TREATMENT CODE/TIME: [place] Thank you for the opportunity to participate in the care of this patient. Carla Ashby PT, DPT, CLT [facility] [place], [place]
== END 2021-09-09 14:09 | disposition home or self-care (01) | DRG 871 ==
LOC: ER 15:42 → ICU 16:25 → MS 09-04 19:55
PROVIDERS: Family Medicine; Admitting Provider Internal Medicine; Emergency Provider Physician Assistant; PCP Nurse Practitioner Family; Visit Provider Internal Medicine
DX: A41.9 Sepsis, unspecified organism (principal); J96.01 Acute respiratory failure with hypoxia; J96.02 Acute respiratory failure with hypercapnia; J18.9 Pneumonia, unspecified organism; E11.10 Type 2 diabetes mellitus with ketoacidosis without coma; E11.22 Type 2 diabetes mellitus with diabetic chronic kidney disease; N17.9 Acute kidney failure, unspecified; E87.70 Fluid overload, unspecified; I13.0 Hypertensive heart and chronic kidney disease with heart failure and stage 1 through stage 4 chronic kidney disease, or unspecified chronic kidney disease; I50.41 Acute combined systolic (congestive) and diastolic (congestive) heart failure; I73.9 Peripheral vascular disease, unspecified; R53.1 Weakness; N40.1 Benign prostatic hyperplasia with lower urinary tract symptoms; E66.9 Obesity, unspecified; E11.40 Type 2 diabetes mellitus with diabetic neuropathy, unspecified; J44.0 Chronic obstructive pulmonary disease with (acute) lower respiratory infection; N13.8 Other obstructive and reflux uropathy; N39.0 Urinary tract infection, site not specified; R31.9 Hematuria, unspecified; N18.31 Chronic kidney disease, stage 3a; Z79.4 Long term (current) use of insulin; Z89.422 Acquired absence of other left toe(s); L97.511 Non-pressure chronic ulcer of other part of right foot limited to breakdown of skin; D64.9 Anemia, unspecified; Z87.891 Personal history of nicotine dependence
CPT/HCPCS: 36410; 36415; 51702; 76770; 80048; 80053; 80307; 82805; 84145; 87040; 87449; 87637; 93005; 94618; 94640; 96361; 96365; 96368; 96372; 97110; 97162; 97530; 99285; J1650; 70450; 71045; 81003; 81015; 83036; 83605; 83735; 83880; 84100; 84484; 85025; 85610; 85730; 87070; 87086; 87205; 87899; 93010; 93306; 94660; 99232; 99239; 99291; J0456; J0696; J1644; J1941; J3480; J3490; J7512; J7613; J7620

== ENCOUNTER 2021-09-22 03:41 | Outpatient (CLI) | payer MEDICARE, SELFPAY ==
[2021-09-22 09:29] LABS: Abs Immature Grans 0.03 10^3/uL (0.0-0.06); Absolute Basophil Count 0.09 10^3/uL (0.0-0.2); Absolute Lymphocyte Count 2.79 10^3/uL (1.2-3.4); Absolute Neutrophil Count 4.34 10^3/uL (1.2-6.7); Basophils % 1.1; Eosinophils % 3.7; HCT 37.2 % (40.0-50.0); HGB 12.1 g/dL (13.5-17.5); Immature Grans % 0.4; Lymphocytes % 34.2; MCH 30.8 pg (27.0-33.0); MCHC 32.5 % (32.0-36.0); MCV 95 fL (80-95); MPV 10.1 fL (8.0-11.0); Monocytes % 7.4; Neutrophils % 53.2; Platelet Count 281 10^3/uL (130-400); RBC 3.93 10^6/uL (4.36-5.78); RDW 13.8 % (11.8-14.1); RDW-SD 48.1 fL; WBC 8.15 10^3/uL (4.4-10.8)
[2021-09-22 09:47] LABS: ALT 43 U/L (16-63); AST 20 U/L (15-37); Albumin 3.2 g/dL (3.4-5.0); Alkaline Phosphatase 42 U/L (46-116); Anion Gap 7.8 mmol/L (3-11); BUN 32 mg/dL (7-18); Bilirubin, Total 0.7 mg/dL (0.2-1.0); CO2 28.2 mmol/L (21.0-32.0); CREATININE 1.5 mg/dL (0.70-1.30); Chloride 106 mmol/L (98-107); Estimated GFR 45.87 (mL/min/1.73m2); Glucose 209 mg/dL (74-106); Potassium 3.9 mmol/L (3.5-5.1); Sodium 142 mmol/L (136-145); Total Protein 7.2 g/dL (6.4-8.2)
[2021-09-22 10:34] LABS: Hemoglobin A1C 9.4 % (<5.7)
[2021-09-22 14:39] LABS: COMMENT (LAB VIEW ONLY) 189.06 mg/dL; Microalb ug/mg Crea 69.5 ug/mg Cr
[2021-09-23 10:49] LABS: PSA, Ultrasensitive 0.65 ng/mL (<= 6.5)
[2021-09-23 16:38] LABS: Fructosamine 275 mcmol/L (200 - 285)
[2021-09-29 17:12] LABS: Testosterone, Total <7.0 ng/dL (240-950)
== END 2021-09-22 03:42 | disposition home or self-care (01) ==
PROVIDERS: PCP Nurse Practitioner Family; Visit Provider Internal Medicine
DX: C61 Malignant neoplasm of prostate (principal); E11.65 Type 2 diabetes mellitus with hyperglycemia
CPT/HCPCS: 36415; 80053; 84153; 84403; 82043; 82570; 82985; 83036; 85025

== ENCOUNTER → 2021-10-09 00:09 | Outpatient (CLI) | payer MEDICARE, SELFPAY ==
--- NOTE | 2021-10-09 | DI.RAD_ITS ---
Exam(s) XR CHEST 2V PA LATERAL EXAM: XR CHEST 2V PA LATERAL CLINICAL HISTORY: F/U PNEUMONIA, J18.9. TECHNIQUE: 2D digital imaging was performed. COMPARISON: CR XR PORTABLE CHEST AP from 09/01/2021 FINDINGS: 2 views: Heart size is normal. The mediastinum is not widened. Right hemidiaphragm is again noted be elevated. There is atelectasis and mild infiltrate in the righ t lower lobe just above the right hemidiaphragm. Mild increased markings in left lower lobe. No pleural effusions. No pulmonary edema. No pneumotho rax IMPRESSION: Mild infiltrate and atelectasis in the right lower lobe just above and slightly behind the mildly katherine vated right hemidiaphragm.Mild increased markings in left lung base also noted but less so than previ ous. No obvious pleural effusions DATA REPOSITORY: RADIATION DOSE DELIVERED:
== END ==
PROVIDERS: PCP Nurse Practitioner Family; Visit Provider Nurse Practitioner Family
DX: J98.11 Atelectasis (principal)
CPT/HCPCS: 71046

== ENCOUNTER 2021-10-20 02:29 | Outpatient (CLI) | payer MEDICARE, SELFPAY ==
[2021-10-20 09:53] LABS: Abs Immature Grans 0.03 10^3/uL (0.0-0.06); Absolute Basophil Count 0.14 10^3/uL (0.0-0.2); Absolute Monocyte Count 0.75 10^3/uL (0.1-0.8); Basophils % 1.1; Eosinophils % 4.6; HCT 40.6 % (40.0-50.0); HGB 13.4 g/dL (13.5-17.5); Immature Grans % 0.2; MCH 30.7 pg (27.0-33.0); MCV 93 fL (80-95); MPV 10.2 fL (8.0-11.0); Neutrophils % 50.1; Platelet Count 310 10^3/uL (130-400); RBC 4.36 10^6/uL (4.36-5.78); RDW 13.2 % (11.8-14.1); RDW-SD 45.3 fL; WBC 12.49 10^3/uL (4.4-10.8)
[2021-10-20 09:55] LABS: Absolute Eosinophil Count 0.57 10^3/uL (0.0-0.7); Absolute Lymphocyte Count 4.75 10^3/uL (1.2-3.4); Absolute Neutrophil Count 6.26 10^3/uL (1.2-6.7)
[2021-10-20 10:08] LABS: ALT 22 U/L (16-63); AST 13 U/L (15-37); Albumin 3.6 g/dL (3.4-5.0); Alkaline Phosphatase 55 U/L (46-116); Anion Gap 9.4 mmol/L (3-11); BUN 30 mg/dL (7-18); CO2 29.6 mmol/L (21.0-32.0); CREATININE 1.5 mg/dL (0.70-1.30); Calcium 9.2 mg/dL (8.5-10.1); Chloride 104 mmol/L (98-107); Estimated GFR 48.85 (mL/min/1.73m2); Glucose 168 mg/dL (74-106); Potassium 3.7 mmol/L (3.5-5.1); Sodium 143 mmol/L (136-145); Total Protein 7.4 g/dL (6.4-8.2)
[2021-10-21 17:09] LABS: PSA, Ultrasensitive 0.11 ng/mL (<= 6.5)
[2021-10-22 14:06] LABS: Testosterone, Total <7.0 ng/dL (240-950)
== END 2021-10-20 02:30 | disposition home or self-care (01) ==
LOC: LBO 02:29
PROVIDERS: Internal Medicine; PCP Nurse Practitioner Family; Visit Provider Internal Medicine Hematology & Oncology
DX: C61 Malignant neoplasm of prostate (principal)
CPT/HCPCS: 36415; 80053; 84153; 84403; 85025

== ENCOUNTER 2021-11-24 14:14 | Outpatient (CLI) | payer MEDICARE, SELFPAY ==
[2021-11-24 12:26] LABS: Abs Immature Grans 0.09 10^3/uL (0.0-0.06); Absolute Basophil Count 0.15 10^3/uL (0.0-0.2); Absolute Eosinophil Count 0.24 10^3/uL (0.0-0.7); Absolute Lymphocyte Count 3.45 10^3/uL (1.2-3.4); Absolute Neutrophil Count 8.87 10^3/uL (1.2-6.7); Basophils % 1.1; Eosinophils % 1.8; HCT 41.3 % (40.0-50.0); HGB 13.3 g/dL (13.5-17.5); Immature Grans % 0.7; Lymphocytes % 25.4; MCH 30.6 pg (27.0-33.0); MCHC 32.2 % (32.0-36.0); MCV 95 fL (80-95); MPV 10.6 fL (8.0-11.0); Monocytes % 5.7; Neutrophils % 65.3; Platelet Count 282 10^3/uL (130-400); RBC 4.35 10^6/uL (4.36-5.78); RDW 14.1 % (11.8-14.1); RDW-SD 49.1 fL; WBC 13.58 10^3/uL (4.4-10.8)
[2021-11-24 12:30] LABS: Absolute Monocyte Count 0.77 10^3/uL (0.1-0.8)
[2021-11-24 12:46] LABS: ALT 62 U/L (16-63); AST 34 U/L (15-37); Albumin 3.7 g/dL (3.4-5.0); Alkaline Phosphatase 60 U/L (46-116); BUN 44 mg/dL (7-18); Bilirubin, Total 0.8 mg/dL (0.2-1.0); CREATININE 1.6 mg/dL (0.70-1.30); Calcium 9.4 mg/dL (8.5-10.1); Chloride 101 mmol/L (98-107); Estimated GFR 45.21 (mL/min/1.73m2); Glucose 297 mg/dL (74-106); Potassium 4.4 mmol/L (3.5-5.1); Sodium 140 mmol/L (136-145); Total Protein 7.3 g/dL (6.4-8.2)
[2021-11-25 13:06] LABS: PSA, Ultrasensitive 0.05 ng/mL (<= 6.5)
[2021-11-30 12:55] LABS: Testosterone, Total <7.0 ng/dL (240-950)
== END 2021-11-24 14:15 | disposition home or self-care (01) ==
PROVIDERS: PCP Nurse Practitioner Family; Visit Provider Internal Medicine
DX: C61 Malignant neoplasm of prostate (principal)
CPT/HCPCS: 36415; 80053; 84153; 84403; 85025

== ENCOUNTER 2021-12-18 12:16 | Outpatient (CLI) | payer MEDICARE, SELFPAY ==
[2021-12-18 10:40] LABS: Abs Immature Grans 0.03 10^3/uL (0.0-0.06); Absolute Eosinophil Count 0.26 10^3/uL (0.0-0.7); Absolute Lymphocyte Count 1.09 10^3/uL (1.2-3.4); Absolute Monocyte Count 0.58 10^3/uL (0.1-0.8); Absolute Neutrophil Count 4.15 10^3/uL (1.2-6.7); Basophils % 1.6; Eosinophils % 4.2; HCT 34.8 % (40.0-50.0); HGB 11.7 g/dL (13.5-17.5); Immature Grans % 0.5; Lymphocytes % 17.6; MCH 30.7 pg (27.0-33.0); MCHC 33.6 % (32.0-36.0); MCV 91 fL (80-95); MPV 9.7 fL (8.0-11.0); Monocytes % 9.3; Neutrophils % 66.8; Platelet Count 283 10^3/uL (130-400); RBC 3.81 10^6/uL (4.36-5.78); RDW 13.9 % (11.8-14.1); RDW-SD 46.7 fL; WBC 6.21 10^3/uL (4.4-10.8)
[2021-12-18 10:54] LABS: ALT 80 U/L (16-63); AST 35 U/L (15-37); Albumin 3.2 g/dL (3.4-5.0); Alkaline Phosphatase 55 U/L (46-116); Anion Gap 10.7 mmol/L (3-11); BUN 27 mg/dL (7-18); Bilirubin, Total 0.7 mg/dL (0.2-1.0); CO2 27.3 mmol/L (21.0-32.0); CREATININE 1.6 mg/dL (0.70-1.30); Chloride 105 mmol/L (98-107); Estimated GFR 45.21 (mL/min/1.73m2); Glucose 309 mg/dL (74-106); Potassium 3.7 mmol/L (3.5-5.1); Sodium 143 mmol/L (136-145); Total Protein 6.8 g/dL (6.4-8.2)
[2021-12-19 14:03] LABS: PSA, Ultrasensitive 0.02 ng/mL (<= 6.5)
[2021-12-23 11:49] LABS: Testosterone, Total <7.0 ng/dL (240-950)
== END 2021-12-18 12:17 | disposition home or self-care (01) ==
LOC: LBO 12:16
PROVIDERS: PCP Nurse Practitioner Family; Visit Provider Internal Medicine
DX: C61 Malignant neoplasm of prostate (principal)
CPT/HCPCS: 36415; 80053; 84153; 84403; 85025

== ENCOUNTER 2021-12-29 10:13 | Outpatient (CLI) | payer MEDICARE, SELFPAY ==
[2021-12-29 08:57] LABS: Abs Immature Grans 0.03 10^3/uL (0.0-0.06); Absolute Basophil Count 0.06 10^3/uL (0.0-0.2); Absolute Lymphocyte Count 1.14 10^3/uL (1.2-3.4); Absolute Neutrophil Count 5.81 10^3/uL (1.2-6.7); Basophils % 0.8; Eosinophils % 3.8; HCT 36.7 % (40.0-50.0); HGB 11.9 g/dL (13.5-17.5); Immature Grans % 0.4; Lymphocytes % 14.4; MCH 30.2 pg (27.0-33.0); MCHC 32.4 % (32.0-36.0); MCV 93 fL (80-95); MPV 9.4 fL (8.0-11.0); Monocytes % 7.6; Platelet Count 291 10^3/uL (130-400); RBC 3.94 10^6/uL (4.36-5.78); RDW 14.8 % (11.8-14.1); RDW-SD 50.6 fL; WBC 7.94 10^3/uL (4.4-10.8)
[2021-12-29 09:13] LABS: ALT 55 U/L (16-63); AST 39 U/L (15-37); Albumin 3.5 g/dL (3.4-5.0); Alkaline Phosphatase 51 U/L (46-116); Anion Gap 10.1 mmol/L (3-11); BUN 24 mg/dL (7-18); CO2 28.9 mmol/L (21.0-32.0); CREATININE 1.4 mg/dL (0.70-1.30); Calcium 8.9 mg/dL (8.5-10.1); Chloride 104 mmol/L (98-107); Estimated GFR 53.07 (mL/min/1.73m2); Glucose 186 mg/dL (74-106); Potassium 3.6 mmol/L (3.5-5.1); Sodium 143 mmol/L (136-145)
[2021-12-31 11:34] LABS: PSA, Ultrasensitive 0.02 ng/mL (<= 6.5)
[2022-01-06 00:56] LABS: Testosterone, Total <7.0 ng/dL (240-950)
== END 2021-12-29 10:14 | disposition home or self-care (01) ==
LOC: LBO 10:14
PROVIDERS: PCP Nurse Practitioner Family; Visit Provider Internal Medicine
DX: C61 Malignant neoplasm of prostate (principal)
CPT/HCPCS: 36415; 80053; 84153; 84403; 85025

== ENCOUNTER 2022-01-28 13:23 | Outpatient (CLI) | payer MEDICARE, SELFPAY ==
[2022-01-28 10:17] LABS: Abs Immature Grans 0.02 10^3/uL (0.0-0.06); Absolute Basophil Count 0.09 10^3/uL (0.0-0.2); Absolute Eosinophil Count 0.35 10^3/uL (0.0-0.7); Absolute Lymphocyte Count 1.26 10^3/uL (1.2-3.4); Absolute Monocyte Count 0.55 10^3/uL (0.1-0.8); Absolute Neutrophil Count 5.43 10^3/uL (1.2-6.7); Basophils % 1.2; Eosinophils % 4.5; HCT 36.9 % (40.0-50.0); HGB 12.3 g/dL (13.5-17.5); Immature Grans % 0.3; Lymphocytes % 16.4; MCH 31.1 pg (27.0-33.0); MCHC 33.3 % (32.0-36.0); MCV 93 fL (80-95); MPV 10.1 fL (8.0-11.0); Monocytes % 7.1; Neutrophils % 70.5; Platelet Count 279 10^3/uL (130-400); RBC 3.96 10^6/uL (4.36-5.78); RDW 15.1 % (11.8-14.1); RDW-SD 51.9 fL
[2022-01-28 11:00] LABS: ALT 41 U/L (16-63); AST 20 U/L (15-37); Albumin 3.7 g/dL (3.4-5.0); Alkaline Phosphatase 53 U/L (46-116); Anion Gap 8.5 mmol/L (3-11); BUN 25 mg/dL (7-18); Bilirubin, Total 0.9 mg/dL (0.2-1.0); CO2 29.5 mmol/L (21.0-32.0); CREATININE 1.6 mg/dL (0.70-1.30); Calcium 9.6 mg/dL (8.5-10.1); Chloride 101 mmol/L (98-107); Estimated GFR 45.21 (mL/min/1.73m2); Glucose 292 mg/dL (74-106); Potassium 4.1 mmol/L (3.5-5.1); Sodium 139 mmol/L (136-145)
[2022-01-30 14:21] LABS: PSA, Ultrasensitive <0.01 ng/mL (<= 6.5)
[2022-02-02 11:34] LABS: Testosterone, Total <7.0 ng/dL (240-950)
== END 2022-01-28 13:24 | disposition home or self-care (01) ==
LOC: LBO 13:24
PROVIDERS: PCP Nurse Practitioner Family; Visit Provider Internal Medicine
DX: C61 Malignant neoplasm of prostate (principal)
CPT/HCPCS: 36415; 80053; 84153; 84403; 85025

== ENCOUNTER 2022-03-05 12:51 | Outpatient (CLI) | payer MEDICARE, SELFPAY ==
[2022-03-06 16:43] LABS: Fructosamine 287 mcmol/L (200 - 285)
== END 2022-03-05 12:52 | disposition home or self-care (01) ==
LOC: LBO 12:51
PROVIDERS: PCP Nurse Practitioner Family; Visit Provider Internal Medicine Endocrinology, Diabetes & Metabolism
DX: E11.65 Type 2 diabetes mellitus with hyperglycemia (principal)
CPT/HCPCS: 36415; 82985

== ENCOUNTER 2022-03-25 01:52 | Outpatient (CLI) | payer MEDICARE, SELFPAY ==
[2022-03-25 13:06] LABS: Abs Immature Grans 0.03 10^3/uL (0.0-0.06); Absolute Eosinophil Count 0.31 10^3/uL (0.0-0.7); Absolute Lymphocyte Count 1.91 10^3/uL (1.2-3.4); Absolute Monocyte Count 0.64 10^3/uL (0.1-0.8); Absolute Neutrophil Count 6.27 10^3/uL (1.2-6.7); Basophils % 1.1; Eosinophils % 3.3; HCT 37.3 % (40.0-50.0); Immature Grans % 0.3; Lymphocytes % 20.6; MCH 30.8 pg (27.0-33.0); MCHC 32.2 % (32.0-36.0); MCV 96 fL (80-95); MPV 9.7 fL (8.0-11.0); Monocytes % 6.9; Neutrophils % 67.8; Platelet Count 324 10^3/uL (130-400); RDW 13.8 % (11.8-14.1); RDW-SD 48.6 fL; WBC 9.26 10^3/uL (4.4-10.8)
[2022-03-25 13:25] LABS: ALT 24 U/L (16-63); AST 23 U/L (15-37); Albumin 3.5 g/dL (3.4-5.0); Alkaline Phosphatase 59 U/L (46-116); Anion Gap 10.4 mmol/L (3-11); BUN 36 mg/dL (7-18); Bilirubin, Total 0.5 mg/dL (0.2-1.0); CO2 26.6 mmol/L (21.0-32.0); CREATININE 1.4 mg/dL (0.70-1.30); Calcium 9.5 mg/dL (8.5-10.1); Chloride 105 mmol/L (98-107); Estimated GFR 53.07 (mL/min/1.73m2); Glucose 167 mg/dL (74-106); Sodium 142 mmol/L (136-145); Total Protein 7.1 g/dL (6.4-8.2)
[2022-03-29 12:09] LABS: PSA, Ultrasensitive <0.01 ng/mL (<= 6.5)
[2022-03-31 09:39] LABS: Testosterone, Total <7.0 ng/dL (240-950)
== END 2022-03-25 01:53 | disposition home or self-care (01) ==
LOC: LBO 01:52
PROVIDERS: PCP Nurse Practitioner Family; Visit Provider Internal Medicine
DX: C61 Malignant neoplasm of prostate (principal)
CPT/HCPCS: 36415; 80053; 84153; 84403; 85025

== ENCOUNTER 2022-05-11 09:55 | Outpatient (CLI) | payer MEDICARE, SELFPAY ==
[2022-05-11 10:01] LABS: Abs Immature Grans 0.04 10^3/uL (0.0-0.06); Absolute Basophil Count 0.13 10^3/uL (0.0-0.2); Absolute Eosinophil Count 0.32 10^3/uL (0.0-0.7); Absolute Lymphocyte Count 2.27 10^3/uL (1.2-3.4); Absolute Monocyte Count 0.71 10^3/uL (0.1-0.8); Absolute Neutrophil Count 6.49 10^3/uL (1.2-6.7); Basophils % 1.3; Eosinophils % 3.2; HCT 39.8 % (40.0-50.0); HGB 13.1 g/dL (13.5-17.5); Immature Grans % 0.4; Lymphocytes % 22.8; MCH 30.6 pg (27.0-33.0); MCHC 32.9 % (32.0-36.0); MCV 93 fL (80-95); MPV 9.8 fL (8.0-11.0); Monocytes % 7.1; Neutrophils % 65.2; Platelet Count 318 10^3/uL (130-400); RBC 4.28 10^6/uL (4.36-5.78); RDW 13.9 % (11.8-14.1); WBC 9.96 10^3/uL (4.4-10.8)
[2022-05-11 10:15] LABS: ALT 23 U/L (16-63); AST 15 U/L (15-37); Albumin 3.4 g/dL (3.4-5.0); Alkaline Phosphatase 59 U/L (46-116); BUN 27 mg/dL (7-18); Bilirubin, Total 0.6 mg/dL (0.2-1.0); CREATININE 1.4 mg/dL (0.70-1.30); Calcium 9.1 mg/dL (8.5-10.1); Chloride 106 mmol/L (98-107); Estimated GFR 53.07 (mL/min/1.73m2); Glucose 174 mg/dL (74-106); Sodium 144 mmol/L (136-145)
[2022-05-12 17:21] LABS: PSA, Ultrasensitive <0.01 ng/mL (<= 6.5)
[2022-05-15 04:23] LABS: Testosterone, Total <7.0 ng/dL (240-950)
== END 2022-05-11 09:56 | disposition home or self-care (01) ==
LOC: LBO 09:56
PROVIDERS: PCP Nurse Practitioner Family; Visit Provider Internal Medicine
DX: C61 Malignant neoplasm of prostate (principal)
CPT/HCPCS: 36415; 80053; 84153; 84403; 85025

== ENCOUNTER 2022-07-28 14:51 | Outpatient (CLI) | payer MEDICARE, SELFPAY ==
[2022-07-28 15:09] LABS: Abs Immature Grans 0.04 10^3/uL (0.0-0.06); Absolute Eosinophil Count 0.08 10^3/uL (0.0-0.7); Absolute Lymphocyte Count 1.35 10^3/uL (1.2-3.4); Absolute Monocyte Count 0.41 10^3/uL (0.1-0.8); Absolute Neutrophil Count 7.01 10^3/uL (1.2-6.7); Basophils % 1.1; Eosinophils % 0.9; HCT 35.8 % (40.0-50.0); Immature Grans % 0.4; MCH 30.7 pg (27.0-33.0); MCHC 33.5 % (32.0-36.0); MCV 92 fL (80-95); MPV 10.5 fL (8.0-11.0); Monocytes % 4.6; Platelet Count 300 10^3/uL (130-400); RBC 3.91 10^6/uL (4.36-5.78); RDW 14.3 % (11.8-14.1); RDW-SD 48.1 fL; WBC 8.99 10^3/uL (4.4-10.8)
[2022-07-28 15:24] LABS: ALT 21 U/L (16-63); AST 13 U/L (15-37); Albumin 3.4 g/dL (3.4-5.0); Alkaline Phosphatase 66 U/L (46-116); Anion Gap 15.1 mmol/L (3-11); BUN 49 mg/dL (7-18); Bilirubin, Total 0.7 mg/dL (0.2-1.0); CO2 21.9 mmol/L (21.0-32.0); Calcium 9.1 mg/dL (8.5-10.1); Chloride 103 mmol/L (98-107); Estimated GFR 34.38 (mL/min/1.73m2); Glucose 285 mg/dL (74-106); Potassium 3.9 mmol/L (3.5-5.1); Sodium 140 mmol/L (136-145); Total Protein 7.1 g/dL (6.4-8.2)
[2022-07-29 17:01] LABS: PSA, Ultrasensitive <0.01 ng/mL (<= 6.5)
[2022-08-02 14:06] LABS: Testosterone, Total <7.0 ng/dL (240-950)
== END 2022-07-28 14:52 | disposition home or self-care (01) ==
LOC: LBO 14:53
PROVIDERS: PCP Nurse Practitioner Family; Visit Provider Internal Medicine
DX: C61 Malignant neoplasm of prostate (principal)
CPT/HCPCS: 36415; 80053; 84153; 84403; 85025

== ENCOUNTER 2022-09-03 14:53 | Outpatient (CLI) | payer MEDICARE, SELFPAY ==
[2022-09-03 14:23] LABS: Hemoglobin A1C 8.1 % (<5.7)
[2022-09-03 14:44] LABS: ALT 13 U/L (16-63); AST 16 U/L (15-37); Albumin 3.3 g/dL (3.4-5.0); Alkaline Phosphatase 61 U/L (46-116); Anion Gap 8.4 mmol/L (3-11); BUN 28 mg/dL (7-18); Bilirubin, Total 0.7 mg/dL (0.2-1.0); CO2 26.6 mmol/L (21.0-32.0); CREATININE 1.2 mg/dL (0.70-1.30); Chloride 108 mmol/L (98-107); Estimated GFR 63.46 (mL/min/1.73m2); Glucose 202 mg/dL (74-106); Potassium 4.4 mmol/L (3.5-5.1); Sodium 143 mmol/L (136-145); Total Protein 6.6 g/dL (6.4-8.2)
[2022-09-06 15:47] LABS: Fructosamine 267 mcmol/L (200 - 285)
[2022-09-06 15:55] LABS: C-Peptide 2.7 ng/mL (1.1 - 4.4)
== END 2022-09-03 14:54 | disposition home or self-care (01) ==
LOC: LBO 14:53
PROVIDERS: PCP Nurse Practitioner Family; Visit Provider Internal Medicine Endocrinology, Diabetes & Metabolism
DX: E11.65 Type 2 diabetes mellitus with hyperglycemia (principal)
CPT/HCPCS: 36415; 80053; 82985; 83036; 84681

== ENCOUNTER 2022-09-13 02:48 | Outpatient (CLI) | payer MEDICARE, SELFPAY ==
[2022-09-13] MEDS: Albuterol HFA 18 GM 200 PUFF INH IH (15:03)
[2022-09-13] MEDS: Inhaler, Assist Device 1 EACH MC (15:03)
--- NOTE | 2022-09-14 14:55 | W.PFT ---
Date of service: 10/14/22 Time of Service: 12:58 Pulmonary Function Test Result Indications: Dyspnea Interpretation Spirometry: Although the FEV1/FVC is normal, mild airflow limitation is likely given the shape of the flow volume loop and volume time curve. There is a significant bronchodilator response. Lung Volumes: There is air trapping Diffusion Capacity: Diffusion is low Airway Pressure: Increase airways resistance. Impression Likely mild airflow limitation with a bronchodilator response, air trapping, reduced diffusion and increased airways resistance. This could represent COPD with emphysema or Asthma-COPD Overlap Syndrome. Clinical Correlation therefore is recommended.
== END 2022-09-13 02:49 | disposition home or self-care (01) ==
LOC: RT 02:49
PROVIDERS: PCP Nurse Practitioner Family; Visit Provider Nurse Practitioner Family
DX: R06.00 Dyspnea, unspecified (principal); J44.9 Chronic obstructive pulmonary disease, unspecified
CPT/HCPCS: 94060; 94726; 94729

== ENCOUNTER 2022-09-16 19:05 | Outpatient (REF) | payer MEDICARE, SELFPAY ==
[2022-09-17 09:20] LABS: Alpha 1 Antitrypsin,Serum 119 mg/dL (90-200)
== END 2022-09-16 19:06 | disposition home or self-care (01) ==
LOC: NCHCN 19:05
PROVIDERS: PCP Nurse Practitioner Family; Visit Provider Nurse Practitioner Family
DX: J44.9 Chronic obstructive pulmonary disease, unspecified (principal)
CPT/HCPCS: 82103

== ENCOUNTER → 2022-10-07 01:40 | Outpatient (CLI) | payer MEDICARE, SELFPAY ==
--- NOTE | 2022-10-07 | DI.RAD_ITS ---
Exam(s) XR CHEST 2V PA LATERAL EXAM: XR CHEST 2V PA LATERAL CLINICAL HISTORY: SOB, R06.02,PROSTATE CA,C61. TECHNIQUE: 2D digital imaging was performed. COMPARISON: CR XR CHEST 2V PA LATERAL from 10/09/2021 FINDINGS: 2 views: Heart size is normal. The mediastinum is not widened. Elevation right hemidiaphragm again noted. Platelike atelectasis in both lung bases is unchanged. N o new infiltrates nor pleural effusions. No pulmonary edema. No pneumothorax. IMPRESSION: No acute pulmonary findings.As above. Findings unchanged from September 2021. DATA REPOSITORY: RADIATION DOSE DELIVERED:
== END ==
PROVIDERS: PCP Nurse Practitioner Family; Visit Provider Nurse Practitioner Family
DX: R06.02 Shortness of breath (principal); C61 Malignant neoplasm of prostate
CPT/HCPCS: 71046

== ENCOUNTER 2022-11-01 04:25 | Outpatient (CLI) | payer MEDICARE, SELFPAY ==
[2022-11-01 14:56] LABS: Abs Immature Grans 0.04 10^3/uL (0.0-0.06); Absolute Basophil Count 0.12 10^3/uL (0.0-0.2); Absolute Eosinophil Count 0.14 10^3/uL (0.0-0.7); Absolute Lymphocyte Count 1.65 10^3/uL (1.2-3.4); Absolute Monocyte Count 0.51 10^3/uL (0.1-0.8); Absolute Neutrophil Count 7.61 10^3/uL (1.2-6.7); Basophils % 1.2; Eosinophils % 1.4; HCT 39.4 % (40.0-50.0); HGB 13.2 g/dL (13.5-17.5); Immature Grans % 0.4; Lymphocytes % 16.4; MCH 30.5 pg (27.0-33.0); MCHC 33.5 % (32.0-36.0); MCV 91 fL (80-95); MPV 10.5 fL (8.0-11.0); Monocytes % 5.1; Neutrophils % 75.5; Platelet Count 370 10^3/uL (130-400); RBC 4.33 10^6/uL (4.36-5.78); RDW 13.5 % (11.8-14.1); RDW-SD 45.1 fL; WBC 10.07 10^3/uL (4.4-10.8)
[2022-11-01 15:26] LABS: ALT 27 U/L (16-63); AST 19 U/L (15-37); Albumin 3.6 g/dL (3.4-5.0); Alkaline Phosphatase 82 U/L (46-116); Anion Gap 13.1 mmol/L (3-11); BUN 25 mg/dL (7-18); Bilirubin, Total 0.9 mg/dL (0.2-1.0); CO2 25.9 mmol/L (21.0-32.0); CREATININE 1.6 mg/dL (0.70-1.30); Chloride 99 mmol/L (98-107); Estimated GFR 44.93 (mL/min/1.73m2); Glucose 335 mg/dL (74-106); Potassium 4.5 mmol/L (3.5-5.1); Sodium 138 mmol/L (136-145); Total Protein 7.2 g/dL (6.4-8.2)
[2022-11-02 18:10] LABS: PSA, Ultrasensitive <0.01 ng/mL (<= 6.5)
[2022-11-04 15:52] LABS: Testosterone, Total <7.0 ng/dL (240-950)
== END 2022-11-01 04:26 | disposition home or self-care (01) ==
PROVIDERS: PCP Nurse Practitioner Family; Visit Provider Nurse Practitioner Adult Health
DX: C61 Malignant neoplasm of prostate (principal); Z79.818 Long term (current) use of other agents affecting estrogen receptors and estrogen levels
CPT/HCPCS: 36415; 80053; 84153; 84403; 85025

== ENCOUNTER 2022-11-08 02:23 | Outpatient (CLI) | payer MEDICARE, SELFPAY ==
--- NOTE | 2022-11-09 15:04 | W.6MWT ---
Date of service: 11/08/22 Time of Service: 14:36 6 Minute Walk Test Note: 6 Minute Walk Test Distance walked: 400 feet (decreased) Desaturations: no significant desaturations Heart rate changes: rest: 58bpm, after 30 sec up to 115 to a max [id number] at 6 min. Recommendation: No supplemental O2 needed. Reduced walk distance an augmented heart rate response. Jennifer Briscoe MD Pulmonary & Critical Care Medicine
== END 2022-11-08 02:24 | disposition home or self-care (01) ==
LOC: RT 02:23
PROVIDERS: PCP Nurse Practitioner Family; Visit Provider Physician Assistant Surgical
DX: R06.00 Dyspnea, unspecified (principal); J98.6 Disorders of diaphragm
CPT/HCPCS: 94618

== ENCOUNTER → 2022-11-12 00:57 | Outpatient (CLI) | payer MEDICARE, SELFPAY ==
--- NOTE | 2022-11-12 08:15 | DI.CTLCSR_ITS ---
Exam(s) CT CHEST LUNG CANCER SCREEN EXAM: CT CHEST LUNG CANCER SCREEN CLINICAL HISTORY: Screening for lung cancer,former smoker, z87.891 TECHNIQUE: Imaging Protocol: Axial computed tomography images with coronal and sagittal reformatted images were created and reviewed COMPARISON: CR XR CHEST 2V PA LATERAL from 10/07/2022 FINDINGS: Tracheobronchial tree: Patent where visualized. Pulmonary parenchyma: No consolidation or dominant measurable mass. There is elevation of the right h emidiaphragm. There is scarring in the right middle lobe and right lung base. Lung Nodules: None. Mediastinum and Sosa: No dominant adenopathy or fluid collection. The esophagus is unremarkable. Thyroid gland: Unremarkable. Lymph nodes: Unremarkable. Pleura: No effusion or pneumothorax. Heart: The heart is not dilated. Coronary artery calcification and/or stents are present. No pericar dial effusion. Aorta: Thoracic aorta non-dilated.Atherosclerosis. Upper abdomen: There are multiple hypodensities in the liver. The largest is in the left lobe and m easures 4.2 cm. The have the appearance of cysts. Soft Tissues: Unremarkable. Bones: Within normal limits for the patient's age. IMPRESSION: 1. No pulmonary nodules. 2. Right middle and right lower lobe pulmonary scarring. 3. Multiple hepatic hypodensities which have the appearance of cysts. Confirmation with MRI or CT sc an of the abdomen is recommended. Lung RADS Cat 1 - Negative: No nodules and definitely benign nodules Lung-RADS 1.0 CATEGORIES: Category 0 - Prior chest CT exam(s) being located for comparison. Category 1 - Annual screening in 12 months. No nodules or definitely benign nodules. Category 2 - Annual screening in 12 months. Benign appearance. Nodules with low likelihood of becomin g active cancer. Category 3 - 6-month follow-up. Probably benign. Short-term follow-up suggested. Nodules with low lik elihood of becoming active cancer. Category 4A - 3-month follow-up and CT/PET if >8 mm in size. Suspicious finding. Findings which requi re additional testing. Category 4B - Findings which require additional testing and tissue sampling. Suspicious finding. Category 4X - Category 3 or 4 nodules with additional features or imaging findings that increases the suspicion of malignancy. Modifier S- Potentially clinically significant finding. (Non lung cancer) Unexpected findings RADIATION DOSE DELIVERED: 100.45mGy.cm Total DLP 100.45mGy.cmTotal DLP DATA REPOSITORY: All CT scans at this facility are submitted to the National Radiology Data Registry (NRDR) Dose Index Registry (DIR) with the [employer] [place] [employer] (A[employer]). RADIATION OPTIMIZATION: All CT scans at this facility use at least one of these dose optimization te chniques: automated exposure control; mA and/or kV adjustment per patient size (includes targeted exa ms where dose is matched to clinical indication); or iterative reconstruction.
== END ==
PROVIDERS: PCP Nurse Practitioner Family; Visit Provider Physician Assistant Surgical
DX: Z87.891 Personal history of nicotine dependence (principal); Z12.2 Encounter for screening for malignant neoplasm of respiratory organs; R91.8 Other nonspecific abnormal finding of lung field
CPT/HCPCS: 71271

== ENCOUNTER → 2022-12-22 00:06 | Outpatient (CLI) | payer MEDICARE, SELFPAY ==
--- NOTE | 2022-12-22 15:00 | DI.US_ITS ---
APPROVED REPORT EXAM: Comprehensive 2D, Doppler, and color-flow Echocardiogram Patient Location: Out-Patient Refueler: Vee Hawkins RDCS (AE) Indications: High risk medication use, prostate cancer Other Information Study Quality: Adequate Conclusion Normal left ventricular wall thickness and chamber size. Ejection fraction is 50 to 55%. There are no segmental wall motion abnormalities Normal right ventricular size and systolic function Both atria are normal in size There is no hemodynamically significant valvular disease Mildly dilated ascending aorta 3.56 cm Wall motion Left Ventricle The left ventricle is normal size. The left ventricular systolic function is normal. The left ventric ular ejection fraction is within the normal range. There is normal left ventricular wall thickness. T here is normal LV segmental wall motion.. There is no ventricular septal defect visualized. LVEF is 5 0-55% Right Ventricle The right ventricle is normal size. The right ventricular systolic function is normal. Atria The left atrium size is normal. The right atrium size is normal. The interatrial septum is intact wit h no evidence for an atrial septal defect. Aortic Valve The aortic valve is normal in structure. Aortic valve is trileaflet. There is no aortic valvular sten osis. No aortic regurgitation is present. Mitral Valve Mild mitral annular calcification. No evidence of mitral valve stenosis. Trace mitral regurgitation. Tricuspid Valve The tricuspid valve is normal in structure. There is no tricuspid valve stenosis. Trace tricuspid reg urgitation. Pulmonic Valve The pulmonary valve is normal in structure. There is no pulmonic valvular stenosis. There is no pulmo kavitha valvular regurgitation. Great Vessels The aortic root is normal in size. The ascending aorta is mildly dilated. Aortic arch is not well vis ualized. IVC is normal in size and collapses >50% with inspiration. Pericardium There is no pericardial effusion. 2D Dimensions IVSD d PLAX 1.20 cm M: 0.6-1.2 Ao Root d 3.33 cm M: 3.1 - 3.7 LVPW d PLAX 1.20 cm M: 0.6 - 1.2 Ao Asc Diam d 3.57 cm M: 2.6 - 3.4 LVID d PLAX 4.24 cm M: 4.2 - 5.8 LVDs 3.12 cm M: 2.5 - 4.0 LV EF Teichholz 51.9 % FS 26.30 % LV EDV (Teich) 80.4 mL LV ESV (Teich) 38.7 mL Auto EF LV EDV A4C 77.6 mL LV EDV A2C 98.8 mL LV EDV BP 87.3 mL LV ESV A4C 44.0 mL LV ESV A2C 50.3 mL LV ESV BP 47.4 mL LVEF(%) A4C 43.3 % LVEF(%) A2C 49.1 % LVEF(%) BP 45.7 % LV SV A4C 33.6 ml LV SV A2C 48.6 ml LV SV BP 39.9 ml LV CO A4C 2.6 L/min LV CO A2C 3.9 L/min LV CO BP 3.2 L/min HR A4C 76.44 BPM HR A2C 79.83 BPM LV EDV Index (BP) LV Strain Long Pk Overal Avg (s) 11.42 RV Strain Global Peak Long. Strain A4C 13.19 Global Peak Long. Strain A4C FW 14.12 LA Volume LA Length A4C 5.0 cm LA Length A2C 5.2 cm LA Area A4C s 13.91 cm2 LA Area A2C s 16.13 cm2 LA Vol A4C A-L 32.94 mL LA Vol A2C A-L 42.37 mL LA Vol Biplane A-L 38.2 mL LA Vol/BSA A4C A-L LA Vol/BSA A2C A-L LA Vol/BSA BP A-L 17.0 mL/m2 LA Vol A4C MOD 29.5 mL LA Vol A2C MOD 40.5 mL LA Vol BP MOD 35.1 mL RA Volume RA Area A4C 10.3 cm2 RA ESV A4C (A-L) 20.0mL RA Vol/BSA A4C A-L RA Length A4C 4.5 cm RA ESV A4C (MOD) 19.3mL LV Diastology MV E' medial 0.045 (>0.07 m/s) MV E Vmax 0.58 (0.4-1.3 m/s) MV E/E' MED 13.06 (<14) MV A Vmax 0.65 (0.4-1.3 m/s) MV E' lateral 0.061 (>0.1 m/s) E/A Ratio 0.9 MV E/E' LAT 9.60 (<14) MV E' Average 0.053 m/s MV E/E'(average) 11.07 Aortic Valve AoV Vmax 1.25 m/s LVOT Vmax 1.15 m/s AoV Peak Grad 6.2 mmHg LVOT Peak Grad 5.3 mmHg AoV Area (Vmax) 3.24 cm2 LVOT VTI 0.225 m AoV VTI 0.215 m LVOT Mean Grad 2.7 mmHg AoV Mean Angel. 0.94 m/s LVOT SV 79.17 mL AoV Mean Grad 3.8 mmHg LVOT Diam s 2.10 cm AoV Area (VTI) 3.68 cm2 Velocity Ratio 0.92 Mitral Valve MV DT 415 (160-240 msec) MV Vmax TIPS 0.71 m/s MV Mean Grad 1.0 (<2mmHg) MV VTI 0.222 m Pulmonary Valve PV Vmax 0.70 (0.5-1.5 m/s) RVOT Vmax 0.68 m/s PV Peak Grad 1.9 mmHg RVOT Peak Gr. 1.9 mmHg PV Mean Angel 0.54 m/s RVOT VTI 0.138 m PV Mean Grad 1.3 mmHg RVOT Mean Gr. 1.1 mmHg Tricuspid Valve RA Pressure 3.00 mmHg TV S' 0.10 m/s
== END ==
PROVIDERS: PCP Nurse Practitioner Family; Visit Provider Internal Medicine
DX: Z79.899 Other long term (current) drug therapy (principal)
CPT/HCPCS: 93306

== ENCOUNTER → 2023-01-05 09:04 | Outpatient (BNVA) | payer MEDICARE, SELFPAY | PROVIDERS: PCP Nurse Practitioner Family; Referring Provider Nurse Practitioner Family; Visit Provider Physician Assistant Surgical | DX: J44.9 Chronic obstructive pulmonary disease, unspecified (principal); Z87.891 Personal history of nicotine dependence; J98.6 Disorders of diaphragm | CPT/HCPCS: 76604; 99214 ==

== ENCOUNTER 2023-01-24 18:18 | Outpatient (CLI) | payer MEDICARE, SELFPAY ==
[2023-01-24 15:47] LABS: Abs Immature Grans 0.06 10^3/uL (0.0-0.06); Absolute Basophil Count 0.14 10^3/uL (0.0-0.2); Absolute Lymphocyte Count 1.74 10^3/uL (1.2-3.4); Absolute Neutrophil Count 7.35 10^3/uL (1.2-6.7); Basophils % 1.3; Eosinophils % 3.8; HCT 38.7 % (40.0-50.0); HGB 12.2 g/dL (13.5-17.5); Immature Grans % 0.6; Lymphocytes % 16.6; MCH 29.2 pg (27.0-33.0); MCHC 31.5 % (32.0-36.0); MCV 93 fL (80-95); MPV 10.5 fL (8.0-11.0); Monocytes % 7.6; Neutrophils % 70.1; Platelet Count 367 10^3/uL (130-400); RBC 4.18 10^6/uL (4.36-5.78); RDW 14.7 % (11.8-14.1); RDW-SD 50.2 fL; WBC 10.49 10^3/uL (4.4-10.8)
[2023-01-24 15:53] LABS: ALT 30 U/L (16-63); AST 17 U/L (15-37); Albumin 3.4 g/dL (3.4-5.0); Alkaline Phosphatase 62 U/L (46-116); Anion Gap 9.2 mmol/L (3-11); BUN 27 mg/dL (7-18); Bilirubin, Total 0.7 mg/dL (0.2-1.0); CO2 27.8 mmol/L (21.0-32.0); CREATININE 1.4 mg/dL (0.70-1.30); Calcium 9.3 mg/dL (8.5-10.1); Chloride 107 mmol/L (98-107); Estimated GFR 52.74 (mL/min/1.73m2); Glucose 193 mg/dL (74-106); Potassium 4.5 mmol/L (3.5-5.1); Sodium 144 mmol/L (136-145); Total Protein 7.1 g/dL (6.4-8.2)
[2023-01-26 10:10] LABS: PSA, Ultrasensitive <0.01 ng/mL (<= 6.5)
[2023-01-28 07:10] LABS: Testosterone, Total <7.0 ng/dL (240-950)
== END 2023-01-24 18:19 | disposition home or self-care (01) ==
LOC: LBO 18:18
PROVIDERS: PCP Nurse Practitioner Family; Visit Provider Internal Medicine
DX: C61 Malignant neoplasm of prostate (principal)
CPT/HCPCS: 36415; 80053; 84153; 84403; 85025

== ENCOUNTER 2023-04-27 15:17 | Outpatient (REF) | payer MEDICARE, SELFPAY ==
[2023-04-27 21:37] LABS: Anion Gap 10.7 mmol/L (3-11); BUN 35 mg/dL (7-18); CO2 27.3 mmol/L (21.0-32.0); CREATININE 1.2 mg/dL (0.70-1.30); Calcium 9.1 mg/dL (8.5-10.1); Chloride 109 mmol/L (98-107); Estimated GFR 63.46 (mL/min/1.73m2); Glucose 113 mg/dL (74-106); Potassium 4.8 mmol/L (3.5-5.1); Sodium 147 mmol/L (136-145); Uric Acid 4.5 mg/dL (3.5-7.2)
== END 2023-04-27 15:18 | disposition home or self-care (01) ==
LOC: NCHCN 15:17
PROVIDERS: PCP Nurse Practitioner Family; Visit Provider Nurse Practitioner Family
DX: I10 Essential (primary) hypertension (principal); M10.9 Gout, unspecified
CPT/HCPCS: 80048; 84550

== ENCOUNTER 2023-04-28 16:16 | Outpatient (CLI) | payer MEDICARE, SELFPAY ==
[2023-04-28 16:25] LABS: ALT 29 U/L (16-63); AST 19 U/L (15-37); Albumin 3.7 g/dL (3.4-5.0); Alkaline Phosphatase 73 U/L (46-116); Anion Gap 10.5 mmol/L (3-11); BUN 31 mg/dL (7-18); Bilirubin, Total 0.7 mg/dL (0.2-1.0); CO2 27.5 mmol/L (21.0-32.0); CREATININE 1.3 mg/dL (0.70-1.30); Calcium 9.4 mg/dL (8.5-10.1); Chloride 107 mmol/L (98-107); Estimated GFR 57.65 (mL/min/1.73m2); Glucose 174 mg/dL (74-106); Potassium 4.7 mmol/L (3.5-5.1); Sodium 145 mmol/L (136-145); Total Protein 7.4 g/dL (6.4-8.2)
[2023-04-28 16:32] LABS: Abs Immature Grans 0.06 10^3/uL (0.0-0.06); Absolute Basophil Count 0.11 10^3/uL (0.0-0.2); Absolute Lymphocyte Count 2.15 10^3/uL (1.2-3.4); Absolute Monocyte Count 0.55 10^3/uL (0.1-0.8); Absolute Neutrophil Count 8.09 10^3/uL (1.2-6.7); Eosinophils % 1.8; HCT 39.2 % (40.0-50.0); HGB 12.7 g/dL (13.5-17.5); Immature Grans % 0.5; Lymphocytes % 19.3; MCH 29.5 pg (27.0-33.0); MCHC 32.4 % (32.0-36.0); MCV 91 fL (80-95); MPV 10.2 fL (8.0-11.0); Monocytes % 4.9; Neutrophils % 72.5; Platelet Count 359 10^3/uL (130-400); RBC 4.31 10^6/uL (4.36-5.78); RDW-SD 49.4 fL; WBC 11.16 10^3/uL (4.4-10.8)
[2023-04-29 16:22] LABS: PSA, Ultrasensitive <0.01 ng/mL (<= 6.5)
[2023-05-04 01:51] LABS: Testosterone, Total <7.0 ng/dL (240-950)
== END 2023-04-28 16:17 | disposition home or self-care (01) ==
LOC: LBO 16:16
PROVIDERS: PCP Nurse Practitioner Family; Visit Provider Internal Medicine
DX: C61 Malignant neoplasm of prostate (principal)
CPT/HCPCS: 36415; 80053; 84153; 84403; 85025

== ENCOUNTER 2023-06-03 15:13 | Outpatient (REF) | payer MEDICARE, SELFPAY ==
[2023-06-03 21:36] LABS: Bilirubin Small (Negative); Blood Large (Negative); Clarity Turbid (Clear); Glucose Negative (Negative); Ketones Trace mg/dL (Negative); Leukocyte Esterase Negative (Negative); Nitrite Negative (Negative); Specific Gravity 1.025 (1.005-1.025); Urobilinogen 0.2 mg/dL (Up to 0.2)
[2023-06-03 21:46] LABS: C & S Indicated? C&S Done As Ordered; RBC >50 HPF (0-2)
== END 2023-06-03 15:14 | disposition home or self-care (01) ==
LOC: NCHCN 15:13
PROVIDERS: PCP Nurse Practitioner Family; Visit Provider Nurse Practitioner Family
DX: R31.0 Gross hematuria (principal)
CPT/HCPCS: 81003; 81015; 87086

== ENCOUNTER → 2023-06-13 03:06 | Outpatient (CLI) | payer MEDICARE, SELFPAY ==
--- NOTE | 2023-06-13 | DI.US_ITS ---
Exam(s) US RENAL EXAM: US RENAL CLINICAL HISTORY: GROSS HEMATURIA, PROSTATE NEOPLASM, CHRONIC KIDNEY DISEASE TECHNIQUE: Ultrasound of both kidneys performed using standard protocol. COMPARISON: Prior ultrasound of 09/02/2021. FINDINGS: RIGHT KIDNEY: Measures 11 cm in length. Small cyst measuring 1.4 x 1.5 cm noted. Normal cortical thickness and cor ticomedullary differentiation .No solid masses No intrarenal calculi nor hydronephrosis. LEFT KIDNEY: Measures 10.2 cm in length. No cysts evident. Normal cortical thickness and corticomedullary differe ntiaion. The previously described hyperechoic nodule in the upper pole region is less well visualize d on today's study. 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 There are no convinc ing calculi in either kidney. Hydronephrosis. URINARY BLADDER: Prevoid volume is 238 cc Postvoid volume is 103 cc No evidence of bladder mass nor diverticuli. Ureterovesical jets: Both identified and appear symmetrical IMPRESSION: 1. No significant ultrasound findings in the kidneys. 2. 103 cc postvoid residual volume in the urinary bladder. No obvious bladder mass nor intraluminal calculi in the bladder. Both ureterovesical jets were ident ified. DATA REPOSITORY:
== END ==
PROVIDERS: PCP Nurse Practitioner Family; Visit Provider Nurse Practitioner Family
DX: R31.0 Gross hematuria (principal); E11.22 Type 2 diabetes mellitus with diabetic chronic kidney disease
CPT/HCPCS: 76770

== ENCOUNTER 2023-06-13 17:51 | Outpatient (CLI) | payer MEDICARE, SELFPAY ==
[2023-06-13 10:45] LABS: Abs Immature Grans 0.04 10^3/uL (0.0-0.06); Absolute Basophil Count 0.11 10^3/uL (0.0-0.2); Absolute Lymphocyte Count 1.98 10^3/uL (1.2-3.4); Absolute Monocyte Count 0.73 10^3/uL (0.1-0.8); Absolute Neutrophil Count 6.17 10^3/uL (1.2-6.7); Basophils % 1.2; Eosinophils % 3.2; HCT 36.8 % (40.0-50.0); HGB 11.7 g/dL (13.5-17.5); Immature Grans % 0.4; Lymphocytes % 21.2; MCHC 31.8 % (32.0-36.0); MCV 91 fL (80-95); MPV 10.4 fL (8.0-11.0); Monocytes % 7.8; Neutrophils % 66.2; Platelet Count 185 10^3/uL (130-400); RBC 4.04 10^6/uL (4.36-5.78); RDW 14.7 % (11.8-14.1); RDW-SD 49.5 fL; WBC 9.33 10^3/uL (4.4-10.8)
[2023-06-13 11:04] LABS: ALT 23 U/L (16-63); AST 12 U/L (15-37); Albumin 3.3 g/dL (3.4-5.0); Alkaline Phosphatase 73 U/L (46-116); Anion Gap 11.3 mmol/L (3-11); BUN 41 mg/dL (7-18); Bilirubin, Total 0.7 mg/dL (0.2-1.0); CO2 25.7 mmol/L (21.0-32.0); CREATININE 1.5 mg/dL (0.70-1.30); Calcium 8.9 mg/dL (8.5-10.1); Chloride 106 mmol/L (98-107); Estimated GFR 48.55 (mL/min/1.73m2); Glucose 286 mg/dL (74-106); Potassium 4.4 mmol/L (3.5-5.1); Sodium 143 mmol/L (136-145); Total Protein 6.8 g/dL (6.4-8.2)
== END 2023-06-13 17:52 | disposition home or self-care (01) ==
LOC: LBO 17:53
PROVIDERS: PCP Nurse Practitioner Family; Visit Provider Nurse Practitioner Family
DX: C61 Malignant neoplasm of prostate (principal)
CPT/HCPCS: 36415; 80053; 85025

== ENCOUNTER → 2023-06-21 10:52 | Outpatient (BNVA) | payer MEDICARE, SELFPAY | PROVIDERS: PCP Nurse Practitioner Family; Referring Provider Nurse Practitioner Family; Visit Provider Podiatrist | DX: E11.42 Type 2 diabetes mellitus with diabetic polyneuropathy (principal); S98.132D Complete traumatic amputation of one left lesser toe, subsequent encounter; L85.8 Other specified epidermal thickening; L60.3 Nail dystrophy; N18.31 Chronic kidney disease, stage 3a; S98.112D Complete traumatic amputation of left great toe, subsequent encounter; S90.22 Contusion of lesser toe with damage to nail; X58.XXXD Exposure to other specified factors, subsequent encounter | CPT/HCPCS: 11305; 11721 ==

== ENCOUNTER → 2023-07-08 09:14 | Outpatient (BNVA) | payer MEDICARE, SELFPAY | PROVIDERS: PCP Nurse Practitioner Family; Referring Provider Nurse Practitioner Family; Visit Provider Student in an Organized Health Care Education/Training Program | DX: J98.6 Disorders of diaphragm (principal); J44.9 Chronic obstructive pulmonary disease, unspecified; Z87.891 Personal history of nicotine dependence | CPT/HCPCS: 99214 ==

== ENCOUNTER 2023-07-25 16:19 | Outpatient (CLI) | payer MEDICARE, SELFPAY ==
[2023-07-25 13:22] LABS: Abs Immature Grans 0.04 10^3/uL (0.0-0.06); Absolute Basophil Count 0.13 10^3/uL (0.0-0.2); Absolute Lymphocyte Count 2.32 10^3/uL (1.2-3.4); Absolute Monocyte Count 0.69 10^3/uL (0.1-0.8); Basophils % 1.1 %; Eosinophils % 3.4 %; HCT 39.7 % (40.0-50.0); HGB 12.6 g/dL (13.5-17.5); Immature Grans % 0.3 %; MCHC 31.7 % (32.0-36.0); MCV 91 fL (80-95); MPV 10.8 fL (8.0-11.0); Monocytes % 5.9 %; Neutrophils % 69.3 %; Platelet Count 113 10^3/uL (130-400); RBC 4.35 10^6/uL (4.36-5.78); RDW-SD 47.5 fL; WBC 11.62 10^3/uL (4.4-10.8)
[2023-07-25 13:23] LABS: Absolute Neutrophil Count 8.05 10^3/uL (1.2-6.7)
[2023-07-25 14:10] LABS: ALT 28 U/L (16-63); AST 16 U/L (15-37); Albumin 3.6 g/dL (3.4-5.0); Alkaline Phosphatase 71 U/L (46-116); Anion Gap 9.7 mmol/L (3-11); BUN 25 mg/dL (7-18); Bilirubin, Total 0.6 mg/dL (0.2-1.0); CO2 27.3 mmol/L (21.0-32.0); CREATININE 1.3 mg/dL (0.70-1.30); Calcium 9.2 mg/dL (8.5-10.1); Chloride 107 mmol/L (98-107); Estimated GFR 57.29 (mL/min/1.73m2); Glucose 182 mg/dL (74-106); Potassium 4.2 mmol/L (3.5-5.1); Sodium 144 mmol/L (136-145); Total Protein 7.1 g/dL (6.4-8.2)
[2023-07-27 16:34] LABS: PSA, Ultrasensitive <0.01 ng/mL (<= 6.5)
[2023-07-28 12:34] LABS: Testosterone, Total <7.0 ng/dL (240-950)
== END 2023-07-25 16:20 | disposition home or self-care (01) ==
PROVIDERS: PCP Nurse Practitioner Family; Visit Provider Internal Medicine
DX: C61 Malignant neoplasm of prostate (principal)
CPT/HCPCS: 36415; 80053; 84153; 84403; 85025

== ENCOUNTER → 2023-09-20 11:04 | Outpatient (BNVA) | payer MEDICARE, SELFPAY | PROVIDERS: PCP Nurse Practitioner Family; Referring Provider Nurse Practitioner Family; Visit Provider Podiatrist | DX: E11.42 Type 2 diabetes mellitus with diabetic polyneuropathy (principal); L60.3 Nail dystrophy; N18.31 Chronic kidney disease, stage 3a; E11.51 Type 2 diabetes mellitus with diabetic peripheral angiopathy without gangrene; E11.65 Type 2 diabetes mellitus with hyperglycemia; S90.221A Contusion of right lesser toe(s) with damage to nail, initial encounter; Z89.412 Acquired absence of left great toe; Z89.422 Acquired absence of other left toe(s) | CPT/HCPCS: 11721 ==

== ENCOUNTER 2023-11-14 02:07 | Outpatient (CLI) | payer MEDICARE, SELFPAY ==
--- NOTE | 2023-11-14 07:15 | DI.CTLCSR_ITS ---
Exam(s) CT CHEST LUNG CANCER SCREEN EXAM: CT CHEST LUNG CANCER SCREEN CLINICAL HISTORY: Screening for lung cancer,former smoker, z87.891 TECHNIQUE: Imaging Protocol: Axial computed tomography images with coronal and sagittal reformatted images were created and reviewed. Low dose screening protocol. COMPARISON: CT CT CHEST LUNG CANCER SCREEN from 11/12/2022 FINDINGS: Tracheobronchial tree: No bronchiectasis or mucus plugging. Mediastinum and Sosa: No dominant adenopathy or fluid collection. Pulmonary parenchyma: Elevated right diaphragm and adjacent scarring/atelectasis again noted. No con solidation or dominant measurable mass. Minimal emphysematous changes. Lung Nodules: No suspicious pulmonary nodules. Pleura: No effusion. No pneumothorax. Heart: The heart is not dilated. Moderate coronary artery calcifications are seen. Aorta: Thoracic aorta non-dilated. Atherosclerotic changes. Upper abdomen: Liver cysts again noted. Bones: Prominent endplate osteophytes. No compression fractures. Soft Tissues: Unremarkable. IMPRESSION: No suspicious pulmonary nodules. Lung RADS Cat 1 - Negative: No nodules and definitely benign nodules Lung-RADS 1.0 CATEGORIES: Category 0 - Prior chest CT exam(s) being located for comparison. Category 1 - Annual screening in 12 months. No nodules or definitely benign nodules. Category 2 - Annual screening in 12 months. Benign appearance. Nodules with low likelihood of becomin g active cancer. Category 3 - 6-month follow-up. Probably benign. Short-term follow-up suggested. Nodules with low lik elihood of becoming active cancer. Category 4A - 3-month follow-up and CT/PET if >8 mm in size. Suspicious finding. Findings which requi re additional testing. Category 4B - Findings which require additional testing and tissue sampling. Category 4X - Category 3 or 4 nodules with additional features or imaging findings that increases the suspicion of malignancy. Modifier S- Potentially clinically significant findings (non lung cancer) RADIATION DOSE DELIVERED: !Error Total DLP DATA REPOSITORY: All CT scans at this facility are submitted to the National Radiology Data Registry (NRDR) Dose Index Registry (DIR) with the [employer] ([employer]). RADIATION OPTIMIZATION: All CT scans at this facility use at least one of these dose optimization te chniques: automated exposure control; mA and/or kV adjustment per patient size (includes targeted exa ms where dose is matched to clinical indication); or iterative reconstruction.
== END 2023-11-14 02:27 ==
LOC: DI 02:07
PROVIDERS: PCP Nurse Practitioner Family; Visit Provider Student in an Organized Health Care Education/Training Program
DX: Z87.891 Personal history of nicotine dependence (principal); Z12.2 Encounter for screening for malignant neoplasm of respiratory organs
CPT/HCPCS: 71271

== ENCOUNTER 2023-11-30 08:18 | Outpatient (CLI) | payer MEDICARE, SELFPAY ==
[2023-11-30 14:33] LABS: Abs Immature Grans 0.03 10^3/uL (0.0-0.06); Absolute Basophil Count 0.15 10^3/uL (0.0-0.2); Absolute Eosinophil Count 0.32 10^3/uL (0.0-0.7); Absolute Lymphocyte Count 2.06 10^3/uL (1.2-3.4); Absolute Monocyte Count 0.71 10^3/uL (0.1-0.8); Absolute Neutrophil Count 7.41 10^3/uL (1.2-6.7); Basophils % 1.4 %; HCT 39.7 % (40.0-50.0); HGB 12.7 g/dL (13.5-17.5); Immature Grans % 0.3 %; Lymphocytes % 19.3 %; MCH 29.4 pg (27.0-33.0); MCV 92 fL (80-95); MPV 9.7 fL (8.0-11.0); Monocytes % 6.6 %; Neutrophils % 69.4 %; Platelet Count 323 10^3/uL (130-400); RBC 4.32 10^6/uL (4.36-5.78); RDW 14.8 % (11.8-14.1); RDW-SD 50.3 fL; WBC 10.68 10^3/uL (4.4-10.8)
[2023-11-30 15:02] LABS: ALT 55 U/L (16-63); AST 27 U/L (15-37); Albumin 3.6 g/dL (3.4-5.0); Alkaline Phosphatase 70 U/L (46-116); Anion Gap 8.5 mmol/L (3-11); BUN 41 mg/dL (7-18); Bilirubin, Total 0.53 mg/dL (0.2-1.0); CO2 28.5 mmol/L (21.0-32.0); CREATININE 1.6 mg/dL (0.70-1.30); Calcium 9.7 mg/dL (8.5-10.1); Chloride 109 mmol/L (98-107); Estimated GFR 44.65 (mL/min/1.73m2); Glucose 198 mg/dL (74-106); Potassium 5.2 mmol/L (3.5-5.1); Sodium 146 mmol/L (136-145); Total Protein 7.5 g/dL (6.4-8.2)
[2023-12-02 16:29] LABS: PSA, Ultrasensitive <0.01 ng/mL (<= 6.5)
[2023-12-04 10:38] LABS: Testosterone, Total <7.0 ng/dL (240-950)
== END 2023-11-30 08:19 | disposition home or self-care (01) ==
LOC: LBO 08:18
PROVIDERS: PCP Nurse Practitioner Family; Visit Provider Internal Medicine
DX: C61 Malignant neoplasm of prostate (principal)
CPT/HCPCS: 80053; 84153; 84403; 85025

== ENCOUNTER → 2024-01-04 11:01 | Outpatient (BNVA) | payer MEDICARE, SELFPAY | PROVIDERS: PCP Nurse Practitioner Family; Referring Provider Nurse Practitioner Family; Visit Provider Physician Assistant Surgical | DX: J44.9 Chronic obstructive pulmonary disease, unspecified (principal); J98.6 Disorders of diaphragm; Z87.891 Personal history of nicotine dependence | CPT/HCPCS: 99214 ==

== ENCOUNTER → 2024-01-17 11:00 | Outpatient (BNVA) | payer MEDICARE, SELFPAY | PROVIDERS: PCP Nurse Practitioner Family; Referring Provider Nurse Practitioner Family; Visit Provider Podiatrist | DX: L60.3 Nail dystrophy (principal); E11.42 Type 2 diabetes mellitus with diabetic polyneuropathy; N18.31 Chronic kidney disease, stage 3a; E11.51 Type 2 diabetes mellitus with diabetic peripheral angiopathy without gangrene; S90.221A Contusion of right lesser toe(s) with damage to nail, initial encounter; E11.65 Type 2 diabetes mellitus with hyperglycemia; Z89.412 Acquired absence of left great toe | CPT/HCPCS: 11721 ==

== ENCOUNTER 2024-03-21 16:13 | Outpatient (CLI) | payer MEDICARE, SELFPAY ==
[2024-03-21 15:05] LABS: Abs Immature Grans 0.03 10^3/uL (0.0-0.06); Absolute Basophil Count 0.12 10^3/uL (0.0-0.2); Absolute Eosinophil Count 0.34 10^3/uL (0.0-0.7); Absolute Lymphocyte Count 2.72 10^3/uL (1.2-3.4); Absolute Monocyte Count 0.72 10^3/uL (0.1-0.8); Absolute Neutrophil Count 5.21 10^3/uL (1.2-6.7); Basophils % 1.3 %; Eosinophils % 3.7 %; HCT 40.2 % (40.0-50.0); HGB 12.9 g/dL (13.5-17.5); Immature Grans % 0.3 %; Lymphocytes % 29.8 %; MCH 29.9 pg (27.0-33.0); MCHC 32.1 % (32.0-36.0); MCV 93 fL (80-95); MPV 10.4 fL (8.0-11.0); Monocytes % 7.9 %; Platelet Count 287 10^3/uL (130-400); RBC 4.32 10^6/uL (4.36-5.78); RDW 15.2 % (11.8-14.1); RDW-SD 51.9 fL; WBC 9.14 10^3/uL (4.4-10.8)
[2024-03-21 16:14] LABS: ALT 37 U/L (16-63); AST 23 U/L (15-37); Albumin 3.5 g/dL (3.4-5.0); Alkaline Phosphatase 66 U/L (46-116); Anion Gap 9.2 mmol/L (3-11); BUN 31 mg/dL (7-18); Bilirubin, Total 0.55 mg/dL (0.2-1.0); CO2 25.8 mmol/L (21.0-32.0); CREATININE 1.3 mg/dL (0.70-1.30); Calcium 9.3 mg/dL (8.5-10.1); Chloride 107 mmol/L (98-107); Estimated GFR 57.29 (mL/min/1.73m2); Glucose 134 mg/dL (74-106); Potassium 4.7 mmol/L (3.5-5.1); Sodium 142 mmol/L (136-145); Total Protein 7.1 g/dL (6.4-8.2)
[2024-03-23 10:15] LABS: PSA, Ultrasensitive <0.01 ng/mL (<= 6.5)
[2024-03-25 14:25] LABS: Testosterone, Total 142 ng/dL (240-950)
== END 2024-03-21 16:14 | disposition home or self-care (01) ==
LOC: LBO 04-03 16:13
PROVIDERS: PCP Nurse Practitioner Family; Visit Provider Internal Medicine
DX: C61 Malignant neoplasm of prostate (principal)
CPT/HCPCS: 36415; 80053; 84153; 84403; 85025

== ENCOUNTER → 2024-05-22 10:41 | Outpatient (BNVA) | payer MEDICARE, SELFPAY | PROVIDERS: PCP Nurse Practitioner Family; Referring Provider Nurse Practitioner Family; Visit Provider Podiatrist | DX: L60.3 Nail dystrophy (principal); E11.42 Type 2 diabetes mellitus with diabetic polyneuropathy; Z89.412 Acquired absence of left great toe; N18.31 Chronic kidney disease, stage 3a; S90.221A Contusion of right lesser toe(s) with damage to nail, initial encounter; E11.65 Type 2 diabetes mellitus with hyperglycemia; X58.XXXA Exposure to other specified factors, initial encounter | CPT/HCPCS: 11721 ==

== ENCOUNTER 2024-06-14 15:47 | Outpatient (CLI) | payer MEDICARE, SELFPAY ==
[2024-06-14 16:01] LABS: Abs Immature Grans 0.03 10^3/uL (0.0-0.06); Absolute Basophil Count 0.12 10^3/uL (0.0-0.2); Absolute Eosinophil Count 0.47 10^3/uL (0.0-0.7); Absolute Lymphocyte Count 2.31 10^3/uL (1.2-3.4); Absolute Monocyte Count 0.89 10^3/uL (0.1-0.8); Absolute Neutrophil Count 6.39 10^3/uL (1.2-6.7); Basophils % 1.2 %; Eosinophils % 4.6 %; HCT 42.4 % (40.0-50.0); HGB 13.4 g/dL (13.5-17.5); Immature Grans % 0.3 %; Lymphocytes % 22.6 %; MCH 30.1 pg (27.0-33.0); MCHC 31.6 % (32.0-36.0); MCV 95 fL (80-95); MPV 10.4 fL (8.0-11.0); Monocytes % 8.7 %; Neutrophils % 62.6 %; Platelet Count 294 10^3/uL (130-400); RBC 4.45 10^6/uL (4.36-5.78); RDW 15.2 % (11.8-14.1); RDW-SD 53.4 fL; WBC 10.21 10^3/uL (4.4-10.8)
[2024-06-14 16:25] LABS: ALT 44 U/L (16-63); AST 26 U/L (15-37); Albumin 3.6 g/dL (3.4-5.0); Alkaline Phosphatase 73 U/L (46-116); Anion Gap 8.9 mmol/L (3-11); BUN 37 mg/dL (7-18); Bilirubin, Total 0.7 mg/dL (0.2-1.0); CO2 28.1 mmol/L (21.0-32.0); CREATININE 1.7 mg/dL (0.70-1.30); Calcium 9.1 mg/dL (8.5-10.1); Chloride 110 mmol/L (98-107); Estimated GFR 41.52 (mL/min/1.73m2); Glucose 138 mg/dL (74-106); Potassium 5.1 mmol/L (3.5-5.1); Sodium 147 mmol/L (136-145); Total Protein 7.2 g/dL (6.4-8.2)
[2024-06-16 10:29] LABS: PSA, Ultrasensitive 0.02 ng/mL (<= 6.5)
[2024-06-20 13:05] LABS: Testosterone, Total 153 ng/dL (240-950)
== END 2024-06-14 15:48 | disposition home or self-care (01) ==
LOC: LBO 15:47
PROVIDERS: PCP Nurse Practitioner Family; Visit Provider Internal Medicine
DX: C61 Malignant neoplasm of prostate (principal)
CPT/HCPCS: 36415; 80053; 84153; 84403; 85025

== ENCOUNTER → 2024-07-04 10:10 | Outpatient (BNVA) | payer MEDICARE, SELFPAY | PROVIDERS: PCP Nurse Practitioner Family; Referring Provider Nurse Practitioner Family; Visit Provider Physician Assistant Surgical | DX: J98.6 Disorders of diaphragm (principal); J44.9 Chronic obstructive pulmonary disease, unspecified; Z87.891 Personal history of nicotine dependence | CPT/HCPCS: 99214; G0296 ==

== ENCOUNTER 2024-07-30 12:55 | Outpatient (REF) | payer MEDICARE, SELFPAY ==
[2024-07-30 16:33] LABS: Hemoglobin A1C 7.7 % (<5.7)
== END 2024-07-30 12:56 | disposition home or self-care (01) ==
LOC: NCHCN 12:55
PROVIDERS: PCP Nurse Practitioner Family; Visit Provider Nurse Practitioner Family
DX: E11.21 Type 2 diabetes mellitus with diabetic nephropathy (principal)
CPT/HCPCS: 83036

== ENCOUNTER 2024-08-29 02:56 | Outpatient (CLI) | payer MEDICARE, SELFPAY ==
[2024-08-29 15:46] LABS: Abs Immature Grans 0.02 10^3/uL (0.0-0.06); HCT 41.2 % (40.0-50.0); HGB 13.5 g/dL (13.5-17.5); Immature Grans % 0.2 %; MCH 30.2 pg (27.0-33.0); MCHC 32.8 % (32.0-36.0); MCV 92 fL (80-95); MPV 10.1 fL (8.0-11.0); Platelet Count 284 10^3/uL (130-400); RBC 4.47 10^6/uL (4.36-5.78); RDW 14.8 % (11.8-14.1); RDW-SD 50.1 fL; WBC 10.70 10^3/uL (4.4-10.8)
[2024-08-29 16:03] LABS: ALT 35 U/L (16-63); AST 21 U/L (15-37); Albumin 3.4 g/dL (3.4-5.0); Alkaline Phosphatase 66 U/L (46-116); Anion Gap 11.9 mmol/L (3-11); BUN 30 mg/dL (7-18); Bilirubin, Total 0.7 mg/dL (0.2-1.0); CO2 24.1 mmol/L (21.0-32.0); Calcium 9.0 mg/dL (8.5-10.1); Chloride 106 mmol/L (98-107); Estimated GFR 62.67 (mL/min/1.73m2); Glucose 104 mg/dL (74-106); Potassium 4.6 mmol/L (3.5-5.1); Sodium 142 mmol/L (136-145); Total Protein 7.1 g/dL (6.4-8.2)
== END 2024-08-29 02:57 | disposition home or self-care (01) ==
LOC: LBO 02:57
PROVIDERS: PCP Nurse Practitioner Family; Visit Provider Nurse Practitioner
DX: C61 Malignant neoplasm of prostate (principal)
CPT/HCPCS: 36415; 80053; 84153; 85025

== ENCOUNTER → 2024-10-16 10:54 | Outpatient (BNVA) | payer MEDICARE, SELFPAY | PROVIDERS: PCP Nurse Practitioner Family; Referring Provider Nurse Practitioner Family; Visit Provider Podiatrist | DX: L60.3 Nail dystrophy (principal); E11.42 Type 2 diabetes mellitus with diabetic polyneuropathy; E11.22 Type 2 diabetes mellitus with diabetic chronic kidney disease; E11.51 Type 2 diabetes mellitus with diabetic peripheral angiopathy without gangrene; E11.65 Type 2 diabetes mellitus with hyperglycemia; N18.31 Chronic kidney disease, stage 3a; S90.221A Contusion of right lesser toe(s) with damage to nail, initial encounter; X58.XXXA Exposure to other specified factors, initial encounter; R09.89 Other specified symptoms and signs involving the circulatory and respiratory systems; L65.9 Nonscarring hair loss, unspecified; R20.8 Other disturbances of skin sensation; R23.8 Other skin changes; L60.2 Onychogryphosis; L60.8 Other nail disorders | CPT/HCPCS: 11721 ==

== ENCOUNTER 2024-11-16 04:25 | Outpatient (CLI) | payer MEDICARE, SELFPAY ==
--- NOTE | 2024-11-16 06:30 | DI.CTLCSR_ITS ---
Exam(s) CT CHEST LUNG CANCER SCREEN EXAM: CT CHEST LUNG CANCER SCREEN CLINICAL HISTORY: Screening for lung cancer,former cigarette smoker, z87.891. TECHNIQUE: Imaging Protocol: Low Dose Technique CONTRAST MATERIAL: None COMPARISON: CT CT CHEST LUNG CANCER SCREEN from 11/14/2023 FINDINGS: CHEST: LUNGS: There is unchanged elevation of the right hemidiaphragm and adjacent atelectasis in the right lung base again noted, similar to previous. New significant right lung findings. No pleural effusion.. In the opposite-left lung there is a small noncalcified nodule now evident which measures 5 mm and was not previously present on 11/14/2023. There are no new additional focal left lung findings and there is no left pleural effusion. MEDIASTINUM: There is no obvious hilar nor mediastinal adenopathy. CARDIAC: Heart size is normal. There is no pericardial effusion.Caliber of the thoracic aorta is within normal limits. OTHER: Lowermost images reveal no adrenal masses. No splenomegaly. Multiple hypodensities in the liver are again noted measuring up to 4.3 x 2.8 cm, unchanged. These are probably benign cysts. OSSEOUS: No significant osseous lesions.Prominent calcification in the anterior lung tuna ligament of the thoracic spine noted as well as prominent osteophytes. IMPRESSION: 1. Compared to previous CT scan of 11/14/2023 there is a new 5 mm noncalcified nodule in the left upper lobe which will require appropriate follow-up. 2. Chronically elevated right hemidiaphragm and atelectasis-scarring in the right lung base again noted. There are no pleural effusions nor intrathoracic adenopathy. 3. Lung RADS Cat 4A - Suspicious: Findings for which additional diagnostic testing and/or tissue sampling recommended. RECOMMEND REPEAT CT SCAN IN 3 MONTHS. Lung-RADS 1.0 CATEGORIES: Category 0 - Prior chest CT exam(s) being located for comparison. Category 1 - Annual screening in 12 months. No nodules or definitely benign nodules. Category 2 - Annual screening in 12 months. Benign appearance. Nodules with low likelihood of becoming active cancer. Category 3 - 6-month follow-up. Probably benign. Short-term follow-up suggested. Nodules with low likelihood of becoming active cancer. Category 4A - 3-month follow-up and CT/PET if >8 mm in size. Suspicious finding. Findings which require additional testing. Category 4B - Findings which require additional testing and tissue sampling. Category 4X - Category 3 or 4 nodules with additional features or imaging findings that increases the suspicion of malignancy. Modifier S- Potentially clinically significant findings (non lung cancer) RADIATION DOSE DELIVERED: 114.08mGy.cm Total DLP DATA REPOSITORY: All CT scans at this facility are submitted to the National Radiology Data Registry (NRDR) Dose Index Registry (DIR) with the [employer] ([employer]). RADIATION OPTIMIZATION: All CT scans at this facility use at least one of these dose optimization techniques: automated exposure control; mA and/or kV adjustment per patient size (includes targeted exams where dose is matched to clinical indication); or iterative reconstruction.
== END 2024-11-16 04:45 ==
LOC: DI 04:25
PROVIDERS: PCP Nurse Practitioner Family; Visit Provider Physician Assistant Surgical
DX: Z12.2 Encounter for screening for malignant neoplasm of respiratory organs (principal); Z87.891 Personal history of nicotine dependence; R91.8 Other nonspecific abnormal finding of lung field; J98.11 Atelectasis
CPT/HCPCS: 71271

== ENCOUNTER 2024-11-30 14:45 | Outpatient (CLI) | payer MEDICARE, SELFPAY ==
[2024-11-30 10:39] LABS: Abs Immature Grans 0.03 10^3/uL (0.0-0.06); HCT 40.1 % (40.0-50.0); HGB 12.9 g/dL (13.5-17.5); Immature Grans % 0.3 %; MCH 29.6 pg (27.0-33.0); MCHC 32.2 % (32.0-36.0); MCV 92 fL (80-95); MPV 10.2 fL (8.0-11.0); Platelet Count 268 10^3/uL (130-400); RBC 4.36 10^6/uL (4.36-5.78); RDW 16.1 % (11.8-14.1); RDW-SD 54.4 fL; WBC 9.20 10^3/uL (4.4-10.8)
[2024-11-30 11:28] LABS: ALT 37 U/L (16-63); AST 22 U/L (15-37); Albumin 3.2 g/dL (3.4-5.0); Alkaline Phosphatase 69 U/L (46-116); Anion Gap 10.9 mmol/L (3-11); BUN 25 mg/dL (7-18); Bilirubin, Total 0.6 mg/dL (0.2-1.0); CO2 27.1 mmol/L (21.0-32.0); Calcium 8.6 mg/dL (8.5-10.1); Chloride 106 mmol/L (98-107); Estimated GFR 62.67 (mL/min/1.73m2); Glucose 124 mg/dL (74-106); Potassium 4.5 mmol/L (3.5-5.1); Sodium 144 mmol/L (136-145); Total Protein 7.0 g/dL (6.4-8.2)
== END 2024-11-30 14:46 | disposition home or self-care (01) ==
LOC: LBO 14:45
PROVIDERS: PCP Nurse Practitioner Family; Visit Provider Nurse Practitioner
DX: C61 Malignant neoplasm of prostate (principal)
CPT/HCPCS: 36415; 80053; 84153; 85025

== ENCOUNTER → 2025-01-07 11:01 | Outpatient (BNVA) | payer MEDICARE, SELFPAY | PROVIDERS: PCP Nurse Practitioner Family; Referring Provider Nurse Practitioner Family; Visit Provider Physician Assistant Surgical | DX: J98.6 Disorders of diaphragm (principal); J44.9 Chronic obstructive pulmonary disease, unspecified; Z87.891 Personal history of nicotine dependence | CPT/HCPCS: 99214 ==